=== PATIENT | female | born 1970 | race Caucasian/White ===

== ENCOUNTER 2019-06-19 10:32 | Outpatient (RCR) | payer OTHER, MEDICAID, SELFPAY ==
[2019-04-23 13:01] LABS: INR 3.1; Prothrombin Time 31.4 Seconds (11.1-14.7)
[2019-06-19 11:35] LABS: Hematocrit 35.2 % (37.0-47.0); Hemoglobin 11.2 g/dL (12.0-15.0); Immature Platelet Fraction Pct 6.2 % (0.9-11.2); Mean Corpuscular HGB Conc 31.8 g/dl (32-36); Mean Corpuscular Hemoglobin 27.9 pg (26-34); Mean Corpuscular Volume 87.6 fl (80-100); Mean Platelet Volume 11.8 fl (7.4-10.4); Platelet Count Result 121 k/mm3 (150-375); Red Blood Count 4.02 M/mm3 (4.2-5.4); White Blood Count 4.4 K/mm3 (4.5-10.0)
[2019-06-19 11:37] LABS: Add Urine Microscopic? YES; Appearance Urine Clear (Clear); Bilirubin Urine Negative (Negative); Blood Urine 1+ (Negative); Color Urine Straw (Yellow); Glucose Urine UA Negative (Negative); Ketones Urine Negative (Negative); Leukocyte Esterase Ur Negative LEU/UL (Negative); Mucus Urine Rare /lpf; Nitrate Urine Negative (Negative); Protein Urine Negative (Negative); RBC Urine 0-2 /hpf (0-2); Specific Grav Ur 1.012 (1.001-1.035); Squamous Epithelial Cell Urine Many /hpf (Few); Urobilinogen Urine Negative mg/dL (<2.0); WBC Urine 0-3 /hpf
[2019-06-19 11:51] LABS: INR 3.2; Prothrombin Time 32.5 Seconds (11.1-14.7)
[2019-06-19 11:53] LABS: Alanine Aminotransferase 10 U/L (4-35); Albumin Level 3.9 g/dL (3.5-5.1); Alkaline Phosphatase 108 U/L (38-126); Aspartate Amino Transferase 16 U/L (14-36); Bilirubin,Total 0.6 mg/dL (0.2-1.3); Blood Urea Nitrogen 18 mg/dL (7-17); CRP 1.8 mg/dL (<1.0); Calcium 8.9 mg/dL (8.4-10.2); Carbon Dioxide 28 mmol/L (22-30); Chloride 102 mmol/L (98-107); Cholesterol 137 mg/dL (0-200); Estimated Glomerular Filt Rate > 60; Glucose 94 mg/dL (65-105); HDL Direct 40 mg/dL; Potassium 4.3 mmol/L (3.4-5.0); Sodium 138 mmol/L (137-145); Triglycerides 55 mg/dL (<150)
[2019-06-19 11:57] LABS: Erythrocyte Sedimentation Rate 119 mm/hr (0-20)
[2019-06-19 11:59] LABS: Complement C3 116 mg/dL (88-165)
[2019-06-19 12:02] LABS: LDL Cholesterol Direct 76 mg/dL
[2019-06-20 19:21] LABS: Anti Cardio Antibody IgM <12 MPL (<=12); Anti Cardiolipin Antibody IgA <11 APL (<=11); Anti Cardiolipin Antibody IgG <14 GPL (<=14)
[2019-06-21 00:50] LABS: Angiotensin Converting Enzyme 55 U/L (9-67)
[2019-06-21 02:59] LABS: Thyroglobulin 9.8 ng/mL (2.8-40.9); Thyroglobulin Antibodies <1 IU/mL (<=1); Thyroid Peroxidase Antibodies <1 IU/mL (<9)
[2019-06-21 22:21] LABS: ANCA Screen Negative (Negative)
[2019-06-22 14:15] LABS: Anti Cyclic Citrullinated Pept 38 Units (<20)
[2019-06-22 16:51] LABS: Anti Centromere B Antibody <1.0
[2019-06-22 16:51] LABS: SS-A <1.0; SS-B <1.0
[2019-06-22 18:32] LABS: Scleroderma 70 Antibody <1.0
[2019-06-24 16:46] LABS: SM Antibody <1.0; SM/RNP Antibody <1.0
== END 2019-07-22 23:59 | disposition home or self-care (01) ==
LOC: ANHLAB 10:32
PROVIDERS: PCP Internal Medicine; Referring Provider Internal Medicine; Visit Provider Internal Medicine Cardiovascular Disease
DX: Z51.81 Encounter for therapeutic drug level monitoring (principal); Z79.01 Long term (current) use of anticoagulants
CPT/HCPCS: 36415; 80053; 80061; 81001; 82164; 84432; 85027; 85610; 85652; 86021; 86038; 86039; 86140; 86146; 86147; 86160; 86200; 86225; 86226; 86235; 86376; 86800

== ENCOUNTER 2019-07-24 18:03 | Emergency (ER) | payer OTHER, MEDICAID, SELFPAY ==
[2019-07-24] VITALS (7 sets, daily range): BP systolic 128–162; BP diastolic 68–109; PULSE 83–94; RESP 13–40; TEMP 36.7–37.4; O2SAT 94–100
--- NOTE | ~2019-07-24 | XR_ITS ---
EXAMINATION: XR chest 2V DATE: 07/24/2019 19:34 INDICATION: COPD. Shortness of breath TECHNIQUE: PA and lateral views of the chest were obtained. COMPARISON: Chest radiograph dated 10/06/[address] dated 12/23/2018 FINDINGS: The lungs remain clear with no focal airspace opacities, pulmonary edema, pleural effusion or pneumot horax. Cardiomegaly. Persistently dilated azygos vein. Cholecystectomy clips in the right upper quadr ant. Moderate thoracolumbar spondylosis. IMPRESSION: 1. Cardiomegaly. Reviewed, dictated and finalized at location A. LAINT INVESTIGATIONS OFFICER IMPRESSION: 1. Cardiomegaly.
[2019-07-24] MEDS: methylPREDNISolone SOD SUCC 125 MG VIAL IV PUSH (19:07)
--- NOTE | 2019-07-24 19:11 | ED.GENADULT ---
HPI - General Adult General Chief complaint: Upper Respiratory Infection Stated complaint: cough and cold Time Seen by Provider: 07/24/19 18:11 Source: patient Mode of arrival: ambulatory Limitations: no limitations History of Present Illness HPI narrative: Patient is a 49-year-old female who presents to emergency department for evaluation of upper respiratory symptoms for the last several days. She does cough congestion rhinorrhea with shortness of breath and wheezing with history of COPD has been using her home medications with minimal improvement symptoms worse with activity and movement. Patient denies any current pain vomiting diarrhea weakness. Related Data Home Medications Medication Instructions Recorded Confirmed budesonide-formoterol HFA 160 2 puff INHALATION Q12H 05/26/19 mcg-4.5 mcg/actuation aerosol inhaler carvedilol 3.125 mg tablet 3.125 mg PO Q12H 05/26/19 cetirizine 10 mg tablet 10 mg PO DAILY 05/26/19 furosemide 20 mg tablet 20 mg PO QAM 05/26/19 hydroxychloroquine 200 mg tablet 400 mg PO DAILY tablet 05/26/19 lamotrigine 200 mg tablet 200 mg PO DAILY 05/26/19 pantoprazole 40 mg tablet,delayed 40 mg PO QAM 05/26/19 release sacubitril 49 mg-valsartan 51 mg 2 tablet PO BID tablet 05/26/19 tablet warfarin 1 mg tablet 1 mg PO QMWFSU tablet 05/26/19 warfarin 10 mg tablet 10 mg PO DAILY 05/26/19 Allergies Allergy/AdvReac Type Severity Reaction Status Date / Time oxcarbazepine Allergy Mild Swelling Verified 07/24/19 18:52 sulfamethoxazole Allergy Mild hypersensit Verified 07/24/19 18:52 ivity trimethoprim Allergy Mild Swelling Verified 07/24/19 18:52 doxycycline Allergy Unknown hypersensit Verified 07/24/19 18:52 ivity Penicillins Allergy Unknown urticaria Verified 07/24/19 18:52 Review of Systems Review of Systems: All systems reviewed & are unremarkable except as noted in HPI and below PMFSH Past Medical History Medical History Allergies Arthritis Asthma CHF (congestive heart failure) COPD (chronic obstructive pulmonary disease) GERD (gastroesophageal reflux disease) History of blood clots Lupus (systemic lupus erythematosus) Umbilical hernia Surgical History Surgical History H/O section H/O hernia repair H/O tubal ligation Hx of cholecystectomy Social History Social History Gender identity (if verbalized by the patient): Female Exam Narrative: Exam Narrative: GENERAL: Well-appearing, obese, and in no acute distress. HEAD: Normocephalic, atraumatic. EYES: PERRLA and EOMI. ENT: Nares clear, no rhinorrhea or epistaxis. Mucous membranes moist. Oropharynx without tonsillar hypertrophy exudate or other lesions. NECK: Supple. No adenopathy or masses. CHEST: Diminished on auscultation. No respiratory distress. Expiratory wheezes throughout HEART: Regular rate and rhythm. No murmur heard. Normal peripheral pulses. ABDOMEN: Soft, nontender, nondistended, normal active bowel sounds. EXTREMITIES: Normal range of motion. Chronic edema of the lower extremities SKIN: Warm, dry, no rash. NEURO: No focal deficits. Alert and oriented x3. PSYCH: Normal mood and affect. Course Course Emergency Course: Patient with improvement after breathing treatment wheezing has resolved Vital Signs Vital signs: Vital Signs Temperature 99.3 F 07/24/19 18:11 Pulse Rate 94 07/24/19 18:11 Respiratory Rate 24 H 07/24/19 18:11 Blood Pressure 162/109 H 07/24/19 18:11 Pulse Oximetry 100 07/24/19 18:11 Temperature 98.1 F 07/24/19 19:08 Pulse Rate 87 07/24/19 21:19 Respiratory Rate 13 07/24/19 21:19 Blood Pressure 134/83 07/24/19 21:19 Pulse Oximetry 96 07/24/19 21:20 Medical Decision Making MDM Narrative Medical decision making narrative: Patient in the room i
[2019-07-24] MEDS: ALBUTEROL SULFATE NEB 2.5 MG/0.5 ML INH 20 MG INHALATION (19:14)
[2019-07-24] MEDS: IPRATROPIUM BR 0.02% INH SOLN 0.5 MG/2.5 ML VIAL 1.5 MG INHALATION (19:15)
[2019-07-24 19:19] LABS: Basophils Percent Auto 0.8 % (0.2-1.2); Eosinophils Absolute Auto 0.3 K/mm3 (0-0.3); Eosinophils Percent Auto 8.6 % (0-4.4); Hematocrit 35.9 % (37.0-47.0); Hemoglobin 11.1 g/dL (12.0-15.0); Immature Granulocyte Absolute 0.01 K/mm3 (0.00-0.031); Immature Granulocyte Percent A 0.3 % (0-0.5); Immature Platelet Fraction Pct 7.9 % (0.9-11.2); Lymphocytes Absolute Auto 0.57 K/mm3 (0.9-3.2); Lymphocytes Percent Auto 14.4 % (18.3-44.2); Mean Corpuscular HGB Conc 30.9 g/dl (32-36); Mean Corpuscular Hemoglobin 27.6 pg (26-34); Mean Corpuscular Volume 89.3 fl (80-100); Mean Platelet Volume 11.8 fl (7.4-10.4); Monocytes Absolute Auto 0.4 K/mm3 (0.1-0.6); Monocytes Percent Auto 10.8 % (2.6-8.5); Neutrophils Absolute Auto 2.6 K/mm3 (1.3-6.7); Neutrophils Percent Auto 65.1 % (45.5-73.1); Platelet Count Result 125 k/mm3 (150-375); Red Blood Count 4.02 M/mm3 (4.2-5.4); Red Cell Distribution Width 14.1 % (11.5-14.5)
[2019-07-24 19:27] LABS: INR 3.7; Prothrombin Time 35.8 Seconds (11.1-14.7)
[2019-07-24 19:29] LABS: Blood Urea Nitrogen 13 mg/dL (7-17); Calcium 8.8 mg/dL (8.4-10.2); Carbon Dioxide 31 mmol/L (22-30); Chloride 103 mmol/L (98-107); Estimated CRCL calculation 98 ml/min; Estimated Glomerular Filt Rate > 60; Glucose 97 mg/dL (65-105); Potassium 4.1 mmol/L (3.4-5.0); Sodium 141 mmol/L (137-145)
== END 2019-07-24 21:45 | disposition home or self-care (01) ==
PROVIDERS: Emergency Medicine Emergency Medical Services; Emergency Provider Emergency Medicine; PCP Internal Medicine
DX: J44.9 Chronic obstructive pulmonary disease, unspecified (principal); I50.9 Heart failure, unspecified; K21.9 Gastro-esophageal reflux disease without esophagitis; M32.9 Systemic lupus erythematosus, unspecified; M19.90 Unspecified osteoarthritis, unspecified site; I51.7 Cardiomegaly; Z79.01 Long term (current) use of anticoagulants; Z86.711 Personal history of pulmonary embolism
CPT/HCPCS: 36415; 71046; 80048; 85025; 85055; 85610; 87804; 94640; 96374; 99284; J2930

== ENCOUNTER 2019-08-07 09:53 | Outpatient (CLI) | payer OTHER, MEDICAID, SELFPAY ==
[2019-08-07 10:40] LABS: Hematocrit 38.4 % (37.0-47.0); Hemoglobin 11.9 g/dL (12.0-15.0); Mean Corpuscular Hemoglobin 27.4 pg (26-34); Mean Corpuscular Volume 88.5 fl (80-100); Mean Platelet Volume 12.5 fl (7.4-10.4); Platelet Count Result 114 k/mm3 (150-375); Red Blood Count 4.34 M/mm3 (4.2-5.4); Red Cell Distribution Width 14.4 % (11.5-14.5); White Blood Count 6.7 K/mm3 (4.5-10.0)
[2019-08-07 10:41] LABS: Add Urine Microscopic? NO; Appearance Urine Clear (Clear); Bilirubin Urine Negative (Negative); Blood Urine Negative (Negative); Color Urine Straw (Yellow); Glucose Urine UA Negative (Negative); Ketones Urine Negative (Negative); Leukocyte Esterase Ur Negative LEU/UL (Negative); Nitrate Urine Negative (Negative); Protein Urine Negative (Negative); Specific Grav Ur 1.005 (1.001-1.035); Urobilinogen Urine Negative mg/dL (<2.0)
[2019-08-07 10:53] LABS: Alanine Aminotransferase 11 U/L (4-35); Alkaline Phosphatase 90 U/L (38-126); Aspartate Amino Transferase 15 U/L (14-36); Bilirubin,Total 0.6 mg/dL (0.2-1.3); Blood Urea Nitrogen 19 mg/dL (7-17); CRP 0.8 mg/dL (<1.0); Carbon Dioxide 30 mmol/L (22-30); Chloride 98 mmol/L (98-107); Estimated Glomerular Filt Rate > 60; Glucose 87 mg/dL (65-105); Potassium 4.4 mmol/L (3.4-5.0); Sodium 140 mmol/L (137-145)
== END 2019-08-07 09:54 | disposition home or self-care (01) ==
LOC: ANHLAB 09:57
PROVIDERS: PCP Internal Medicine; Visit Provider Internal Medicine
DX: M32.9 Systemic lupus erythematosus, unspecified (principal); M19.90 Unspecified osteoarthritis, unspecified site
CPT/HCPCS: 36415; 80053; 81003; 85027; 86140

== ENCOUNTER 2019-08-14 12:20 | Outpatient (RCR) | payer OTHER, MEDICAID, SELFPAY ==
[2019-07-29 10:09] LABS: Prothrombin Time 50.1 Seconds (11.1-14.7)
[2019-07-29 10:30] LABS: INR 5.6
[2019-07-31 13:27] LABS: Prothrombin Time 22.5 Seconds (11.1-14.7)
[2019-08-05 11:29] LABS: INR 1.4; Prothrombin Time 16.4 Seconds (11.1-14.7)
[2019-08-14 13:18] LABS: INR 2.5; Prothrombin Time 26.3 Seconds (11.1-14.7)
== END 2019-10-27 23:59 | disposition home or self-care (01) ==
LOC: ANHLAB 12:20
PROVIDERS: PCP Internal Medicine; Visit Provider Internal Medicine Cardiovascular Disease
DX: Z51.81 Encounter for therapeutic drug level monitoring (principal); Z79.01 Long term (current) use of anticoagulants
CPT/HCPCS: 36415; 85610

== ENCOUNTER 2020-01-26 13:02 | Outpatient (RCR) | payer OTHER, MEDICAID, SELFPAY ==
[2019-11-14 10:45] LABS: Hematocrit 34.8 % (37.0-47.0); Mean Corpuscular HGB Conc 31.6 g/dl (32-36); Mean Corpuscular Hemoglobin 28.3 pg (26-34); Mean Corpuscular Volume 89.5 fl (80-100); Platelet Count Result 134 k/mm3 (150-375); Red Blood Count 3.89 M/mm3 (4.2-5.4); Red Cell Distribution Width 14.4 % (11.5-14.5); White Blood Count 4.4 K/mm3 (4.5-10.0)
[2019-11-14 10:46] LABS: Add Urine Microscopic? YES; Appearance Urine Clear (Clear); Bacteria Urine Trace /hpf; Bilirubin Urine Negative (Negative); Blood Urine 1+ (Negative); Color Urine Straw (Yellow); Glucose Urine UA Negative (Negative); Ketones Urine Negative (Negative); Leukocyte Esterase Ur Trace LEU/UL (Negative); Mucus Urine Rare /lpf; Nitrate Urine Negative (Negative); Protein Urine Negative (Negative); RBC Urine 0-2 /hpf (0-2); Specific Grav Ur 1.008 (1.001-1.035); Squamous Epithelial Cell Urine Few /hpf (Few); Urobilinogen Urine Negative mg/dL (<2.0); WBC Urine 0-3 /hpf
[2019-11-14 10:56] LABS: Cholesterol 145 mg/dL (0-200); HDL Direct 50 mg/dL; Triglycerides 66 mg/dL (<150)
[2019-11-14 10:58] LABS: INR 3.2; Prothrombin Time 32.1 Seconds (11.1-14.7)
[2019-11-14 11:00] LABS: Alanine Aminotransferase 10 U/L (4-35); Albumin Level 4.2 g/dL (3.5-5.1); Alkaline Phosphatase 104 U/L (38-126); Aspartate Amino Transferase 18 U/L (14-36); Bilirubin,Total 0.4 mg/dL (0.2-1.3); Blood Urea Nitrogen 17 mg/dL (7-17); Calcium 8.7 mg/dL (8.4-10.2); Carbon Dioxide 30 mmol/L (22-30); Chloride 104 mmol/L (98-107); Estimated Glomerular Filt Rate > 60; Glucose 92 mg/dL (65-105); Potassium 4.3 mmol/L (3.4-5.0); Sodium 139 mmol/L (137-145)
[2019-11-14 11:06] LABS: LDL Cholesterol Direct 73 mg/dL
[2019-11-14 11:32] LABS: Vitamin D 25 Hydroxy 25.3 ng/mL
[2019-12-15 12:10] LABS: INR 2.5; Prothrombin Time 26.5 Seconds (11.1-14.7)
[2020-01-26 14:12] LABS: INR 3.1; Prothrombin Time 31.2 Seconds (11.1-14.7)
== END 2020-02-12 23:59 | disposition home or self-care (01) ==
LOC: ANHLAB 13:02
PROVIDERS: Nurse Practitioner; PCP Internal Medicine; Referring Provider Internal Medicine; Visit Provider Internal Medicine Cardiovascular Disease
DX: Z51.81 Encounter for therapeutic drug level monitoring (principal); I50.42 Chronic combined systolic (congestive) and diastolic (congestive) heart failure; E55.9 Vitamin D deficiency, unspecified; M32.8 Other forms of systemic lupus erythematosus; M19.90 Unspecified osteoarthritis, unspecified site; Z79.01 Long term (current) use of anticoagulants
CPT/HCPCS: 36415; 80053; 80061; 81001; 82306; 85027; 85610; 86140

== ENCOUNTER 2020-01-26 13:06 | Outpatient (CLI) | payer OTHER, MEDICAID, SELFPAY ==
[2020-01-26 14:02] LABS: Hematocrit 36.3 % (37.0-47.0); Hemoglobin 11.5 g/dL (12.0-15.0); Mean Corpuscular HGB Conc 31.7 g/dl (32-36); Mean Corpuscular Hemoglobin 28.2 pg (26-34); Mean Platelet Volume 11.9 fl (7.4-10.4); Platelet Count Result 131 k/mm3 (150-375); Red Blood Count 4.08 M/mm3 (4.2-5.4); Red Cell Distribution Width 14.1 % (11.5-14.5); White Blood Count 4.2 K/mm3 (4.5-10.0)
[2020-01-26 14:18] LABS: Alanine Aminotransferase 10 U/L (4-35); Alkaline Phosphatase 89 U/L (38-126); Anion Gap 6 mmol/L (8-16); Aspartate Amino Transferase 18 U/L (14-36); Bilirubin,Total 0.2 mg/dL (0.2-1.3); Blood Urea Nitrogen 21 mg/dL (7-17); CRP < 0.5 mg/dL (<1.0); Calcium 8.8 mg/dL (8.4-10.2); Carbon Dioxide 28 mmol/L (22-30); Chloride 104 mmol/L (98-107); Estimated Glomerular Filt Rate 53; Glucose 90 mg/dL (65-105); Potassium 4.1 mmol/L (3.4-5.0); Sodium 138 mmol/L (137-145)
[2020-01-26 14:53] LABS: Add Urine Microscopic? YES; Appearance Urine Clear (Clear); Bilirubin Urine Negative (Negative); Blood Urine 2+ (Negative); Color Urine Straw (Yellow); Glucose Urine UA Negative (Negative); Ketones Urine Negative (Negative); Leukocyte Esterase Ur Negative LEU/UL (Negative); Mucus Urine Rare /lpf; Nitrate Urine Negative (Negative); Protein Urine Negative (Negative); RBC Urine 0-2 /hpf (0-2); Specific Grav Ur 1.008 (1.001-1.035); Squamous Epithelial Cell Urine Few /hpf (Few); Urobilinogen Urine Negative mg/dL (<2.0); WBC Urine 0-3 /hpf
[2020-01-26 14:58] LABS: Erythrocyte Sedimentation Rate 78 mm/hr (0-20)
== END 2020-01-26 13:07 | disposition home or self-care (01) ==
PROVIDERS: PCP Internal Medicine; Visit Provider Internal Medicine
DX: M19.90 Unspecified osteoarthritis, unspecified site (principal); M32.9 Systemic lupus erythematosus, unspecified
CPT/HCPCS: 36415; 80053; 81001; 85027; 85055; 85610; 85652; 86140

== ENCOUNTER 2020-03-14 09:08 | Outpatient (CLI) | payer OTHER, MEDICAID, SELFPAY ==
--- NOTE | ~2020-03-14 | CT_ITS ---
EXAMINATION: CT chest w con DATE: 03/14/2020 09:41 INDICATION: Enlarged lymph nodes. TECHNIQUE: Computed tomography (CT) of the chest was performed with 75 cc Omnipaque 350 intravenous c ontrast. The dose-length product was 1067.05 mGy-cm. Automated exposure control and iterative reconst ruction technique were employed. COMPARISON: CT dated 12/23/2018 FINDINGS: Interval resolution of mediastinal lymphadenopathy. Cardiomegaly. Enlarged pulmonary arteri es consistent with pulmonary arterial hypertension. No significant pleural or pericardial effusion. T here is atherosclerosis of the coronary arteries. There is chronic left lower lobe atelectasis/scarri ng. No endobronchial lesions. No suspicious pulmonary nodules or masses. IMPRESSION: 1. Cardiomegaly. 2: Enlarged pulmonary arteries consistent with pulmonary arterial hypertension. 3: Resolution of lymphadenopathy, likely reactive. 4: Chronic left lower lobe atelectasis/scarring. Reviewed, dictated and finalized at location A.
[2020-03-14 09:36] LABS: Estimated Glomerular Filt Rate 59
== END 2020-03-14 09:09 | disposition home or self-care (01) ==
PROVIDERS: PCP Internal Medicine; Visit Provider Nurse Practitioner Family
DX: J44.9 Chronic obstructive pulmonary disease, unspecified (principal); R59.1 Generalized enlarged lymph nodes; I51.7 Cardiomegaly; R91.8 Other nonspecific abnormal finding of lung field
CPT/HCPCS: 71260; Q9967

== ENCOUNTER 2020-03-15 13:03 | Outpatient (RCR) | payer OTHER, MEDICAID, SELFPAY ==
[2020-03-15 14:13] LABS: INR 2.8; Prothrombin Time 28.7 Seconds (11.1-14.7)
== END 2020-06-13 23:59 | disposition home or self-care (01) ==
LOC: ANHLAB 13:03
PROVIDERS: PCP Internal Medicine; Visit Provider Internal Medicine Cardiovascular Disease
DX: Z51.81 Encounter for therapeutic drug level monitoring (principal); Z79.01 Long term (current) use of anticoagulants
CPT/HCPCS: 36415; 85610

== ENCOUNTER 2020-03-15 13:10 | Outpatient (CLI) | payer OTHER, MEDICAID, SELFPAY ==
[2020-03-15 14:01] LABS: Basophils Percent Auto 0.7 % (0.2-1.2); Eosinophils Absolute Auto 0.1 K/mm3 (0-0.3); Eosinophils Percent Auto 2.2 % (0-4.4); Hematocrit 37.4 % (37.0-47.0); Immature Granulocyte Absolute 0.03 K/mm3 (0.00-0.031); Immature Granulocyte Percent A 0.5 % (0-0.5); Lymphocytes Absolute Auto 1.04 K/mm3 (0.9-3.2); Mean Corpuscular HGB Conc 32.1 g/dl (32-36); Mean Corpuscular Volume 90.3 fl (80-100); Mean Platelet Volume 12.5 fl (7.4-10.4); Monocytes Absolute Auto 0.6 K/mm3 (0.1-0.6); Monocytes Percent Auto 10.4 % (2.6-8.5); Neutrophils Absolute Auto 3.9 K/mm3 (1.3-6.7); Neutrophils Percent Auto 68.2 % (45.5-73.1); Platelet Count Result 142 k/mm3 (150-375); Red Blood Count 4.14 M/mm3 (4.2-5.4); Red Cell Distribution Width 14.3 % (11.5-14.5); White Blood Count 5.8 K/mm3 (4.5-10.0)
[2020-03-15 14:12] LABS: Alanine Aminotransferase 12 U/L (4-35); Albumin Level 4.3 g/dL (3.5-5.1); Alkaline Phosphatase 96 U/L (38-126); Anion Gap 9 mmol/L (8-16); Aspartate Amino Transferase 19 U/L (14-36); Bilirubin,Total 0.6 mg/dL (0.2-1.3); Blood Urea Nitrogen 17 mg/dL (7-17); CRP 0.6 mg/dL (<1.0); Calcium 9.3 mg/dL (8.4-10.2); Carbon Dioxide 30 mmol/L (22-30); Chloride 103 mmol/L (98-107); Estimated Glomerular Filt Rate 59; Glucose 91 mg/dL (65-105); Potassium 3.9 mmol/L (3.4-5.0); Sodium 142 mmol/L (137-145)
[2020-03-15 14:20] LABS: Add Urine Microscopic? YES; Appearance Urine Clear (Clear); Bilirubin Urine Negative (Negative); Blood Urine 1+ (Negative); Color Urine Straw (Yellow); Glucose Urine UA Negative (Negative); Ketones Urine Negative (Negative); Leukocyte Esterase Ur Negative LEU/UL (Negative); Mucus Urine Rare /lpf; Nitrate Urine Negative (Negative); Protein Urine Negative (Negative); RBC Urine 0-2 /hpf (0-2); Specific Grav Ur 1.009 (1.001-1.035); Squamous Epithelial Cell Urine Occasional /hpf (Few); Urobilinogen Urine Negative mg/dL (<2.0); WBC Urine 0-3 /hpf
[2020-03-15 15:12] LABS: Erythrocyte Sedimentation Rate 47 mm/hr (0-20)
== END 2020-03-15 13:11 | disposition home or self-care (01) ==
PROVIDERS: PCP Internal Medicine; Visit Provider Internal Medicine
DX: M32.19 Other organ or system involvement in systemic lupus erythematosus (principal); M19.90 Unspecified osteoarthritis, unspecified site
CPT/HCPCS: 36415; 80053; 81001; 85025; 85610; 85652; 86140

== ENCOUNTER 2020-04-08 08:57 | Outpatient (CLI) | payer OTHER, MEDICAID, SELFPAY ==
--- NOTE | ~2020-04-08 | XR_ITS ---
XR lumbar spine 2-3V 04/08/2020 09:32 Indication: Low back pain Procedure: 3 views lumbar spine Comparison: No prior studies for comparison. Findings: There is mild disc narrowing at L3-4 and L5-S1. There is facet hypertrophy at L4-5 and L5-S 1. There is an IVC filter. There is moderate disc narrowing at T11-12 and T12-L1. There are cholecyst ectomy clips. Impression: 1: Mild-moderate multilevel spondylosis. Reviewed, dictated and finalized at location B. Impression: 1: Mild-moderate multilevel spondylosis.
== END 2020-04-08 08:58 | disposition home or self-care (01) ==
LOC: ANHIMG 09:00
PROVIDERS: PCP Internal Medicine; Visit Provider Internal Medicine
DX: M47.896 Other spondylosis, lumbar region (principal)
CPT/HCPCS: 72100

== ENCOUNTER 2020-04-20 06:49 | Outpatient (NON) | payer OTHER, MEDICAID, SELFPAY ==
[2020-04-21 18:20] LABS: SARS-CoV-2 RNA PCR Positive
== END 2020-04-20 06:50 ==
LOC: ANHCOVIDDT 06:58
PROVIDERS: PCP Internal Medicine; Visit Provider Internal Medicine
DX: U07.1 COVID-19 (principal)
CPT/HCPCS: 87635; C9803; U0003

== ENCOUNTER 2020-05-14 11:09 | Outpatient (CLI) | payer OTHER, MEDICAID, SELFPAY ==
--- NOTE | ~2020-05-14 | MM_ITS ---
EXAMINATION: MM screening anais BI w gutierrez HISTORY: Screening mammogram TECHNIQUE: Craniocaudal and mediolateral oblique 3-D tomosynthesis images were obtained and synthetic 2-D images were generated. CAD analysis was submitted and interpreted. COMPARISON: 01/09/2018, 10/19/2016, 10/29/2013 bilateral digital screening mammogram examinations BREAST PARENCHYMAL COMPOSITION: The breasts are almost entirely fatty. FINDINGS: There is no evidence of suspicious mass, calcification, or architectural distortion to sugg est malignancy in either breast. There has been no suspicious interval change. IMPRESSION: 1. No mammographic evidence of malignancy. 2. Recommend routine screening mammography in one year. BI-RADS Category 1: Negative Reviewed, dictated and finalized at location A. AND INSURANCE CONSULTANT
== END 2020-05-14 11:10 | disposition home or self-care (01) ==
PROVIDERS: PCP Internal Medicine; Visit Provider Nurse Practitioner
DX: Z12.31 Encounter for screening mammogram for malignant neoplasm of breast (principal)
CPT/HCPCS: 77063; 77067

== ENCOUNTER 2020-06-21 10:46 | Outpatient (CLI) | payer OTHER, MEDICAID, SELFPAY ==
[2020-06-21 11:55] LABS: Appearance Urine Clear (Clear); Bilirubin Urine Negative (Negative); Blood Urine Negative (Negative); Color Urine Colorless (Yellow); Glucose Urine UA Negative (Negative); Hematocrit 34.7 % (37.0-47.0); Immature Platelet Fraction Pct 10.5 % (0.9-11.2); Ketones Urine Negative (Negative); Leukocyte Esterase Ur Negative LEU/UL (Negative); Mean Corpuscular HGB Conc 31.7 g/dl (32-36); Mean Corpuscular Hemoglobin 28.4 pg (26-34); Mean Corpuscular Volume 89.4 fl (80-100); Mean Platelet Volume 12.2 fl (7.4-10.4); Nitrate Urine Negative (Negative); Platelet Count Result 113 k/mm3 (150-375); Protein Urine Negative (Negative); Red Blood Count 3.88 M/mm3 (4.2-5.4); Red Cell Distribution Width 13.6 % (11.5-14.5); Urobilinogen Urine Negative mg/dL (<2.0); White Blood Count 4.1 K/mm3 (4.5-10.0)
[2020-06-21 12:12] LABS: CRP 1.1 mg/dL (<1.0)
[2020-06-21 12:24] LABS: Erythrocyte Sedimentation Rate 110 mm/hr (0-20)
[2020-06-21 12:46] LABS: Specific Grav Ur 1.004 (1.001-1.035); WBC Urine 0-3 /hpf
[2020-06-21 12:47] LABS: Add Urine Microscopic? YES; Squamous Epithelial Cell Urine Rare /hpf (Few)
[2020-06-22 09:19] LABS: RBC Urine 0-2 /hpf (0-2)
== END 2020-06-21 10:47 | disposition home or self-care (01) ==
LOC: ANHLAB 10:47
PROVIDERS: PCP Internal Medicine; Visit Provider Internal Medicine
DX: M32.9 Systemic lupus erythematosus, unspecified (principal); M19.90 Unspecified osteoarthritis, unspecified site
CPT/HCPCS: 36415; 81001; 85027; 85055; 85610; 85652; 86140

== ENCOUNTER 2020-06-23 11:45 | Outpatient (CLI) | payer OTHER, MEDICAID, SELFPAY ==
--- NOTE | ~2020-06-23 | XR_ITS ---
EXAMINATION: XR chest 2V 06/23/2020 12:11 INDICATION: Dyspnea. COPD. PROCEDURE: PA and lateral views of the chest COMPARISON: Comparison to multiple prior studies sequentially, with oldest reviewed study dated 03/19. FINDINGS: The lungs are clear. Cardiomegaly. There are no pleural effusions. There is no pneumothora x suspected. IMPRESSION: 1: NO ACUTE CARDIOPULMONARY DISEASE. Reviewed, dictated and finalized at location A. ACCOUNT MANAGER
== END 2020-06-23 11:46 | disposition home or self-care (01) ==
PROVIDERS: PCP Internal Medicine; Visit Provider Internal Medicine
DX: Z79.899 Other long term (current) drug therapy (principal); J44.9 Chronic obstructive pulmonary disease, unspecified
CPT/HCPCS: 71046; 87077; 87086; 87088; 87186

== ENCOUNTER 2020-08-26 11:29 | Outpatient (RCR) | payer OTHER, MEDICAID, SELFPAY ==
[2020-06-21 12:03] LABS: INR 4.4; Prothrombin Time 42.1 Seconds (11.1-14.7)
[2020-08-26 12:31] LABS: INR 3.3; Prothrombin Time 34.2 Seconds (11.1-14.7)
== END 2020-09-19 23:59 | disposition home or self-care (01) ==
LOC: ANHLAB 11:29
PROVIDERS: PCP Internal Medicine; Visit Provider Internal Medicine Cardiovascular Disease
DX: Z51.81 Encounter for therapeutic drug level monitoring (principal); I82.409 Acute embolism and thrombosis of unspecified deep veins of unspecified lower extremity; Z86.718 Personal history of other venous thrombosis and embolism; Z86.711 Personal history of pulmonary embolism; Z79.01 Long term (current) use of anticoagulants
CPT/HCPCS: 36415; 85610

== ENCOUNTER 2020-08-26 11:33 | Outpatient (CLI) | payer OTHER, MEDICAID, SELFPAY ==
[2020-08-26 12:18] LABS: Hematocrit 35.2 % (37.0-47.0); Hemoglobin 11.2 g/dL (12.0-15.0); Mean Corpuscular HGB Conc 31.8 g/dl (32-36); Mean Corpuscular Hemoglobin 27.1 pg (26-34); Mean Corpuscular Volume 85.2 fl (80-100); Mean Platelet Volume 12.3 fl (7.4-10.4); Platelet Count Result 126 k/mm3 (150-375); Red Blood Count 4.13 M/mm3 (4.2-5.4); Red Cell Distribution Width 13.2 % (11.5-14.5); White Blood Count 4.2 K/mm3 (4.5-10.0)
[2020-08-26 12:20] LABS: Add Urine Microscopic? NO; Appearance Urine Clear (Clear); Bilirubin Urine Negative (Negative); Blood Urine Negative (Negative); Color Urine Straw (Yellow); Glucose Urine UA Negative (Negative); Ketones Urine Negative (Negative); Leukocyte Esterase Ur Negative LEU/UL (Negative); Nitrate Urine Negative (Negative); Protein Urine Negative (Negative); Urobilinogen Urine Negative mg/dL (<2.0)
[2020-08-26 12:33] LABS: Alanine Aminotransferase 8 U/L (4-35); Albumin Level 4.2 g/dL (3.5-5.1); Alkaline Phosphatase 91 U/L (38-126); Anion Gap 7 mmol/L (8-16); Aspartate Amino Transferase 20 U/L (14-36); Bilirubin,Total 0.4 mg/dL (0.2-1.3); Blood Urea Nitrogen 19 mg/dL (7-17); CRP < 0.5 mg/dL (<1.0); Calcium 9.2 mg/dL (8.4-10.2); Carbon Dioxide 28 mmol/L (22-30); Chloride 104 mmol/L (98-107); Estimated Glomerular Filt Rate 59; Glucose 95 mg/dL (65-105); Sodium 139 mmol/L (137-145)
[2020-08-26 13:25] LABS: Erythrocyte Sedimentation Rate 67 mm/hr (0-20)
== END 2020-08-26 11:34 | disposition home or self-care (01) ==
LOC: ANHLAB 11:35
PROVIDERS: PCP Internal Medicine; Visit Provider Internal Medicine
DX: R70.0 Elevated erythrocyte sedimentation rate (principal); M32.9 Systemic lupus erythematosus, unspecified; M19.90 Unspecified osteoarthritis, unspecified site
CPT/HCPCS: 36415; 80053; 81003; 85027; 85610; 85652; 86140

== ENCOUNTER 2020-10-06 08:59 | Outpatient (CLI) | payer OTHER, MEDICAID, SELFPAY ==
[2020-10-06 09:34] LABS: Alanine Aminotransferase 8 U/L (4-35); Alkaline Phosphatase 98 U/L (38-126); Anion Gap 5 mmol/L (8-16); Aspartate Amino Transferase 16 U/L (14-36); Bilirubin,Total 0.3 mg/dL (0.2-1.3); Blood Urea Nitrogen 21 mg/dL (7-17); Calcium 8.4 mg/dL (8.4-10.2); Carbon Dioxide 30 mmol/L (22-30); Chloride 105 mmol/L (98-107); Cholesterol 158 mg/dL (0-200); Estimated Glomerular Filt Rate 59; Glucose 96 mg/dL (65-105); HDL Direct 47 mg/dL; Potassium 4.1 mmol/L (3.4-5.0); Sodium 140 mmol/L (137-145); Triglycerides 52 mg/dL (<150)
[2020-10-06 09:44] LABS: LDL Cholesterol Direct 89 mg/dL
[2020-10-06 10:24] LABS: Vitamin D 25 Hydroxy 29.9 ng/mL
== END 2020-10-06 09:00 | disposition home or self-care (01) ==
PROVIDERS: PCP Internal Medicine; Visit Provider Nurse Practitioner
DX: E55.9 Vitamin D deficiency, unspecified (principal); I50.42 Chronic combined systolic (congestive) and diastolic (congestive) heart failure; Z13.220 Encounter for screening for lipoid disorders
CPT/HCPCS: 36415; 80053; 80061; 82306

== ENCOUNTER 2020-12-03 11:14 | Outpatient (RCR) | payer OTHER, MEDICAID, SELFPAY ==
[2020-09-21 15:22] LABS: INR 2.5; Prothrombin Time 27.8 Seconds (11.1-14.7)
[2020-12-03 12:26] LABS: INR 2.9; Prothrombin Time 30.9 Seconds (11.1-14.7)
== END 2020-12-20 23:59 | disposition home or self-care (01) ==
LOC: ANHLAB 11:14
PROVIDERS: PCP Internal Medicine; Visit Provider Internal Medicine Cardiovascular Disease
DX: Z51.81 Encounter for therapeutic drug level monitoring (principal); I82.409 Acute embolism and thrombosis of unspecified deep veins of unspecified lower extremity; Z86.718 Personal history of other venous thrombosis and embolism; Z86.711 Personal history of pulmonary embolism; Z79.01 Long term (current) use of anticoagulants
CPT/HCPCS: 36415; 85610

== ENCOUNTER 2021-04-13 10:13 | Outpatient (RCR) | payer MEDICARE, MEDICAID, SELFPAY ==
[2021-01-18 12:19] LABS: Hematocrit 39.8 % (37.0-47.0); Hemoglobin 12.4 g/dL (12.0-15.0); Immature Platelet Fraction Pct 11.5 % (0.9-11.2); Mean Corpuscular HGB Conc 31.2 g/dl (32-36); Mean Corpuscular Hemoglobin 27.7 pg (26-34); Mean Corpuscular Volume 88.8 fl (80-100); Mean Platelet Volume 12.3 fl (7.4-10.4); Platelet Count Result 133 k/mm3 (150-375); Red Blood Count 4.48 M/mm3 (4.2-5.4); Red Cell Distribution Width 14.4 % (11.5-14.5)
[2021-01-18 12:20] LABS: Add Urine Microscopic? NO; Appearance Urine Clear (Clear); Bilirubin Urine Negative (Negative); Blood Urine Negative (Negative); Color Urine Straw (Yellow); Glucose Urine UA Negative (Negative); Ketones Urine Negative (Negative); Leukocyte Esterase Ur Negative LEU/UL (Negative); Nitrate Urine Negative (Negative); Protein Urine Negative (Negative); Urobilinogen Urine Negative mg/dL (<2.0)
[2021-01-18 12:30] LABS: Prothrombin Time 22.2 Seconds (11.1-14.7)
[2021-01-18 12:32] LABS: Alanine Aminotransferase 17 U/L (4-35); Albumin Level 4.1 g/dL (3.5-5.1); Alkaline Phosphatase 78 U/L (38-126); Anion Gap 9 mmol/L (8-16); Aspartate Amino Transferase 20 U/L (14-36); Bilirubin,Total 0.6 mg/dL (0.2-1.3); Blood Urea Nitrogen 23 mg/dL (7-17); CRP < 0.5 mg/dL (<1.0); Calcium 9.7 mg/dL (8.4-10.2); Carbon Dioxide 28 mmol/L (22-30); Chloride 102 mmol/L (98-107); Estimated Glomerular Filt Rate > 60; Glucose 89 mg/dL (65-110); Potassium 4.4 mmol/L (3.4-5.0); Sodium 139 mmol/L (137-145)
[2021-01-18 12:55] LABS: Erythrocyte Sedimentation Rate 37 mm/hr (0-20)
[2021-03-14 12:46] LABS: INR 2.1; Prothrombin Time 23.4 Seconds (11.1-14.7)
[2021-04-13 10:59] LABS: INR 3.7; Prothrombin Time 35.2 Seconds (11.1-14.7)
== END 2021-04-18 23:59 | disposition home or self-care (01) ==
LOC: ANHLAB 10:13
PROVIDERS: Internal Medicine; PCP Internal Medicine; Visit Provider Internal Medicine Cardiovascular Disease
DX: Z51.81 Encounter for therapeutic drug level monitoring (principal); I82.409 Acute embolism and thrombosis of unspecified deep veins of unspecified lower extremity; I50.42 Chronic combined systolic (congestive) and diastolic (congestive) heart failure; E55.9 Vitamin D deficiency, unspecified; Z86.718 Personal history of other venous thrombosis and embolism; Z86.711 Personal history of pulmonary embolism; Z79.01 Long term (current) use of anticoagulants; Z79.899 Other long term (current) drug therapy
CPT/HCPCS: 36415; 80053; 81003; 82306; 85027; 85055; 85610; 85652; 86140

== ENCOUNTER 2021-04-13 10:15 | Outpatient (CLI) | payer MEDICARE, MEDICAID, SELFPAY ==
[2021-04-13 11:00] LABS: Alanine Aminotransferase 11 U/L (4-35); Albumin Level 3.9 g/dL (3.5-5.1); Alkaline Phosphatase 75 U/L (38-126); Anion Gap 8 mmol/L (8-16); Aspartate Amino Transferase 18 U/L (14-36); Bilirubin,Total 0.6 mg/dL (0.2-1.3); Blood Urea Nitrogen 18 mg/dL (7-17); Calcium 8.8 mg/dL (8.4-10.2); Carbon Dioxide 27 mmol/L (22-30); Chloride 107 mmol/L (98-107); Cholesterol 145 mg/dL (0-200); Estimated Glomerular Filt Rate 59; Glucose 84 mg/dL (65-110); HDL Direct 41 mg/dL; Potassium 4.1 mmol/L (3.4-5.0); Sodium 142 mmol/L (137-145); Triglycerides 62 mg/dL (<150)
[2021-04-13 11:14] LABS: LDL Cholesterol Direct 75 mg/dL
[2021-04-13 15:19] LABS: Vitamin D 25 Hydroxy 53.6 ng/mL
== END 2021-04-13 10:16 | disposition home or self-care (01) ==
PROVIDERS: PCP Internal Medicine; Visit Provider Nurse Practitioner
DX: E55.9 Vitamin D deficiency, unspecified (principal); Z13.220 Encounter for screening for lipoid disorders; I50.9 Heart failure, unspecified
CPT/HCPCS: 36415; 80053; 80061; 82306

== ENCOUNTER 2021-05-24 15:05 | Outpatient (CLI) | payer MEDICARE, MEDICAID, SELFPAY ==
--- NOTE | ~2021-05-24 | MM_ITS ---
EXAMINATION: MM screening anais BI w gutierrez HISTORY: Screening TECHNIQUE: Craniocaudal and mediolateral oblique 3-D tomosynthesis images were obtained and synthetic 2-D images were generated. CAD analysis was submitted and interpreted. COMPARISON: Comparison to multiple prior studies sequentially, with oldest reviewed study dated 10/09. BREAST PARENCHYMAL COMPOSITION: There are scattered areas of fibroglandular density. FINDINGS: There is no evidence of suspicious mass, calcification, or architectural distortion to sugg est malignancy in either breast. There has been no suspicious interval change. IMPRESSION: 1. No mammographic evidence of malignancy. 2. Recommend routine screening mammography in one year. BI-RADS Category 1: Negative Reviewed, dictated and finalized at location A. CLEANING SUPERVISOR
== END 2021-05-24 15:06 | disposition home or self-care (01) ==
LOC: ANHIMG 15:07
PROVIDERS: PCP Internal Medicine; Visit Provider Nurse Practitioner
DX: Z12.31 Encounter for screening mammogram for malignant neoplasm of breast (principal)
CPT/HCPCS: 77063; 77067

== ENCOUNTER 2021-08-01 09:13 | Outpatient (CLI) | payer MEDICARE, MEDICAID, SELFPAY ==
[2021-08-01 11:10] LABS: Hemoglobin 11.6 g/dL (12.0-15.0); Mean Corpuscular HGB Conc 31.4 g/dl (32-36); Mean Corpuscular Hemoglobin 27.9 pg (26-34); Mean Corpuscular Volume 88.9 fl (80-100); Mean Platelet Volume 12.8 fl (7.4-10.4); Platelet Count Result 126 k/mm3 (150-375); Red Blood Count 4.16 M/mm3 (4.2-5.4); Red Cell Distribution Width 13.2 % (11.5-14.5); White Blood Count 4.5 K/mm3 (4.5-10.0)
[2021-08-01 11:26] LABS: Alanine Aminotransferase 11 U/L (4-35); Albumin Level 4.1 g/dL (3.5-5.1); Alkaline Phosphatase 101 U/L (38-126); Anion Gap 3 mmol/L (8-16); Aspartate Amino Transferase 20 U/L (14-36); Bilirubin,Total 0.5 mg/dL (0.2-1.3); Blood Urea Nitrogen 16 mg/dL (7-17); Calcium 8.7 mg/dL (8.4-10.2); Carbon Dioxide 29 mmol/L (22-30); Chloride 106 mmol/L (98-107); Estimated Glomerular Filt Rate > 60; Glucose 89 mg/dL (65-110); Potassium 4.2 mmol/L (3.4-5.0); Sodium 138 mmol/L (137-145)
[2021-08-01 11:28] LABS: Add Urine Microscopic? NO; Appearance Urine Clear (Clear); Bilirubin Urine Negative (Negative); Blood Urine Negative (Negative); Color Urine Straw (Yellow); Glucose Urine UA Negative (Negative); Ketones Urine Negative (Negative); Leukocyte Esterase Ur Negative LEU/UL (NEGATIVE); Nitrate Urine Negative (Negative); Protein Urine Negative (Negative); Specific Grav Ur 1.006 (1.001-1.035); Urobilinogen Urine Negative mg/dL (<2.0)
[2021-08-01 12:35] LABS: Erythrocyte Sedimentation Rate 59 mm/hr (0-20)
== END 2021-08-01 09:14 | disposition home or self-care (01) ==
PROVIDERS: PCP Internal Medicine; Visit Provider Internal Medicine
DX: M19.90 Unspecified osteoarthritis, unspecified site (principal); M32.9 Systemic lupus erythematosus, unspecified
CPT/HCPCS: 36415; 80053; 81003; 85027; 85610; 85652; 86140

== ENCOUNTER 2021-08-15 08:22 | Outpatient (RCR) | payer MEDICARE, MEDICAID, SELFPAY ==
[2021-08-01 11:42] LABS: Prothrombin Time 46.5 Seconds (11.1-14.7)
[2021-08-01 12:44] LABS: INR 5.2
[2021-08-15 08:44] LABS: INR 3.4; Prothrombin Time 33.5 Seconds (11.1-14.7)
== END 2021-10-30 23:59 | disposition home or self-care (01) ==
LOC: ANHLAB 08:22
PROVIDERS: PCP Internal Medicine; Visit Provider Internal Medicine Cardiovascular Disease
DX: Z51.81 Encounter for therapeutic drug level monitoring (principal); D68.61 Antiphospholipid syndrome; Z79.01 Long term (current) use of anticoagulants
CPT/HCPCS: 36415; 85610

== ENCOUNTER 2021-11-15 11:22 | Outpatient (CLI) | payer MEDICARE, MEDICAID, SELFPAY ==
--- NOTE | ~2021-11-15 | XR_ITS ---
EXAMINATION: XR UGIAC w barium swallow DATE: 11/15/2021 12:44 INDICATION: Gastroesophageal reflux disease. TECHNIQUE: Thick barium contrast with gas effervescent crystals were administered orally. Fluoroscop ic images of the esophagus, stomach, and proximal duodenum were obtained in various projections. The reafter, overhead images of the abdomen were performed. 0.7 minutes of fluroscopy. 46 fluoroscopic im ages. FINDINGS: The esophagus is normal in caliber, without mucosal lesions or strictures. There is normal esophagea l peristalsis. There is no hiatal hernia. No gastroesophageal reflux witnessed during the course of the study. The gastric folds are normal. The proximal duodenum is also normal in appearance. There is an IVC fi lter present. IMPRESSION: 1. Normal upper GI study. Reviewed, dictated and finalized at location A. IMPRESSION: 1. Normal upper GI study.
[2021-11-15 12:02] LABS: Hematocrit 39.2 % (37.0-47.0); Hemoglobin 12.3 g/dL (12.0-15.0); Mean Corpuscular HGB Conc 31.4 g/dl (32-36); Mean Corpuscular Hemoglobin 27.7 pg (26-34); Mean Corpuscular Volume 88.3 fl (80-100); Platelet Count Result 135 k/mm3 (150-375); Red Blood Count 4.44 M/mm3 (4.2-5.4)
[2021-11-15 12:14] LABS: Cholesterol 165 mg/dL (0-200); HDL Direct 45 mg/dL; Triglycerides 81 mg/dL (<150)
[2021-11-15 12:15] LABS: Alanine Aminotransferase 13 U/L (6-35); Alkaline Phosphatase 95 U/L (38-126); Anion Gap 8 mmol/L (8-16); Aspartate Amino Transferase 19 U/L (14-36); Bilirubin,Total 0.4 mg/dL (0.2-1.3); Blood Urea Nitrogen 19 mg/dL (7-17); CRP < 0.5 mg/dL (<1.0); Calcium 8.9 mg/dL (8.4-10.2); Carbon Dioxide 23 mmol/L (22-30); Chloride 108 mmol/L (98-107); Estimated Glomerular Filt Rate 59; Glucose 91 mg/dL (65-110); Potassium 4.4 mmol/L (3.4-5.0); Sodium 139 mmol/L (137-145)
[2021-11-15 12:18] LABS: Appearance Urine Clear (Clear); Bilirubin Urine Negative (Negative); Blood Urine Trace-lysed (Negative); Color Urine Yellow (Yellow); Glucose Urine UA Negative (Negative); Ketones Urine Negative (Negative); Leukocyte Esterase Ur Negative LEU/UL (Negative); Nitrate Urine Negative (Negative); Protein Urine Negative (Negative); Specific Grav Ur 1.025 (1.001-1.035); Urobilinogen Urine 0.2 mg/dL (<2.0); pH Urine 5.5 (5.0-9.0)
[2021-11-15 12:24] LABS: LDL Cholesterol Direct 78 mg/dL
[2021-11-15 12:47] LABS: RBC Urine 0-2 /hpf (0-2); Squamous Epithelial Cell Urine Rare /hpf (Few); WBC Urine 0-3 /hpf
[2021-11-15 12:49] LABS: Add Urine Microscopic? YES
[2021-11-15 13:44] LABS: Vitamin D 25 Hydroxy 56.4 ng/mL
[2021-11-15 13:55] LABS: Erythrocyte Sedimentation Rate 32 mm/hr (0-20)
== END 2021-11-15 11:23 | disposition home or self-care (01) ==
PROVIDERS: Internal Medicine; Nurse Practitioner; PCP Internal Medicine; Visit Provider Internal Medicine
DX: M19.90 Unspecified osteoarthritis, unspecified site (principal); M32.9 Systemic lupus erythematosus, unspecified; E55.9 Vitamin D deficiency, unspecified; I50.9 Heart failure, unspecified; Z13.220 Encounter for screening for lipoid disorders
CPT/HCPCS: 36415; 74246; 80053; 80061; 81001; 82306; 85027; 85652; 86140

== ENCOUNTER 2021-12-22 13:49 | Outpatient (RCR) | payer MEDICAID, SELFPAY ==
[2021-11-01 09:54] LABS: INR 4.4; Prothrombin Time 40.8 Seconds (11.1-14.7)
[2021-11-15 12:15] LABS: INR 3.5
[2021-12-22 14:25] LABS: INR 2.8; Prothrombin Time 28.9 Seconds (11.1-14.7)
== END 2022-01-30 23:59 | disposition home or self-care (01) ==
LOC: ANHLAB 13:49
PROVIDERS: PCP Internal Medicine; Visit Provider Internal Medicine Cardiovascular Disease
DX: Z51.81 Encounter for therapeutic drug level monitoring (principal); D68.61 Antiphospholipid syndrome; Z79.01 Long term (current) use of anticoagulants
CPT/HCPCS: 36415; 85610

== ENCOUNTER 2022-05-09 08:36 | Outpatient (RCR) | payer MEDICARE, MEDICAID, SELFPAY ==
[2022-05-09 09:28] LABS: INR 2.2
== END 2022-05-09 15:45 | disposition home or self-care (01) ==
LOC: ANHLAB 08:36
PROVIDERS: PCP Internal Medicine; Visit Provider Internal Medicine Cardiovascular Disease
DX: Z51.81 Encounter for therapeutic drug level monitoring (principal); D68.61 Antiphospholipid syndrome; Z79.01 Long term (current) use of anticoagulants
CPT/HCPCS: 36415; 85610

== ENCOUNTER 2022-05-09 08:47 | Outpatient (CLI) | payer MEDICARE, MEDICAID, SELFPAY ==
[2022-05-09 09:22] LABS: Hematocrit 41.6 % (37.0-47.0); Hemoglobin 12.7 g/dL (12.0-15.0); Mean Corpuscular HGB Conc 30.5 g/dl (32-36); Mean Corpuscular Hemoglobin 27.4 pg (26-34); Mean Corpuscular Volume 89.8 fl (80-100); Mean Platelet Volume 12.1 fl (7.4-10.4); Platelet Count Result 164 k/mm3 (150-375); Red Blood Count 4.63 M/mm3 (4.2-5.4); Red Cell Distribution Width 13.4 % (11.5-14.5); White Blood Count 5.1 K/mm3 (4.5-10.0)
[2022-05-09 09:32] LABS: Alanine Aminotransferase 12 U/L (6-35); Albumin Level 4.3 g/dL (3.5-5.1); Alkaline Phosphatase 106 U/L (38-126); Anion Gap 11 mmol/L (8-16); Aspartate Amino Transferase 20 U/L (14-36); Bilirubin,Total 0.6 mg/dL (0.2-1.3); Blood Urea Nitrogen 18 mg/dL (7-17); CRP < 0.5 mg/dL (<1.0); Carbon Dioxide 28 mmol/L (22-30); Chloride 104 mmol/L (98-107); Estimated Glomerular Filt Rate > 60; Glucose 88 mg/dL (65-110); Potassium 4.2 mmol/L (3.4-5.0); Sodium 143 mmol/L (137-145)
[2022-05-09 09:52] LABS: Complement C3 119 mg/dL (88-165)
[2022-05-09 10:23] LABS: Erythrocyte Sedimentation Rate 40 mm/hr (0-20)
== END 2022-05-09 08:48 | disposition home or self-care (01) ==
LOC: ANHLAB 08:48
PROVIDERS: PCP Internal Medicine; Visit Provider Internal Medicine
DX: M32.9 Systemic lupus erythematosus, unspecified (principal); M19.90 Unspecified osteoarthritis, unspecified site
CPT/HCPCS: 36415; 80053; 85027; 85652; 86140; 86160

== ENCOUNTER 2022-07-26 08:06 | Outpatient (CLI) | payer MEDICARE, MEDICAID, SELFPAY ==
--- NOTE | ~2022-07-26 | MM_ITS ---
EXAMINATION: MM screening anais BI w gutierrez HISTORY: Screening mammogram TECHNIQUE: Craniocaudal and mediolateral oblique 3-D tomosynthesis images were obtained and synthetic 2-D images were generated. CAD analysis was submitted and interpreted. COMPARISON: 05/24/2021, 05/14/2020, 01/09/2018 bilateral screening mammogram examinations BREAST PARENCHYMAL COMPOSITION: There are scattered areas of fibroglandular density. FINDINGS: There is no evidence of suspicious mass, calcification, or architectural distortion to sugg est malignancy in either breast. There has been no suspicious interval change. IMPRESSION: 1. No mammographic evidence of malignancy. 2. Recommend routine screening mammography in one year. BI-RADS Category 1: Negative Reviewed, dictated and finalized at location A. Y MANAGER
== END 2022-07-26 08:07 | disposition home or self-care (01) ==
LOC: ANHIMG 08:09
PROVIDERS: PCP Internal Medicine; Visit Provider Internal Medicine
DX: Z12.31 Encounter for screening mammogram for malignant neoplasm of breast (principal)
CPT/HCPCS: 77063; 77067

== ENCOUNTER 2022-09-05 09:09 | Emergency (ER) | payer MEDICARE, MEDICAID, SELFPAY ==
[2022-09-05 09:20] VITALS: BP 146/88; PULSE 71; RESP 16; TEMP 35.9; O2SAT 98
--- NOTE | 2022-09-05 09:27 | ED.GENADULT ---
HPI - General Adult General Chief complaint: Extremity Injury, Upper Stated complaint: infected 3rd left finger Time Seen by Provider: 09/05/22 09:27 Source: patient, RN notes reviewed and old records reviewed Mode of arrival: ambulatory Limitations: no limitations History of Present Illness HPI narrative: 52-year-old female presents to the [facility] with concerns of an infection to the 3rd finger left hand. Patient states that she gets nodules on her fingers frequently. Started swelling and becoming painful 2-3 days ago. Tried using a needle last night and opening the area at the dip dorsal aspect. Woke up this morning the entire finger was swollen, redness circumferential, increased warmth and streaking up to the elbow. Decreased range of motion, decreased capillary refill but sensation intact Multiple antibiotic allergies Onset (ago): day(s) (2-3) Related Data Home Medications Medication Instructions Recorded Confirmed carvedilol 3.125 mg tablet 3.125 mg PO Q12H 05/26/19 08/28/22 cetirizine 10 mg tablet 10 mg PO DAILY 05/26/19 08/28/22 furosemide 20 mg tablet 20 mg PO QAM 05/26/19 08/28/22 pantoprazole 40 mg tablet,delayed 40 mg PO QAM 05/26/19 08/28/22 release sacubitril 49 mg-valsartan 51 mg 2 tablet PO BID 05/26/19 08/28/22 tablet (Entresto) warfarin 1 mg tablet 1 mg PO QMWFSU 05/26/19 08/28/22 warfarin 10 mg tablet 10 mg PO DAILY 05/26/19 08/28/22 spironolactone 50 mg tablet 50 mg PO DAILY 01/30/20 08/28/22 empagliflozin 10 mg tablet 10 mg PO DAILY 11/07/21 08/28/22 (Jardiance) Allergies Allergy/AdvReac Type Severity Reaction Status Date / Time oxcarbazepine Allergy Mild Swelling Verified 08/28/22 10:37 sulfamethoxazole Allergy Mild hypersensit Verified 08/28/22 10:37 ivity trimethoprim Allergy Mild Swelling Verified 08/28/22 10:37 doxycycline Allergy Unknown hypersensit Verified 08/28/22 10:37 ivity Penicillins Allergy Unknown urticaria Verified 08/28/22 10:37 sulfamethizole Allergy Unknown Hypersensit Verified 03/13/23 10:37 ivity sulfanilamide Allergy Unknown rash Verified 08/28/22 10:37 tetracycline Allergy Unknown Tongue Verified 08/28/22 10:37 swelling Review of Systems Review of Systems: All systems reviewed & are unremarkable except as noted in HPI and below Constitutional: Constitutional: Reports no additional constitutional complaints Eyes: Eyes: Reports no additional eye complaints ENT: Reports system reviewed and no additional complaints, except as documented Cardiovascular: Cardiovascular: Reports no additional cardiovascular complaints, Denies chest pain and Denies dyspnea Respiratory: Respiratory: Reports no additional respiratory complaints, Denies chest congestion, Denies cough and Denies dyspnea Gastrointestinal: Gastrointestinal: Reports no additional gastrointestinal complaints, Denies abdominal pain, Denies nausea and Denies vomiting Musculoskeletal: Musculoskeletal: Reports as per HPI Integumentary/Breasts: Skin/Breast: Reports as per HPI Neurologic: Reports system reviewed and no additional complaints, except as documented Psychiatric: Psychiatric: Reports no additional psychiatric complaints Allergic/Immunologic: Allergic/Immunologic: Reports no additional allergic/immunologic complaints PMFSH Past Medical History Medical History Allergies Antiphospholipid syndrome Arthritis Asthma CHF (congestive heart failure) Chronic combined systolic and diastolic CHF (congestive heart failure) Chronic pulmonary embolism COPD (chronic obstructive pulmonary disease) ESR raised Gastroesophageal reflux disease GERD (gastroesophageal reflux disease) History of blood clots Screening for lipid disorders Umbilical hernia Vitamin D deficiency, unspecified Surgical History Surgical History H/O section H/O hernia repair H/O tubal ligation
== END 2022-09-05 10:08 | disposition home or self-care (01) ==
PROVIDERS: Emergency Provider Nurse Practitioner; PCP Internal Medicine
DX: L02.512 Cutaneous abscess of left hand (principal); I50.40 Unspecified combined systolic (congestive) and diastolic (congestive) heart failure; J44.9 Chronic obstructive pulmonary disease, unspecified; Z87.891 Personal history of nicotine dependence
CPT/HCPCS: 99212; G0463

== ENCOUNTER 2022-10-12 08:43 | Outpatient (CLI) | payer MEDICARE, MEDICAID, SELFPAY ==
[2022-10-12 09:30] LABS: Basophils Absolute Auto 0.1 K/mm3 (0.0-0.1); Basophils Percent Auto 1.1 % (0.2-1.2); Eosinophils Absolute Auto 0.2 K/mm3 (0-0.3); Eosinophils Percent Auto 4.9 % (0-4.4); Hematocrit 39.1 % (37.0-47.0); Immature Granulocyte Absolute 0.01 K/mm3 (0.00-0.031); Immature Granulocyte Percent A 0.2 % (0-0.5); Immature Platelet Fraction Pct 10.1 % (0.9-11.2); Lymphocytes Absolute Auto 0.64 K/mm3 (0.9-3.2); Lymphocytes Percent Auto 13.7 % (18.3-44.2); Mean Corpuscular HGB Conc 30.7 g/dl (32-36); Mean Corpuscular Hemoglobin 27.6 pg (26-34); Mean Corpuscular Volume 90.1 fl (80-100); Mean Platelet Volume 12.1 fl (7.4-10.4); Monocytes Absolute Auto 0.4 K/mm3 (0.1-0.6); Monocytes Percent Auto 7.9 % (2.6-8.5); Neutrophils Absolute Auto 3.4 K/mm3 (1.3-6.7); Neutrophils Percent Auto 72.2 % (45.5-73.1); Platelet Count Result 126 k/mm3 (150-375); Red Blood Count 4.34 M/mm3 (4.2-5.4); Red Cell Distribution Width 13.5 % (11.5-14.5); White Blood Count 4.7 K/mm3 (4.5-10.0)
[2022-10-12 09:35] LABS: Appearance Urine Clear (Clear); Bacteria Urine None Seen /hpf; Bilirubin Urine Negative (Negative); Blood Urine Trace (Negative); Color Urine Yellow (Yellow); Glucose Urine UA 2+ mg/dL (Negative); Ketones Urine Negative (Negative); Leukocyte Esterase Ur Trace LEU/UL (Negative); Nitrate Urine Negative (Negative); Non Pathogenic Casts 0-2; Protein Urine Negative (Negative); RBC Urine 0-2 /hpf (0-2); Specific Grav Ur 1.014 (1.001-1.035); Squamous Epithelial Cell Urine Occasional /hpf (Few); Urobilinogen Urine 0.2 mg/dL (<2.0); WBC Urine 0-5 /hpf; pH Urine 5.5 (5.0-9.0)
[2022-10-12 09:39] LABS: Cholesterol 158 mg/dL (0-200); HDL Direct 45 mg/dL; Triglycerides 89 mg/dL (<150)
[2022-10-12 09:44] LABS: Alanine Aminotransferase 10 U/L (6-35); Albumin Level 4.4 g/dL (3.5-5.1); Alkaline Phosphatase 90 U/L (38-126); Anion Gap 6 mmol/L (8-16); Aspartate Amino Transferase 20 U/L (14-36); Bilirubin,Total 0.7 mg/dL (0.2-1.3); Blood Urea Nitrogen 25 mg/dL (7-17); CRP 0.6 mg/dL (<1.0); Calcium 8.7 mg/dL (8.4-10.2); Carbon Dioxide 30 mmol/L (22-30); Chloride 104 mmol/L (98-107); Estimated Glomerular Filt Rate 40; Glucose 86 mg/dL (65-110); Potassium 3.9 mmol/L (3.4-5.0); Sodium 140 mmol/L (137-145)
[2022-10-12 09:50] LABS: Complement C3 118 mg/dL (88-165); LDL Cholesterol Direct 78 mg/dL
[2022-10-12 10:02] LABS: Vancomycin Trough 15.3 ug/mL (10.0-20.0)
[2022-10-12 10:08] LABS: Add Urine Microscopic? YES
[2022-10-12 10:35] LABS: Erythrocyte Sedimentation Rate 50 mm/hr (0-20)
[2022-10-17 08:50] LABS: Scleroderma 70 Antibody <1.0
== END 2022-10-12 08:44 | disposition home or self-care (01) ==
LOC: ANHLAB 08:44
PROVIDERS: Family Medicine; PCP Internal Medicine; Referring Provider Internal Medicine; Visit Provider Internal Medicine
DX: M32.9 Systemic lupus erythematosus, unspecified (principal); M19.90 Unspecified osteoarthritis, unspecified site; E78.5 Hyperlipidemia, unspecified; M86.9 Osteomyelitis, unspecified
CPT/HCPCS: 36415; 80053; 80061; 80202; 81001; 85025; 85055; 85610; 85652; 86140; 86160; 86235

== ENCOUNTER 2022-10-12 08:56 | Outpatient (RCR) | payer MEDICARE, MEDICAID, SELFPAY ==
[2022-07-31 12:02] LABS: INR 2.5; Prothrombin Time 25.9 Seconds (11.1-14.7)
[2022-10-12 09:41] LABS: INR 2.1; Prothrombin Time 24.6 Seconds (11.1-14.7)
== END 2022-10-29 23:59 | disposition home or self-care (01) ==
LOC: ANHLAB 08:56
PROVIDERS: PCP Internal Medicine; Visit Provider Internal Medicine Cardiovascular Disease
DX: Z51.81 Encounter for therapeutic drug level monitoring (principal); D68.61 Antiphospholipid syndrome; Z79.01 Long term (current) use of anticoagulants
CPT/HCPCS: 36415; 85610

== ENCOUNTER 2022-10-22 10:39 | Outpatient (CLI) | payer MEDICARE, MEDICAID, SELFPAY ==
--- NOTE | ~2022-10-22 | MR_ITS ---
EXAMINATION: MR hand LT wo/w con DATE: 10/22/2022 12:06 INDICATION: Left hand third digit osteomyelitis. TECHNIQUE: Magnetic resonance imaging (MRI) of the left hand was performed without and with 20 mL Mul tiHance intravenous contrast. COMPARISON: None FINDINGS: Bone alignment is normal. No fracture. There is polyarticular osteoarthritis, severe at the first interphalangeal joint and second and fifth distal interphalangeal joints. At the third distal interphalangeal joint, there is severe joint space loss, erosions, osteophytes, and subchondral edema -like marrow signal intensity and enhancement. There is an effusion of first interphalangeal joint. T he flexor and extensor tendons are normal. IMPRESSION: 1. Severe arthritis of third distal interphalangeal joint, consistent with severe osteoarthritis with out or with superimposed septic arthritis/osteomyelitis. Correlate with radiographs. 2. Polyarticular osteoarthritis. Reviewed, dictated and finalized at location A. IMPRESSION: 1. Severe arthritis of third distal interphalangeal joint, consistent with sarah beth re osteoarthritis without or with superimposed septic arthritis/osteomyelitis. Correlate with radiographs. 2. Polyarticular osteoarthritis.
== END 2022-10-22 10:40 | disposition home or self-care (01) ==
PROVIDERS: PCP Family Medicine; Visit Provider Family Medicine
DX: M86.9 Osteomyelitis, unspecified (principal); M19.041 Primary osteoarthritis, right hand
CPT/HCPCS: 73220; A9577

== ENCOUNTER 2022-11-28 12:49 | Outpatient (CLI) | payer MEDICARE, MEDICAID, SELFPAY ==
[2022-11-28 13:52] LABS: Basophils Absolute Auto 0.1 K/mm3 (0.0-0.1); Basophils Percent Auto 1.2 % (0.2-1.2); Eosinophils Absolute Auto 0.2 K/mm3 (0-0.3); Eosinophils Percent Auto 4.4 % (0-4.4); Hematocrit 40.9 % (37.0-47.0); Hemoglobin 12.7 g/dL (12.0-15.0); Immature Granulocyte Absolute 0.01 K/mm3 (0.00-0.031); Immature Granulocyte Percent A 0.2 % (0-0.5); Lymphocytes Absolute Auto 0.75 K/mm3 (0.9-3.2); Lymphocytes Percent Auto 17.3 % (18.3-44.2); Mean Corpuscular HGB Conc 31.1 g/dl (32-36); Mean Corpuscular Hemoglobin 28.1 pg (26-34); Mean Corpuscular Volume 90.5 fl (80-100); Mean Platelet Volume 12.6 fl (7.4-10.4); Monocytes Absolute Auto 0.4 K/mm3 (0.1-0.6); Monocytes Percent Auto 10.1 % (2.6-8.5); Neutrophils Absolute Auto 2.9 K/mm3 (1.3-6.7); Neutrophils Percent Auto 66.8 % (45.5-73.1); Platelet Count Result 132 k/mm3 (150-375); Red Blood Count 4.52 M/mm3 (4.2-5.4); Red Cell Distribution Width 13.9 % (11.5-14.5); White Blood Count 4.3 K/mm3 (4.5-10.0)
[2022-11-28 13:55] LABS: Appearance Urine Clear (Clear); Bacteria Urine None Seen /hpf; Bilirubin Urine Negative (Negative); Blood Urine 2+ (Negative); Color Urine Yellow (Yellow); Glucose Urine UA 1+ mg/dL (Negative); Ketones Urine Negative (Negative); Leukocyte Esterase Ur Negative LEU/UL (Negative); Nitrate Urine Negative (Negative); Non Pathogenic Casts 0-2; Protein Urine Negative (Negative); RBC Urine 0-2 /hpf (0-2); Squamous Epithelial Cell Urine None seen /hpf (Few); Urobilinogen Urine 0.2 mg/dL (<2.0); WBC Urine 0-5 /hpf
[2022-11-28 13:58] LABS: Add Urine Microscopic? YES
[2022-11-28 14:04] LABS: Alanine Aminotransferase 15 U/L (6-35); Albumin Level 4.2 g/dL (3.5-5.1); Alkaline Phosphatase 79 U/L (38-126); Anion Gap 8 mmol/L (8-16); Aspartate Amino Transferase 21 U/L (14-36); Bilirubin,Total 0.3 mg/dL (0.2-1.3); Blood Urea Nitrogen 31 mg/dL (7-17); CRP < 0.5 mg/dL (<1.0); Calcium 8.6 mg/dL (8.4-10.2); Carbon Dioxide 24 mmol/L (22-30); Chloride 107 mmol/L (98-107); Estimated Glomerular Filt Rate 28; Glucose 80 mg/dL (65-110); Potassium 4.6 mmol/L (3.4-5.0); Sodium 139 mmol/L (137-145)
[2022-11-28 14:24] LABS: Erythrocyte Sedimentation Rate 27 mm/hr (0-20)
[2022-11-30 12:43] LABS: NIL 0.03 IU/mL; Quantiferon TB Plus, 1T NEGATIVE (NEGATIVE); TB1-NIL 0.02 IU/mL; TB2-NIL 0.01 IU/mL
== END 2022-11-28 12:50 | disposition home or self-care (01) ==
PROVIDERS: PCP Family Medicine; Visit Provider Internal Medicine
DX: M86.9 Osteomyelitis, unspecified (principal); M32.9 Systemic lupus erythematosus, unspecified; M19.90 Unspecified osteoarthritis, unspecified site
CPT/HCPCS: 36415; 80053; 81001; 85025; 85610; 85652; 86140; 86480

== ENCOUNTER 2022-12-04 12:00 | Outpatient (CLI) | payer MEDICARE, MEDICAID, SELFPAY ==
[2022-12-04 12:27] LABS: Basophils Absolute Auto 0.1 K/mm3 (0.0-0.1); Basophils Percent Auto 1.1 % (0.2-1.2); Eosinophils Absolute Auto 0.1 K/mm3 (0-0.3); Eosinophils Percent Auto 2.2 % (0-4.4); Hematocrit 38.5 % (37.0-47.0); Hemoglobin 12.3 g/dL (12.0-15.0); Immature Granulocyte Absolute 0.02 K/mm3 (0.00-0.031); Immature Granulocyte Percent A 0.4 % (0-0.5); Lymphocytes Absolute Auto 0.88 K/mm3 (0.9-3.2); Mean Corpuscular HGB Conc 31.9 g/dl (32-36); Mean Corpuscular Hemoglobin 28.3 pg (26-34); Mean Corpuscular Volume 88.7 fl (80-100); Mean Platelet Volume 12.4 fl (7.4-10.4); Monocytes Absolute Auto 0.4 K/mm3 (0.1-0.6); Monocytes Percent Auto 8.4 % (2.6-8.5); Neutrophils Absolute Auto 3.2 K/mm3 (1.3-6.7); Neutrophils Percent Auto 68.9 % (45.5-73.1); Platelet Count Result 130 k/mm3 (150-375); Red Blood Count 4.34 M/mm3 (4.2-5.4); Red Cell Distribution Width 13.7 % (11.5-14.5); White Blood Count 4.6 K/mm3 (4.5-10.0)
[2022-12-04 12:35] LABS: Alanine Aminotransferase 16 U/L (6-35); Albumin Level 4.2 g/dL (3.5-5.1); Alkaline Phosphatase 74 U/L (38-126); Anion Gap 7 mmol/L (8-16); Aspartate Amino Transferase 21 U/L (14-36); Bilirubin,Total 0.5 mg/dL (0.2-1.3); Blood Urea Nitrogen 27 mg/dL (7-17); Calcium 8.8 mg/dL (8.4-10.2); Carbon Dioxide 24 mmol/L (22-30); Chloride 108 mmol/L (98-107); Estimated Glomerular Filt Rate 37; Glucose 80 mg/dL (65-110); Potassium 4.4 mmol/L (3.4-5.0); Sodium 139 mmol/L (137-145)
== END 2022-12-04 12:01 | disposition home or self-care (01) ==
LOC: ANHLAB 12:02
PROVIDERS: PCP Family Medicine
DX: M86.28 Subacute osteomyelitis, other site (principal); N17.9 Acute kidney failure, unspecified
CPT/HCPCS: 36415; 80053; 85025

== ENCOUNTER 2022-12-20 13:28 | Outpatient (RCR) | payer MEDICARE, MEDICAID, SELFPAY ==
[2022-12-11 12:39] LABS: Basophils Absolute Auto 0.1 K/mm3 (0.0-0.1); Eosinophils Absolute Auto 0.1 K/mm3 (0-0.3); Eosinophils Percent Auto 1.6 % (0-4.4); Hematocrit 39.3 % (37.0-47.0); Hemoglobin 12.2 g/dL (12.0-15.0); Immature Granulocyte Absolute 0.02 K/mm3 (0.00-0.031); Immature Granulocyte Percent A 0.4 % (0-0.5); Lymphocytes Absolute Auto 0.63 K/mm3 (0.9-3.2); Lymphocytes Percent Auto 12.4 % (18.3-44.2); Mean Corpuscular Volume 90.3 fl (80-100); Mean Platelet Volume 12.7 fl (7.4-10.4); Monocytes Absolute Auto 0.5 K/mm3 (0.1-0.6); Monocytes Percent Auto 9.6 % (2.6-8.5); Neutrophils Absolute Auto 3.8 K/mm3 (1.3-6.7); Platelet Count Result 116 k/mm3 (150-375); Red Blood Count 4.35 M/mm3 (4.2-5.4); Red Cell Distribution Width 13.8 % (11.5-14.5); White Blood Count 5.1 K/mm3 (4.5-10.0)
[2022-12-11 12:46] LABS: Alanine Aminotransferase 19 U/L (6-35); Albumin Level 3.9 g/dL (3.5-5.1); Alkaline Phosphatase 76 U/L (38-126); Anion Gap 6 mmol/L (8-16); Aspartate Amino Transferase 19 U/L (14-36); Bilirubin,Total 0.4 mg/dL (0.2-1.3); Blood Urea Nitrogen 32 mg/dL (7-17); Calcium 8.7 mg/dL (8.4-10.2); Carbon Dioxide 27 mmol/L (22-30); Chloride 106 mmol/L (98-107); Estimated Glomerular Filt Rate 43; Glucose 101 mg/dL (65-110); Potassium 4.7 mmol/L (3.4-5.0); Sodium 139 mmol/L (137-145)
[2022-12-20 14:53] LABS: Basophils Absolute Auto 0.1 K/mm3 (0.0-0.1); Basophils Percent Auto 1.1 % (0.2-1.2); Eosinophils Absolute Auto 0.1 K/mm3 (0-0.3); Eosinophils Percent Auto 1.6 % (0-4.4); Hematocrit 38.7 % (37.0-47.0); Hemoglobin 12.4 g/dL (12.0-15.0); Immature Granulocyte Absolute 0.02 K/mm3 (0.00-0.031); Immature Granulocyte Percent A 0.3 % (0-0.5); Lymphocytes Percent Auto 11.3 % (18.3-44.2); Mean Corpuscular Hemoglobin 28.7 pg (26-34); Mean Corpuscular Volume 89.6 fl (80-100); Mean Platelet Volume 12.9 fl (7.4-10.4); Monocytes Absolute Auto 0.6 K/mm3 (0.1-0.6); Monocytes Percent Auto 9.7 % (2.6-8.5); Neutrophils Absolute Auto 4.7 K/mm3 (1.3-6.7); Platelet Count Result 139 k/mm3 (150-375); Red Blood Count 4.32 M/mm3 (4.2-5.4); Red Cell Distribution Width 14.1 % (11.5-14.5); White Blood Count 6.2 K/mm3 (4.5-10.0)
[2022-12-20 14:56] LABS: Alanine Aminotransferase 20 U/L (6-35); Albumin Level 4.1 g/dL (3.5-5.1); Alkaline Phosphatase 76 U/L (38-126); Anion Gap 7 mmol/L (8-16); Aspartate Amino Transferase 19 U/L (14-36); Bilirubin,Total 0.4 mg/dL (0.2-1.3); Blood Urea Nitrogen 27 mg/dL (7-17); Calcium 8.7 mg/dL (8.4-10.2); Carbon Dioxide 25 mmol/L (22-30); Chloride 106 mmol/L (98-107); Estimated Glomerular Filt Rate 43; Glucose 94 mg/dL (65-110); Potassium 4.5 mmol/L (3.4-5.0); Sodium 138 mmol/L (137-145)
== END 2023-03-06 10:36 | disposition home or self-care (01) ==
LOC: ANHLAB 13:28
PROVIDERS: PCP Family Medicine
DX: M86.9 Osteomyelitis, unspecified (principal)
CPT/HCPCS: 36415; 80053; 85025; 85610

== ENCOUNTER 2023-03-06 10:44 | Outpatient (CLI) | payer MEDICARE, MEDICAID, SELFPAY ==
[2023-03-06 11:42] LABS: Basophils Percent Auto 0.7 % (0.2-1.2); Eosinophils Absolute Auto 0.1 K/mm3 (0-0.3); Eosinophils Percent Auto 1.5 % (0-4.4); Hematocrit 41.5 % (37.0-47.0); Hemoglobin 12.9 g/dL (12.0-15.0); Immature Granulocyte Absolute 0.04 K/mm3 (0.00-0.031); Immature Granulocyte Percent A 0.7 % (0-0.5); Lymphocytes Absolute Auto 1.01 K/mm3 (0.9-3.2); Lymphocytes Percent Auto 16.6 % (18.3-44.2); Mean Corpuscular HGB Conc 31.1 g/dl (32-36); Mean Corpuscular Hemoglobin 29.1 pg (26-34); Mean Corpuscular Volume 93.7 fl (80-100); Mean Platelet Volume 12.6 fl (7.4-10.4); Monocytes Absolute Auto 0.5 K/mm3 (0.1-0.6); Monocytes Percent Auto 8.5 % (2.6-8.5); Neutrophils Absolute Auto 4.4 K/mm3 (1.3-6.7); Platelet Count Result 117 k/mm3 (150-375); Red Blood Count 4.43 M/mm3 (4.2-5.4); Red Cell Distribution Width 13.2 % (11.5-14.5); White Blood Count 6.1 K/mm3 (4.5-10.0)
[2023-03-06 11:59] LABS: Alanine Aminotransferase 16 U/L (6-35); Alkaline Phosphatase 90 U/L (38-126); Anion Gap 6 mmol/L (8-16); Aspartate Amino Transferase 18 U/L (14-36); Bilirubin,Total 0.5 mg/dL (0.2-1.3); Blood Urea Nitrogen 19 mg/dL (7-17); Calcium 8.5 mg/dL (8.4-10.2); Carbon Dioxide 26 mmol/L (22-30); Chloride 106 mmol/L (98-107); Estimated Glomerular Filt Rate 53; Glucose 89 mg/dL (65-110); Potassium 4.5 mmol/L (3.4-5.0); Sodium 138 mmol/L (137-145)
[2023-03-06 12:12] LABS: Appearance Urine Cloudy (Clear); Bacteria Urine 3+ /hpf; Bilirubin Urine Negative (Negative); Blood Urine 1+ (Negative); Color Urine Yellow (Yellow); Glucose Urine UA Negative (Negative); Hyaline Casts Urine Present /lpf; Ketones Urine Negative (Negative); Leukocyte Esterase Ur 2+ LEU/UL (Negative); Nitrate Urine Negative (Negative); Protein Urine 1+ mg/dL (Negative); Specific Grav Ur 1.023 (1.001-1.035); Squamous Epithelial Cell Urine Few /hpf (Few); Urobilinogen Urine 0.2 mg/dL (<2.0); WBC Urine >100 /hpf; pH Urine 5.5 (5.0-9.0)
[2023-03-06 12:17] LABS: Add Urine Microscopic? YES
[2023-03-06 14:07] LABS: Erythrocyte Sedimentation Rate 24 mm/hr (0-20)
== END 2023-03-06 10:45 | disposition home or self-care (01) ==
PROVIDERS: PCP Family Medicine; Visit Provider Internal Medicine
DX: M06.9 Rheumatoid arthritis, unspecified (principal); Z79.899 Other long term (current) drug therapy
CPT/HCPCS: 36415; 80053; 81001; 85025; 85610; 85652; 87086; 87088

== ENCOUNTER 2023-07-02 09:00 | Outpatient (CLI) | payer MEDICARE, MEDICAID, SELFPAY ==
[2023-07-02 09:46] LABS: Hematocrit 39.2 % (37.0-47.0); Hemoglobin 11.4 g/dL (12.0-15.0); Mean Corpuscular HGB Conc 29.1 g/dl (32-36); Mean Corpuscular Hemoglobin 27.7 pg (26-34); Mean Corpuscular Volume 95.1 fl (80-100); Mean Platelet Volume 12.9 fl (7.4-10.4); Platelet Count Result 131 k/mm3 (150-375); Red Blood Count 4.12 M/mm3 (4.2-5.4); Red Cell Distribution Width 13.4 % (11.5-14.5); White Blood Count 4.4 K/mm3 (4.5-10.0)
[2023-07-02 09:59] LABS: Alanine Aminotransferase 10 U/L (6-35); Albumin Level 4.2 g/dL (3.5-5.1); Alkaline Phosphatase 87 U/L (38-126); Anion Gap 9 mmol/L (8-16); Aspartate Amino Transferase 18 U/L (14-36); Bilirubin,Total 0.4 mg/dL (0.2-1.3); Blood Urea Nitrogen 28 mg/dL (7-17); CRP < 0.5 mg/dL (<1.0); Calcium 8.9 mg/dL (8.4-10.2); Carbon Dioxide 27 mmol/L (22-30); Chloride 104 mmol/L (98-107); Estimated Glomerular Filt Rate 43; Glucose 86 mg/dL (65-110); Potassium 4.1 mmol/L (3.4-5.0); Sodium 140 mmol/L (137-145)
[2023-07-02 10:04] LABS: Appearance Urine Clear (Clear); Bacteria Urine None Seen /hpf; Bilirubin Urine Negative (Negative); Blood Urine Negative (Negative); Color Urine Yellow (Yellow); Glucose Urine UA Negative (Negative); Ketones Urine Trace mg/dL (Negative); Leukocyte Esterase Ur 2+ LEU/UL (Negative); Need Manual Microscopic Reviewed; Nitrate Urine Negative (Negative); Protein Urine Negative (Negative); RBC Urine 0-2 /hpf (0-2); Specific Grav Ur 1.023 (1.001-1.035); Squamous Epithelial Cell Urine Occasional /hpf (Few); Urobilinogen Urine 0.2 mg/dL (<2.0); WBC Urine 0-5 /hpf; pH Urine 5.5 (5.0-9.0)
[2023-07-02 10:05] LABS: Add Urine Microscopic? YES
[2023-07-02 11:05] LABS: Erythrocyte Sedimentation Rate 47 mm/hr (0-20)
== END 2023-07-02 09:01 | disposition home or self-care (01) ==
PROVIDERS: PCP Family Medicine; Visit Provider Internal Medicine
DX: M32.9 Systemic lupus erythematosus, unspecified (principal); M19.90 Unspecified osteoarthritis, unspecified site
CPT/HCPCS: 36415; 80053; 81001; 85027; 85610; 85652; 86140

== ENCOUNTER 2023-08-06 16:32 | Emergency (ER) | payer MEDICARE, MEDICAID, SELFPAY ==
[2023-08-06 16:44] VITALS: BP 153/81; PULSE 98; RESP 18; TEMP 36.8; O2SAT 98
--- NOTE | 2023-08-06 16:44 | ED.FEMALEGU ---
HPI - Female Genitourinary General Chief complaint: Urogenital-Female Stated complaint: vaginal issue Time Seen by Provider: 08/06/23 17:05 Source: patient and RN notes reviewed Mode of arrival: ambulatory Limitations: no limitations History of Present Illness HPI Narrative: 53 year old female presents with concern for 4-6 week history of vaginal burning, vaginal itching, burning with urination. She reports she has had intermittent problems with yeast infections since she has been in menopause. She denies fever, body aches, chills, sweats, nausea, vomiting, back pain, abdominal pain. She has been taking azo for yeast infections. She denies abnormal vaginal discharge MD elicited complaint: UTI and genital itching Related Data Home Medications Medication Instructions Recorded Confirmed carvedilol 3.125 mg tablet 3.125 mg PO Q12H 05/26/19 08/06/23 cetirizine 10 mg tablet 10 mg PO DAILY 05/26/19 08/06/23 furosemide 20 mg tablet 20 mg PO QAM 05/26/19 08/06/23 sacubitril 49 mg-valsartan 51 mg 2 tablet PO BID 05/26/19 08/06/23 tablet (Entresto) warfarin 10 mg tablet 10 mg PO DAILY 05/26/19 08/06/23 spironolactone 50 mg tablet 50 mg PO DAILY 01/30/20 08/06/23 empagliflozin 10 mg tablet 10 mg PO DAILY 11/07/21 08/06/23 (Jardiance) Allergies Allergy/AdvReac Type Severity Reaction Status Date / Time oxcarbazepine Allergy Mild Swelling Verified 08/06/23 16:50 sulfamethoxazole Allergy Mild hypersensit Verified 08/06/23 16:50 ivity trimethoprim Allergy Mild Swelling Verified 08/06/23 16:50 doxycycline Allergy Unknown hypersensit Verified 08/06/23 16:50 ivity Penicillins Allergy Unknown urticaria Verified 08/06/23 16:50 sulfamethizole Allergy Unknown Hypersensit Verified 08/06/23 16:50 ivity sulfanilamide Allergy Unknown rash Verified 08/06/23 16:50 tetracycline Allergy Unknown Tongue Verified 08/06/23 16:50 swelling Review of Systems Review of Systems: CONSTITUTIONAL: Denies malaise, chills, sweats, or fever. CARDIOVASCULAR: Denies chest pain, palpitations, or edema. RESPIRATORY: Denies cough or dyspnea. GASTROINTESTINAL: Denies abdominal pain, nausea, vomiting, diarrhea GENITOURINARY: Reports dysuria, vaginal itching. Denies vaginal discharge, frequency, urgency, suprapubic pressure. Denies flank pain or hematuria. SKIN: Denies rash or itching. MUSCULOSKELETAL: Denies back pain or myalgia. All systems reviewed & are unremarkable except as noted in HPI and below PMFSH Past Medical History Medical History Allergies Antiphospholipid syndrome Arthritis Asthma CHF (congestive heart failure) Chronic combined systolic and diastolic CHF (congestive heart failure) Chronic pulmonary embolism COPD (chronic obstructive pulmonary disease) ESR raised Gastroesophageal reflux disease GERD (gastroesophageal reflux disease) History of blood clots Screening for lipid disorders Umbilical hernia Vitamin D deficiency, unspecified Surgical History Surgical History H/O section H/O hernia repair H/O tubal ligation Hx of cholecystectomy Family History Family History Father Cirrhosis Diabetes mellitus Mother Diabetes mellitus Grandparent Parkinson disease Sibling Family history of schizophrenia Patient's brother is in good health Father Family history of diabetes mellitus in first degree relative Diabetes mellitus Family history of liver disease, Onset Age: 65 Mother Family history of diabetes mellitus in first degree relative, Onset Age: 32 Patient's mother is Diabetes mellitus Grandparent Family history of Parkinson's disease Other Family history of attention deficit hyperactivity disorder (ADHD) Social History Social History Smoking p
== END 2023-08-06 17:29 | disposition home or self-care (01) ==
PROVIDERS: Emergency Provider Nurse Practitioner; PCP Family Medicine
DX: L29.2 Pruritus vulvae (principal); R30.0 Dysuria; Z87.891 Personal history of nicotine dependence; M19.90 Unspecified osteoarthritis, unspecified site; J44.9 Chronic obstructive pulmonary disease, unspecified; Z86.711 Personal history of pulmonary embolism; K21.9 Gastro-esophageal reflux disease without esophagitis; I50.42 Chronic combined systolic (congestive) and diastolic (congestive) heart failure; Z86.2 Personal history of diseases of the blood and blood-forming organs and certain disorders involving the immune mechanism
CPT/HCPCS: 81003; 87086; 99213; G0463

== ENCOUNTER 2023-10-15 08:58 | Outpatient (CLI) | payer MEDICARE, MEDICAID, SELFPAY ==
--- NOTE | ~2023-10-15 | MM_ITS ---
EXAMINATION: MM screening anais BI w gutierrez HISTORY: Screening mammogram TECHNIQUE: Craniocaudal and mediolateral oblique 3-D tomosynthesis images were obtained and synthetic 2-D images were generated. CAD analysis was submitted and interpreted. COMPARISON: July 26, 2022, May 24, 2021 bilateral Screening mammogram examinations BREAST PARENCHYMAL COMPOSITION: There are scattered areas of fibroglandular density. FINDINGS: There is no evidence of suspicious mass, calcification, or architectural distortion to sugg est malignancy in either breast. There has been no suspicious interval change. IMPRESSION: 1. No mammographic evidence of malignancy. 2. Recommend routine screening mammography in one year. BI-RADS Category 1: Negative Reviewed, dictated and finalized at location A.
== END 2023-10-15 08:59 | disposition home or self-care (01) ==
PROVIDERS: PCP Family Medicine; Visit Provider Family Medicine
DX: Z12.31 Encounter for screening mammogram for malignant neoplasm of breast (principal)
CPT/HCPCS: 77063; 77067

== ENCOUNTER 2023-11-22 11:39 | Outpatient (CLI) | payer MEDICARE, MEDICAID, SELFPAY ==
[2023-11-22 12:10] LABS: Hematocrit 40.1 % (37.0-47.0); Hemoglobin 12.4 g/dL (12.0-15.0); Mean Corpuscular HGB Conc 30.9 g/dl (32-36); Mean Corpuscular Hemoglobin 28.4 pg (26-34); Mean Corpuscular Volume 91.8 fl (80-100); Mean Platelet Volume 12.7 fl (7.4-10.4); Platelet Count Result 120 k/mm3 (150-375); Red Blood Count 4.37 M/mm3 (4.2-5.4); Red Cell Distribution Width 13.5 % (11.5-14.5); White Blood Count 4.7 K/mm3 (4.5-10.0)
[2023-11-22 13:20] LABS: Free T4 Free Thyroxine 1.14 ng/mL (0.78-2.19)
== END 2023-11-22 11:40 | disposition home or self-care (01) ==
LOC: ANHLAB 11:43
PROVIDERS: PCP Family Medicine; Visit Provider Family Medicine
DX: E66.9 Obesity, unspecified (principal); M32.9 Systemic lupus erythematosus, unspecified
CPT/HCPCS: 36415; 84439; 84443; 85027; 85610

== ENCOUNTER 2023-11-22 11:47 | Outpatient (RCR) | payer MEDICARE, MEDICAID, SELFPAY ==
[2023-10-03 09:59] LABS: INR 2.2; Prothrombin Time 26.1 Seconds (11.1-14.7)
[2023-10-15 10:04] LABS: INR 2.8; Prothrombin Time 32.2 Seconds (11.1-14.7)
[2023-11-22 12:26] LABS: INR 2.6; Prothrombin Time 28.8 Seconds (11.1-14.7)
== END 2024-01-01 23:59 | disposition home or self-care (01) ==
LOC: ANHLAB 11:47
PROVIDERS: PCP Family Medicine; Visit Provider Internal Medicine Cardiovascular Disease
DX: I82.409 Acute embolism and thrombosis of unspecified deep veins of unspecified lower extremity (principal)
CPT/HCPCS: 36415; 85610

== ENCOUNTER 2024-04-30 08:56 | Outpatient (RCR) | payer MEDICARE, MEDICAID, SELFPAY ==
[2024-03-05 11:31] LABS: INR 3.5; Prothrombin Time 35.3 Seconds (11.1-14.7)
[2024-04-30 09:39] LABS: INR 3.2; Prothrombin Time 32.7 Seconds (11.1-14.7)
== END 2024-06-03 23:59 | disposition home or self-care (01) ==
LOC: ANHLAB 08:56
PROVIDERS: PCP Family Medicine; Visit Provider Internal Medicine Cardiovascular Disease
DX: Z51.81 Encounter for therapeutic drug level monitoring (principal); Z79.01 Long term (current) use of anticoagulants
CPT/HCPCS: 36415; 85610

== ENCOUNTER 2024-10-08 10:21 | Outpatient (CLI) | payer MEDICARE, MEDICAID, SELFPAY ==
--- NOTE | ~2024-10-08 | XR_ITS ---
EXAMINATION: XR chest 2V 10/08/2024 10:55 INDICATION: Dyspnea PROCEDURE: 2 view chest COMPARISON: Comparison to multiple prior studies sequentially, with oldest reviewed study dated 08/15. FINDINGS: The lungs are clear. The cardiomediastinal silhouette is within normal limits. There are no pleural effusions. There is no pneumothorax suspected. IMPRESSION: 1: NO ACUTE CARDIOPULMONARY DISEASE. Reviewed, dictated and finalized at location A.
--- OUTSIDE RECORDS SUMMARY | 2024-10-08 11:54 | XMS_ITS | Clinical Summary ---
Author Organization [facility] Address [facility] [place] [address] Care Team Providers Care Optician Apprentice Dispensing Name Role Phone Vinnie Love MD Primary Care Provider [phone] Source Comments [facility],non-owned Affiliates and Associated Physician Practices is amultiple site organization consisting of ambulatory clinics and hospital sitesin [place], [place], [place] and [place]. This disclosure is being madepursuant to the Care Everywhere program and may not contain all information available regarding this patient. Last updated 18.[facility] [employer] Social History Tobacco Use Types Packs/Day Years Used Date Smoking Tobacco: Never Assessed Comments Unknown Sex and Gender Information Value Date Recorded Sex Assigned at Not on file Legal Sex Female 7:11 PM PROCESS ARCHITECT Gender Identity Not on file Sexual Orientation Not on file Plan of Treatment Health Maintenance Due Date Last Done Comments COLOGUARD (AGES 45-75) - COL ON CA SCREENING 1972 COLON MONITORING 1972 COLONOSCOPY - COLON CA SCREENING 1972 CT COLONOGRAPHY - COLON CA SCREENING 1972 Colorectal Cancer Screening 1972 FIT - COLON CA SCREENING 1972 FLEX SIG - COLON CA SCREENING 1972 LIPID TESTING 1972 MAMMOGRAM 1972 HIV SCREENING 1987 HEPATITIS C SCREENING 03/19/1990 DTAP/TDAP/TD VACCINES (1 - Tdap) 1991 HEPATITIS B VACCINE (1 of 3 - 19+ 3-dose series) 1991 PNEUMOCOCCAL VACCINE 50+ (1 of 1 - PCV) 2022 ZOSTER VACCINE (1 of 2) 2022 COVID-19 VACCINE ( - 2023-2 5 season) 2024 DEPRESSION SCREENING 06/18/2024 INFLUENZA VACCINE (Season Ended) 2025 HIB VACCINE Aged Out No longer eligi ble based on patient's age to complete this topic HPV VACCINE Aged Out No longer eligi ble based on patient's age to complete this topic MENINGOCOCCAL (Group B) VACC INE SHARED DECISION-MAKING Aged Out No longer eligibl e based on patient's age to complete this topic MENINGOCOCCAL GROUPS A/C/Y/W VACCINE Aged Out No longer eligible b ased on patient's age to complete this topic Care Teams Optician Apprentice Dispensing Relationship Specialty Start Date End Date Vinnie Love MD [address] [facility] [address] [place] [id number] PCP - General 03/31/11
--- OUTSIDE RECORDS SUMMARY | 2024-10-08 11:54 | XMS_ITS | Encounter Summary ---
Author Organization [facility] Healthcare Address [address] [place] [address] Care Team Providers Care Educational Assistant Teacher Name Role Phone Dayron Arevalo MD Primary Care Provider [phone] Encounter Details Date Type Department Care Team (Late st Contact Info) Description 10/15/2023 Orders Only [facility] Health Information Management [address] [place] [id number] Scanning, Provider Social History Tobacco Use Types Packs/Day Years Used Date Smoking Tobacco: Former Cigarettes 0.5 4 0 01/28/2000 - 08/10/2003 Smokeless Tobacco: Never Alcohol Use Standard Drinks/Week Comments Not Currently 0 (1 standard drink = 0.6 oz pur e alcohol) AUDIT-C Answer Date Recorded Q1: How often do you have a drink containing alc ohol? Monthly or less 12/06/2022 Average Number of Drinks Not on file 023 Frequency of Binge Drinking Not on file 11/17 Hunger Vital Sign Answer Date Recorded Within the past 12 months, y ou worried that your food would run out before you got the money to buy more. Never true 12/14/19 23 Within the past 12 months, t he food you bought just didn't last and you didn't have money to get more. Never true 12/13/2022 Personal Safety Answer Date Recorded Have you ever been in or are you currently in a harmful physical or emotional relationship or is someone making you feel afraid or unsafe? Denies 12/13/2022 Comments Unknown Sex and Gender Information Value Date Recorded Sex Assigned at Not on file Legal Sex Female 11:03 PM SCHOOL EXAMINER Gender Identity Female 10/27/2020 9:28 AM CDT Sexual Orientation Straight 10/27/2020 9: 28 AM CDT documented as of this encounter Plan of Treatment Not on file documented as of this encounter Procedures Procedure Name Priority Date/Time Associated Diagnosis Comments SCAN - LABS 10/15/2023 documented in this encounter Results * SCAN - LABS (10/15/2023) us Provider Scanning Final Result documented in this encounter Visit Diagnoses Not on filedocumented in this encounter Care Teams Educational Assistant Teacher Relationship Specialty Start Date End Date Dayron Arevalo MD PCP - General Family Practice 11/08/22 documented as of this encounter
--- OUTSIDE RECORDS SUMMARY | 2024-10-08 11:54 | XMS_ITS | Referral Summary ---
Author Organization [facility] [address] Address [address] [place] [address] Care Team Providers Care Research Spec Name Role Phone Dayron Arevalo MD Primary Care Provider [phone] Encounters Date Type Department Care Team Description 10/03/2024 Plan of Care Documentation [facility] Physical Therapy [address] [place] [address] [address] [place] [address] 10/03/2024 11:00 AM CDT Therapy [facility] Physical Therapy [facility] [address] [place] [address] Son, Mark Corey, DPT Morbid obesity with BMI of 50.0-59.9, adult (HCC) (Primary Dx); Gastroesophageal reflux disease, unspecified whether esophagitis present; Obstructive sleep apnea; Systemic lupus erythematosus, unspecified SLE type, unspecified organ involvement status (HCC); Arthritis; Chronic obstructive pulmonary disease, unspecified COPD type (HCC) 09/29/2024 10:30 AM CDT Office Visit [facility] Minimally Invasive Surgery [address] [place] [address] Medical Office Building [address] [place] [address] James Santiago NP Gastroesophageal reflux disease, unspecified whether esophagitis present (Primary Dx); Morbid obesity with BMI of 50.0-59.9, adult (HCC); Obstructive sleep apnea; Systemic lupus erythematosus, unspecified SLE type, unspecified organ involvement status (HCC); Arthritis; Chronic obstructive pulmonary disease, unspecified COPD type (HCC); Abnormal finding of blood chemistry, unspecified 09/22/2024 Telephone [facility] [facility] [address] [place] [address] Malik Kumar CMA 09/10/2024 Telephone [facility] [address] [place] [address] Nazario Alfred MD from Last 3 Months Allergies Active Allergy Reactions Criticality Noted Date Comments Doxycycline Hives Medium Penicillins Hives Medium Sulfa (Sulfonamide Antibiotics) Hives Medium Sulfamethoxazole Trimethoprim Medications hydroxychloroquin e (PLAQUENIL) 200 mg tablet Take by mouth 2 (two) times a day Active fluticasone (FLONASE) 50 mcg/actuation nasal spray Administer 1 spray into each nostril 2 (two) times a day Active cetirizine (ZyrTEC) 10 mg tablet Take 1 tablet (10 mg total) by mouth daily Active fish oil-dha-epa 1,200-144-216 mg capsule Take by mouth Active furosemide (LASIX) 20 mg tablet Take 1 tablet (20 mg total) by mouth daily Active raNITIdine (ZANTAC) 75 mg tablet Take 1 tablet (75 mg total) by mouth as needed Active budesonide-formot Linda (SYMBICORT) 160-4.5 mcg/actuation inhaler Inhale 2 puffs 2 (two) times a day 019 Active warfarin (COUMADIN) 1 mg tablet TAKE 1 TABLET BY MOUTH EVERY DAY DIRECTED WITH 3MG TABLETS 7 tablet 020 Active cholecalciferol (VITAMIN D-3) 2000 unit capsule Take 1 capsule (2,000 Units total) by mouth daily 020 Active mycophenolate mofetil (CELLCEPT) 500 mg tablet Take 2 tablets (1,000 mg total) by mouth 2 (two) times a day 021 Active traMADoL (ULTRAM) 50 mg tablet Take by mouth every 8 (eight) hours as needed 023 Active acetaminophen (TYLENOL) 500 mg tablet Take 2 tablets (1,000 mg total) by mouth every 6 (six) hours as needed 023 Active montelukast (SINGULAIR) 10 mg tablet FOR 90 DAYS TAKE 1 TABLET BY MOUTH EVERY DAY 023 Active azelastine (ASTELIN) 137 mcg (0.1 %) nasal spray INSTILL 1 SPRAY INTRANASALLY EVERY 12 HOURS ADMINISTER INTO EACH NOSTRIL 023 Active warfarin (COUMADIN) 5 mg tablet TAKE 1&1/2 TABLETS BY MOUTH ON MON, WEDS & SUN AND 2 TABS ALL OTHER DAYS UNLESS OTHERWISE TOLD BY 150 tablet 3 024 Active spironolactone (ALDACTONE) 25 mg tablet TAKE 1 TABLET (25 MG TOTAL) BY MOUTH DAILY. 90 tablet 2 025 Active sacubitriL-valsar key (Entresto) 49-51 mg tablet TAKE 1 TABLET BY MOUTH TWICE A DAY 180 tablet 2 025 Active carvediloL (COREG) 6.25 mg tablet TAKE 1 TABLET BY MOUTH TWICE A DAY WITH FOOD 180 tablet 2 025 Active carbidopa-levodop a (SINEMET) 25-100 mg per tablet TAKE 1 TABLET BY MOUTH ONE DOSE [address] (PROTONIX) 40 mg EC tablet Take 1 tablet (40 mg total) by mouth daily Active carbidopa-levodop a ODT (PARCOPA) 25-100 mg per disintegrating tablet Take 1 tablet by mouth daily 2024 Discontinued(P atient Reported) pantoprazole DR (PROTONIX) 40 mg EC tablet Take 1 tablet (40 mg total) by mouth daily 2024 Discontinued(P atient Reported) diazePAM (VALIUM) 5 mg tablet Take 1 tablet (5 mg total) by mouth every 6 (six) hours as needed for anxiety 2024 Discontinued predniSONE (DELTASONE) 2.5 mg tablet Take 1 tablet (2.5 mg) by mouth 2 (two) times a day 023 2024 Discontinued(P atient Reported) empagliflozin (JARDIANCE) 10 mg tablet Take 1 tablet (10 mg total) by mouth daily 90 tablet 6 024 2024 Discontinued(P atient Reported) Active Problems Problem Noted Date Diagnosed Date BMI 50.0-59.9, adult 09/29/2024 Pyogenic arthritis of left hand 11/24/2022 Osteomyelitis of left hand 11/24/2022 Antiphospholipid antibody syndrome 10/01/2018 DVT (deep venous thrombosis) 10/01/2018 History of DVT (deep vein thrombosis) 10/01/2018 Systemic lupus erythematosus 11/01/2013 Overview (09/20/2016): SYST LUPUS ERYTHEMATOSUS Restless legs syndrome 11/01/2013 Overview (09/21/2016): RESTLESS LEGS SYNDROME Chronic obstructive pulmonary disease 11/01/2013 Overview (09/21/2016): CHR AIRWAY OBSTRUCT NEC Chronic venous insufficiency 11/01/2013 Overview (09/21/2016): VENOUS INSUFFICIENCY NOS Gastroesophageal reflux disease 09/30/2009 Overview (09/21/2016): ESOPHAGEAL REFLUX Immunizations Immunization Administration Dates Next Due Influenza, Split 03/03/2010 Influenza, Trivalent, IM (MDV) 05/07/2008 Td, adsorbed 09/10/2008 Social History Tobacco Use Types Packs/Day Years Used Date Smoking Tobacco: Former Cigarettes 0.5 4 0 01/28/2000 - 08/10/2003 Smokeless Tobacco: Never Tobacco Cessation:Counseling Given: Not Answered Alcohol Use Standard Drinks/Week Comments Not Currently 0 (1 standard drink = 0.6 oz pur e alcohol) AUDIT-C Answer Date Recorded Q1: How often do you have a drink containing alc ohol? Monthly or less 09/29/2024 Q2: How many drinks containi ng alcohol do you have on a typical day when you are drinking? 1 or 2 09/29/2024 Q3: How often do you have si x or more drinks on one occasion? 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 Gender Identity Female 10/27/2020 9:28 AM CDT Sexual Orientation Straight 10/27/2020 9: 28 AM CDT Last Filed Vital Signs Vital Sign Reading Time Taken Comments Blood Pressure 118/80 10/03/2024 11:30 AM CDT Pulse 72 10/03/2024 11:30 AM CDT Temperature 36.5 C (97.7 F) 02/09/2023 9:25 AM CDT Respiratory Rate 18 02/09/2023 9:25 AM CDT Oxygen Saturation 94% 10/03/2024 11:30 AM CDT Inhaled Oxygen Concentration - - Weight 143.8 kg (317 lb) 09/29/2024 9:59 AM CDT Height 162.6 cm (5' 4 ) 09/29/2024 9:59 AM CDT Body Mass Index 54.41 09/29/2024 9:59 AM CDT Plan of Treatment Not on file Medical Devices Implanted Type Area Youth Director Device Identifier Shelf Expiration Date Model / Serial / Lot Ivc Filter Vena Cava Insurance IDPA [facility] MEDICARE ADVANTAGE [facility] MEDICARE ADVANTAGE [facility] MEDICARE ADVANTAGE [employer] Care Teams Research Spec Relationship Specialty Start Date End Date Dayron Arevalo MD PCP - General Family Practice 11/08/22
--- OUTSIDE RECORDS SUMMARY | 2024-10-08 11:54 | XMS_ITS | Encounter Summary ---
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 Gender Identity Female 10/27/2020 9:28 AM CDT Sexual Orientation Straight 10/27/2020 9: 28 AM CDT documented as of this encounter Plan of Treatment Not on file documented as of this encounter Procedures Procedure Name Priority Date/Time Associated Diagnosis Comments SCAN - LABS 10/03/2023 documented in this encounter Results * SCAN - LABS (10/03/2023) us Provider Scanning Final Result documented in this encounter Visit Diagnoses Not on filedocumented in this encounter Care Teams Polymer Scientist Relationship Specialty Start Date End Date Dayron Arevalo MD PCP - General Family Practice 11/08/22 documented as of this encounter
--- OUTSIDE RECORDS SUMMARY | 2024-10-08 11:54 | XMS_ITS | Clinical Summary ---
Author Organization [facility] Address [facility] [place] [address] Care Team Providers Care Tire Changer Name Role Phone Dayron Arevalo MD Primary Care Provider [phone] Allergies Active Allergy Reactions Criticality Noted Date Comments Doxycycline Other (see comment) 04/24/2018 Due to renal problems Penicillins Hives 04/24/2018 Sulfamethoxazole-Trimeth oprim Hives 04/24/2018 Oxcarbazepine Swelling 10/23/2018 Medications hydroxychloroqui ne 200 MG tabletIndication s:Lupus (SLE) or other autoimmune disorder (Ped 0-17y) Take 2 tablets (400 mg total) by mouth nightly at bedtime. Indications: Lupus (SLE) or other autoimmune disorder (Ped 0-17y) Active carbidopa-levodo pa 25-100 MG tabletIndication s:Restless Leg Syndrome Take 1 tablet by mouth nightly at bedtime. Indications: Restless Leg Syndrome Active AZELASTINE 137 MCG/SPRAY nasal sprayIndications :allergies 1 spray by Nasal route 2 (two) times a day. Indications: allergies 3 Active SYMBICORT 160-4.5 MCG/ACT inhalerIndicatio ns:COPD, exacerbation Inhale 2 puffs into the lungs 2 (two) times daily. Indications: COPD, exacerbation 3 Active carvedilol (COREG) 6.25 MG tabletIndication s:altered blood pressure Take 1 tablet (6.25 mg total) by mouth 2 (two) times daily with meals. Indications: altered blood pressure 3 Active JARDIANCE 10 MG tabletIndication s:diabetes Take 1 tablet (10 mg total) by mouth nightly at bedtime. Indications: diabetes 3 Active montelukast (SINGULAIR) 10 MG tabletIndication s:allergies Take 1 tablet (10 mg total) by mouth nightly at bedtime. Indications: allergies 2 Active mycophenolate mofetil (CELLCEPT) 500 MG tabletIndication s:Lupus (SLE) or other autoimmune disorder (Ped 0-17y) Take 2 tablets (1,000 mg total) by mouth every 12 (twelve) hours. Indications: Lupus (SLE) or other autoimmune disorder (Ped 0-17y) 3 Active ENTRESTO 49-51 MG tabletIndication s:Congestive Heart Failure Take 1 tablet by mouth 2 (two) times a day. Indications: Congestive Heart Failure 3 Active spironolactone (ALDACTONE) 25 MG tabletIndication s:Congestive Heart Failure Take 1 tablet (25 mg total) by mouth daily. Indications: Congestive Heart Failure 3 Active traMADol (ULTRAM) 50 MG tabletIndication s:pain Take 1 tablet (50 mg total) by mouth every 8 (eight) hours as needed for Pain. Indications: pain 3 Active fish oil (OMEGA-3 FATTY ACID) 1000 MG Cap capsuleIndicatio ns:heart health Take 1 capsule (1,000 mg total) by mouth daily. Indications: heart health Active calcium carbonate (OS-KASI) 1250 (500 Ca) MG tabletIndication s:vitamin deficiency Take 1 tablet (1,250 mg total) by mouth daily. Indications: vitamin deficiency Active multi vitamin/minerals (THERA-M ENHANCED) tabletIndication s:vitamin deficiency Take 1 tablet by mouth daily. Indications: vitamin deficiency Active vitamin D3 (CHOLECALCIFEROL ) 25 mcg tabletIndication s:vitamin deficeincy Take 1 tablet (25 mcg total) by mouth daily. Indications: vitamin deficeincy Active cetirizine (ZYRTEC) 10 MG tabletIndication s:allergies Take 1 tablet (10 mg total) by mouth nightly at bedtime. Indications: allergies Active fluticasone propionate (FLONASE) 50 MCG/ACT nasal sprayIndications :allergies 1 spray by Each Nostril route 2 (two) times a day. Indications: allergies Active Heparin Sodium, Porcine, (HEPARIN LOCK FLUSH IV)Indications:f lush after antibiotics 5 mLs by IVP route daily. flush daily or after antibiotics per sash method heparin dose 50units/5ml Indications: flush after antibiotics 3 Active normal saline 0.9 % injectionIndicat ions:after antibiotics Inject 10 mLs into the vein daily. Indications: after antibiotics daily and before and after iv antibiotic per sash method 3 Active warfarin (COUMADIN) 5 MG tabletIndication s:Antiphospholip id Antibody Syndrome TAKE 1&1/2 TABLETS ON MON, WEDS & FRI AND 2 TABLETS ALL OTHER DAYS UNLESS OTHERWISE DIRECTED BY 3 Active Acetaminophen (TYLENOL ARTHRITIS EXT RELIEF OR)Indications:P ain Take 2 tablets by mouth every 6 (six) hours as needed. Indications: Pain 3 Active furosemide (LASIX) 20 MG tablet Take 1 tablet (20 mg total) by mouth daily. Active pantoprazole EC (PROTONIX) 40 MG tablet Take 1 tablet (40 mg total) by mouth daily. Active raNITIdine (ZANTAC) 75 MG Tab Take 1 tablet (75 mg total) by mouth as needed. Active enoxaparin (LOVENOX) 40 MG/0.4ML Solution Prefilled Syringe Inject 0.4 mLs (40 mg total) into the skin daily. 3 Active predniSONE (DELTASONE) 2.5 mg tablet Take 1 tablet (2.5 mg total) by mouth 2 (two) times daily. 3 Active Active Problems Problem Noted Date Diagnosed Date Osteomyelitis, unspecified ([facility]) 05/2023 Finger infection 09/05/2022 Antiphospholipid antibody syndrome ([facility]) DVT (deep venous thrombosis) ([facility]) 0 10/01/2018 History of DVT (deep vein thrombosis) 10/01/2018 Chronic obstructive pulmonary disease ([facility]) 11/01/2013 Overview (09/05/2022): CHR AIRWAY OBSTRUCT NEC Restless legs syndrome 11/01/2013 Overview (09/05/2022): RESTLESS LEGS SYNDROME Systemic lupus erythematosus ([facility]) 0 11/01/2013 Overview (09/05/2022): SYST LUPUS ERYTHEMATOSUS Gastroesophageal reflux disease 09/30/2009 Overview (09/05/2022): ESOPHAGEAL REFLUX Immunizations Immunization Administration Dates Next Due Fluzone 6 Months+ Quad (0.5 mL Prefilled Syringe) 09/05/2022(Deferred: Other - to be given at discharge) Social History Tobacco Use Types Packs/Day Years Used Date Smoking Tobacco: Former Cigarettes 0.5 5 0 10/05/1998 - 10/06/2003 Smokeless Tobacco: Never Tobacco Cessation:Counseling Given: Not Answered Alcohol Use Standard Drinks/Week Comments No 0 (1 standard drink = 0.6 oz pur e alcohol) OASIS D0700: Social Isolation Answer Da te Recorded Frequency of experiencing loneliness or isolatio n Never 10/20/2022 OASIS A1250: Transportation Answer Date Recorded Lack of Transportation (Medical) No 10/20/2022 Lack of Transportation (Non-Medical) No 10/20/2022 Patient Unable or Declines to Respond No 10/20/2022 OASIS B1300: Health Literacy Answer Eduardo e Recorded Frequency of needing help to read materials from doctor or pharmacy Never 10/20/2022 Humiliation, Afraid, Rape, and Kick questionnair e Answer Date Recorded Within the last year, have y ou been afraid of your partner or ex-partner? No 09/05/2022 Within the last year, have y ou been humiliated or emotionally abused in other ways by your partner or ex-partner? No Within the last year, have y ou been kicked, hit, slapped, or otherwise physically hurt by your partner or ex-partner? No 09/05/2022 Within the last year, have y ou been raped or forced to have any kind of sexual activity by your partner or ex-partner? No 09/05/2022 Social Connection and Isolat ion Panel [NHANES] Answer Date Recorded In a typical week, how many times do you talk on the phone with family, friends, or neighbors? More than three times a week 09/05/2022 How often do you get togethe r with friends or relatives? Once a week 09/05/2022 How often do you attend chur ch or yazidism services? Never 09/05/2022 Do you belong to any clubs o r organizations such as latter-day groups, unions, fraternal or athletic groups, or school groups? No 09/05/2022 How often do you attend meet ings of the clubs or organizations you belong to? Never 09/05/2022 Are you , , di vorced, , never , or living with a partner? 09/05/2022 AUDIT-C Answer Date Recorded Q1: How often do you have a drink containing alc ohol? Monthly or less 09/05/2022 Q2: How many drinks containi ng alcohol do you have on a typical day when you are drinking? 1 or 2 09/05/2022 Q3: How often do you have si x or more drinks on one occasion? Less than monthly 09/05/2022 Overall Financial Resource Strain (CARDIA) Answe r Date Recorded How hard is it for you to pa y for the very basics like food, housing, medical care, and heating? Not hard at all 09/05/2022 PHQ-2 Answer Date Recorded Patient Health Questionnaire-2 Score 0 09/05/2022 [facility] - Occupational Stress Questionnaire Answer Date Recorded Do you feel stress - tense, restless, nervous, or anxious, or unable to sleep at night because your mind is troubled all the time - these days? Not at all 09/05/2022 Exercise Vital Sign Answer Date Recorde d On average, how many days pe r week do you engage in moderate to strenuous exercise (like a brisk walk)? 7 days 09/05/2022 On average, how many minutes do you engage in exercise at this level? 30 min 09/05/2022 Hunger Vital Sign Answer Date Recorded Within the past 12 months, y ou worried that your food would run out before you got the money to buy more. Never true 09/06/19 23 Within the past 12 months, t he food you bought just didn't last and you didn't have money to get more. Never true 09/05/2022 PRAPARE - Transportation Answer Date Re corded In the past 12 months, has l ack of transportation kept you from medical appointments or from getting medications? No 08/17 In the past 12 months, has l ack of transportation kept you from meetings, work, or from getting things needed for daily living? No 09/05/2022 Housing Stability Vital Sign Answer Eduardo e Recorded In the last 12 months, was t here a time when you were not able to pay the mortgage or rent on time? No 09/05/2022 In the last 12 months, how many places have you lived? 1 09/05/2022 In the last 12 months, was t here a time when you did not have a steady place to sleep or slept in a jail (including now)? 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 Gender Identity Not on file Sexual Orientation Not on file Last Filed Vital Signs Vital Sign Reading Time Taken Comments Blood Pressure 119/62 01/09/2023 12:51 PM CDT Pulse 64 01/09/2023 12:51 PM CDT Temperature 36.3 C (97.4 F) 01/09/2023 12:51 PM CDT Respiratory Rate 20 01/09/2023 12:5 1 PM CDT Oxygen Saturation 99% 01/09/2023 12: 51 PM CDT Inhaled Oxygen Concentration - - Weight 147.8 kg (325 lb 13.4 oz) 2022 11:22 AM CDT Height 165.1 cm (5' 5 ) 01/09/2023 11:2 2 AM CDT Body Mass Index 54.22 01/09/2023 11:22 AM CDT Plan of Treatment Health Maintenance Due Date Last Done Comments Cervical Cancer Screening Pa p Smear (Age 30 to 64) Every 3 Years 1972 Colorectal Cancer Screening Colonoscopy (10 Years) 1972 Annual Physical 1975 Hepatitis C 1990 Hepatitis B Vaccines (1 of 3 - 19+ 3-dose series) 1991 Zoster Vaccines (1 of 2) 1991 Cervical Cancer Screening [place] with HPV Testing (Age 30 to 64) Every 5 Years 2002 Cervical Cancer Screening wi th HPV 2002 Mammogram Screening 2012 COVID-19 Vaccine (3 - Pfizer risk series) 11/25/2020 10/28/2020, 10/05/2020 PHQ-2 (Physician [place]) 06/18/2024 Pneumococcal Vaccine: 50+ Years (3 of 3 - PPSV23, PCV20 or PCV21) 04/09/2025 04/09/2020, 03/16/2017 DTaP, Tdap and Td Vaccines ( 2 - Td or Tdap) 03/16/2027 03/16/2017, 09/10/2008 Meningococcal B Vaccine Aged Out No l onger eligible based on patient's age to complete this topic Meningococcal Vaccine Aged Out No bonny beata eligible based on patient's age to complete this topic RSV Immunizations Under 20 Months Aged Out No longer eligible b ased on patient's age to complete this topic Goals Goal Patient Goal Type Associated Problems Recent Progress Patient-Stated? Author Patient will return to prior living situation and remain independent in ADLs upon discharge from hospital Lifestyle Niharika Wheeler, RN Patient will return to prior living situation and remain independent in ADLs upon discharge from hospital Lifestyle No Niharika Davis RN Insurance [facility] [address] Advance Directives * Full Code (Latest Code Status on File) Date Activated Date Inactivated Comments 09/12/2022 4:10 PM 01/09/2023 10:18 AM * Full Code Date Activated Date Inactivated Comments 09/05/2022 4:28 PM 09/08/2022 11:09 PM Care Teams Tire Changer Relationship Specialty Start Date End Date Dayron Arevalo MD [address] [place] [address] PCP - General FAMILY PRACTICE 10/27/22
--- OUTSIDE RECORDS SUMMARY | 2024-10-08 11:54 | XMS_ITS | Encounter Summary ---
Author Organization [facility] Address [address] [place] [address] Care Team Providers Care Hearing Therapy Teacher Name Role Phone Dayron Arevalo MD Primary Care Provider [phone] Encounter Details Date Type Department Care Team (Late st Contact Info) Description 10/27/2022 Therapy Plan [facility] Infusion Services [address] [place], [place] [id number] Dayron Arevalo MD [address] [place] [address] Social History Tobacco Use Types Packs/Day Years Used Date Smoking Tobacco: Former Cigarettes 0.5 5 0 10/05/1998 - 10/06/2003 Smokeless Tobacco: Never Alcohol Use Standard Drinks/Week Comments No 0 [...] week 09/05/2022 How often do you attend [facility] or nondenominational services? Never 09/05/2022 Do you belong to any clubs o r organizations such as baptism groups, unions, fraternal or athletic groups, or [...] Recorded Patient Health Questionnaire-2 Score 0 09/05/2022 [facility] - Occupational Stress [...] place to sleep or slept in a senior living (including now)? 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 No / Unsure 10/27/2022 2:24 PM CDT documented as of this encounter Functional Status * Are you deaf or do you have serious difficulty hearing Answer Date of Assessment Author Status No 09/05/2022 4:26 PM CDT Eulalia Cline RN Active * Are you blind or do you have serious difficulty seeing, even when wearing glasses? Answer Date of Assessment Author Status No 09/05/2022 4:26 PM Eulalia Naranjo RN Active * Do you have serious difficulty walking or climbing stairs? Answer Date of Assessment Author Status No 09/05/2022 4:26 PM Eulalia Naranjo RN Active * Do you have difficulty dressing or bathing? Answer Date of Assessment Author Status No 09/05/2022 4:26 PM Eulalia Naranjo RN Active * Because of a physical, mental, or emotional condition, do you have difficulty doing errands alone such as visiting a doctor's office or shopping? Answer Date of Assessment Author Status No 09/05/2022 4:26 PM Eulalia Naranjo RN Active documented as of this encounter Mental Status * Because of a physical, mental, or emotional condition, do you have serious difficulty concentrating, remembering, or making decisions? Answer Entry Date Author Status No 09/05/2022 4:26 PM Eulalia Naranjo RN Active documented in this encounter Plan of Treatment Not on file documented as of this encounter Goals Goal Patient Goal Type Associated Problems Recent Progress Patient-Stated? Author Patient will return to prior living situation and remain independent in ADLs upon discharge from hospital Lifestyle No Niharika Davis RN Patient will return to prior living situation and remain independent in ADLs upon discharge from hospital Lifestyle No Niharika Davis RN documented as of this encounter Visit Diagnoses Diagnosis Osteomyelitis, unspecified ([facility])- Primary documented in this encounter Care Teams Hearing Therapy Teacher Relationship Specialty Start Date End Date Dayron Arevalo MD [address] [place] [address] PCP - General FAMILY PRACTICE 10/27/22 documented as of this encounter
--- OUTSIDE RECORDS SUMMARY | 2024-10-08 11:54 | XMS_ITS | Clinical Summary ---
Author Organization [facility] [address] Address [address] [place] [address] Care Team Providers Care Identification Clerk Name Role Phone Dayron Arevalo MD Primary Care Provider [phone] Allergies Active Allergy Reactions Criticality Noted Date [...] DAY DIRECTED WITH 3MG TABLETS 7 tablet Active cholecalciferol (VITAMIN D-3) 2000 unit capsule Take 1 capsule (2,000 Units total) by mouth daily 04/08/2 020 Active mycophenolate mofetil (CELLCEPT) 500 mg [...] TABLETS BY MOUTH ON MON, WEDS & FRI AND 2 TABS ALL OTHER DAYS UNLESS OTHERWISE TOLD BY MD 150 tablet 3 024 Active spironolactone (ALDACTONE) [...] reflux disease 09/30/2009 Overview (09/21/2016): ESOPHAGEAL REFLUX Encounters Date Type Department Care Team Description 10/03/2024 11:00 AM CDT Therapy [facility] Physical Therapy [address] [place] [address] Son, Mark Corey, DPT Morbid obesity with BMI of 50.0-59.9, adult ([facility]) (Primary Dx); Gastroesophageal reflux disease, unspecified whether esophagitis present; Obstructive sleep apnea; Systemic lupus erythematosus, unspecified SLE type, unspecified organ involvement status ([facility]); Arthritis; Chronic obstructive pulmonary disease, unspecified COPD type ([facility]) 10/03/2024 Plan of Care Documentation [facility] Physical Therapy [address] [place] [address] [address] [place] [address] 09/29/2024 10:30 AM CDT Office Visit [facility] Invasive Surgery [address] [facility] Medical Office Building [address] [place] [address] James Santiago NP Gastroesophageal reflux disease, unspecified whether esophagitis present (Primary Dx); Morbid obesity with BMI of 50.0-59.9, adult (HCC); Obstructive sleep apnea; Systemic lupus erythematosus, unspecified SLE type, unspecified organ involvement status (HCC); Arthritis; Chronic obstructive pulmonary disease, unspecified COPD type (HCC); Abnormal finding of blood chemistry, unspecified 09/22/2024 Telephone [facility] Minimally Invasive Surgery [address] [facility] Medical Office Building [address] [place] [address] Malik Kumar CMA 09/10/2024 Telephone [facility] Cardiology [address] [place] [address] Nazario Alfred MD from Last 3 Months Immunizations Immunization Administration Dates Next Due Influenza, Split 03/03/2010 Influenza, Trivalent, IM (MDV) 05/07/2008 Td, adsorbed 09/10/2008 Surgical History Surgery Date Site/Laterality Comments TUBAL LIGATION 06/18/2003 - 06/17/2004 Bilateral tubal ligation CHOLECYSTECTOMY 06/18/2000 - 06/17/2001 Cholecystectomy SECTION 06/18/2003 - 06/17/2004 section SECTION 05/20/2004 UMBILICAL HERNIA REPAIR INGUINAL HERNIA REPAIR CERVICAL BIOPSY W/ LOOP ELECTRODE EXCISION 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 Medical History Medical History Date Comments GERD (gastroesophageal reflux disease) 7 Arthritis 08/02/1986 Asthma 09/07/2000 Clotting disorder 07/31/1986 Autoimmune disease 1988 Sleep apnea 06/06/2019 Osteoporosis Morbid obesity (HCC) COPD (chronic obstructive pulmonary disease) (HC C) Coronary artery disease Joint pain Vitamin D deficiency CHF (congestive heart failure) (HCC) Cervical dysplasia Spider bite Lymphedema Lupus (systemic lupus erythematosus) (HCC) Pulmonary embolism (HCC) Deep vein thrombosis (HCC) Family History Medical History Relation Name Comments Other Brother 2 Alive and well; Diabetes Brother 3 Hadley Bernardino Cancer Father Fawad Lebron Coronary artery disease Father Fawad [place] i Coronary artery disease; Diabetes Father Fawad Lebron Diabetes type II Father Fawad Lebron Diabe best -Type II; Heart failure Father's Brother 1 Congesti ve heart failure; Heart failure Father's Brother 2 Davion Devine Cancer Father's Sister Naldo Lung cancer Father's Sister Naldo Cancer -lung ; Diabetes type II Maternal Grandfather Adry nguyen -Type II; Mental illness Maternal Grandmother Nhi Parkinsonism Maternal Grandmother Nhi Krishnan on's disease; Diabetes Mother Deanne Diabetes type II Mother Deanne Diabetes -T ype II; Cause of : Diabetes -Type II Mental illness Mother Deanne Diabetes Sister 1 Kavya Mental illness Sister 1 Kavya Schizophrenia Sister 1 Kavya Schizophrenia; Diabetes Sister 2 Kavya [place] Mental illness Sister 2 Kavya [place] Asthma Son 1 Liu Learning disabilities Son 1 Liu Developmental delay Son 2 Will Relation Name Status Comments Brother 1 Alive Brother 2 Brother 3 Hadley Lebron Father Fawad Lebron Father's Brother 1 Father's Brother 2 Davion Devine Alive Father's Sister Naldo Maternal Grandfather Maternal Grandmother Nhi Mother Deanne (Age 32) Sister 1 Kavya Sister 2 Kavya Katherine Son 1 Liu Son 2 Will Social History Tobacco Use Types Packs/Day Years [...] money to buy more. 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 Gender Identity Female 10/27/2020 9:28 AM CDT Sexual Orientation Straight 10/27/2020 9: 28 AM CDT Obstetrics History Last Filed Vital Signs Vital Sign Reading [...] 09/29/2024 9:59 AM CDT Plan of Treatment Health Maintenance Due Date Last Done Comments Breast Cancer Screening-Mammogram 1972 Cervical Cancer Screening 1972 Colon Cancer Screening-Colonoscopy 1972 Depression Screening 1972 Hepatitis C Screening 1972 Hepatitis B Screening 1990 Regular Well Visit/Exam 18-64 1990 Zoster Vaccine (1 of 2) 1991 Pneumococcal vaccine <65 (2 of 2 - PPSV23) 05/11/2017 03/16/2017 Influenza Vaccine (Season Ended) 2025 03/16/2017, 02/18/2017, 03/03/2010, Additional history exists DTaP/Tdap/Td Vaccine (2 - Td or Tdap) 03/16/2027 03/16/2017, 09/10/2008 Medical Devices Implanted Type Area Bowling Or Skating Front Desk Clerk Device Identifier Shelf Expiration Date Model / Serial / Lot Ivc Filter Vena Cava Insurance IDPA [facility] MEDICARE ADVANTAGE IDPA [facility] MEDICARE ADVANTAGE [facility] MEDICARE ADVANTAGE IDPA Care Teams Identification Clerk Relationship Specialty Start Date End Date Dayron Arevalo MD PCP - General Family Practice 11/08/22
== END 2024-10-08 10:22 | disposition home or self-care (01) ==
PROVIDERS: PCP Family Medicine; Visit Provider Nurse Practitioner Family
DX: R05.9 Cough, unspecified (principal); R06.09 Other forms of dyspnea
CPT/HCPCS: 71046

== ENCOUNTER 2024-11-12 09:44 | Outpatient (CLI) | payer MEDICARE, MEDICAID, SELFPAY ==
--- OUTSIDE RECORDS SUMMARY | 2024-11-12 09:49 | XMS_ITS | Referral Summary ---
Author Organization [facility] [address] [facility] [address] Address [address] [place] [address] Care Team Providers Care Scholarship Counselor Name Role Phone Dayron Arevalo MD Primary Care Provider [phone] Encounters Date Type Department Care Team Description 10/08/2024 Anticoagulation Visit [facility] Cardiology [address] [facility] [address] [place] [address] Laura Negrete RN Antiphospholipid antibody syndrome (Primary Dx); History of DVT (deep vein thrombosis) 10/03/2024 Plan of Care Documentation [facility] Physical Therapy [address] [place] [address] [address] [place] [address] 10/03/2024 11:00 AM CDT Therapy [facility] Physical Therapy [address] [place] [address] [address] [place] [address] Son, Mark Corey, DPT Morbid obesity with BMI of 50.0-59.9, adult (HCC) (Primary Dx); Gastroesophageal reflux disease, unspecified whether esophagitis present; Obstructive sleep apnea; Systemic lupus erythematosus, unspecified SLE type, unspecified organ involvement status (HCC); Arthritis; Chronic obstructive pulmonary disease, unspecified COPD type (HCC) 09/29/2024 10:30 AM CDT Office Visit [facility] Minimally Invasive Surgery [address] [place] [address] Medical Office Building [address] [place] [address] James Santiago NP Gastroesophageal reflux disease, unspecified whether esophagitis present (Primary Dx); Morbid obesity with BMI of 50.0-59.9, adult (HCC); Obstructive sleep apnea; Systemic lupus erythematosus, unspecified SLE type, unspecified organ involvement status (HCC); Arthritis; Chronic obstructive pulmonary disease, unspecified COPD type (HCC); Abnormal finding of blood chemistry, unspecified 09/22/2024 Telephone [facility] Minimally Invasive Surgery [address] [facility] Medical Office Building [address] [place] [address] Malik Kumar CMA 09/10/2024 Telephone [facility] Cardiology [address] [place] [address] Nazario Alfred MD from Last 3 Months Allergies Active Allergy Reactions Criticality Noted Date Comments Doxycycline Hives Medium Penicillins Hives Medium Sulfa (Sulfonamide Antibiotics) Hives Medium Sulfamethoxazole Trimethoprim Medications hydroxychloroqu ine (PLAQUENIL) 200 mg tablet Take by mouth 2 (two) times a day Active fluticasone (FLONASE) 50 mcg/actuation nasal spray Administer 1 spray into each nostril 2 (two) times a day Active cetirizine (ZyrTEC) 10 mg tablet Take 1 tablet (10 mg total) by mouth daily Active fish oil-dha-epa 1,200-144-216 mg capsule Take by mouth Activ e furosemide (LASIX) 20 mg tablet Take 1 tablet (20 mg total) by mouth daily Active raNITIdine (ZANTAC) 75 mg tablet Take 1 tablet (75 mg total) by mouth as needed Active budesonide-form oteroL (SYMBICORT) 160-4.5 mcg/actuation inhaler Inhale 2 puffs 2 (two) times a day 9 Active warfarin (COUMADIN) 1 mg tablet TAKE 1 TABLET BY MOUTH EVERY DAY DIRECTED WITH 3MG TABLETS 7 tablet 0 Active cholecalciferol (VITAMIN D-3) 2000 unit capsule Take 1 capsule (2,000 Units total) by mouth daily 0 Active mycophenolate mofetil (CELLCEPT) 500 mg tablet Take 2 tablets (1,000 mg total) by mouth 2 (two) times a day 1 Active traMADoL (ULTRAM) 50 mg tablet Take by mouth every 8 (eight) hours as needed 3 Active acetaminophen (TYLENOL) 500 mg tablet Take 2 tablets (1,000 mg total) by mouth every 6 (six) hours as needed 3 Active montelukast (SINGULAIR) 10 mg tablet FOR 90 DAYS TAKE 1 TABLET BY MOUTH EVERY DAY 3 Active azelastine (ASTELIN) 137 mcg (0.1 %) nasal spray INSTILL 1 SPRAY INTRANASALLY EVERY 12 HOURS ADMINISTER INTO EACH NOSTRIL 3 Active warfarin (COUMADIN) 5 mg tablet TAKE 1&1/2 TABLETS BY MOUTH ON MON, WEDS & SUN AND 2 TABS ALL OTHER DAYS UNLESS OTHERWISE TOLD BY 150 tablet 3 4 Active spironolactone (ALDACTONE) 25 mg tablet TAKE 1 TABLET (25 MG TOTAL) BY MOUTH DAILY. 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 Gender Identity Female 10/27/2020 9:28 AM CDT [...] 9:59 AM CDT Height 162.6 cm (5' 4) 09/29/2024 9:59 AM CDT Body Mass Index 54.41 09/29/2024 9:59 AM CDT Plan of Treatment Not on file Medical Devices Implanted Type Area Window Glazier Device Identifier Shelf Expiration Date Model / Serial / Lot Ivc Filter Vena Cava Procedures Procedure Name Priority Date/Time Associated Diagnosis Comments PROTIME-INR Routine 10/08/2024 from Last 3 Months Results * (ABNORMAL) Protime-INR (10/08/2024) INR 3.20(A) 0.90 - 1.10 EXTERNAL LAB Blood us Historical Provider LAB BLOOD ORDERABLES Ansley l Result EXTERNAL LAB from Last 3 Months Insurance IDPA [facility] MEDICARE ADVANTAGE [facility] MEDICARE ADVANTAGE [facility] MEDICARE ADVANTAGE IDPA Care Teams Scholarship Counselor Relationship Specialty Start Date End Date Dayron Arevalo MD PCP - General Family Practice 11/08/22
--- OUTSIDE RECORDS SUMMARY | 2024-11-12 09:49 | XMS_ITS | Clinical Summary ---
Author Organization [facility] Address [facility] [place] [address] Care Team Providers Care Prop Maker Name Role Phone Vinnie Love MD Primary Care Provider [phone] Source Comments [facility],non-owned Affiliates and Associated Physician Practices is amultiple site organization consisting of ambulatory clinics and hospital sitesin [place], [place] and [place]. This disclosure is being madepursuant to the Care Everywhere program and may not contain all information available regarding this patient. 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
--- OUTSIDE RECORDS SUMMARY | 2024-11-12 09:49 | XMS_ITS | Clinical Summary ---
Author Organization [facility] [address] Address [address] [place] [address] Care Team Providers Care Transfer Car Operator Name Role Phone Dayron Arevalo MD Primary Care Provider [phone] Allergies Active Allergy Reactions Criticality Noted Date [...] OTHERWISE TOLD BY MD 150 tablet 3 4 Active spironolactone (ALDACTONE) [...] Department Care Team Description 10/08/2024 Anticoagulation Visit [facility] Cardiology [address] [place] [address] Laura Negrete RN Antiphospholipid antibody syndrome (Primary Dx); History of DVT (deep vein thrombosis) 10/03/2024 11:00 AM CDT Therapy [facility] Physical Therapy [address] [place] [address] [address] [place] [address] Son, Mark Corey, DPT Morbid obesity with BMI of 50.0-59.9, adult (HCC) (Primary Dx); Gastroesophageal reflux disease, unspecified whether esophagitis present; Obstructive sleep apnea; Systemic lupus erythematosus, unspecified SLE type, unspecified organ involvement status (HCC); Arthritis; Chronic obstructive pulmonary disease, unspecified COPD type (HCC) 10/03/2024 Plan of Care Documentation [facility] Physical Therapy [address] [place] [address] [address] [place] [address] 09/29/2024 10:30 AM CDT Office Visit [facility] Minimally Invasive Surgery [address] [place] [address] Medical Office Building [address] [place] [address] James Santiago NP Gastroesophageal reflux disease, unspecified whether esophagitis present (Primary Dx); Morbid obesity with BMI of 50.0-59.9, adult (HCC); Obstructive sleep apnea; Systemic lupus erythematosus, unspecified SLE type, unspecified organ involvement status (HCC); Arthritis; Chronic obstructive pulmonary disease, unspecified COPD type (HCC); Abnormal finding of blood chemistry, unspecified 09/22/2024 Telephone [facility] Minimally Invasive Surgery [address] [facility] Medical Office Building [address] [place] [address] Malik Kumar CMA 09/10/2024 Telephone [facility] Medical Group Cardiology [address] [place] [address] Nazario Alfred MD from Last [...] Alive and well; Diabetes Brother 3 Hadley Liz[place]aphilippepennie Cancer Father Fawad Delgadillovielka Coronary artery disease Father Fawad Valentine i Coronary artery disease; Diabetes Father Fawad Bernardino Diabetes type II Father Fawad Delgadillomarcelinopennie Diabe best -Type II; Heart failure Father's Brother 1 Congesti ve heart failure; Heart failure Father's Brother 2 Davion Devine Cancer Father's Sister Naldo Lung cancer Father's Sister Nalod Cancer -lung ; Diabetes type II Maternal Grandfather Adry betchristoph -Type II; Mental illness Maternal Grandmother Nhi Parkinsonism Maternal Grandmother Nhi Eulogio on's disease; Diabetes Mother Deanne Diabetes type II Mother Deanne Diabetes -T ype II; Cause of : Diabetes -Type II Mental illness Mother Deanne Diabetes Sister 1 Kavya Mental illness Sister 1 Kavya Schizophrenia Sister 1 Kavya Schizophrenia; Diabetes Sister 2 Kavya [place] Mental illness Sister 2 Kavya [place] Asthma Son 1 Liu Learning disabilities Son 1 Liu Developmental delay Son 2 Will Relation Name Status Comments Brother 1 Alive Brother 2 Brother 3 Hadley Lebron Father Fawad Lebron Father's Brother 1 Father's Brother 2 Davion Clarkpennie Alive Father's Sister Naldo Maternal Grandfather Maternal Grandmother Nhi Mother Deanne (Age 32) Sister 1 Kavya Sister 2 Kavya [place] Son 1 Liu Son 2 Will Social [...] on file 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 Gender Identity Female 10/27/2020 9:28 AM CDT [...] 03/16/2017, 09/10/2008 Medical Devices Implanted Type Area Predatory Game Hunter Device Identifier Shelf Expiration Date Model / Serial / Lot Ivc Filter Vena Cava Procedures Procedure Name Priority Date/Time Associated Diagnosis Comments PROTIME-INR Routine 10/08/2024 from Last 3 Months Results * (ABNORMAL) Protime-INR (10/08/2024) INR 3.20(A) 0.90 - 1.10 EXTERNAL LAB Blood us Historical Provider LAB BLOOD ORDERABLES Ansley cortez Result EXTERNAL LAB from Last 3 Months Insurance IDPA [facility] MEDICARE ADVANTAGE [facility]ICARE Address: [address] [address] [place] [address] IDPA [facility] MEDICARE ADVANTAGE [facility]ICARE Address: [facility] [address] [place] [address] [facility] MEDICARE ADVANTAGE [facility] MEDICARE Address: [facility] [address] [place] [address] IDPA Care Teams Transfer Car Operator Relationship Specialty Start Date End Date Dayron Arevalo MD PCP - General Family Practice 11/08/22
[2024-11-12 10:10] LABS: Hematocrit 36.9 % (37.0-47.0); Hemoglobin 11.4 g/dL (12.0-15.0); Mean Corpuscular HGB Conc 30.9 g/dl (32-36); Mean Corpuscular Hemoglobin 27.8 pg (26-34); Mean Platelet Volume 12.4 fl (7.4-10.4); Platelet Count Result 118 k/mm3 (150-375); Red Cell Distribution Width 13.4 % (11.5-14.5); White Blood Count 5.2 K/mm3 (4.5-10.0)
[2024-11-12 10:21] LABS: Alanine Aminotransferase 18 U/L (6-35); Albumin Level 4.2 g/dL (3.5-5.1); Alkaline Phosphatase 98 U/L (38-126); Anion Gap 10 mmol/L (4-12); Aspartate Amino Transferase 31 U/L (14-36); Bilirubin,Total 0.5 mg/dL (0.2-1.3); Blood Urea Nitrogen 37 mg/dL (7-17); Calcium 9.2 mg/dL (8.4-10.2); Carbon Dioxide 24 mmol/L (22-30); Chloride 105 mmol/L (98-107); Cholesterol 153 mg/dL (0-200); Estimated Glomerular Filt Rate 41; Glucose 85 mg/dL (65-110); HDL Direct 44 mg/dL; Potassium 4.8 mmol/L (3.4-5.0); Sodium 139 mmol/L (137-145); Triglycerides 76 mg/dL (<150)
[2024-11-12 10:32] LABS: LDL Cholesterol Direct 68 mg/dL
[2024-11-12 10:38] LABS: Vitamin D 25 Hydroxy 76.4 ng/mL
== END 2024-11-12 09:45 | disposition home or self-care (01) ==
LOC: ANHLAB 09:45
PROVIDERS: PCP Family Medicine; Visit Provider Family Medicine
DX: E55.9 Vitamin D deficiency, unspecified (principal); M32.9 Systemic lupus erythematosus, unspecified; J44.9 Chronic obstructive pulmonary disease, unspecified; D68.61 Antiphospholipid syndrome; G47.33 Obstructive sleep apnea (adult) (pediatric); I50.9 Heart failure, unspecified; E66.9 Obesity, unspecified; Z79.899 Other long term (current) drug therapy
CPT/HCPCS: 36415; 80053; 80061; 82306; 85027

== ENCOUNTER 2024-12-24 08:12 | Outpatient (RCR) | payer MEDICARE, MEDICAID, SELFPAY ==
[2024-10-08 11:56] LABS: INR 3.2; Prothrombin Time 33.8 Seconds (11.1-14.7)
[2024-11-12 10:21] LABS: INR 2.0; Prothrombin Time 23.4 Seconds (11.1-14.7)
[2024-12-05 13:07] LABS: INR 2.0; Prothrombin Time 22.2 Seconds (11.1-14.7)
[2024-12-24 09:02] LABS: INR 3.8; Prothrombin Time 35.8 Seconds (11.1-14.7)
== END 2025-01-06 23:59 | disposition home or self-care (01) ==
LOC: ANHLAB 08:12
PROVIDERS: PCP Family Medicine; Visit Provider Internal Medicine Cardiovascular Disease
DX: Z79.01 Long term (current) use of anticoagulants (principal)
CPT/HCPCS: 36415; 85610

== ENCOUNTER 2025-01-15 11:16 | Outpatient (CLI) | payer MEDICARE, MEDICAID, SELFPAY ==
--- NOTE | ~2025-01-15 | XR_ITS ---
Right Hand Technique: PA and lateral views were obtained. Clinical History: Inflammatory arthritis, lupus Findings: No acute fracture or dislocation is seen. Osseous alignment is anatomic. There is advanced degenerative change at the second, third, and fifth DIP joints with appearance most suggestive of ero sive osteoarthritis. There is moderate osteoarthritic change of the PIP joints and fourth DIP joint. There is moderate degenerative change of the interphalangeal joint of the thumb. Soft tissues are unr emarkable. Impression: Advanced erosive osteoarthritis of the second, third, and fifth DIP joints. Additional degenerative changes of the remaining interphalangeal joints, as above. Reviewed, dictated and finalized at location M. Impression: Advanced erosive osteoarthritis of the second, third, and fifth DIP joints. Additional degenerative changes of the remaining interphalangeal joints, as abo ve.
--- NOTE | ~2025-01-15 | XR_ITS ---
Left Hand Technique: PA and lateral views were obtained. Clinical History: Inflammatory arthropathy, lupus Findings: No acute fracture or dislocation is seen. Osseous alignment is anatomic. There is severe er osive osteoarthritis of the second and fifth DIP joints, with more mild erosive osteoarthritis of the third DIP joint. There is advanced osteophytic change of the interphalangeal joint of the thumb. The re is moderate degenerative change throughout the PIP joints. Soft tissues are unremarkable. 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 Reviewed, dictated and finalized at location M. 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
--- OUTSIDE RECORDS SUMMARY | 2025-01-15 11:27 | XMS_ITS | Encounter Summary ---
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 Gender Identity Female 10/27/2020 9:28 AM CDT Sexual Orientation Straight 10/27/2020 9: 28 AM CDT documented as of this encounter Plan of Treatment Not on file documented as of this encounter Procedures Procedure Name Priority Date/Time Associated Diagnosis Comments SCAN - LABS 11/12/2024 documented in this encounter Results * SCAN - LABS (11/12/2024) us Provider Scanning Final Result documented in this encounter Visit Diagnoses Not on filedocumented in this encounter Care Teams Visual Stylist Relationship Specialty Start Date End Date Dayron Arevalo MD PCP - General Family Practice 11/08/22 documented as of this encounter
--- OUTSIDE RECORDS SUMMARY | 2025-01-15 11:27 | XMS_ITS | Referral Summary ---
Author Organization [address] Address [address] [facility] [address] [place] [address] Care Team Providers Care Manufacturing Lab Technician Name Role Phone Dayron Arevalo MD Primary Care Provider [phone] Encounters Date Type Department Care Team Description 01/12/2025 Anticoagulation Visit [facility] Cardiology [address] [facility] [address] [place] [address] Laura Negrete RN Antiphospholipid antibody syndrome (Primary Dx); History of DVT (deep vein thrombosis) 01/09/2025 10:30 AM CDT Office Visit [facility] Rhe[facility] 5th [place] [address] [place] [address] Mark Engel MD Antiphospholipid antibody syndrome; Systemic lupus erythematosus, unspecified SLE type, unspecified organ involvement status (HCC) 12/24/2024 Anticoagulation Visit [facility] [address] [facility] [address] [place] [address] Laura Negrete RN Antiphospholipid antibody syndrome (Primary Dx); History of DVT (deep vein thrombosis) 12/08/2024 Anticoagulation Visit [facility] [address] [facility] [address] [place] [address] Marli Keene RN Antiphospholipid antibody syndrome (Primary Dx); History of DVT (deep vein thrombosis) 12/05/2024 Orders Only [facility] Health Information Management [address] [place], [place] [id number] Scanning, Provider 11/12/2024 Orders Only [facility] Health Information Management [address] [place] [address] Scanning, Provider 11/12/[address] 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 Gender Identity Female 10/27/2020 9:28 AM CDT Sexual Orientation Straight 10/27/2020 9: 28 AM CDT Last Filed Vital Signs Vital Sign Reading Time Taken Comments Blood Pressure 124/69 01/09/2025 10:33 AM CDT Pulse 61 01/09/2025 10:33 AM CDT Temperature 36.6 C (97.9 F) 01/09/2025 10:33 AM CDT Respiratory Rate 18 02/09/2023 9:25 AM CDT Oxygen Saturation 94% 10/03/2024 11:30 AM CDT Inhaled Oxygen Concentration - - Weight 137.4 kg (303 lb) 01/09/2025 10:33 AM CDT Height 163.8 cm (5' 4.5) 01/09/2025 10:33 AM CD T Body Mass Index 51.21 01/09/2025 10:33 AM CDT Plan of Treatment Not on file Medical Devices Implanted Type Area Optometric Tech Device Identifier Shelf Expiration Date Model / Serial / Lot Ivc Filter Vena Cava Procedures Procedure Name Priority Date/Time Associated Diagnosis Comments PROTIME-INR Routine 01/12/2025 PROTIME-INR Routine 12/24/2024 SCAN - LABS 12/05/2024 PROTIME-INR Routine 12/05/2024 SCAN - LABS 11/12/2024 PROTIME-INR Routine 11/12/2024 from Last 3 Months Results * (ABNORMAL) Protime-INR (01/12/2025) INR 3.40(A) 0.90 - 1.10 EXTERNAL LAB Blood Historical Provider MD LAB BLOOD ORDERABLES Ansley l Result EXTERNAL LAB * (ABNORMAL) Protime-INR (12/24/2024) INR 3.80(A) 0.90 - 1.10 EXTERNAL LAB Blood Historical Provider MD LAB BLOOD ORDERABLES Edit ed Result - Final EXTERNAL LAB * SCAN - LABS (12/05/2024) us Provider Scanning Final Result * (ABNORMAL) Protime-INR (12/05/2024) INR 2.00(A) 0.90 - 1.10 EXTERNAL LAB Blood Historical Provider MD LAB BLOOD ORDERABLES Ansley l Result EXTERNAL LAB * SCAN - LABS (11/12/2024) Provider Scanning Final Result * (ABNORMAL) Protime-INR (11/12/2024) INR 2.00(A) 0.90 - 1.10 EXTERNAL LAB Blood 11/12/2024 Result [facility] Provider MD LAB BLOOD ORDERABLES Ansley l Result EXTERNAL LAB from Last 3 Months Insurance [facility] MEDICARE ADVANTAGE IDPA [facility] MEDICARE ADVANTAGE [facility] MEDICARE ADVANTAGE IDPA Care Teams Manufacturing Lab Technician Relationship Specialty Start Date End Date Dayron Arevalo MD PCP - General Family Practice 11/08/22
--- OUTSIDE RECORDS SUMMARY | 2025-01-15 11:27 | XMS_ITS | Clinical Summary ---
Author Organization [facility] Address [facility] [place] [address] Care Team Providers Care Chairman & Co Founder Name Role Phone Vinnie Love MD Primary Care Provider Source Comments [facility],non-owned Affiliates and Associated Physician Practices is amultiple site organization consisting of ambulatory clinics and hospital sitesin [place], [place]. This disclosure is being madepursuant to the Care Everywhere program and may not contain all information available regarding this patient. 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
--- OUTSIDE RECORDS SUMMARY | 2025-01-15 11:27 | XMS_ITS | Encounter Summary ---
Author Organization [facility] Address [address] [place] [address] Care Team Providers Care Cad Librarian Name Role Phone Dayron Arevalo MD Primary Care Provider Encounter Details Date Type Department Care Team (Late st Contact Info) Description 10/27/2022 Therapy Plan [facility] Infusion Services [place], [place] [id number] Dayron Arevalo MD [address] [place] [address] Social History Tobacco Use Types [...] week 09/05/2022 How often do you attend [facility] or alevism services? Never 09/05/2022 Do you belong to any clubs o r organizations such as confucianist groups, unions, fraternal or athletic groups, or [...] Recorded Patient Health Questionnaire-2 Score 0 09/05/2022 [facility] Occupat ional [facility] - Occupational [...] place to sleep or slept in a [place] health care facility (including now)? 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
--- OUTSIDE RECORDS SUMMARY | 2025-01-15 11:27 | XMS_ITS | Encounter Summary ---
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 Gender Identity Female 10/27/2020 9:28 AM CDT Sexual Orientation Straight 10/27/2020 9 :28 AM CDT documented as of this encounter Plan of Treatment Not on file documented as of this encounter Procedures Procedure Name Priority Date/Time Associated Diagnosis Comments SCAN - LABS 03/05/2024 documented in this encounter Results * SCAN - LABS (03/05/2024) us Provider Scanning Final Result documented in this encounter Visit Diagnoses Not on filedocumented in this encounter Care Teams Manager Environmental Health And Safety Relationship Specialty Start Date End Date Dayron Arevalo MD PCP - General Family Practice 11/08/22 documented as of this encounter
--- OUTSIDE RECORDS SUMMARY | 2025-01-15 11:27 | XMS_ITS | Encounter Summary ---
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 Gender Identity Female 10/27/2020 9:28 AM CDT Sexual Orientation Straight 10/27/2020 9 :28 AM CDT documented as of this encounter Plan of Treatment Not on file documented as of this encounter Procedures Procedure Name Priority Date/Time Associated Diagnosis Comments SCAN - LABS 04/30/2024 documented in this encounter Results * SCAN - LABS (04/30/2024) us Provider Scanning Final Result documented in this encounter Visit Diagnoses Not on filedocumented in this encounter Care Teams Used Car Lot Attendant Relationship Specialty Start Date End Date Dayron Arevalo MD PCP - General Family Practice 11/08/22 documented as of this encounter
--- OUTSIDE RECORDS SUMMARY | 2025-01-15 11:27 | XMS_ITS | Clinical Summary ---
Author Organization [facility] [address] Address [address] [place] [address] Care Team Providers Care Methods Specialist Engineer Name Role Phone Dayron Arevalo MD Primary Care Provider [phone] [phone] Allergies Active Allergy Reactions Criticality Noted Date [...] Department Care Team Description 01/12/2025 Anticoagulation Visit [facility] Cardiology [address] [place] [address] Laura Negrete RN Antiphospholipid antibody syndrome (Primary Dx); History of DVT (deep vein thrombosis) 01/09/2025 10:30 AM CDT Office Visit [facility] Rheumatology [address] [place] [address] 5th [place] [address] [place] [address] Mark Engel MD Antiphospholipid antibody syndrome; Systemic lupus erythematosus, unspecified SLE type, unspecified organ involvement status (HCC) 12/24/2024 Anticoagulation Visit [facility] Cardiology [address] [place] [address] Laura Negrete RN Antiphospholipid antibody syndrome (Primary Dx); History of DVT (deep vein thrombosis) 12/08/2024 Anticoagulation Visit [facility] Cardiology [address] [place] [address] Marli Keene RN Antiphospholipid antibody syndrome (Primary Dx); History of DVT (deep vein thrombosis) 12/05/2024 Orders Only [facility] Health Information Management [address] [place] [address] Scanning, Provider 11/12/2024 Orders Only [facility] Health Information Management [address] [place] [address] Scanning, Provider 11/12/[address] [facility] Cardiology [address] [place] [address] Magdaleno Lagos RN Antiphospholipid antibody syndrome (Primary Dx); History of DVT (deep vein thrombosis) from Last 3 Months Immunizations Immunization Administration [...] Alive and well; Diabetes Brother 3 Hadley Lebron Cancer Father Fawad Lebron Coronary artery disease Father Fawad Delgadillojose i Coronary artery disease; Diabetes Father Fawad [...] 1 Kavya Schizophrenia; Diabetes Sister 2 Kavya [place] Mental illness Sister 2 Kavya Katherine Asthma Son 1 Liu Learning disabilities Son 1 Liu Developmental delay Son 2 Will Relation Name Status Comments Brother 1 Alive Brother 2 Brother 3 Hadley Lebron Father Fawad Coxpennie Father's Brother 1 Father's Brother 2 Davion Lizamadealno Alive Father's Sister Naldo Maternal Grandfather Maternal [...] on file 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 Gender Identity Female 10/27/2020 9:28 AM CDT [...] 01/09/2025 10:33 AM CDT Plan of Treatment Health Maintenance Due Date Last Done Comments Breast Cancer Screening-Mammogram 1972 Cervical Cancer Screening 1972 Colon Cancer Screening-Colonoscopy 1972 Depression Screening 1972 Hepatitis C Screening 1972 Hepatitis B Screening 1990 Regular Well Visit/Exam 18-64 1990 Zoster Vaccine (1 of 2) 1991 Pneumococcal vaccine <65 (2 of 2 - PPSV23) 05/11/2017 03/16/2017 Influenza Vaccine (#1) 2025 7, 02/18/2017, 03/03/2010, Additional history exists DTaP/Tdap/Td Vaccine (2 - Td or Tdap) 03/16/2027 03/16/2017, 09/10/2008 Medical Devices Implanted Type Area Skin Peeling Machine Operator Device Identifier Shelf Expiration Date Model / Serial / Lot Ivc Filter Vena Cava Procedures Procedure Name Priority Date/Time Associated Diagnosis Comments PROTIME-INR Routine 01/12/2025 PROTIME-INR Routine 12/24/2024 SCAN - LABS 12/05/2024 PROTIME-INR Routine 12/05/2024 SCAN - LABS 11/12/2024 PROTIME-INR Routine 11/12/2024 from Last 3 Months Results * (ABNORMAL) Protime-INR (01/12/2025) INR 3.40(A) 0.90 - 1.10 EXTERNAL LAB Blood us Historical Provider MD LAB BLOOD ORDERABLES Ansley l Result EXTERNAL LAB * (ABNORMAL) Protime-INR (12/24/2024) INR 3.80(A) 0.90 - 1.10 EXTERNAL LAB Blood Result [facility] Provider MD LAB BLOOD ORDERABLES Edit ed Result - Final Performing Organization Address [facility]/ZIP Co de Phone Number EXTERNAL LAB * SCAN - LABS (12/05/2024) Result [facility] Provider Scanning Final Result * (ABNORMAL) Protime-INR (12/05/2024) INR 2.00(A) 0.90 - 1.10 EXTERNAL LAB Blood Result [facility] Provider MD LAB BLOOD ORDERABLES Ansley l Result Performing Organization Address [facility] Co de Phone Number EXTERNAL LAB * SCAN - LABS (11/12/2024) Result [facility] Provider Scanning Final Result * (ABNORMAL) Protime-INR (11/12/2024) INR 2.00(A) 0.90 - 1.10 EXTERNAL LAB Blood 11/12/2024 Result [facility] Provider MD LAB BLOOD ORDERABLES Ansley l Result Performing Organization Address [facility] Co de Phone Number EXTERNAL LAB from Last 3 Months Insurance IDPA [facility] MEDICARE ADVANTAGE IDPA [facility] MEDICARE ADVANTAGE [facility] MEDICARE ADVANTAGE IDPA Care Teams Methods Specialist Engineer Relationship Specialty Start Date End Date Dayron Arevalo MD PCP - General Family Practice 11/08/22
--- OUTSIDE RECORDS SUMMARY | 2025-01-15 11:27 | XMS_ITS | Clinical Summary ---
Author Organization [facility] Address [facility] [place] [address] Care Team Providers Care Landscape Manager Name Role Phone Dayron Arevalo MD Primary Care Provider [phone] Allergies Active Allergy Reactions Criticality Noted Date [...] Problem Noted Date Diagnosed Date Osteomyelitis, unspecified ([facility]) 05/2023 Finger infection 09/05/2022 Antiphospholipid antibody syndrome ([facility]) DVT (deep venous thrombosis) ([facility]) 0 10/01/2018 History of DVT (deep vein thrombosis) 10/01/2018 Chronic obstructive pulmonary disease ([facility] H HS/[facility]) 11/01/2013 Overview (09/05/2022): CHR AIRWAY OBSTRUCT NEC Restless legs syndrome 11/01/2013 Overview (09/05/2022): RESTLESS LEGS SYNDROME Systemic lupus erythematosus ([facility]) 0 11/01/2013 Overview (09/05/2022): SYST LUPUS [...] often do you attend chur ch or jew services? Never 09/05/2022 Do you belong to any clubs o r organizations such as yazdanism groups, unions, fraternal or athletic groups, or [...] Recorded Patient Health Questionnaire-2 Score 0 09/05/2022 [facility] of Occupat ional Health - Occupational Stress [...] place to sleep or slept in a assisted (including now)? 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 Gender Identity Not on file Sexual Orientation [...] 11:22 AM CDT Height 165.1 cm (5' 5) 01/09/2023 11:2 2 AM CDT Body Mass [...] risk series) 11/25/2020 10/28/2020, 10/05/2020 PHQ-2 (Physician Swiss) 06/18/2024 Pneumococcal Vaccine: 50+ Years (3 of [...] Lifestyle No Niharika Davis RN Insurance [facility] [address] Advance Directives * Full Code (Latest Code Status on File) Date Activated Date Inactivated Comments 09/12/2022 4:10 PM 01/09/2023 10:18 AM * Full Code Date Activated Date Inactivated Comments 09/05/2022 4:28 PM 09/08/2022 11:09 PM Care Teams Landscape Manager Relationship Specialty Start Date End Date Dayron Arevalo MD [address] [place] [address] PCP - General FAMILY PRACTICE 10/27/22
--- OUTSIDE RECORDS SUMMARY | 2025-01-15 11:27 | XMS_ITS | Encounter Summary ---
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 Gender Identity Female 10/27/2020 9:28 AM CDT Sexual Orientation Straight 10/27/2020 9: 28 AM CDT documented as of this encounter Plan of Treatment Not on file documented as of this encounter Procedures Procedure Name Priority Date/Time Associated Diagnosis Comments SCAN - LABS 12/05/2024 documented in this encounter Results * SCAN - LABS (12/05/2024) us Provider Scanning Final Result documented in this encounter Visit Diagnoses Not on filedocumented in this encounter Care Teams Animal Shelter Worker Relationship Specialty Start Date End Date Dayron Arevalo MD PCP - General Family Practice 11/08/22 documented as of this encounter
[2025-01-15 12:40] LABS: Hematocrit 36.9 % (37.0-47.0); Hemoglobin 11.6 g/dL (12.0-15.0); Immature Granulocyte Percent A 0.3 % (0-0.5); Immature Platelet Fraction Pct 13.2 % (0.9-11.2); Lymphocytes Absolute Auto 0.97 K/mm3 (0.9-3.2); Mean Corpuscular HGB Conc 31.4 g/dl (32-36); Mean Corpuscular Hemoglobin 28.4 pg (26-34); Mean Corpuscular Volume 90.2 fl (80-100); Nucleated Red Blood Cells Absolute Auto 0.000 K/mm3 (0.0-0.012); Nucleated Red Blood Cells Perc 0.0 % (0.0-0.2); Platelet Count Result 117 k/mm3 (150-375); Red Blood Count 4.09 M/mm3 (4.2-5.4); White Blood Count 6.7 K/mm3 (4.5-10.0)
[2025-01-15 12:59] LABS: Alanine Aminotransferase 22 U/L (6-35); Albumin Level 4.2 g/dL (3.5-5.1); Alkaline Phosphatase 76 U/L (38-126); Anion Gap 11 mmol/L (4-12); Aspartate Amino Transferase 33 U/L (14-36); Bilirubin,Total 0.6 mg/dL (0.2-1.3); Blood Urea Nitrogen 44 mg/dL (7-17); CRP < 0.5 mg/dL (<1.0); Calcium 10.7 mg/dL (8.4-10.2); Carbon Dioxide 20 mmol/L (22-30); Chloride 107 mmol/L (98-107); Estimated Glomerular Filt Rate 31; Glucose 84 mg/dL (65-110); Potassium 4.5 mmol/L (3.4-5.0); Sodium 138 mmol/L (137-145); Total Protein 8.0 g/dL (6.3-8.2); Total Protein Urine Random 12 mg/dL; Ur Ttl Prot Creatinine Ratio 0.06 mg/mg (0-0.20)
[2025-01-15 13:21] LABS: Add Urine Microscopic? YES; Appearance Urine Cloudy (Clear); Glucose Urine UA Negative (Negative); Leukocyte Esterase Ur 3+ LEU/UL (Negative); Need Manual Microscopic Reviewed; Nitrate Urine Negative (Negative); Specific Grav Ur 1.021 (1.001-1.035)
[2025-01-15 17:58] LABS: Hepatitis B Surface Antigen Negative (Negative)
[2025-01-15 18:15] LABS: Hepatitis B Surface Anti Res Negative
[2025-01-16 06:08] LABS: Hep B Core Ab, Total Negative (Negative)
[2025-01-16 14:08] LABS: Anti-CCP Ab, IgG/IgA 5 units (0-19)
[2025-01-16 15:09] LABS: Anticardiolipin Ab,IgG,Qn <9 GPL U/mL (0-14); Anticardiolipin Ab,IgM,Qn <9 MPL U/mL (0-12)
[2025-01-17 16:09] LABS: PTT-LA 36.6 sec (0.0-43.5); dRVVT Mix YES YES
== END 2025-01-15 11:17 | disposition home or self-care (01) ==
PROVIDERS: PCP Family Medicine
DX: M32.9 Systemic lupus erythematosus, unspecified (principal); D68.61 Antiphospholipid syndrome; M19.041 Primary osteoarthritis, right hand; M19.042 Primary osteoarthritis, left hand
CPT/HCPCS: 36415; 73120; 80053; 81001; 82570; 84156; 85025; 85055; 85613; 85652; 85732; 86140; 86146; 86147; 86160; 86200; 86225; 86430; 86704; 86706; 86803; 87340; 87389

== ENCOUNTER 2025-02-19 09:08 | Outpatient (CLI) | payer MEDICARE, MEDICAID, SELFPAY ==
--- NOTE | ~2025-02-19 | MM_ITS ---
EXAMINATION: MM screening [facility] BI w gutierrez HISTORY: Screening TECHNIQUE: Craniocaudal and mediolateral oblique 3-D tomosynthesis images were obtained and synthetic 2-D images were generated. CAD analysis was submitted and interpreted. COMPARISON: Mammograms from 10/15/2023 and 07/26/2022 BREAST PARENCHYMAL COMPOSITION: There are scattered areas of fibroglandular density. FINDINGS: There is no evidence of suspicious mass, calcification, or architectural distortion to suggest malignancy. There has been no suspicious interval change. IMPRESSION: 1. No mammographic evidence of malignancy. Recommend routine screening mammography in one year. BI-RADS Category 2: Benign finding(s) Reviewed, dictated and finalized at location Q. IMPRESSION: 1. No mammographic evidence of malignancy. Recommend routine screening mammogra phy in one year. BI-RADS Category 2: Benign finding(s)
--- OUTSIDE RECORDS SUMMARY | 2025-02-19 09:24 | XMS_ITS | Encounter Summary ---
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 Gender Identity Female 10/27/2020 9:28 AM CDT Sexual Orientation Straight 10/27/2020 9: 28 AM CDT documented as of this encounter Plan of Treatment Not on file documented as of this encounter Procedures Procedure Name Priority Date/Time Associated Diagnosis Comments SCAN - LABS 10/08/2024 documented in this encounter Results * SCAN - LABS (10/08/2024) us Provider Scanning Final Result documented in this encounter Visit Diagnoses Not on filedocumented in this encounter Care Teams Cigarette Stamper Relationship Specialty Start Date End Date Dayron Arevalo MD PCP - General Family Practice 11/08/22 documented as of this encounter
--- OUTSIDE RECORDS SUMMARY | 2025-02-19 09:24 | XMS_ITS | Clinical Summary ---
Author Organization [facility] Address [facility] [place] [address] Care Team Providers Care Transitions Manager Name Role Phone Vinnie Love MD Primary Care Provider [phone] Source Comments [facility],non-owned Affiliates and Associated Physician Practices is amultiple site organization consisting of ambulatory clinics and hospital sitesin [place], [place], [place] and [place]. This disclosure is being madepursuant to the Care Everywhere program and may not contain all information available regarding this patient. 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
--- OUTSIDE RECORDS SUMMARY | 2025-02-19 09:24 | XMS_ITS | Encounter Summary ---
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
--- OUTSIDE RECORDS SUMMARY | 2025-02-19 09:24 | XMS_ITS | Encounter Summary ---
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
--- OUTSIDE RECORDS SUMMARY | 2025-02-19 09:24 | XMS_ITS | Clinical Summary ---
Author Organization [facility] [address] Address [address] [place] [address] Care Team Providers Care Pack Room Operator Name Role Phone Dayron Arevalo MD Primary Care Provider [phone] [phone] Allergies Active Allergy Reactions Criticality Noted Date [...] DAILY. 90 tablet 2 5 Active sacubitriL-vals adniel (Entresto) 49-51 mg tablet TAKE 1 TABLET [...] Date Type Department Care Team Description 01/12/2025 Orders Only [facility] Health Information Management [address] [place] [address] Scanning, Provider 01/12/2025 Anticoagulation Visit [facility] [address] [place] [address] [address] [place] [phone] Laura Negrete RN Antiphospholipid antibody syndrome (Primary Dx); History of DVT (deep vein thrombosis) 01/09/2025 10:30 AM CDT Office Visit [facility] [address] [place] [address] 5th [place] [address] [place] [address] Mark Engel MD Antiphospholipid antibody syndrome; Systemic lupus erythematosus, unspecified SLE type, unspecified organ involvement status (HCC) 12/24/2024 Anticoagulation Visit [facility] [address] [place] [address] [address] [place] [phone] Laura Negrete RN Antiphospholipid antibody syndrome (Primary Dx); History of DVT (deep vein thrombosis) 12/08/2024 Anticoagulation Visit [facility] [address] [place] [address] [address] [place] [phone] Marli Keene RN Antiphospholipid antibody syndrome (Primary Dx); History of DVT (deep vein thrombosis) 12/05/2024 Orders Only [facility] Health Information Management [address] [place] [phone] Scanning, Provider from Last 3 Months Immunizations Immunization Administration [...] obesity (HCC) COPD (chronic obstructive pulmonary disease) Coronary artery disease Joint pain Vitamin D deficiency CHF (congestive heart failure) (HCC) Cervical dysplasia Spider bite Lymphedema Lupus (systemic lupus erythematosus) (HCC) Pulmonary embolism Deep vein thrombosis (HCC) Family History Medical History Relation Name Comments Other Brother 2 Alive and well; Diabetes Brother 3 Hadley Bernardnio Cancer Father Fawad Lebron Coronary artery disease Father Fawad Grijlava i Coronary artery disease; Diabetes Father Fawad Bernardino Diabetes type II Father Fawad Bernardino Diabe best -Type II; Heart failure Father's [...] 1 Kavya Schizophrenia; Diabetes Sister 2 Kavya [place] Mental illness Sister 2 Kavya Katherine Asthma Son 1 Liu Learning disabilities Son 1 Liu Developmental delay Son 2 Will Relation Name Status Comments Brother 1 Alive Brother 2 Brother 3 Hadley Bernardino Father Fawad Lebron Father's Brother 1 Father's Brother 2 Davion Devine Alive Father's Sister Naldo Maternal Grandfather Maternal Grandmother Nhi Mother Deanne (Age 32) Sister 1 Kavya Sister 2 Kavya Murphy Son 1 Liu Son 2 Will Social [...] on file 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 Gender Identity Female 10/27/2020 9:28 AM CDT [...] Pneumococcal vaccine <65 (2 of 2 - PPSV23, PCV20, or PCV21) 05/11/2017 03/16/2017 Influenza Vaccine (#1) 2025 7, 02/18/2017, 03/03/2010, Additional history exists DTaP/Tdap/Td Vaccine (2 - Td or Tdap) 03/16/2027 03/16/2017, 09/10/2008 Medical Devices Implanted Type Area Db2 Systems Programmer Device Identifier Shelf Expiration Date Model / Serial / Lot Ivc Filter Vena Cava Procedures Procedure Name Priority Date/Time Associated Diagnosis Comments SCAN - LABS 01/12/2025 PROTIME-INR Routine 01/12/2025 PROTIME-INR Routine 12/24/2024 SCAN - LABS 12/05/2024 PROTIME-INR Routine 12/05/2024 from Last 3 Months Results * SCAN - LABS (01/12/2025) us Provider Scanning Final Result * (ABNORMAL) Protime-INR (01/12/2025) INR 3.40(A) 0.90 - 1.10 EXTERNAL LAB Blood [facility] Provider LAB BLOOD ORDERABLES Ansley l Result EXTERNAL LAB * (ABNORMAL) Protime-INR (12/24/2024) INR 3.80(A) 0.90 - 1.10 EXTERNAL LAB Blood Historical Provider MD LAB BLOOD ORDERABLES Edit ed Result - Final EXTERNAL LAB * SCAN - LABS (12/05/2024) Provider Scanning Final Result * (ABNORMAL) Protime-INR (12/05/2024) INR 2.00(A) 0.90 - 1.10 EXTERNAL LAB Blood Result [facility] Provider LAB BLOOD ORDERABLES Ansley l Result Performing Organization Address City/[facility]/ZIP Co de Phone Number EXTERNAL LAB from Last 3 Months Insurance IDRI [facility] MEDICARE ADVANTAGE IDPA [facility] MEDICARE ADVANTAGE [facility] MEDICARE ADVANTAGE IDPA Care Teams Pack Room Operator Relationship Specialty Start Date End Date Dayron Arevalo MD PCP - General Family Practice 11/08/22
--- OUTSIDE RECORDS SUMMARY | 2025-02-19 09:24 | XMS_ITS | Encounter Summary ---
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
--- OUTSIDE RECORDS SUMMARY | 2025-02-19 09:24 | XMS_ITS | Encounter Summary ---
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
== END 2025-02-19 09:09 | disposition home or self-care (01) ==
LOC: ANHFOHIMG 09:11
PROVIDERS: PCP Family Medicine; Visit Provider Family Medicine
DX: Z12.31 Encounter for screening mammogram for malignant neoplasm of breast (principal)
CPT/HCPCS: 77063; 77067

== ENCOUNTER 2025-03-19 14:34 | Emergency (ER) | payer MEDICARE, MEDICAID, SELFPAY ==
[2025-03-19 14:40] VITALS: BP 118/65; PULSE 73; RESP 20; TEMP 36.6; O2SAT 98
--- NOTE | 2025-03-19 14:43 | ED.DENTAL ---
HPI - Dental/Oral General Chief complaint: Dental/Oral Stated complaint: tooth pain Patient presents to the [facility] with complaints of left-sided lower dental pain that began yesterday. Patient denies any history of frequent dental pain. Reports attempted to call dentist but they will not see her unless she is off her blood thinners for 1 week. Primary care cannot get her until tomorrow. Denies fever, chills, body aches, headache, or drainage from the area. Related Data Home Medications ?Medication ?Instructions ?Recorded ?Confirmed ?Last Taken ?Type carvedilol 3.125 mg tablet 3.125 mg PO Q12H 05/26/19 11/12/24 Unknown History cetirizine 10 mg tablet 10 mg PO DAILY 05/26/19 11/12/24 Unknown History furosemide 20 mg tablet 20 mg PO QAM 05/26/19 11/12/24 Unknown History sacubitril 49 mg-valsartan 51 mg 2 tablet PO BID 05/26/19 11/12/24 Unknown History tablet (Entresto) warfarin 10 mg tablet 10 mg PO DAILY 05/26/19 11/12/24 Unknown History spironolactone 50 mg tablet 50 mg PO DAILY 01/30/20 11/12/24 Unknown History Allergies Allergy/AdvReac Type Severity Reaction Status Date / Time oxcarbazepine Allergy Mild Swelling Verified 03/19/25 14:51 sulfamethoxazole Allergy Mild hypersensit Verified 03/19/25 14:51 ivity trimethoprim Allergy Mild Swelling Verified 03/19/25 14:51 doxycycline Allergy Unknown hypersensit Verified 03/19/25 14:51 ivity Penicillins Allergy Unknown urticaria Verified 03/19/25 14:51 sulfamethizole Allergy Unknown Hypersensit Verified 03/19/25 14:51 ivity sulfanilamide Allergy Unknown rash Verified 03/19/25 14:51 tetracycline Allergy Unknown Tongue Verified 03/19/25 14:51 swelling Review of Systems Constitutional: Constitutional: Reports as per HPI, Denies chills, Denies fatigue, Denies fever(s) and Denies weakness Eyes: Eyes: Reports no additional eye complaints ENT: Reports as per HPI, Denies vertigo, Denies dizziness, Denies nasal congestion and Denies sore throat Comments: Left lower dental pain Cardiovascular: Cardiovascular: Reports no additional cardiovascular complaints Respiratory: Respiratory: Reports no additional respiratory complaints Gastrointestinal: Gastrointestinal: Reports no additional gastrointestinal complaints Genitourinary: Genitourinary: Reports no additional female genitourinary complaints Musculoskeletal: Musculoskeletal: Reports no additional musculoskeletal complaints Integumentary/Breasts: Skin/Breast: Reports system reviewed and no additional complaints, except as docu Neurologic: Reports as per HPI and Denies headache(s) Psychiatric: Psychiatric: Reports no additional psychiatric complaints Endocrine: Endocrine: Reports no additional endocrine complaints Hematologic/Lymphatic: Hematologic/Lymphatic: Reports no additional hematologic/lymphatic complaints Allergic/Immunologic: Allergic/Immunologic: Reports no additional allergic/immunologic complaints [facility] Past Medical History Medical History ESR raised Screening for lipid disorders Gastroesophageal reflux disease Antiphospholipid syndrome Chronic pulmonary embolism Chronic combined systolic and diastolic CHF (congestive heart failure) Vitamin D deficiency, unspecified Allergies Arthritis Asthma History of blood clots CHF (congestive heart failure) COPD (chronic obstructive pulmonary disease) GERD (gastroesophageal reflux disease) Umbilical hernia Surgical History Surgical History H/O hernia repair H/O section Hx of cholecystectomy H/O tubal ligation Family History Family History Father Cirrhosis Diabetes mellitus Mother Diabetes mellitus Grandparent Parkinson disease Sibling Family history of schizophrenia Patient's brother is in good health Father Family history of diabetes mellitus in first degree relative Diabetes mellitus Family history of liver disease, Onset Age: 65 Mother Family history of diabetes mellitus in first degree relative, Onset Age: 32 Patient's mother is Diabetes mellitus Grandparent Family history of Parkinson's disease Other Family history of attention deficit hyperactivity disorder (ADHD) Social History Social History Smoking packs per day: 1 Smoking cigarettes per day: 20.0 Years smoked: 10 Smoking pack-years: 10.00 Smoking status: Former smoker Tobacco type: cigarettes Second hand tobacco smoke exposure: Yes Smoking end date: 06/18/05 Alcohol intake: current Alcohol use details: rarely Substance use: current Substance use type: marijuana Lack of Transportation: No Lack of Food: Never True Current Housing: I Have Housing Concerned About Future Housing: No Difficulty Paying Gas/Electric Bills: No Difficulty Paying for Meds: No Currently Unemployed: No Education: Associate Degree Difficulty w/ Childcare or Family Care: No Gender identity (if verbalized by the patient): Female Exam Const: General: healthy appearing and no acute distress Nutritional Appearance: well nourished Orientation/consciousness: patient oriented x3 Limitations: no limitations HENMT: Face and sinus: normal facial exam and sinuses nontender Teeth and gingiva: abnormal tooth and associated gingiva ( left lower gingiva erythema. No obvious abscess or significant caries) Neck: Neck: normal visual inspection and no lymphadenopathy Resp: Effort & Inspection: normal respiratory effort Auscultation: clear to auscultation bilaterally Cardio: Rate: regular rate Rhythm: regular rhythm Skin: General skin exam: normal color Rashes: no rashes Wounds: no wounds Neuro: General: patient oriented x3 Speech: normal speech Gait exam (Neuro): Normal gait present Psych: Mental Status: mental status grossly normal Affect: normal affect Attitude: cooperative Course Course Level of Care: Express Care Visit MDM - Dental/Oral MDM Narrative Medical decision making narrative: The patient was evaluated by myself in the express care. History is obtained from patient who is an independent historian and physical exam was performed. Available medical records were reviewed at this time. Exam findings show no acute concerns or changes; patient is non-toxic appearing and is in no distress. Patient is appropriate for outpatient treatment and follow-up. I have evaluated and discussed social determinants of health with the patient that could potentially impact subsequent diagnosis and treatment plans. Differential diagnosis and treatment plan were discussed with the patient. Patient agrees with discussion and after shared medical decision making agrees with plan of care. All questions were answered to the patient's satisfaction. Differential Diagnosis Differential diagnosis: Likely gingival abscess, dental caries, toothache, dental abscess and fracture of tooth Medical Records Attestation: I reviewed the patient's medical records. Discharge Plan Discharge Clinical Impression: Pain, dental Patient Disposition: Home Condition: Stable Instructions: Antibiotic Form, Toothache (ED) Additional Instructions: Take antibiotic until it's gone. Brushing teeth at least twice daily with gentle flossing. Avoid temperature extremes---when you eat. Salt gargle to rinse your mouth after every meal You may apply ice to the face to reduce pain/swelling. For pain, you may take: Tylenol 650-1000mg by mouth every 4-6 hours. Do not exceed 4000mg in 24 hours. may use the topical lidocaine 4 times a day as needed to help with pain. Also, recommend regular dental check up one-two times a year to prevent tooth decay and other periodontal disease. Follow-up with the dentist as soon as possible--see the list provided Patient Language: Vietnamese Prescriptions: New clindamycin HCl [Cleocin HCl] 300 mg capsule 300 mg PO Q8H Qty: 30 0RF lidocaine HCl [Lidocaine Viscous] 2 % solution 1 applic mucous membrane QID PRN (Reason: pain) Qty: 100 0RF No Action carvedilol 3.125 mg tablet 3.125 mg PO Q12H cetirizine 10 mg tablet 10 mg PO DAILY Entresto 49-51 mg tablet 2 tablet PO BID furosemide 20 mg tablet 20 mg PO QAM warfarin 10 mg tablet 10 mg PO DAILY Patient Comments: 10mg every sun,sun,sunday/ 7.5 rest of week spironolactone 50 mg tablet 50 mg PO DAILY albuterol sulfate 90 mcg/actuation HFA aerosol inhaler 2 puff INHALATION Q4-6H PRN (Reason: shortness of breath or wheezing) Qty: 8.5 3RF cholecalciferol (vitamin D3) 125 mcg (5,000 unit) capsule 125 mcg PO DAILY Qty: 90 1RF budesonide-formoterol [Symbicort] 160-4.5 mcg/actuation HFA aerosol inhaler 2 puff INHALATION Q12H Qty: 10.2 11RF Rx Instructions: rinse and spit montelukast 10 mg tablet See Rx Instructions .ROUTE .COMPLEX 90 Days Qty: 90 3RF Dose Instruction: TAKE 1 TABLET BY MOUTH EVERY DAY Rx Instructions: TAKE 1 TABLET BY MOUTH EVERY DAY carbidopa-levodopa 25-100 mg tablet See Rx Instructions .ROUTE .COMPLEX Qty: 90 1RF Dose Instruction: TAKE 1 TABLET BY MOUTH ONE DOSE Rx Instructions: TAKE 1 TABLET BY MOUTH ONE DOSE mycophenolate mofetil 500 mg tablet See Rx Instructions .ROUTE .COMPLEX Qty: 180 3RF Dose Instruction: TAKE 2 TABLETS BY MOUTH EVERY 12 HOURS Rx Instructions: TAKE 2 TABLETS BY MOUTH EVERY 12 HOURS hydroxychloroquine 200 mg tablet See Rx Instructions .ROUTE .COMPLEX Qty: 180 1RF Dose Instruction: TAKE 2 TABLETS BY MOUTH EVERY DAY Rx Instructions: TAKE 2 TABLETS BY MOUTH EVERY DAY azelastine 137 mcg (0.1 %) spray,non-aerosol See Rx Instructions .ROUTE .COMPLEX Qty: 90 3RF Dose Instruction: INSTILL 1 SPRAY EVERY 12 HOURS INTO EACH NOSTRIL Rx Instructions: INSTILL 1 SPRAY EVERY 12 HOURS INTO EACH NOSTRIL Zepbound 5 mg/0.5 mL pen injector 5 mg subcut WEEKLY Qty: 2 1RF tramadol 50 mg tablet 50 mg PO Q8H PRN (Reason: pain) Qty: 60 1RF Follow-up/Referrals: Dayron Arevalo MD [Primary Care Provider, Family Practice] Time of Disposition: 14:56
== END 2025-03-19 15:05 | disposition home or self-care (01) ==
PROVIDERS: Emergency Provider Nurse Practitioner Family; PCP Family Medicine
DX: K08.89 Other specified disorders of teeth and supporting structures (principal); Z87.891 Personal history of nicotine dependence; K21.9 Gastro-esophageal reflux disease without esophagitis; I50.42 Chronic combined systolic (congestive) and diastolic (congestive) heart failure; M19.90 Unspecified osteoarthritis, unspecified site; J44.9 Chronic obstructive pulmonary disease, unspecified; Z86.2 Personal history of diseases of the blood and blood-forming organs and certain disorders involving the immune mechanism; Z86.711 Personal history of pulmonary embolism; Z79.01 Long term (current) use of anticoagulants; E55.9 Vitamin D deficiency, unspecified
CPT/HCPCS: 99213; G0463

== ENCOUNTER 2025-04-02 12:49 | Outpatient (CLI) | payer MEDICARE, MEDICAID, SELFPAY ==
--- NOTE | ~2025-04-02 | CT_ITS ---
CT HEAD NON-CONTRAST Clinical History: W19.XXXA - Unspecified fall, initial encounter Comparison: 07/17/2016 Technique: Unenhanced axial images skull base to vertex Coronal, sagittal reformats CT images acquired with automatic exposure control for dose reduction DLP: 605 mGy-cm Findings: Small white matter hypodensity right centrum semiovale. Sulci, ventricles: Unremarkable. No intracerebral hemorrhage. No evidence acute territorial infarct. No mass effect, midline shift. Bony calvarium intact. Visualized paranasal sinuses: Clear. Mastoid air cells: Clear. IMPRESSION: 1. No acute intracranial findings. Reviewed, dictated and finalized at location R.
[2025-04-02 14:04] LABS: Hematocrit 37.6 % (37.0-47.0); Hemoglobin 11.8 g/dL (12.0-15.0); Immature Granulocyte Percent A 0.4 % (0-0.5); Immature Platelet Fraction Pct 15.3 % (0.9-11.2); Lymphocytes Absolute Auto 1.09 K/mm3 (0.9-3.2); Mean Corpuscular HGB Conc 31.4 g/dl (32-36); Mean Corpuscular Hemoglobin 28.4 pg (26-34); Mean Corpuscular Volume 90.6 fl (80-100); Nucleated Red Blood Cells Absolute Auto 0.000 K/mm3 (0.0-0.012); Nucleated Red Blood Cells Perc 0.0 % (0.0-0.2); Platelet Count Result 137 k/mm3 (150-375); Red Blood Count 4.15 M/mm3 (4.2-5.4); White Blood Count 7.6 K/mm3 (4.5-10.0)
--- OUTSIDE RECORDS SUMMARY | 2025-04-02 14:07 | XMS_ITS | Encounter Summary ---
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
--- OUTSIDE RECORDS SUMMARY | 2025-04-02 14:07 | XMS_ITS | Clinical Summary ---
Author Organization [facility] [address] Address [address] [place] [address] Care Team Providers Care Senior Mobile Solutions Architect Name Role Phone Dayron Arevalo MD Primary Care Provider [phone] Allergies Active Allergy Reactions Criticality Noted Date Comments Doxycycline Hives Medium Penicillins Hives Medium Sulfa (Sulfonamide Antibiotics) Hives Medium Sulfamethoxazole Trimethoprim Medications hydroxychloroq uine (PLAQUENIL) 200 mg tablet Take by mouth [...] mg total) by mouth as needed Active budesonide-for moteroL (SYMBICORT) 160-4.5 mcg/actuation inhaler Inhale 2 puffs 2 (two) times a day 01/03/20 19 Active warfarin (COUMADIN) 1 mg tablet TAKE 1 TABLET BY MOUTH EVERY DAY DIRECTED WITH 3MG TABLETS 7 tablet 09/29/19 20 Active Additional Information Patient not taking.Reported on 01/09/2025 cholecalcifero l (VITAMIN D-3) 2000 unit capsule Take 1 capsule (2,000 Units total) by mouth daily 09/24/19 20 Active mycophenolate mofetil (CELLCEPT) 500 mg tablet Take 2 tablets (1,000 mg total) by mouth 2 (two) times a day 09/22/19 21 Active traMADoL (ULTRAM) 50 mg tablet Take by mouth every 8 (eight) hours as needed 11/03/19 23 Active acetaminophen (TYLENOL) 500 mg tablet Take 2 tablets (1,000 mg total) by mouth every 6 (six) hours as needed 09/14/19 23 Active montelukast (SINGULAIR) 10 mg tablet FOR 90 DAYS TAKE 1 TABLET BY MOUTH EVERY DAY 01/02/20 23 Active azelastine (ASTELIN) 137 mcg (0.1 %) nasal spray INSTILL 1 SPRAY INTRANASALLY EVERY 12 HOURS ADMINISTER INTO EACH NOSTRIL 11/20/19 23 Active warfarin (COUMADIN) 5 mg tablet TAKE 1&1/2 TABLETS BY MOUTH ON MON, WEDS & FRI AND 2 TABS ALL OTHER DAYS UNLESS OTHERWISE TOLD BY 150 tablet 3 04/25/20 24 Active sacubitriL-enmanuel sartan (Entresto) 49-51 mg tablet TAKE 1 TABLET BY MOUTH TWICE A DAY 180 tablet 2 08/11/19 25 Active carvediloL (COREG) 6.25 mg tablet TAKE 1 TABLET BY MOUTH TWICE A DAY WITH FOOD 180 tablet 2 08/11/19 25 Active carbidopa-levo dopa (SINEMET) 25-100 mg per tablet TAKE 1 TABLET BY MOUTH ONE DOSE 08/22/[address] (PROTONIX) 40 mg EC tablet Take 1 tablet (40 mg total) by mouth daily Active Zepbound 5 mg/0.5 mL pen injector 12/27/19 25 Active spironolactone (ALDACTONE) 25 mg tablet TAKE 1 TABLET (25 MG TOTAL) BY MOUTH DAILY. 90 tablet 1 03/16/20 25 Active spironolactone (ALDACTONE) 25 mg tablet TAKE 1 TABLET (25 MG TOTAL) BY MOUTH DAILY. 90 tablet 2 07/07/19 25 025 Discontinued Active Problems Problem Noted Date Diagnosed Date [...] Encounters Date Type Department Care Team Description 01/15/2025 Orders Only [facility] Scanning, Provider 01/12/2025 Orders Only [facility] Health Information Management [address] [place] [address] Scanning, Provider 01/12/2025 Anticoagulation Visit [facility] [address] [place] [address] Laura Negrete RN Antiphospholipid antibody syndrome (Primary Dx); History of DVT (deep vein thrombosis) 01/09/2025 10:30 AM CDT Office Visit [facility] Medicine Rheumatology [address] [facility] 5[address] [place] [address] [place] [id number] Mark Engel MD Antiphospholipid antibody syndrome; Systemic lupus erythematosus, unspecified SLE type, unspecified organ involvement status (HCC) from Last 3 Months Immunizations Immunization Administration [...] Alive and well; Diabetes Brother 3 Hadley Lizamabrenda Cancer Father Fawad Delgadillovielka Coronary artery disease Father Fawad Valentine i Coronary artery disease; Diabetes Father Fawad Bernardino Diabetes type II Father Fawad Bernardino Diabe best -Type II; Heart failure Father's Brother 1 Congesti ve heart failure; Heart failure Father's Brother 2 Davion Devine Cancer Father's Sister Naldo Lung cancer Father's Sister Naldo Cancer -lung ; Diabetes type II Maternal Grandfather Adry domenicochristoph -Type II; Mental illness Maternal Grandmother Nhi Parkinsonism Maternal Grandmother Nhi Krishnan on's disease; Diabetes Mother Deanne Diabetes type II Mother Deanne Diabetes -T ype II; Cause of : Diabetes -Type II Mental illness Mother Deanne Diabetes Sister 1 Kavya Mental illness Sister 1 Kavya Schizophrenia Sister 1 Kavya Schizophrenia; Diabetes Sister 2 Kavya Wilder Mental illness Sister 2 Kavya Wilder Asthma Son 1 Liu Learning disabilities Son 1 Liu Developmental delay Son 2 Will Relation Name Status Comments Brother 1 Alive Brother 2 Brother 3 Hadley Lebron Father Fawad Bernardino Father's Brother 1 Father's Brother 2 Davion [...] file 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 Gender Identity Female 10/27/2020 9:28 AM [...] 03/16/2017, 09/10/2008 Medical Devices Implanted Type Area Protective Signal Repairer Device Identifier Shelf Expiration Date Model / Serial / Lot Ivc Filter Vena Cava Procedures Procedure Name Priority Date/Time Associated Diagnosis Comments SCAN - LABS 01/15/2025 SCAN - LABS 01/12/2025 PROTIME-INR Routine 01/12/2025 from Last 3 Months Results * SCAN - LABS (01/15/2025) us Provider Scanning Final Result * SCAN - LABS (01/12/2025) us Provider Scanning Final Result * (ABNORMAL) Protime-INR (01/12/2025) INR 3.40(A) 0.90 - 1.10 EXTERNAL LAB Blood us Historical Provider MD LAB BLOOD ORDERABLES [place] l Result EXTERNAL LAB from Last 3 Months Insurance [employer] [facility] MEDICARE ADVANTAGE ([address] [id number] [employer] [facility] MEDICARE ADVANTAGE [facility] MED[facility] ADVANTAGE [employer] Care Teams Senior Mobile Solutions Architect Relationship Specialty Start Date End Date Dayron Arevalo MD PCP - General Family Practice 11/08/22
--- OUTSIDE RECORDS SUMMARY | 2025-04-02 14:07 | XMS_ITS | Encounter Summary ---
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
--- OUTSIDE RECORDS SUMMARY | 2025-04-02 14:07 | XMS_ITS | Encounter Summary ---
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
--- OUTSIDE RECORDS SUMMARY | 2025-04-02 14:07 | XMS_ITS | Encounter Summary ---
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
--- OUTSIDE RECORDS SUMMARY | 2025-04-02 14:07 | XMS_ITS | Clinical Summary ---
Author Organization [facility] Address [facility] [place] [address] Care Team Providers Care Electronic Device Monitor Name Role Phone Dayron Arevalo MD Primary Care Provider [phone] Allergies Active Allergy Reactions Criticality Noted Date [...] Problem Noted Date Diagnosed Date Osteomyelitis, unspecified 10/27/2022 Finger infection 09/05/2022 Antiphospholipid antibody syndrome 10/01/2018 DVT (deep venous thrombosis) 10/01/2018 History of DVT (deep vein thrombosis) 10/01/2018 Chronic obstructive pulmonary disease 11/01/2013 Overview (09/05/2022): CHR AIRWAY OBSTRUCT NEC Restless legs syndrome 11/01/2013 Overview (09/05/2022): RESTLESS LEGS SYNDROME Systemic lupus erythematosus 11/01/2013 Overview (09/05/2022): SYST LUPUS ERYTHEMATOSUS Gastroesophageal [...] or ex-partner? No 09/05/2022 Social Connection and Isolation Panel Answer Date Recorded In a typical week, how many times do you talk on the phone with family, friends, or neighbors? More than three times a week 09/05/2022 How often do you get togethe r with friends or relatives? Once a week 09/05/2022 How often do you attend chur ch or yazdanism services? Never 09/05/2022 Do you belong to any clubs o r organizations such as caodaism groups, unions, fraternal or athletic groups, or [...] Recorded Patient Health Questionnaire-2 Score 0 09/05/2022 [facility] - Occupational Stress Questionnaire Answer Date Recorded [...] place to sleep or slept in a fdc (including now)? 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 Gender Identity Not on file Sexual Orientation [...] Date Last Done Comments Cervical Cancer Screening Pap Smear (Age 30 to 64) Every 3 Years 1972 Colorectal Cancer Screening Colonoscopy (10 Years) 1972 Annual Physical 1975 Hepatitis C 1990 Hepatitis B Vaccines (1 of 3 - 19+ 3-dose series) 1991 Zoster Vaccines (1 of 2) 1991 Cervical Cancer Screening Pap with HPV Testing (Age 30 to 64) Every 5 Years 2002 Cervical Cancer Screening with HPV 2002 Mammogram Screening 2012 COVID-19 Vaccine (3 - Pfizer risk series) 11/25/2020 10/28/2020, 10/05/2020 Influenza Adult (#1) 2025 04/09/2020, 03/28/2019, 02/25/2018, Additional history exists Pneumococcal Vaccine: 50+ Years (3 of 3 - PPSV23, PCV20 or PCV21) 04/09/2025 04/09/2020, 03/16/2017 DTaP, Tdap and Td Vaccines (2 - Td or Tdap) 03/16/2027 03/16/2017, 09/10/2008 Meningococcal B Vaccine Aged Out No l onger eligible based on patient's age to complete this topic Meningococcal Vaccine Aged Out No bonny beata eligible based on patient's age to complete this topic RSV Immunizations Under 20 Months Aged Out No longer eligible based on patient's age to complete this topic Goals Goal Patient Goal Type Associated Problems Recent Progress Patient-Stated? Author Patient will return to prior living situation and remain independent in ADLs upon discharge from hospital Lifestyle No Niharika Davis, RN Patient will return to prior living situation and remain independent in ADLs upon discharge from hospital Lifestyle No Niharika Davis RN Insurance [place] [address] [place] [address] MEDICARE Advance Directives * Full Code (Latest Code Status on File) Date Activated Date Inactivated Comments 09/12/2022 4:10 PM 01/09/2023 10:18 AM * Full Code Date Activated Date Inactivated Comments 09/05/2022 4:28 PM 09/08/2022 11:09 PM Care Teams Electronic Device Monitor Relationship Specialty Start Date End Date Dayron Arevalo MD [address] [place] [address] PCP - General FAMILY PRACTICE 10/27/22
--- OUTSIDE RECORDS SUMMARY | 2025-04-02 14:08 | XMS_ITS | Clinical Summary ---
Author Organization [facility] Address [facility] [facility] [place] [address] Care Team Providers Care Military Communications Specialist Name Role Phone Vinnie Love MD Primary Care Provider [phone] Source Comments [facility],non-owned Affiliates and Associated Physician Practices is amultiple site organization consisting of ambulatory clinics and hospital sitesin [place] and [place]. This disclosure is being madepursuant to the Care Everywhere program and may not contain all information available regarding this patient. Last updated 18.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
--- OUTSIDE RECORDS SUMMARY | 2025-04-02 14:08 | XMS_ITS | Encounter Summary ---
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 Gender Identity Female 10/27/2020 9:28 AM CDT Sexual Orientation Straight 10/27/2020 9: 28 AM CDT documented as of this encounter Plan of Treatment Not on file documented as of this encounter Procedures Procedure Name Priority Date/Time Associated Diagnosis Comments SCAN - LABS 01/15/2025 documented in this encounter Results * SCAN - LABS (01/15/2025) us Provider Scanning Final Result documented in this encounter Visit Diagnoses Not on filedocumented in this encounter Care Teams Knife Grinder Relationship Specialty Start Date End Date Dayron Arevalo MD PCP - General Family Practice 11/08/22 documented as of this encounter
--- OUTSIDE RECORDS SUMMARY | 2025-04-02 14:08 | XMS_ITS | Encounter Summary ---
Author Organization [facility] Address [address] [place] [address] Care Team Providers Care Trim Crew Supervisor Name Role Phone Dayron Arevalo MD Primary Care Provider [phone] Encounter Details Date Type Department Care Team (Late st Contact Info) Description 10/27/2022 Therapy Plan [facility] [place], [place] [id number] Dayron Arevalo MD [address] [place] [address] Social History Tobacco Use Types [...] week 09/05/2022 How often do you attend [facility] or zoroastrianism services? 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
[2025-04-02 14:34] LABS: Alanine Aminotransferase 27 U/L (6-35); Albumin Level 4.4 g/dL (3.5-5.1); Alkaline Phosphatase 66 U/L (38-126); Anion Gap 10 mmol/L (4-12); Aspartate Amino Transferase 61 U/L (14-36); Bilirubin,Total 0.5 mg/dL (0.2-1.3); Blood Urea Nitrogen 59 mg/dL (7-17); Carbon Dioxide 34 mmol/L (22-30); Chloride 93 mmol/L (98-107); Estimated Glomerular Filt Rate 13; Glucose 93 mg/dL (65-110); Magnesium 1.4 mg/dL (1.6-2.3); Potassium 3.5 mmol/L (3.4-5.0); Sodium 137 mmol/L (137-145); Total Protein 8.1 g/dL (6.3-8.2)
[2025-04-02 14:52] LABS: Calcium > 14.0 mg/dL (8.4-10.2)
[2025-04-02 14:55] LABS: Add Urine Microscopic? YES; Appearance Urine Clear (Clear); Glucose Urine UA Negative (Negative); Leukocyte Esterase Ur 3+ LEU/UL (Negative); Nitrate Urine Negative (Negative); Specific Grav Ur 1.013 (1.001-1.035)
== END 2025-04-02 12:50 | disposition home or self-care (01) ==
PROVIDERS: PCP Family Medicine; Visit Provider Nurse Practitioner Family
DX: R42 Dizziness and giddiness (principal); Z79.01 Long term (current) use of anticoagulants; Z79.899 Other long term (current) drug therapy; W19.XXXA Unspecified fall, initial encounter; I50.9 Heart failure, unspecified
CPT/HCPCS: 36415; 70450; 80053; 81001; 83735; 85025; 85055

== ENCOUNTER 2025-04-02 13:37 | Outpatient (RCR) | payer MEDICARE, MEDICAID, SELFPAY ==
[2025-01-12 12:54] LABS: INR 3.4; Prothrombin Time 33.4 Seconds (11.1-14.7)
[2025-04-02 16:59] LABS: Prothrombin Time 49.3 Seconds (11.1-14.7)
[2025-04-02 17:22] LABS: INR 5.9
== END 2025-04-12 23:59 | disposition home or self-care (01) ==
LOC: ANHLAB 13:37
PROVIDERS: PCP Family Medicine; Visit Provider Internal Medicine Cardiovascular Disease
DX: Z51.81 Encounter for therapeutic drug level monitoring (principal); Z79.01 Long term (current) use of anticoagulants
CPT/HCPCS: 36415; 85610

== ENCOUNTER 2025-04-02 16:00 | Inpatient (IN) | payer MEDICARE, MEDICAID, SELFPAY ==
[2025-04-02] VITALS (12 sets, daily range): BP systolic 94–159; BP diastolic 42–142; PULSE 61–93; RESP 13–23; TEMP 36.2–36.6; O2SAT 95–100; BMI 34.3
--- NOTE | ~2025-04-02 | XR_ITS ---
Examination: XR chest 1V portable Clinical History: history of CHF/cardiomyopathy Comparison: 1 day prior Technique: Portable AP Findings: Cardiomegaly. Lungs clear. No acute bony abnormality. IMPRESSION: 1. No acute cardiopulmonary findings given portable technique. Reviewed, dictated and finalized at location R.
--- NOTE | ~2025-04-02 | US_ITS ---
EXAMINATION: US renal BI DATE: 04/03/2025 08:04 INDICATION: Acute on chronic renal failure. TECHNIQUE: Multiple ultrasound grayscale images of the kidneys were obtained. COMPARISON: Ultrasound kidneys 10/16/2017 FINDINGS: The right kidney measures 11.1 x 5.0 x 4.3 cm. The left kidney measures 9.6 x 5.6 x 5.0 cm. The kidneys demonstrate normal parenchymal echogenicity. There is no hydronephrosis. The bladder is normal. IMPRESSION: 1. Normal kidney sizes. No hydronephrosis. Reviewed, dictated and finalized at location E.
--- NOTE | ~2025-04-02 | XR_ITS ---
EXAMINATION: XR chest 1V portable DATE: 04/03/2025 12:52 INDICATION: Congestive heart failure TECHNIQUE: frontal view of the chest was obtained. COMPARISON: Chest radiograph dated 10/08/2024 FINDINGS: The lungs are clear with no focal airspace opacities, pulmonary edema, pleural effusion or pneumothorax. Mild cardiomegaly. IMPRESSION: 1. Mild hepatomegaly. No acute cardiopulmonary disease. Reviewed, dictated and finalized at location A.
--- NOTE | ~2025-04-02 | XR_ITS ---
EXAMINATION: XR chest 1V portable COMPARISON: No comparisons available. HISTORY: svt FINDINGS: Moderate pulmonary venous congestion. No pneumothorax. Moderate cardiomegaly. Mediastinal and hilar contours are within normal limits. Bony thorax no acute abnormality. Miscellaneous: None Impression: CHF Reviewed, dictated and finalized at location P. Impression: CHF
--- NOTE | 2025-04-02 17:11 | ED.RECABL ---
HPI - Recheck/Abnormal Lab/Rx General Chief Complaint: Recheck/Abnormal Lab/Rx <Haven Cedeno PA-C - Last Filed: 04/03/25 17:17> Stated Complaint: abnormal labs <Haven Cedeno PA-C - Last Filed: 04/03/25 17:17> Time Seen by Provider: 04/02/25 17:11 <Haven Cedeno PA-C - Last Filed: 04/03/25 17:17> Focused HPI: This is a 55 year old female that presents to the ER for abnormal labs. Reports her kidney function had declined. Reports critical calcium and magnesium. Reports she was on Zepbound for months. Reports she has had a lot of nausea and vomiting. Reports dizziness. Reports she had also accidentally been taking an extra dose of Spironolactone for several days as she thought it was her Tramadol. GENERAL: Well-appearing, well-nourished, and in no acute distress. HEAD: Normocephalic, atraumatic. CHEST: Clear to auscultation. ?No respiratory distress. HEART: Regular rate and rhythm.? NEURO: ?Alert and oriented x3. Patient screened in triage and initial orders placed.? ?Additional care and disposition to be based upon?diagnostic testing and treatment. <Haven Cedeno PA-C - Last Filed: 04/03/25 17:17> History of Present Illness HPI narrative: as per MSE <Farhana Garza III DO - Last Filed: 04/02/25 21:26> Related Data Home Medications: Home Medications ?Medication ?Instructions ?Recorded ?Confirmed ?Last Taken ?Type carvedilol 3.125 mg tablet 3.125 mg PO Q12H 05/26/19 04/02/25 04/02/25 10:00 History cetirizine 10 mg tablet 10 mg PO DAILY 05/26/19 04/02/25 04/01/25 21:00 History sacubitril 49 mg-valsartan 51 mg 2 tablet PO BID 05/26/19 04/02/25 Unknown History tablet (Entresto) warfarin 10 mg tablet 10 mg PO DAILY 05/26/19 04/02/25 Unknown History Held on 04/02/25. Instructions: Patient Condition spironolactone 50 mg tablet 50 mg PO DAILY 01/30/20 04/02/25 03/29/25 History <Haven Cedeno PA-C - Last Filed: 04/03/25 17:17> Allergies/Adverse Reactions: Allergies Allergy/AdvReac Type Severity Reaction Status Date / Time oxcarbazepine Allergy Mild Swelling Verified 04/02/25 23:37 sulfamethoxazole Allergy Mild hypersensit Verified 04/02/25 23:37 ivity trimethoprim Allergy Mild Swelling Verified 04/02/25 23:37 doxycycline Allergy Unknown hypersensit Verified 04/02/25 23:37 ivity Penicillins Allergy Unknown urticaria Verified 04/02/25 23:37 sulfamethizole Allergy Unknown Hypersensit Verified 04/02/25 23:37 ivity sulfanilamide Allergy Unknown rash Verified 04/02/25 23:37 tetracycline Allergy Unknown Tongue Verified 04/02/25 23:37 swelling <Haven Cedeno PA-C - Last Filed: 04/03/25 17:17> Review of Systems Review of Systems: All systems reviewed & are unremarkable except as noted in HPI and below <Farhana Garza III, DO - Last Filed: 04/02/25 21:26> PMFSH Past Medical History Medical History: Medical History Lupus ESR raised Screening for lipid disorders Gastroesophageal reflux disease Antiphospholipid syndrome Chronic pulmonary embolism Chronic combined systolic and diastolic CHF (congestive heart failure) Vitamin D deficiency, unspecified Allergies Arthritis Asthma History of blood clots CHF (congestive heart failure) COPD (chronic obstructive pulmonary disease) GERD (gastroesophageal reflux disease) Umbilical hernia <Haven Cedeno PA-C - Last Filed: 04/03/25 17:17> Surgical History Surgical History: Surgical History S/P IVC filter H/O hernia repair Umbilical and left inguinal he hernia repair H/O section Hx of cholecystectomy H/O tubal ligation <Haven Cedeno PA-C - Last Filed: 04/03/25 17:17> Family History Family History: Family History Father Cirrhosis Diabetes mellitus Mother Diabetes mellitus Grandparent Parkinson disease Sibling Family history of schizophrenia Patient's brother is in good health Father Family history of diabetes mellitus in first degree relative Diabetes mellitus Family history of liver disease, Onset Age: 65 Mother Family history of diabetes mellitus in first degree relative, Onset Age: 32 Patient's mother is Diabetes mellitus Grandparent Family history of Parkinson's disease Other Family history of attention deficit hyperactivity disorder (ADHD) <Haven Cedeno PA-C - Last Filed: 04/03/25 17:17> Social History Social History: Social History Social History: She is disabled. In she has 1 son. She is . Code status: Full code Smoking packs per day: 1 Smoking cigarettes per day: 20.0 Years smoked: 8 Smoking pack-years: 8.00 Smoking status: Former smoker Tobacco type: cigarettes Second hand tobacco smoke exposure: Yes Smoking end date: 11/25/03 Alcohol intake: never Alcohol use details: rarely Substance use: current Substance use type: marijuana Lack of Transportation: No Lack of Food: Never True Current Housing: I Have Housing Concerned About Future Housing: No Difficulty Paying Gas/Electric Bills: No Difficulty Paying for Meds: No Currently Unemployed: No Education: Decline to Answer Difficulty w/ Childcare or Family Care: No Gender identity (if verbalized by the patient): Female Spiritual care concerns: No <Haven Cedeno PA-C - Last Filed: 04/03/25 17:17> Exam Const: General: healthy appearing and no acute distress <Farhana Garza III, DO - Last Filed: 04/02/25 21:26> Nutritional Appearance: well nourished <Farhana Garza III, DO - Last Filed: 04/02/25 21:26> Orientation/consciousness: patient oriented x3 <Farhana Garza III, DO - Last Filed: 04/02/25 21:26> Limitations: no limitations <Farhana Duncan Garza III, DO - Last Filed: 04/02/25 21:26> HENMT: Head: normal to inspection <Farhana Garza III, DO - Last Filed: 04/02/25 21:26> Eyes: EOM: EOMs intact bilaterally <Farhana Dakota Garza III, DO - Last Filed: 04/02/25 21:26> Neck: Neck: normal visual inspection <Farhana Dakota Garza III, DO - Last Filed: 04/02/25 21:26> Chest: Chest palpation & inspection: normal inspection of the chest <Farhana Dakota Garza III, DO - Last Filed: 04/02/25 21:26> Resp: Effort & Inspection: normal respiratory effort <Farhana Dakota Garza III, DO - Last Filed: 04/02/25 21:26> Auscultation: clear to auscultation bilaterally <Farhana Dakota Garza III, DO - Last Filed: 04/02/25 21:26> Cardio: Rate: regular rate <Farhana Dakota Garza III, DO - Last Filed: 04/02/25 21:26> Rhythm: regular rhythm <Farhana Dakota Garza III, DO - Last Filed: 04/02/25 21:26> GI: GI Palp: Yes Soft to palpation and No Tenderness to palpation present (GI) <Farhana Dakota Garza III, DO - Last Filed: 04/02/25 21:26> Auscultation: normal bowel sounds <Farhana Dakota Garza III, DO - Last Filed: 04/02/25 21:26> Skin: General skin exam: normal color <Farhana Dakota Garza III, DO - Last Filed: 04/02/25 21:26> Wounds: no wounds <Farhana Dakota Garza III, DO - Last Filed: 04/02/25 21:26> Neuro: General: patient oriented x3, moves all extremities, no meningeal signs, no focal motor deficits and CN's II-XI intact bilaterally <Farhana Dakota Garza III, DO - Last Filed: 04/02/25 21:26> Cranial nerves: Yes Nystagmus not present <Farhana Dakota Garza III, DO - Last Filed: 04/02/25 21:26> Speech: normal speech <Farhana Dakota Garza III, DO - Last Filed: 04/02/25 21:26> Extrem: General: normal to inspection and no clubbing, cyanosis or edema <Farhana Dakota Garza III, DO - Last Filed: 04/02/25 21:26> Psych: Mental Status: mental status grossly normal <Farhana Dakota Garza III, DO - Last Filed: 04/02/25 21:26> Affect: normal affect <Farhana Dakota Garza III, DO - Last Filed: 04/02/25 21:26> Attitude: cooperative <Farhana Dakota Garza III, DO - Last Filed: 04/02/25 21:26> Course Vital Signs Vital signs: Vital Signs Temperature 97.2 F L 04/02/25 16:02 Pulse Rate 83 04/02/25 16:02 Respiratory Rate 16 04/02/25 16:02 Blood Pressure 139/42 L 04/02/25 16:02 Pulse Oximetry 95 04/02/25 16:02 Oxygen Delivery Room Air 04/02/25 16:02 Temperature 97.6 F 04/03/25 14:00 Pulse Rate 72 04/03/25 16:00 Respiratory Rate 14 04/03/25 15:00 Blood Pressure 105/56 L 04/03/25 15:00 Pulse Oximetry 99 04/03/25 16:00 Oxygen Delivery Room Air 04/03/25 16:00 <Haven Cedeno PA-C - Last Filed: 04/03/25 17:17> Vital Signs Temperature 97.2 F L 04/02/25 16:02 Pulse Rate 83 04/02/25 16:02 Respiratory Rate 16 04/02/25 16:02 Blood Pressure 139/42 L 04/02/25 16:02 Pulse Oximetry 95 04/02/25 16:02 Oxygen Delivery Room Air 04/02/25 16:02 Temperature 97.6 F 04/03/25 14:00 Pulse Rate 72 04/03/25 16:00 Respiratory Rate 14 04/03/25 15:00 Blood Pressure 105/56 L 04/03/25 15:00 Pulse Oximetry 99 04/03/25 16:00 Oxygen Delivery Room Air 04/03/25 16:00 <Farhana Dakota Garza III, DO - Last Filed: 04/02/25 21:26> MDM - Recheck/Abnormal Lab/Rx MDM Narrative Medical decision making narrative: electrolytes abnormal pt renal function declined (dehydration) on outpatient labs. Fluids started and mag given. will get ekg and admit and add phosphorous level. discussed with Caro Hernandez and would like admitted to ICU. Discussed with Dr Ross and agrees to consult. Said hold bisphosphates and calcitnin and just give aggressive IV fluid resuscitation <Farhana Garza III, DO - Last Filed: 04/02/25 21:26> Lab Data Result diagrams: 04/03/25 04:53 04/03/25 05:13 <Haven Cedeno PA-C - Last Filed: 04/03/25 17:17> Labs: Lab Results 04/02/25 04/02/25 04/03/25 Range/Units 20:09 22:45 04:53 WBC 5.6 (4.5-10.0) K/mm3 RBC 3.56 L (4.2-5.4) M/mm3 Hgb 10.3 L (12.0-15.0) g/dL Hct 32.5 L (37.0-47.0) % MCV 91.3 (80-100) fl MCH 28.9 (26-34) pg MCHC 31.7 L (32-36) g/dl RDW 12.8 (11.5-14.5) % Plt Count 105 L (150-375) k/mm3 MPV 13.8 H (7.4-10.4) fl % Immature Plt Fraction 15.1 H (0.9-11.2) % PT (11.1-14.7) Seconds INR Sodium 138 (137-145) mmol/L Potassium 3.3 L (3.4-5.0) mmol/L Chloride 98 (98-107) mmol/L Carbon Dioxide 31 H (22-30) mmol/L Anion Gap 9 (4-12) mmol/L BUN 55 H (7-17) mg/dL Creatinine 3.34 H (0.7-1.0) mg/dL Estim Creat Clear Calc 20 ml/min Estimated GFR 14 L (59 - ) Glucose 87 (65-110) mg/dL Serum Osmolality Calcium 13.1 H* Cancelled (8.4-10.2) mg/dL Ionized Calcium Phosphorus 3.9 (2.5-4.5) mg/dL Magnesium (1.6-2.3) mg/dL Total Bilirubin 0.5 (0.2-1.3) mg/dL AST 54 H (14-36) U/L ALT 31 (6-35) U/L Alkaline Phosphatase 67 (38-126) U/L Troponin I 0.046 H* (0.000-0.034) ng/mL Total Protein 7.2 (6.3-8.2) g/dL Albumin 3.9 (3.5-5.1) g/dL Vitamin D 25-Hydroxy ng/mL PTH Intact (14.5-75.2) pg/mL Urine Osmolality Ur Random Creatinine Ur Random Calcium Calcium/Creat Ratio Nasal MRSA (PCR) Not detected (NOT DETECTE) Ref Lab Test Name Ref Lab Test Result 04/03/25 04/03/25 04/03/25 Range/Units 05:12 05:13 09:38 WBC (4.5-10.0) K/mm3 RBC (4.2-5.4) M/mm3 Hgb (12.0-15.0) g/dL Hct (37.0-47.0) % MCV (80-100) fl MCH (26-34) pg MCHC (32-36) g/dl RDW (11.5-14.5) % Plt Count (150-375) k/mm3 MPV (7.4-10.4) fl % Immature Plt Fraction (0.9-11.2) % PT 48.2 H (11.1-14.7) Seconds INR 5.7 H* Sodium 139 (137-145) mmol/L Potassium 3.1 L (3.4-5.0) mmol/L Chloride 99 (98-107) mmol/L Carbon Dioxide 31 H (22-30) mmol/L Anion Gap 9 (4-12) mmol/L BUN 52 H (7-17) mg/dL Creatinine 3.01 H (0.7-1.0) mg/dL Estim Creat Clear Calc 22 ml/min Estimated GFR 16 L (59 - ) Glucose 86 (65-110) mg/dL Serum Osmolality Pending Calcium 12.8 H* (8.4-10.2) mg/dL Ionized Calcium Pending Phosphorus (2.5-4.5) mg/dL Magnesium 1.8 (1.6-2.3) mg/dL Total Bilirubin (0.2-1.3) mg/dL AST (14-36) U/L ALT (6-35) U/L Alkaline Phosphatase (38-126) U/L Troponin I 0.051 H* (0.000-0.034) ng/mL Total Protein (6.3-8.2) g/dL Albumin (3.5-5.1) g/dL Vitamin D 25-Hydroxy > 126.0 ng/mL PTH Intact < 14.5 L (14.5-75.2) pg/mL Urine Osmolality Pending Ur Random Creatinine Cancelled Ur Random Calcium Cancelled Calcium/Creat Ratio Pending Nasal MRSA (PCR) (NOT DETECTE) Ref Lab Test Name Pending Ref Lab Test Result Pending <Haven Cedeno PA-C - Last Filed: 04/03/25 17:17> Lab Results 04/02/25 04/02/25 04/03/25 Range/Units 20:09 22:45 04:53 WBC 5.6 (4.5-10.0) K/mm3 RBC 3.56 L (4.2-5.4) M/mm3 Hgb 10.3 L (12.0-15.0) g/dL Hct 32.5 L (37.0-47.0) % MCV 91.3 (80-100) fl MCH 28.9 (26-34) pg MCHC 31.7 L (32-36) g/dl RDW 12.8 (11.5-14.5) % Plt Count 105 L (150-375) k/mm3 MPV 13.8 H (7.4-10.4) fl % Immature Plt Fraction 15.1 H (0.9-11.2) % PT (11.1-14.7) Seconds INR Sodium 138 (137-145) mmol/L Potassium 3.3 L (3.4-5.0) mmol/L Chloride 98 (98-107) mmol/L Carbon Dioxide 31 H (22-30) mmol/L Anion Gap 9 (4-12) mmol/L BUN 55 H (7-17) mg/dL Creatinine 3.34 H (0.7-1.0) mg/dL Estim Creat Clear Calc 20 ml/min Estimated GFR 14 L (59 - ) Glucose 87 (65-110) mg/dL Serum Osmolality Calcium 13.1 H* Cancelled (8.4-10.2) mg/dL Ionized Calcium Phosphorus 3.9 (2.5-4.5) mg/dL Magnesium (1.6-2.3) mg/dL Total Bilirubin 0.5 (0.2-1.3) mg/dL AST 54 H (14-36) U/L ALT 31 (6-35) U/L Alkaline Phosphatase 67 (38-126) U/L Troponin I 0.046 H* (0.000-0.034) ng/mL Total Protein 7.2 (6.3-8.2) g/dL Albumin 3.9 (3.5-5.1) g/dL Vitamin D 25-Hydroxy ng/mL PTH Intact (14.5-75.2) pg/mL Urine Osmolality Ur Random Creatinine Ur Random Calcium Calcium/Creat Ratio Nasal MRSA (PCR) Not detected (NOT DETECTE) Ref Lab Test Name Ref Lab Test Result 04/03/25 04/03/25 04/03/25 Range/Units 05:12 05:13 09:38 WBC (4.5-10.0) K/mm3 RBC (4.2-5.4) M/mm3 Hgb (12.0-15.0) g/dL Hct (37.0-47.0) % MCV (80-100) fl MCH (26-34) pg MCHC (32-36) g/dl RDW (11.5-14.5) % Plt Count (150-375) k/mm3 MPV (7.4-10.4) fl % Immature Plt Fraction (0.9-11.2) % PT 48.2 H (11.1-14.7) Seconds INR 5.7 H* Sodium 139 (137-145) mmol/L Potassium 3.1 L (3.4-5.0) mmol/L Chloride 99 (98-107) mmol/L Carbon Dioxide 31 H (22-30) mmol/L Anion Gap 9 (4-12) mmol/L BUN 52 H (7-17) mg/dL Creatinine 3.01 H (0.7-1.0) mg/dL Estim Creat Clear Calc 22 ml/min Estimated GFR 16 L (59 - ) Glucose 86 (65-110) mg/dL Serum Osmolality Pending Calcium 12.8 H* (8.4-10.2) mg/dL Ionized Calcium Pending Phosphorus (2.5-4.5) mg/dL Magnesium 1.8 (1.6-2.3) mg/dL Total Bilirubin (0.2-1.3) mg/dL AST (14-36) U/L ALT (6-35) U/L Alkaline Phosphatase (38-126) U/L Troponin I 0.051 H* (0.000-0.034) ng/mL Total Protein (6.3-8.2) g/dL Albumin (3.5-5.1) g/dL Vitamin D 25-Hydroxy > 126.0 ng/mL PTH Intact < 14.5 L (14.5-75.2) pg/mL Urine Osmolality Pending Ur Random Creatinine Cancelled Ur Random Calcium Cancelled Calcium/Creat Ratio Pending Nasal MRSA (PCR) (NOT DETECTE) Ref Lab Test Name Pending Ref Lab Test Result Pending <Farhana Garza III, DO - Last Filed: 04/02/25 21:26> ECG Data EKG #1: Interpretation: nsr with pvc's rate 67, low qrs voltage st elevation inferior and lateral qtc 358. not acute mi but likely related to hypercalcemia <Farhana Garza III, DO - Last Filed: 04/02/25 21:26> Critical Care Time Critical Care Time Critical Care Time: Yes <Farhana Garza III, DO - Last Filed: 04/02/25 21:26> Total Critical Care Time: 36 <Farhana Garza III, DO - Last Filed: 04/02/25 21:26> Discharge Plan Discharge Clinical Impression: Acute dehydration, Hypercalcemia, Hypomagnesemia <Haven Cedeno PA-C - Last Filed: 04/03/25 17:17> Patient Disposition: Still a Patient <Haven Cedeno PA-C - Last Filed: 04/03/25 17:17> Condition: Stable <AVINASH Rodriguez Last Filed: 04/03/25 17:17>
--- OUTSIDE RECORDS SUMMARY | 2025-04-02 17:48 | XMS_ITS | Encounter Summary ---
Author Organization [facility] Address [address] [place] [address] Care Team Providers Care Interventional Technologist Name Role Phone Dayron Arevalo MD Primary Care Provider [phone] Encounter Details Date Type Department Care Team (Late st Contact Info) Description 10/27/2022 Therapy Plan [facility] Infusion Services [place], [place] [id number] Dayron Arevalo MD [address] [place] [address] Social History Tobacco Use Types [...] week 09/05/2022 How often do you attend [facility] or buddhism services? Never 09/05/2022 Do you belong to any clubs o r organizations such as restoration groups, unions, fraternal or athletic groups, or [...] Recorded Patient Health Questionnaire-2 Score 0 09/05/2022 [facility] [place] [facility] Occupat ional Health - Occupational Stress [...] place to sleep or slept in a fci (including now)? 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/HCC)- Primary documented in this encounter Care Teams Interventional Technologist Relationship Specialty Start Date End Date Dayron Arevalo MD [address] [place] [id number] PCP - General FAMILY PRACTICE 10/27/22 documented as of this encounter
--- OUTSIDE RECORDS SUMMARY | 2025-04-02 17:48 | XMS_ITS | Encounter Summary ---
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
--- OUTSIDE RECORDS SUMMARY | 2025-04-02 17:48 | XMS_ITS | Clinical Summary ---
Author Organization [facility] Address [facility] [place] [address] Care Team Providers Care System Support Analyst Name Role Phone Vinnie Love MD Primary Care Provider [phone] Source Comments [facility],non-owned Affiliates and Associated Physician Practices is amultiple site organization consisting of ambulatory clinics and hospital sitesin [place], [place], [place] and [place]. This disclosure is being madepursuant to the Care Everywhere program and may not contain all information available regarding this patient. 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
--- OUTSIDE RECORDS SUMMARY | 2025-04-02 17:48 | XMS_ITS | Encounter Summary ---
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
--- OUTSIDE RECORDS SUMMARY | 2025-04-02 17:48 | XMS_ITS | Clinical Summary ---
Author Organization [facility] Address [facility] [place] [address] Care Team Providers Care Main Galley Scullion Name Role Phone Dayron Arevalo MD Primary Care Provider [phone] Allergies Active Allergy Reactions Criticality Noted Date [...] often do you attend chur ch or rastafari services? Never 09/05/2022 Do you belong to any clubs o r organizations such as pentecostalism groups, unions, fraternal or athletic groups, or [...] Recorded Patient Health Questionnaire-2 Score 0 09/05/2022 [facility] Questionnaire Answer Date Recorded [...] place to sleep or slept in a detention (including now)? 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
--- OUTSIDE RECORDS SUMMARY | 2025-04-02 17:48 | XMS_ITS | Encounter Summary ---
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
--- OUTSIDE RECORDS SUMMARY | 2025-04-02 17:48 | XMS_ITS | Encounter Summary ---
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
--- OUTSIDE RECORDS SUMMARY | 2025-04-02 17:48 | XMS_ITS | Clinical Summary ---
Author Organization [facility] [address] Address [address] [place] [address] Care Team Providers Care Tile Applicator Name Role Phone Dayron Arevalo MD Primary Care Provider [phone] Allergies Active Allergy Reactions Criticality Noted Date [...] IM RHEUMATOLOGY Scanning, Provider 01/12/2025 Orders Only [facility] Health Information Management [address] [place] [address] Scanning, Provider 01/12/2025 Anticoagulation Visit [facility] Cardiology [address] [place] [address] Laura Negrete RN Antiphospholipid antibody syndrome (Primary Dx); History of DVT (deep vein thrombosis) 01/09/2025 10:30 AM CDT Office Visit [facility] Medicine Rheumatology [address] [facility] 5[address] [place] [address] [place] [id number] Mark Engel MD Antiphospholipid antibody syndrome; Systemic [...] 1 Kavya Schizophrenia; Diabetes Sister 2 Kavya [place] Mental illness Sister 2 Kavya [place] Asthma Son 1 Liu Learning disabilities Son [...] on file 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
--- OUTSIDE RECORDS SUMMARY | 2025-04-02 17:48 | XMS_ITS | Encounter Summary ---
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
[2025-04-02] MEDS: LACTATED RINGERS 1,000 ML 999 ML IV CONT (18:51)
[2025-04-02] MEDS: MAGNESIUM SULF 2 GM/WATER 50ML 2 GM/50 ML BAG IVPB (18:52)
[2025-04-02] MEDS: ONDANSETRON INJ 4 MG/2 ML VIAL IV PUSH (18:54)
--- NOTE | 2025-04-02 19:03 | ECG_ITS ---
Test Date: 2025-04-02 19:10:25 Measurements Intervals [place] Rate: 67 P: -28 DC: 177 QRS: 251 QRSD: 50 T: 0 QT: 343 QTc: 362 Interpretive Statements SINUS RHYTHM WITH OCCASIONAL VENTRICULAR PREMATURE COMPLEXES RIGHT AXIS DEVIATION LEFT ATRIAL ENLARGEMENT RIGHT BUNDLE BRANCH BLOCK LOW QRS VOLTAGE- PRECORDIAL LEADS ST ELEVATION IN ANTEROLAT/INF LEADS- CONSIDER ACUTE INJURY, PERICARDITIS OR EARLY REPOLARIZATION ABNORMALITY BASELINE ARTIFACT- I, II, III, AVR, AVL, V3, V6 ABNORMAL ECG No previous ECG available for comparison Electronically Signed On 04-02-2025 20:53:37 CDT by Gerardo Gay D.O.
[2025-04-02] MEDS: SODIUM CHLORIDE 0.9% IV 1,000 ML 999 ML IV CONT (20:04)
[2025-04-02 21:33] LABS: MRSA (PCR) NOT DETECTED (NOT DETECTE)
--- NOTE | 2025-04-02 22:42 | ADMGEN ---
This patient, Trinity Spears, was admitted to Intensive Care Unit-1 on 04/02/25 at 2220. Patient/family oriented to hospital policies and general routines including ID bracelet, bed and alarms, visiting hours, pain management, procedures, bathroom and other care routines, personal items, smoking policy, room service/diet, and visiting hours. Information on how to activate the Rapid Response Team has been discussed. Patient/Family are encouraged to report perceived risks to care and to ask questions if they do not understand what they are told or what they should do.
[2025-04-02 23:06] LABS: Alanine Aminotransferase 31 U/L (6-35); Albumin Level 3.9 g/dL (3.5-5.1); Alkaline Phosphatase 67 U/L (38-126); Anion Gap 9 mmol/L (4-12); Aspartate Amino Transferase 54 U/L (14-36); Bilirubin,Total 0.5 mg/dL (0.2-1.3); Blood Urea Nitrogen 55 mg/dL (7-17); Calcium 13.1 mg/dL (8.4-10.2); Carbon Dioxide 31 mmol/L (22-30); Chloride 98 mmol/L (98-107); Estimated CRCL calculation 20 ml/min; Estimated Glomerular Filt Rate 14; Glucose 87 mg/dL (65-110); Potassium 3.3 mmol/L (3.4-5.0); Sodium 138 mmol/L (137-145); Total Protein 7.2 g/dL (6.3-8.2)
[2025-04-02 23:15] LABS: Troponin I 0.046 ng/mL (0.000-0.034)
[2025-04-03] VITALS (27 sets, daily range): BP systolic 67–127; BP diastolic 44–97; PULSE 58–84; RESP 14–22; TEMP 36.4–37.3; O2SAT 90–100
--- NOTE | 2025-04-03 | ECHO_ITS ---
Patient Info Name: Trinity Spears Age: 55 years : 1970 Gender: Female Ht: 65 in Wt: 206 lbs BSA: 2.11 m2 HR: 68 bpm BP: 117 / 71 mmHg Technical Quality: Good Exam Date: 04/03/2025 11:05 AM Patient Status: I Admit Date: 04/03/2025 Exam Type: CA echo dop color flow w con Complete two-dimensional, color flow and Doppler transthoracic echocardiogram is performed with contrast to opacify the left ventricle and to improve the deliniation of the left ventricle endocardial borders. Staff Referring Physician: Nhi [place] Program Technician: Sandee Pierce Attending Provider: Arminda Russo Contrast/Agitated Saline Contrast/Ag. Saline: Definity Amount: 2.00 ml Summary 1. Suboptimal image quality. Echo contrast was used. Normal LV size and wall thickness. LV systolic function is at lower limits of normal, LVEF calculated at 50%. Normal diastolic function. Normal RV size and systolic function. Mild left atrial enlargement. Normal mitral valve structure, no significant mitral regurgitation. Aortic valve is not well visualized. Mild aortic stenosis, valve area 1.7 cm2 by Doppler; maximum velocity 2.1 m/sec, mean gradient 10 mmHg. Trace TR, RVSP 35 mmHg. Dilated IVC with normal respiratory collapse. No significant pericardial effusion. Continued surveillance for progression of valvular heart disease is recommended. Left Ventricular Outflow Tract Name Value Normal LVOT 2D LVOT Diameter 2.0 cm LVOT Doppler LVOT Peak Velocity 116 cm/s LVOT Peak Gradient 4 mmHg LVOT Mean Gradient 2 mmHg LVOT VTI 25 cm LVOT VTI/AV VTI Ratio 0.5 LVOT Stroke Volume 83 ml LVOT CO 4.7 l/min LVOT CI 2.3 l/min/m2 Pulmonic Valve Name Value Normal RVOT Doppler RVOT Peak Velocity 115 cm/s RVOT Peak Gradient 5 mmHg PV Doppler PV Peak Velocity 148 cm/s PV Peak Gradient 9 mmHg Mitral Valve Name Value Normal MV Diastolic Function MV E Peak Velocity 68 cm/s MV A Peak Velocity 56 cm/s MV E/A 1.2 MV Decel Time (PW) 247 ms MV Annular TDI MV E/e' (Septal) 6.4 MV E/e' (Lateral) 5.7 MV E/e' (Average) 6.1 Tricuspid Valve Name Value Normal TV Regurgitation Doppler TR Peak Velocity 245 cm/s TR Peak Gradient 24 mmHg Aortic Valve Name Value Normal AV Doppler AV Peak Velocity 226 cm/s AV Peak Gradient 15 mmHg AV Mean Gradient 9 mmHg AV VTI 51 cm AV Area (Cont Eq VTI) 1.6 cm2 >=3.0 AV Area (Cont Eq [place]) 1.7 cm2 AV DI ([place]) 0.51 AV Regurgitation 2D LVOT Area 3.3 cm2 Ventricles Name Value Normal LV Dimensions 2D/MM LVOT Diameter 2.0 cm LV Fractional Shortening/Ejection Fraction 2D/MM LV Diastolic Volume (4C MOD) 185 ml LV EF (4C MOD) 48 % LV Diastolic Volume (2C MOD) 244 ml LV EF (2C MOD) 52 % LV Diastolic Volume (BP MOD) 215 ml 46-106 LV Diastolic Volume Index (BP MOD) 102 ml/m2 29-61 LV Systolic Volume (BP MOD) 108 ml 14-42 LV Systolic Volume Index (BP MOD) 51 ml/m2 8-24 LV EF (BP MOD) 50 % 54-74 LV Diastolic Length (4C) 8.7 cm LV Systolic Length (4C) 7.4 cm LV Stroke Volume (4C MOD) 88 ml [place] Name Value Normal LA Dimensions LA Volume (4C A-L) 53 ml LA Volume (BP A-L) 53 ml RA Dimensions RA Systolic Major [place] Length (4C) 5.0 cm 2.2-2.8 RA Area (4C) 17.9 cm2 <=18.0 Report Signatures
[2025-04-03] MEDS: SODIUM CHLORIDE 0.9% IV 1,000 ML 150 ML IV CONT ×3 (03:00→19:36)
--- NOTE | 2025-04-03 04:18 | PM.IMHP ---
H&P: HPI History of Present Illness Date/Time: 04/03/25 04:18 Chief Complaint: Abnormal labs Narrative: This is a 55-year-old obese patient with obesity and multiple comorbidities. The patient has been on that lb for several months which has been making her have nausea vomiting. The patient reports that her kidney function has declined. The patient stated over the last couple days she thought she was taking her Ultram for pain relief however she finally realized that it was not Ultram and that she was taking extra doses of spironolactone. Her potassium was initially 3.5, chloride 34, BUN 59, creatinine 3.74 with a previous creatinine of 1.72. She does have a history of chronic renal disease but is now worsened. Initial calcium was noted to be greater than 14 and with IV fluids it came down to 13.1. Her magnesium was noted to be 1.4. Troponin 0.046. She denies any chest pain or palpitation. She has 3+ urine leukocyte Estrace in her urine with wbc's 31-50. She has 1+ urine bacteria. Head CT was read as no acute intracranial findings. Her EKG is read as a sinus rhythm with occasional premature complexes right axis deviation left atrial enlargement right bundle-branch block ST elevation in anterolateral leads consider acute injury pericarditis or early repolarization. She had abnormal EKG. The patient was given lactated Ringer's in the emergency room along with magnesium. The file system installer has been consulted for placement into the ICU. The file system installer recommended that the by a phosphate and calcitonin be held at this time. The patient is being admitted to ICU observation on the date of service of 04/03/2025 Review of Systems Constitutional: Constitutional: Reports as per HPI and Reports no additional constitutional complaints Eyes: Eyes: Reports as per HPI and Reports no additional eye complaints ENT: Reports system reviewed and no additional complaints, except as documented and Reports Normal hearing present Cardiovascular: Cardiovascular: Reports no additional cardiovascular complaints Respiratory: Respiratory: Reports as per HPI and Reports no additional respiratory complaints Gastrointestinal: Gastrointestinal: Reports as per HPI and Reports no additional gastrointestinal complaints Genitourinary: Genitourinary: Reports no additional female genitourinary complaints Musculoskeletal: Musculoskeletal: Reports no additional musculoskeletal complaints Integumentary/Breasts: Skin/Breast: Reports system reviewed and no additional complaints, except as docu Neurologic: Reports system reviewed and no additional complaints, except as documented and Reports Normal hearing present Psychiatric: Psychiatric: Reports no additional psychiatric complaints and Reports as per HPI Hematologic/Lymphatic: Hematologic/Lymphatic: Reports no additional hematologic/lymphatic complaints Allergic/Immunologic: Allergic/Immunologic: Reports no additional allergic/immunologic complaints [facility] Past Medical History Medical History (Updated 04/03/25 @ 04:59 by Caro Maldonado APRN) Lupus ESR raised Screening for lipid disorders Gastroesophageal reflux disease Antiphospholipid syndrome Chronic pulmonary embolism Chronic combined systolic and diastolic CHF (congestive heart failure) Vitamin D deficiency, unspecified Allergies Arthritis Asthma History of blood clots CHF (congestive heart failure) COPD (chronic obstructive pulmonary disease) GERD (gastroesophageal reflux disease) Umbilical hernia Surgical History Surgical History (Updated 04/03/25 @ 04:31 by Caro Maldonado APRN) H/O hernia repair Umbilical and left inguinal he hernia repair H/O section Hx of cholecystectomy H/O tubal ligation Family History Family History Father Cirrhosis Diabetes mellitus Mother Diabetes mellitus Grandparent Parkinson disease Sibling Family history of schizophrenia Patient's brother is in good health Father Family history of diabetes mellitus in first degree relative Diabetes mellitus Family history of liver disease, Onset Age: 65 Mother Family history of diabetes mellitus in first degree relative, Onset Age: 32 Patient's mother is Diabetes mellitus Grandparent Family history of Parkinson's disease Other Family history of attention deficit hyperactivity disorder (ADHD) Social History Social History (Updated 04/03/25 @ 04:32 by Caro Maldonado APRN) Social History: She is disabled. In she has 1 son. She is . Code status: Full code Smoking packs per day: 1 Smoking cigarettes per day: 20.0 Years smoked: 8 Smoking pack-years: 8.00 Smoking status: Former smoker Tobacco type: cigarettes Second hand tobacco smoke exposure: Yes Smoking end date: 11/25/03 Alcohol intake: never Alcohol use details: rarely Substance use: current Substance use type: marijuana Lack of Transportation: No Lack of Food: Never True Current Housing: I Have Housing Concerned About Future Housing: No Difficulty Paying Gas/Electric Bills: No Difficulty Paying for Meds: No Currently Unemployed: No Education: Decline to Answer Difficulty w/ Childcare or Family Care: No Gender identity (if verbalized by the patient): Female Spiritual care concerns: No Meds Home Medications and Allergies Home Medications ?Medication ?Instructions ?Recorded ?Confirmed ?Type carvedilol 3.125 mg tablet 3.125 mg PO Q12H 05/26/19 04/02/25 History cetirizine 10 mg tablet 10 mg PO DAILY 05/26/19 04/02/25 History sacubitril 49 mg-valsartan 51 mg 2 tablet PO BID 05/26/19 04/02/25 History tablet (Entresto) warfarin 10 mg tablet 10 mg PO DAILY 05/26/19 04/02/25 History Held on 04/02/25. Instructions: Patient Condition spironolactone 50 mg tablet 50 mg PO DAILY 01/30/20 04/02/25 History albuterol sulfate 90 mcg/actuation 2 puff inhalation Q4-6H PRN 04/22/20 04/02/25 Rx aerosol inhaler shortness of breath or wheezing #8.5 grams cholecalciferol (vitamin D3) 125 125 mcg PO DAILY #90 caps 10/17/21 04/02/25 Rx mcg (5,000 unit) capsule montelukast 10 mg tablet See Rx Instructions .Route 11/06/24 04/02/25 Rx .COMPLEX 90 days #90 tabs carbidopa 25 mg-levodopa 100 mg See Rx Instructions .Route 11/24/24 04/02/25 Rx tablet .COMPLEX #90 tabs mycophenolate mofetil 500 mg tablet See Rx Instructions .Route 12/02/24 04/02/25 Rx .COMPLEX #180 tabs hydroxychloroquine 200 mg tablet See Rx Instructions .Route 12/24/24 04/02/25 Rx .COMPLEX #180 tabs azelastine 137 mcg (0.1 %) nasal See Rx Instructions .Route 02/19/25 04/02/25 Rx spray .COMPLEX #90 mL tramadol 50 mg tablet 50 mg PO Q8H PRN pain #60 tabs 03/17/25 04/02/25 Rx budesonide-formoterol HFA 160 2 puff inhalation Q12H #10.2 grams 04/01/25 04/02/25 Rx mcg-4.5 mcg/actuation aerosol inhaler (Symbicort) carbamide peroxide 6.5 % ear drops 10 drp RIGHT EAR Q12H PRN wax 4 04/02/25 04/02/25 Rx (Debrox) days #15 mL Held on 04/02/25. Instructions: Order Change fluticasone propionate 50 2 spray intranasal DAILY #16 grams 04/02/25 04/02/25 Rx mcg/actuation nasal spray,suspension (Children's Flonase Allergy Relief) Held on 04/02/25. Instructions: Order Change meclizine 25 mg tablet 25 mg PO TID PRN dizziness #30 tabs 04/02/25 04/02/25 Rx Allergies Allergy/AdvReac Type Severity Reaction Status Date / Time oxcarbazepine Allergy Mild Swelling Verified 04/02/25 23:37 sulfamethoxazole Allergy Mild hypersensit Verified 04/02/25 23:37 ivity trimethoprim Allergy Mild Swelling Verified 04/02/25 23:37 doxycycline Allergy Unknown hypersensit Verified 04/02/25 23:37 ivity Penicillins Allergy Unknown urticaria Verified 04/02/25 23:37 sulfamethizole Allergy Unknown Hypersensit Verified 04/02/25 23:37 ivity sulfanilamide Allergy Unknown rash Verified 04/02/25 23:37 tetracycline Allergy Unknown Tongue Verified 04/02/25 23:37 swelling Vital Signs Vital Signs - 24 hr 04/02/25 16:02 04/02/25 18:47 04/02/25 20:05 Temperature 97.2 F L Pulse Rate 83 66 70 Respiratory Rate 16 18 14 Blood Pressure 139/42 L 101/75 118/60 Pulse Oximetry 95 100 100 Oxygen Delivery Room Air 04/02/25 22:07 04/02/25 22:35 04/02/25 22:45 Temperature 97.8 F Pulse Rate 67 65 67 Respiratory Rate 14 17 23 H Blood Pressure 105/59 L 107/54 L 110/91 H Pulse Oximetry 98 100 100 Oxygen Delivery 04/02/25 22:58 04/02/25 23:00 04/02/25 23:15 Temperature Pulse Rate 61 66 67 Respiratory Rate 17 13 17 Blood Pressure 105/59 L 94/75 L 98/45 L Pulse Oximetry 100 100 99 Oxygen Delivery 04/02/25 23:20 04/02/25 23:30 04/02/25 23:45 Temperature Pulse Rate 93 65 Respiratory Rate 23 H 21 H Blood Pressure 159/142 H 118/60 Pulse Oximetry 98 97 Oxygen Delivery Room Air 04/03/25 00:00 04/03/25 00:00 04/03/25 00:00 Temperature Pulse Rate 65 65 65 Respiratory Rate 17 17 Blood Pressure 115/71 Pulse Oximetry 99 99 Oxygen Delivery Room Air Exam Const: General: cooperative, healthy appearing, comfortable, no acute distress, well developed, awake, Physically active, average body habitus and well nourished Nutritional Appearance: average body habitus and well nourished Orientation/consciousness: oriented to person, oriented to place, oriented to time and patient oriented x3 Limitations: no limitations HENMT: Head: normal to inspection, No palpable skull fracture present and normocephalic Face/Nose/Sinus: Normal external nose present Eyes: General: appearance normal, both eyes and all related structures Alignment and Position: alignment normal Neck: Neck: normal visual inspection Chest: Chest palpation & inspection: normal inspection of the chest Resp: Effort & Inspection: normal respiratory effort Auscultation: clear to auscultation bilaterally Percussion: percussion normal Cardio: Palpation: normal PMI Rate: regular rate Rhythm: regular rhythm Heart sounds: S1 normal heart sound present and S2 normal heart sound present Peripheral pulses: Peripheral pulses 2+ throughout GI: Inspection: normal to inspection Auscultation: normal bowel sounds Other: Nontender with light and deep palpation Skin: General skin exam: normal color Lesions: no lesions Rashes: no rashes Trauma: no lacerations or abrasions Wounds: no wounds Hair: normal Nails: normal Neuro: General: oriented to person, oriented to place, oriented to time and patient oriented x3 Cranial nerves: Yes Equal, round and reactive pupils present and Yes Normal hearing present Cognition (Neuro): normal cognition Speech: normal speech Motor exam (neuro): 5/5 motor strength present throughout Sensory Exam: normal sensation Extrem: General: normal to inspection Right upper extremity: normal to inspection and shoulder/upper arm Left upper extremity: normal to inspection and shoulder/upper arm Right lower extremity: normal to inspection Left lower extremity: normal to inspection Psych: Appearance: grossly normal Mental Status: mental status grossly normal Speech and movement: Normal speech and movement present Affect: normal affect Attitude: cooperative Thought process: Normal thought process present Thought content: Yes Normal thought content present Insight: Good insight present (Psych) Judgement: Good judgement present (Psych) H&P: Results Labs Labs: BMP 04/02/25 22:45 Sodium 138 Potassium 3.3 L Chloride 98 Carbon Dioxide 31 H BUN 55 H Creatinine 3.34 H Glucose 87 Calcium 13.1 H* Cardiac Enzymes 04/02/25 Range/Units 22:45 Troponin I 0.046 H* (0.000-0.034) ng/mL Liver Function 04/02/25 Range/Units 22:45 Total Bilirubin 0.5 (0.2-1.3) mg/dL AST 54 H (14-36) U/L ALT 31 (6-35) U/L Alkaline Phosphatase 67 (38-126) U/L Albumin 3.9 (3.5-5.1) g/dL ECG Interpretation: SINUS RHYTHM WITH OCCASIONAL VENTRICULAR PREMATURE COMPLEXES RIGHT AXIS DEVIATION LEFT ATRIAL ENLARGEMENT RIGHT BUNDLE BRANCH BLOCK LOW QRS VOLTAGE- PRECORDIAL LEADS ST ELEVATION IN ANTEROLAT/INF LEADS- CONSIDER ACUTE INJURY, PERICARDITIS OR EARLY REPOLARIZATION ABNORMALITY BASELINE ARTIFACT- I, II, III, AVR, AVL, V3, V6 ABNORMAL ECG No previous ECG available for comparison Electronically Signed On 04-02-2025 20:53:37 CDT by Gerardo Gay D.O. Imaging CT scan - head: Radiologist's impression: Head CT was noted as no acute intracranial findings Assessment and Plan Assessment and plan (1) Acute on chronic renal failure: Code(s): N17.9 - Acute kidney failure, unspecified; N18.9 - Chronic kidney disease, unspecified Status: Acute Assessment and Plan: -current 3.74 with baseline around 1.3. -a concurrent urinary tract infection as well. -may consider renal ultrasound -her GFR are is 14 with a previous reading of 31. BUN is now 55 with a baseline are in the 40s are less. -may consider Nephrology consult if no improvement. (2) Hypercalcemia: Code(s): E83.52 - Hypercalcemia Status: Acute Assessment and Plan: -patient's initial calcium was noted to be greater than 14. With IV fluids her calcium came down at 13.1. -monitor any EKG changes. -the patient had an abnormal EKG and therefore file system installer has been consulted for further evaluation. -continue with IV fluids. -could be related to her dehydration. The patient had nausea and vomiting for quite some time. She also took extra water pills accidentally. -continue to monitor calcium closely. -check urine calcium levels as well. -check vitamin-D. (3) UTI (urinary tract infection): Code(s): N39.0 - Urinary tract infection, site not specified Status: Acute Assessment and Plan: -she was started on Rocephin. Although the patient has penicillin allergy she has tolerated Rocephin in the past. She has also had Keflex in the past. Which is sensitive to beta lactams. -blood in urine cultures are pending. -Patient has had group B strep in the past (4) Hypomagnesemia: Code(s): E83.42 - Hypomagnesemia Status: Acute Assessment and Plan: -magnesium is 1.4. -2 g of magnesium have been ordered. -continue to monitor magnesium closely. Supplement as needed -most likely secondary to her nausea vomiting. -the patient has taken herself off a zepbound today she is not tolerating very well. She has been having nausea and vomiting for at least a month. (5) Vitamin D deficiency, unspecified: Code(s): E55.9 - Vitamin D deficiency, unspecified Status: Acute Assessment and Plan: -check vitamin level. (6) CHF (congestive heart failure): Code(s): I50.9 - Heart failure, unspecified Status: Acute Assessment and Plan: -patient's Entresto and spironolactone are on hold at this time due to her acute on chronic renal failure. -Coreg is on hold at this time due to her low blood pressure. -last echo was performed at another facility on 05/08/2019 it was noted that she had an EF of 40-45%. -may consider echo if not performed in the last 6 months (7) Systemic Lupus Erythematosus: Onset Date: ~1987 Qualifiers: Systemic lupus erythematosus type: unspecified Systemic lupus erythematosus organ involvement: unspecified Qualified Code(s): M32.9 - Systemic lupus erythematosus, unspecified Code(s): M32.9 - Systemic lupus erythematosus, unspecified Status: Acute Assessment and Plan: -continue with hydroxychloroquine (8) COPD (chronic obstructive pulmonary disease): Qualifiers: COPD type: unspecified COPD Qualified Code(s): J44.9 - Chronic obstructive pulmonary disease, unspecified Code(s): J44.9 - Chronic obstructive pulmonary disease, unspecified Status: Acute Assessment and Plan: -continue with home inhalers. (9) PAMELA (obstructive sleep apnea): Code(s): G47.33 - Obstructive sleep apnea (adult) (pediatric) Status: Acute Assessment and Plan: -CPAP as per home settings. (10) Antiphospholipid syndrome: Code(s): D68.61 - Antiphospholipid syndrome Status: Acute Assessment and Plan: -the patient has had multiple blood clots and PEs. She is on warfarin which is currently on hold due to high INR. Her current PT is 49.3 and her INR was 5.9. -pharmacy to adjust warfarin according to PT INR. Plan Anticoagulation on hold today due to supratherapeutic anticoagulation. Please repeat PT INR daily and resume Coumadin when able
[2025-04-03 05:27] LABS: Hematocrit 32.5 % (37.0-47.0); Hemoglobin 10.3 g/dL (12.0-15.0); Immature Platelet Fraction Pct 15.1 % (0.9-11.2); Mean Corpuscular HGB Conc 31.7 g/dl (32-36); Mean Corpuscular Hemoglobin 28.9 pg (26-34); Mean Corpuscular Volume 91.3 fl (80-100); Platelet Count Result 105 k/mm3 (150-375); Red Blood Count 3.56 M/mm3 (4.2-5.4); White Blood Count 5.6 K/mm3 (4.5-10.0)
[2025-04-03 05:40] LABS: Prothrombin Time 48.2 Seconds (11.1-14.7)
[2025-04-03 05:41] LABS: Anion Gap 9 mmol/L (4-12); Blood Urea Nitrogen 52 mg/dL (7-17); Calcium 12.8 mg/dL (8.4-10.2); Carbon Dioxide 31 mmol/L (22-30); Chloride 99 mmol/L (98-107); Estimated CRCL calculation 22 ml/min; Estimated Glomerular Filt Rate 16; Glucose 86 mg/dL (65-110); Potassium 3.1 mmol/L (3.4-5.0); Sodium 139 mmol/L (137-145)
[2025-04-03 05:46] LABS: INR 5.7
[2025-04-03 05:49] LABS: Troponin I 0.051 ng/mL (0.000-0.034)
[2025-04-03] MEDS: CARBIDOPA/LEVODOPA 25/100 MG TABLET 1 TABLET BY MOUTH ×2 (06:06→20:37)
[2025-04-03] MEDS: cefTRIAXone 1 GM in SODIUM CHLORIDE 0.9% IV 50 ML 100 ML IVPB (06:06)
[2025-04-03] MEDS: MAGNESIUM SULF 2 GM/WATER 50ML 2 GM/50 ML BAG IVPB ×2 (06:56→09:05)
[2025-04-03] MEDS: FLUTICASONE/SALMETEROL 115-21 MCG INHALER 1 PUFF 2 PUFF INHALATION ×2 (08:18→20:52)
[2025-04-03 08:33] LABS: Magnesium 1.8 mg/dL (1.6-2.3)
[2025-04-03] MEDS: POTASSIUM CHLORIDE INJ 40 MEQ in SODIUM CHLORIDE 0.9% IV 500 ML 130 MEQ IVPB (09:04)
[2025-04-03] MEDS: AZELASTINE HCL NASAL 0.1% 137 MCG/SPR 30 ML BTL 1 SPRAY NASAL ×2 (09:05→20:40)
--- NOTE | 2025-04-03 09:35 | P.CONNP_ITS ---
Assessment and Plan Assessment and plan (1) Hypercalcemia: Code(s): E83.52 - Hypercalcemia Status: Acute Assessment and Plan: * as noted by outpatient and admission labs * clinically asymptomatic * suspect due to several issues: * prerenal factors * Vitamin D and calcium supplements (Vitamin D level extremely high) * excess spironolactone intake (by mistake) * other? * check PTHrp, RAFAEL level, SPEP/UPEP, serum/urine immunofixation * follow-up on iCa * PTH appropriately low * continue IVFs * may need to consider diuresis as well given history of CHF * check CXR * follow trend of repeat labs (2) Acute kidney injury: Code(s): N17.9 - Acute kidney failure, unspecified Status: Acute Assessment and Plan: * as noted by outpatient and admission labs (3.73mg/dl and 3.34mg/dl, respectively) * slight improvement by AM labs (down to 3.0mg/dl on 04/03) * suspect multifactorial etiology: * prerenal factors * medications (Entresto, spironolactone, cellcept...etc) * hypercalcemia * infection (suspected UTI) * other? * check urine studies, CPK, and renal ultrasound * trial of IVF resuscitation * follow trend of repeat labs and UOP (3) Stage 3 chronic kidney disease: Code(s): N18.30 - Chronic kidney disease, stage 3 unspecified Status: Chronic Assessment and Plan: * baseline creatinine seems to run ~ 1.1 - 1.5mg/dl since 2022 * noted rise in creatinine to 1.72mg/dL in late December 2024 (which was also associated with mildly elevated calcium as well) * presumably due to CHF, PAMELA, and possibly lupus/lupus related medications(?) (4) CHF (congestive heart failure): Code(s): I50.9 - Heart failure, unspecified Status: Acute Assessment and Plan: * history of cardiomyopathy * follow respiratory/volume status with IVFs * appears compensated at this tme * Echo ordered * carvedilol, spironolactone, and Entresto on hold due to #2 (5) UTI (urinary tract infection): Code(s): N39.0 - Urinary tract infection, site not specified Status: Acute Assessment and Plan: * admission UA suggestive * follow culture data * on antibiotics (6) Systemic Lupus Erythematosus: Onset Date: ~1987 Qualifiers: Systemic lupus erythematosus type: unspecified Systemic lupus erythematosus organ involvement: unspecified Qualified Code(s): M32.9 - Systemic lupus erythematosus, unspecified Code(s): M32.9 - Systemic lupus erythematosus, unspecified Status: Chronic Assessment and Plan: * known history * denies any history of lupus nephritis * recently established care with [facility] * on mycophenolate mofetil and hydroxychloroquine (7) Antiphospholipid syndrome: Code(s): D68.61 - Antiphospholipid syndrome Status: Acute Assessment and Plan: * known history * on anticoagulation and with IVC filter * follow INR (8) PAMELA (obstructive sleep apnea): Code(s): G47.33 - Obstructive sleep apnea (adult) (pediatric) Status: Chronic Assessment and Plan: * continue CPAP Discussed case with Dr. Elmore. I will continue to follow the patient with you while he remains hospitalized and make further recommendations as deemed necessary. Thank you for allowing me to participate in the care of this patient. L History of Present Illness Reason for Consult Consult date: 04/03/25 Reason for consult: acute renal failure (on chronic kidney disease) and Other (hypercalcemia) Chief Complaint Chief complaint: hypercalcemia History of Present Illness Narrative: The patient is a 55-year-old female with extensive past medical history as outlined below who presented to [facility] Emergency Room due to abnormal labs. The patient recently saw her primary care physician for ongoing issues and problems with nausea, vomiting, low appetite as well as dizziness and lightheadedness. She apparently also had a few falls as well secondary to the dizziness and lightheadedness. The patient seemed to think that it was her Zepbound that she started few months ago for weight loss as a possible etiology for the symptoms. She saw her primary care physician yesterday for further evaluation of these symptoms/problems. This is further complicated by the fact that the patient inverted early took extra doses of spironolactone thinking it was her tramadol. She was instructed to stop the Zepbound and routine blood work was ordered to evaluate for the possibility of dehydration and/or electrolyte disturbances. Her outpatient labs resulted in significant abnormalities including acute kidney injury and hypercalcemia and she was instructed to come to the emergency room for further assessment at the behest of her primary care physician. Workup and evaluation emergency room demonstrated the patient to be hemodynamically stable and in no acute distress. Routine blood work demonstrated white blood cell count of 5.6, hemoglobin 10.3, platelet count 105, sodium 138, potassium 3.3, bicarb 31, BUN 55, creatinine 3.34, calcium 13.1 phosphorus 3.9, and albumin 3.9 With an INR of 5.9 She was initiated on aggressive IV fluid resuscitation and although there was some discussion about using the midodrine 8 verses zone med versus calcitonin for hypercalcemia, it was felt that dehydration may be playing more of a significant role with regard to her acute kidney injury on top of her baseline chronic kidney disease in conjunction with her hypercalcemia. She was subsequently admitted to the ICU for further evaluation therapy. Since her admission to the ICU, repeat labs show improvement in her renal function/ creatinine down to 3.0 mg/dL with an associated drop in her calcium down to 12.8 mg/dL. In spite of her electrolyte abnormalities and her renal dysfunction, the patient otherwise appears to be asymptomatic both prior to admission as well as currently. Renal consultation was requested due to her acute kidney injury/acute renal failure on top of her baseline chronic kidney disease in association with hypercalcemia. From review the patient's records, it would seem she does have some underlying renal insufficiency with a creatinine that normally runs around 1.1-1.5 mg/dL although she did have a recent lab in December of this year with a creatinine up to 1.72 mg/dL. Her calcium levels are usually within normal limits although by those December 2024 labs it was mildly elevated at 10.7 mg/dL. Surprisingly, despite these abnormalities with regard to her renal function and calcium level, she otherwise appeared to be asymptomatic. On further questioning, and as mentioned above, she did invert early take extra doses of spironolactone as she mistakenly thought these pills were tramadol. furthermore, she has been taking significant amounts of calcium and vitamin-D supplements given her history of vitamin-D deficiency. Currently, at the time my evaluation, she appears to be in no acute distress. Review of Systems 2 Review of Systems: As per HPI. [facility] Past Medical History Medical History Lupus ESR raised Screening for lipid disorders Gastroesophageal reflux disease Antiphospholipid syndrome Chronic pulmonary embolism Chronic combined systolic and diastolic CHF (congestive heart failure) Vitamin D deficiency, unspecified Allergies Arthritis Asthma History of blood clots CHF (congestive heart failure) COPD (chronic obstructive pulmonary disease) GERD (gastroesophageal reflux disease) Umbilical hernia Surgical History Surgical History S/P IVC filter H/O hernia repair Umbilical and left inguinal he hernia repair H/O section Hx of cholecystectomy H/O tubal ligation Family History Family History Father Cirrhosis Diabetes mellitus Mother Diabetes mellitus Grandparent Parkinson disease Sibling Family history of schizophrenia Patient's brother is in good health Father Family history of diabetes mellitus in first degree relative Diabetes mellitus Family history of liver disease, Onset Age: 65 Mother Family history of diabetes mellitus in first degree relative, Onset Age: 32 Patient's mother is Diabetes mellitus Grandparent Family history of Parkinson's disease Other Family history of attention deficit hyperactivity disorder (ADHD) Social History Social History Social History: She is disabled. In she has 1 son. She is . Code status: Full code Smoking packs per day: 1 Smoking cigarettes per day: 20.0 Years smoked: 8 Smoking pack-years: 8.00 Smoking status: Former smoker Tobacco type: cigarettes Second hand tobacco smoke exposure: Yes Smoking end date: 11/25/03 Alcohol intake: never Alcohol use details: rarely Substance use: current Substance use type: marijuana Lack of Transportation: No Lack of Food: Never True Current Housing: I Have Housing Concerned About Future Housing: No Difficulty Paying Gas/Electric Bills: No Difficulty Paying for Meds: No Currently Unemployed: No Education: Decline to Answer Difficulty w/ Childcare or Family Care: No Gender identity (if verbalized by the patient): Female Spiritual care concerns: No Meds Home Medications and Allergies Home Medications ?Medication ?Instructions ?Recorded ?Confirmed ?Type carvedilol 3.125 mg tablet 3.125 mg PO Q12H 05/26/19 1 History cetirizine 10 mg tablet 10 mg PO DAILY 05/26/1903/18 History sacubitril 49 mg-valsartan 51 mg 2 tablet PO BID 05/2604/02/25 History tablet (Entresto) warfarin 10 mg tablet 10 mg PO DAILY 05/26/1903/18 History Held on 04/02/25. Instructions: Patient Condition spironolactone 50 mg tablet 50 mg PO DAILY 01/30/20 History albuterol sulfate 90 mcg/actuation 2 puff inhalation Q 4-6H PRN 04/22/20 04/02/25 Rx aerosol inhaler shortness of breath or wheez ing #8.5 grams cholecalciferol (vitamin D3) 125 125 mcg PO DAILY #90 caps 10/17/21 04/02/25 Rx mcg (5,000 unit) capsule montelukast 10 mg tablet See Rx Instructions .Route 0 11/06/24 04/02/25 Rx .COMPLEX 90 days #90 tabs carbidopa 25 mg-levodopa 100 mg See Rx Instructions .R oute 11/24/24 04/02/25 Rx tablet .COMPLEX #90 tabs mycophenolate mofetil 500 mg tablet See Rx Instruction s .Route 12/02/24 04/02/25 Rx .COMPLEX #180 tabs hydroxychloroquine 200 mg tablet See Rx Instructions . Route 12/24/24 04/02/25 Rx .COMPLEX #180 tabs azelastine 137 mcg (0.1 %) nasal See Rx Instructions . Route 02/19/25 04/02/25 Rx spray .COMPLEX #90 mL tramadol 50 mg tablet 50 mg PO Q8H PRN pain #60 ta bs 03/17/25 04/02/25 Rx budesonide-formoterol HFA 160 2 puff inhalation Q12H # 10.2 grams 04/01/25 04/02/25 Rx mcg-4.5 mcg/actuation aerosol inhaler (Symbicort) carbamide peroxide 6.5 % ear drops 10 drp RIGHT EAR Q1 2H PRN wax 4 04/02/25 04/02/25 Rx (Debrox) days #15 mL Held on 04/02/25. Instructions: Order Change fluticasone propionate 50 2 spray intranasal DAILY #16 grams 04/02/25 04/02/25 Rx mcg/actuation nasal spray,suspension (Children's Flonase Allergy Relief) Held on 04/02/25. Instructions: Order Change meclizine 25 mg tablet 25 mg PO TID PRN dizziness # 30 tabs 04/02/25 04/02/25 Rx Allergies Allergy/AdvReac Type Severity Reaction Status Date / Time oxcarbazepine Allergy Mild Swelling Verified 04/02/25 23:37 sulfamethoxazole Allergy Mild hypersensit Verified 04/02/25 23:37 ivity trimethoprim Allergy Mild Swelling Verified 04/02/25 23:37 doxycycline Allergy Unknown hypersensit Verified 04/02/25 23:37 ivity Penicillins Allergy Unknown urticaria Verified 04/02/25 23:37 sulfamethizole Allergy Unknown Hypersensit Verified 04/02/25 23:37 ivity sulfanilamide Allergy Unknown rash Verified 04/02/25 23:37 tetracycline Allergy Unknown Tongue Verified 04/02/25 23:37 swelling Vital Signs Vital Signs Temp Pulse Resp BP Pulse Ox O2 Del Method 04/03/25 09:00 69 16 104/55 L 96 04/03/25 08:25 78 20 04/03/25 08:25 78 20 96 Room Air 04/03/25 08:00 62 04/03/25 08:00 92 Room Air 04/03/25 08:00 61 18 109/56 L 92 04/03/25 07:00 67 18 113/59 L 95 04/03/25 05:59 CPAP 04/03/25 04:00 98.0 F 62 19 117/71 91 04/03/25 04:00 62 04/03/25 03:00 64 16 99/60 L 93 04/03/25 02:00 63 16 86/69 L 96 04/03/25 02:00 63 04/03/25 01:00 67 18 67/44 L 97 04/03/25 00:00 65 17 99 Room Air 04/03/25 00:00 65 04/03/25 00:00 97.6 F 65 17 115/71 99 04/02/25 23:45 65 21 H 118/60 97 04/02/25 23:30 93 23 H 159/142 H 04/02/25 23:20 98 Room Air 04/02/25 23:15 67 17 98/45 L 99 04/02/25 23:00 66 13 94/75 L 100 04/02/25 22:58 61 17 105/59 L 100 04/02/25 22:45 67 23 H 110/91 H 100 04/02/25 22:35 65 17 107/54 L 100 04/02/25 22:07 97.8 F 67 14 105/59 L 98 04/02/25 20:05 70 14 118/60 100 04/02/25 18:47 66 18 101/75 100 04/02/25 16:02 97.2 F L 83 16 139/42 L 95 Room Air Exam 2 Narrative: GENERAL APPEARANCE: well developed well nourished female in no acute distress HEENT: normocephalic, atraumatic, normal conjunctiva and sclera, nares patient NECK: no lymphadenopathy, thyromegaly, or JVD MOUTH: normal lips, teeth, and gums CARDIOVASCULAR: RRR, normal S1 and S2, no rub detected RESPIRATORY: clear to auscultation bilaterally ABDOMEN: soft, nontender, nondistended, positive bowel sounds present EXTREMITIES: no evidence of cyanosis, clubbing, 1+ edema NEUROLOGICAL: alert and oriented x 3; CN II - XII intact bilaterally; no focal deficits noted Results Lab Results 04/03/25 04:53 04/03/25 05:13 Lab results: Most recent lab results Calcium 12.8 mg/dL (8.4-10.2) H* 04/03/25 05:13 Phosphorus 3.9 mg/dL (2.5-4.5) 04/02/25 22:45 Magnesium 1.8 mg/dL (1.6-2.3) 04/03/25 05:13
[2025-04-03] MEDS: MONTELUKAST SODIUM 10 MG TABLET BY MOUTH (10:47)
[2025-04-03] MEDS: POTASSIUM CHLORIDE 20 MEQ ER TABLET 40 MEQ PO (10:47)
[2025-04-03] MEDS: HYDROXYCHLOROQUINE SULFATE 200 MG TABLET 400 MG BY MOUTH (10:47)
--- NOTE | 2025-04-03 11:25 | P.CONIN_ITS ---
Assessment and Plan Assessment and plan (1) Hypercalcemia: Code(s): E83.52 - Hypercalcemia Status: Acute Assessment and Plan: Patient presented with hypercalcemia in setting of acute on chronic renal failure. Patient takes supplemental vitamin-D and calcium her vitamin-D level was very high patient also taking high dose of Aldactone by mistake. Hypercalcemia likely secondary to dehydration acute kidney injury and iatrogenic vitamin-D toxicity although other possibilities will be ruled out I have discussed case with Nephrology. Will continue IV fluids. I will give IV Lasix. Monitor calcium level Vitamin-D level > 126 and will be held Check PTH level Ionized calcium is ordered but is a send out Dr. Valdivia will order calcitonin but hold zoledronic acid at this time. Calcium will be monitored closely EKG reviewed and shows no sign of hypercalcemia toxicity and also patient has a normal mental status and symptoms have improved. (2) Acute on chronic renal failure: Code(s): N17.9 - Acute kidney failure, unspecified; N18.9 - Chronic kidney disease, unspecified Status: Acute Assessment and Plan: Monitor urine output electrolytes and creatinine Accurate I&Os Replace low potassium and magnesium Renal ultrasound negative Check kinase level (3) CHF (congestive heart failure): Code(s): I50.9 - Heart failure, unspecified Status: Acute Assessment and Plan: Patient has history of congestive heart failure. Hold Coreg, Aldactone, Entresto Patient receiving IV fluids will have to be cautious with amount Will give Lasix today Repeat echo ordered (4) Antiphospholipid syndrome: Code(s): D68.61 - Antiphospholipid syndrome Status: Acute Assessment and Plan: Patient on anticoagulation and has IVC filter. INR is supratherapeutic. Coumadin is on hold. Daily INR monitoring. (5) Morbid obesity: Code(s): E66.01 - Morbid (severe) obesity due to excess calories Status: Acute Assessment and Plan: Morbid obesity (6) Vitamin D deficiency, unspecified: Code(s): E55.9 - Vitamin D deficiency, unspecified Status: Acute Assessment and Plan: Patient has vitamin-D deficiency and is on calcium and vitamin-D supplementation -currently on hold-see above (7) Hypomagnesemia: Code(s): E83.42 - Hypomagnesemia Status: Acute Assessment and Plan: Magnesium replacement ordered (8) Acute dehydration: Code(s): E86.0 - Dehydration Status: Acute Assessment and Plan: Continue IV fluids see above (9) UTI (urinary tract infection): Code(s): N39.0 - Urinary tract infection, site not specified Status: Acute Assessment and Plan: IV Rocephin Cultures ordered (10) Systemic Lupus Erythematosus: Onset Date: ~1987 Qualifiers: Systemic lupus erythematosus organ involvement: unspecified Systemic lupus erythematosus type: unspecified Qualified Code(s): M32.9 - Systemic lupus erythematosus, unspecified Code(s): M32.9 - Systemic lupus erythematosus, unspecified Status: Acute Assessment and Plan: Continue mycophenolate mofetil and hydroxychloroquine (11) COPD (chronic obstructive pulmonary disease): Qualifiers: COPD type: unspecified COPD Qualified Code(s): J44.9 - Chronic obstructive pulmonary disease, unspecified Code(s): J44.9 - Chronic obstructive pulmonary disease, unspecified Status: Acute (12) PAMELA (obstructive sleep apnea): Code(s): G47.33 - Obstructive sleep apnea (adult) (pediatric) Status: Acute Assessment and Plan: CPAP ordered (13) Hypokalemia: Code(s): E87.6 - Hypokalemia Status: Acute Assessment and Plan: Potassium replacement and repeat check ordered Plan DVT prophylaxis -warfarin Nutrition -renal diet Code Status - Full Code Total Critical Care Time - 40 minutes Due to a high probability of clinically significant, life threatening deterioration, the patient required my highest level of preparedness to intervene emergently and I personally spent this critical care time directly and personally managing the patient. This critical care time included obtaining a history; examining the patient; pulse oximetry; ordering and review of studies; arranging urgent treatment with development of a management plan; evaluation of patient's response to treatment; frequent reassessment; and discussions with other providers. It was exclusive of separately billable procedures and treating other patients and teaching time. Please see Assessment and Plan section and the rest of the note for further information on patient assessment and treatment Sample Paster Consult Note Consult date: 04/03/25 Reason for consult: Hypercalcemia, TAMIKO HPI: Trinity Reynolds Brookepennie Spears is a 55 year with past medical history of congestive heart failure, morbid obesity, lupus, antiphospholipid syndrome on anticoagulation with warfarin, COPD, IVC filter presented to ER with chief complaint of abnormal labs yesterday.. Patient started taking Zepbound 5mg for last few months. She has noticed weight loss as expected. She also has had nausea vomiting and low appetite. She states her last few days she has been taking extra dose of spironolactone thinking it was tramadol for her pain she was called by her physician regarding abnormal labs hence she presented to the ER. She states for last few days she has been willing weak tired dizzy lightheaded needs. She had 1 episode where she passed out but denies any head trauma. In ER she was found to be having elevated creatinine of 3.74. Patient has chronic kidney disease but there was acute elevation. Patient also had hypercalcemia with calcium more than 14. Patient was given IV fluids and admitted to ICU for further evaluation management. Patient this morning states she feels much better. All other systems were reviewed and were negative. Workup in the ER showed normal WBC hemoglobin of 11.8 platelet count of 137 INR 5.9 Normal sodium potassium 3.5 chloride 93 bicarb 34 BUN 59 creatinine 3.74 calcium more than 14 UA suggestive of UTI Head CT was neck Review of Systems 2 Review of Systems: All systems reviewed & are unremarkable except as noted in HPI and below (HPI) [facility], LAT[facility] Past Medical History Medical History Lupus ESR raised Screening for lipid disorders Gastroesophageal reflux disease Antiphospholipid syndrome Chronic pulmonary embolism Chronic combined systolic and diastolic CHF (congestive heart failure) Vitamin D deficiency, unspecified Allergies Arthritis Asthma History of blood clots CHF (congestive heart failure) COPD (chronic obstructive pulmonary disease) GERD (gastroesophageal reflux disease) Umbilical hernia Surgical History Surgical History S/P IVC filter H/O hernia repair Umbilical and left inguinal he hernia repair H/O section Hx of cholecystectomy H/O tubal ligation Family History Family History Father Cirrhosis Diabetes mellitus Mother Diabetes mellitus Grandparent Parkinson disease Sibling Family history of schizophrenia Patient's brother is in good health Father Family history of diabetes mellitus in first degree relative Diabetes mellitus Family history of liver disease, Onset Age: 65 Mother Family history of diabetes mellitus in first degree relative, Onset Age: 32 Patient's mother is Diabetes mellitus Grandparent Family history of Parkinson's disease Other Family history of attention deficit hyperactivity disorder (ADHD) Social History Social History Social History: She is disabled. In she has 1 son. She is . Code status: Full code Smoking packs per day: 1 Smoking cigarettes per day: 20.0 Years smoked: 8 Smoking pack-years: 8.00 Smoking status: Former smoker Tobacco type: cigarettes Second hand tobacco smoke exposure: Yes Smoking end date: 11/25/03 Alcohol intake: never Alcohol use details: rarely Substance use: current Substance use type: marijuana Lack of Transportation: No Lack of Food: Never True Current Housing: I Have Housing Concerned About Future Housing: No Difficulty Paying Gas/Electric Bills: No Difficulty Paying for Meds: No Currently Unemployed: No Education: Decline to Answer Difficulty w/ Childcare or Family Care: No Gender identity (if verbalized by the patient): Female Spiritual care concerns: No Meds Home Medications and Allergies Home Medications ?Medication ?Instructions ?Recorded ?Confirmed ?Type carvedilol 3.125 mg tablet 3.125 mg PO Q12H 05/26/19 1 History cetirizine 10 mg tablet 10 mg PO DAILY 05/26/1903/18 History sacubitril 49 mg-valsartan 51 mg 2 tablet PO BID 05/2604/02/25 History tablet (Entresto) warfarin 10 mg tablet 10 mg PO DAILY 05/26/1903/18 History Held on 04/02/25. Instructions: Patient Condition spironolactone 50 mg tablet 50 mg PO DAILY 01/30/20 History albuterol sulfate 90 mcg/actuation 2 puff inhalation Q 4-6H PRN 04/22/20 04/02/25 Rx aerosol inhaler shortness of breath or wheez ing #8.5 grams cholecalciferol (vitamin D3) 125 125 mcg PO DAILY #90 caps 10/17/21 04/02/25 Rx mcg (5,000 unit) capsule montelukast 10 mg tablet See Rx Instructions .Route 0 11/06/24 04/02/25 Rx .COMPLEX 90 days #90 tabs carbidopa 25 mg-levodopa 100 mg See Rx Instructions .R oute 11/24/24 04/02/25 Rx tablet .COMPLEX #90 tabs mycophenolate mofetil 500 mg tablet See Rx Instruction s .Route 12/02/24 04/02/25 Rx .COMPLEX #180 tabs hydroxychloroquine 200 mg tablet See Rx Instructions . Route 12/24/24 04/02/25 Rx .COMPLEX #180 tabs azelastine 137 mcg (0.1 %) nasal See Rx Instructions . Route 02/19/25 04/02/25 Rx spray .COMPLEX #90 mL tramadol 50 mg tablet 50 mg PO Q8H PRN pain #60 ta bs 03/17/25 04/02/25 Rx budesonide-formoterol HFA 160 2 puff inhalation Q12H # 10.2 grams 04/01/25 04/02/25 Rx mcg-4.5 mcg/actuation aerosol inhaler (Symbicort) carbamide peroxide 6.5 % ear drops 10 drp RIGHT EAR Q1 2H PRN wax 4 04/02/25 04/02/25 Rx (Debrox) days #15 mL Held on 04/02/25. Instructions: Order Change fluticasone propionate 50 2 spray intranasal DAILY #16 grams 04/02/25 04/02/25 Rx mcg/actuation nasal spray,suspension (Children's Flonase Allergy Relief) Held on 04/02/25. Instructions: Order Change meclizine 25 mg tablet 25 mg PO TID PRN dizziness # 30 tabs 04/02/25 04/02/25 Rx Allergies Allergy/AdvReac Type Severity Reaction Status Date / Time oxcarbazepine Allergy Mild Swelling Verified 04/02/25 23:37 sulfamethoxazole Allergy Mild hypersensit Verified 04/02/25 23:37 ivity trimethoprim Allergy Mild Swelling Verified 04/02/25 23:37 doxycycline Allergy Unknown hypersensit Verified 04/02/25 23:37 ivity Penicillins Allergy Unknown urticaria Verified 04/02/25 23:37 sulfamethizole Allergy Unknown Hypersensit Verified 04/02/25 23:37 ivity sulfanilamide Allergy Unknown rash Verified 04/02/25 23:37 tetracycline Allergy Unknown Tongue Verified 04/02/25 23:37 swelling Vital Signs Vital Signs - 24 hr 04/02/25 16:02 04/02/25 18:47 04/02/25 20:05 Temperature 36.2 C L Pulse Rate 83 66 70 Respiratory Rate 16 18 14 Blood Pressure 139/42 L 101/75 118/60 Pulse Oximetry 95 100 100 Oxygen Delivery Room Air 04/02/25 22:07 04/02/25 22:35 04/02/25 22:45 Temperature 36.6 C Pulse Rate 67 65 67 Respiratory Rate 14 17 23 H Blood Pressure 105/59 L 107/54 L 110/91 H Pulse Oximetry 98 100 100 Oxygen Delivery 04/02/25 22:58 04/02/25 23:00 04/02/25 23:15 Temperature Pulse Rate 61 66 67 Respiratory Rate 17 13 17 Blood Pressure 105/59 L 94/75 L 98/45 L Pulse Oximetry 100 100 99 Oxygen Delivery 04/02/25 23:20 04/02/25 23:30 04/02/25 23:45 Temperature Pulse Rate 93 65 Respiratory Rate 23 H 21 H Blood Pressure 159/142 H 118/60 Pulse Oximetry 98 97 Oxygen Delivery Room Air 04/03/25 00:00 04/03/25 00:00 04/03/25 00:00 Temperature 36.4 C Pulse Rate 65 65 65 Respiratory Rate 17 17 Blood Pressure 115/71 Pulse Oximetry 99 99 Oxygen Delivery Room Air 04/03/25 01:00 04/03/25 02:00 04/03/25 02:00 Temperature Pulse Rate 67 63 63 Respiratory Rate 18 16 Blood Pressure 67/44 L 86/69 L Pulse Oximetry 97 96 Oxygen Delivery 04/03/25 03:00 04/03/25 04:00 04/03/25 04:00 Temperature 36.7 C Pulse Rate 64 62 62 Respiratory Rate 16 19 Blood Pressure 99/60 L 117/71 Pulse Oximetry 93 91 Oxygen Delivery 04/03/25 05:59 04/03/25 07:00 04/03/25 08:00 Temperature Pulse Rate 67 61 Respiratory Rate 18 18 Blood Pressure 113/59 L 109/56 L Pulse Oximetry 95 92 Oxygen Delivery CPAP 04/03/25 08:00 04/03/25 08:00 04/03/25 08:25 Temperature Pulse Rate 62 78 Respiratory Rate 20 Blood Pressure Pulse Oximetry 92 96 Oxygen Delivery Room Air Room Air 04/03/25 08:25 04/03/25 09:00 04/03/25 10:00 Temperature Pulse Rate 78 69 73 Respiratory Rate 20 16 22 H Blood Pressure 104/55 L 118/61 Pulse Oximetry 96 92 Oxygen Delivery 04/03/25 10:00 Temperature Pulse Rate 73 Respiratory Rate Blood Pressure Pulse Oximetry Oxygen Delivery Exam 2 Narrative: General: Pt is alert awake and in NAD Lungs/Chest: Trachea central Clear BS B/L, No crackles or wheezing. Cardiac: RRR. Normal S1 S2. No murmurs Circulation: Pedal pulses are intact and symmetrical. Abdomen: Normal bowel sounds.. Soft. NT. ND. Extremities: Patient has bilateral edema. Patient has bilateral chronic venous stasis. The skin in ankles is dark formed and hard : Murray in place Neurologic: Follows commands. Moves all 4 extremities PERRL AO x3 Skin: No Rash Results Labs 04/03/25 04:53 04/03/25 05:13 Labs: Impressions Renal Ultrasound 04/03/25 08:21 IMPRESSION: 1. Normal kidney sizes. No hydronephrosis. Short CBC 04/03/25 Range/Units 04:53 WBC 5.6 (4.5-10.0) K/mm3 Hgb 10.3 L (12.0-15.0) g/dL Hct 32.5 L (37.0-47.0) % Plt Count 105 L (150-375) k/mm3 BMP 04/02/25 04/03/25 04/03/25 22:45 04:53 05:13 Sodium 138 139 Potassium 3.3 L 3.1 L Chloride 98 99 Carbon Dioxide 31 H 31 H BUN 55 H 52 H Creatinine 3.34 H 3.01 H Glucose 87 86 Calcium 13.1 H* Cancelled 12.8 H* Cardiac Enzymes 04/02/25 04/03/25 Range/Units 22:45 05:13 Troponin I 0.046 H* 0.051 H* (0.000-0.034) ng/mL Liver Function 04/02/25 Range/Units 22:45 Total Bilirubin 0.5 (0.2-1.3) mg/dL AST 54 H (14-36) U/L ALT 31 (6-35) U/L Alkaline Phosphatase 67 (38-126) U/L Albumin 3.9 (3.5-5.1) g/dL ECG Interpretation: Sinus rhythm with PVCs right bundle-branch block No J waves QTC in normal range Quality VTE Prophylaxis VTE prophylaxis: pharmacologic ordered Hospitalist MIPS Advance Care Plan I have confirmed that the patient's Advanced Care Plan is present, code status is documented, or surrogate decision maker is listed in patient medical record.: Yes Medication Reconciliation I have utilized all available resources to obtain, update and review the patients current medications (includes all prescriptions, OTC, herbals, cannabis, and nutritional supplements).: Yes
[2025-04-03 12:44] LABS: Parathyroid Intact < 14.5 pg/mL (14.5-75.2)
[2025-04-03] MEDS: CALCITONIN SALMON INJ 400 UNITS/2 ML VIAL 360 UNITS SUB-Q ×2 (13:04→20:41)
[2025-04-03] MEDS: FUROSEMIDE INJ 100 MG/10 ML VIAL 80 MG IV PUSH ×2 (13:05→20:40)
[2025-04-03 14:21] LABS: Total Protein Urine Random 16 mg/dL; Ur Ttl Prot Creatinine Ratio 2.71 mg/mg (0-0.20)
[2025-04-03 14:32] LABS: Urine Eos QC 2nd Tech Confirmed
--- NOTE | 2025-04-03 15:05 | PC.NURSE ---
patient complaining of nausea and stated it feels like acid reflux; when RN asked if she takes anything at home to relieve symptoms; patient stated I've been taking tums like crazy because nothing else helps due to my cellcept; Dr. Elmore notified and received orders for zofran 4mg IVP q6h PRN
[2025-04-03] MEDS: PERFLUTREN LIPID MICROSPHERES 1.5 ML VIAL DILUTED TO 10 ML TOTAL VOLUME IV PUSH (15:17)
--- NOTE | 2025-04-03 15:17 | IVDEFINITY ---
Prior to administration of IV Definity the patient was educated on the risks and benefits of the imaging enhancing agent including potential adverse side effects. The patient verbalized understanding. Allergies were verified. No exclusion criteria were identified and at least one of the following inclusion criteria were met: 1) physician request, 2) patient technically difficult to image (per the [place] [employer] guidelines of two or more segments not discernable within the apical view), or 3) questionable left ventricular function. ?
[2025-04-03] MEDS: ONDANSETRON INJ 4 MG/2 ML VIAL IV PUSH ×2 (15:18→23:43)
[2025-04-03 15:48] LABS: Urea Random Urine 551 MG/DL
[2025-04-03 18:11] LABS: Anion Gap 11 mmol/L (4-12); Blood Urea Nitrogen 43 mg/dL (7-17); Calcium 12.4 mg/dL (8.4-10.2); Carbon Dioxide 28 mmol/L (22-30); Chloride 102 mmol/L (98-107); Creatine Kinase 269 U/L (30-135); Estimated CRCL calculation 24 ml/min; Estimated Glomerular Filt Rate 18; Glucose 121 mg/dL (65-110); Magnesium 2.5 mg/dL (1.6-2.3); Potassium 4.0 mmol/L (3.4-5.0); Sodium 141 mmol/L (137-145)
[2025-04-03 18:35] LABS: Thyroid Stimulating Hormone Reflex 0.549 uIU/mL (0.465-4.68)
[2025-04-03] MEDS: traMADol HCL (*CRX) 50 MG TABLET PO (20:37)
[2025-04-04] VITALS (26 sets, daily range): BP systolic 95–119; BP diastolic 47–83; PULSE 64–155; RESP 14–23; TEMP 36.3–37.3; O2SAT 91–100
[2025-04-04] MEDS: SODIUM CHLORIDE 0.9% IV 1,000 ML 150 ML IV CONT ×3 (02:15→15:18)
[2025-04-04 04:11] LABS: Hematocrit 31.5 % (37.0-47.0); Hemoglobin 9.9 g/dL (12.0-15.0); Immature Platelet Fraction Pct 13.4 % (0.9-11.2); Mean Corpuscular HGB Conc 31.4 g/dl (32-36); Mean Corpuscular Hemoglobin 28.7 pg (26-34); Mean Corpuscular Volume 91.3 fl (80-100); Platelet Count Result 108 k/mm3 (150-375); Red Blood Count 3.45 M/mm3 (4.2-5.4); White Blood Count 6.7 K/mm3 (4.5-10.0)
[2025-04-04 04:21] LABS: INR 4.2; Prothrombin Time 38.2 Seconds (11.1-14.7)
[2025-04-04 04:28] LABS: Alanine Aminotransferase 22 U/L (6-35); Albumin Level 3.5 g/dL (3.5-5.1); Alkaline Phosphatase 60 U/L (38-126); Anion Gap 7 mmol/L (4-12); Aspartate Amino Transferase 40 U/L (14-36); Bilirubin,Total 0.5 mg/dL (0.2-1.3); Blood Urea Nitrogen 40 mg/dL (7-17); Calcium 10.7 mg/dL (8.4-10.2); Carbon Dioxide 29 mmol/L (22-30); Chloride 103 mmol/L (98-107); Creatine Kinase 170 U/L (30-135); Estimated CRCL calculation 29 ml/min; Estimated Glomerular Filt Rate 22; Glucose 99 mg/dL (65-110); Magnesium 2.0 mg/dL (1.6-2.3); Potassium 3.7 mmol/L (3.4-5.0); Sodium 139 mmol/L (137-145); Total Protein 6.6 g/dL (6.3-8.2)
[2025-04-04] MEDS: cefTRIAXone 1 GM in SODIUM CHLORIDE 0.9% IV 50 ML 100 ML IVPB (04:32)
[2025-04-04] MEDS: ONDANSETRON INJ 4 MG/2 ML VIAL IV PUSH ×3 (05:38→17:31)
--- NOTE | 2025-04-04 08:03 | WPDINTPN ---
Progress Note: A&P Assessment and Plan (1) Hypercalcemia: Code(s): E83.52 - Hypercalcemia Status: Acute Assessment and Plan: Patient presented with hypercalcemia in setting of acute on chronic renal failure. Patient takes supplemental vitamin-D and calcium her vitamin-D level was very high patient also taking high dose of Aldactone by mistake. Hypercalcemia likely secondary to dehydration acute kidney injury and iatrogenic vitamin-D toxicity although other possibilities will be ruled out. She also admitted that she was taking significant amount of Tums for abdominal discomfort and heartburn. EKG on presentation was reviewed and shows no sign of hypercalcemia toxicity and also patient has a normal mental status and symptoms have improved. I have discussed case with Nephrology. Continue Stalevo calcitonin Calcium level is improved significantly and is now down to 10.7. I will continue with IV fluids but hold further Lasix. Continue to monitor calcium level Vitamin-D level > 126 and will be held Pending PTH level TSH is normal Ionized calcium is ordered but is a send out (2) Acute on chronic renal failure: Code(s): N17.9 - Acute kidney failure, unspecified; N18.9 - Chronic kidney disease, unspecified Status: Acute Assessment and Plan: Monitor urine output electrolytes and creatinine Accurate I&Os Replace low potassium and magnesium Renal ultrasound negative CK level is not significantly elevated. Creatinine is improving and is down to 2.33 (3) CHF (congestive heart failure): Code(s): I50.9 - Heart failure, unspecified Status: Acute Assessment and Plan: Patient has history of congestive heart failure. Hold Coreg, Aldactone, Entresto Patient receiving IV fluids will have to be cautious with amount Hold further Lasix Repeat echo ordered (4) Antiphospholipid syndrome: Code(s): D68.61 - Antiphospholipid syndrome Status: Acute Assessment and Plan: Patient on anticoagulation and has IVC filter. INR is supratherapeutic. Coumadin is on hold. Daily INR monitoring. (5) Morbid obesity: Code(s): E66.01 - Morbid (severe) obesity due to excess calories Status: Acute Assessment and Plan: Morbid obesity (6) Vitamin D deficiency, unspecified: Code(s): E55.9 - Vitamin D deficiency, unspecified Status: Acute Assessment and Plan: Patient has vitamin-D deficiency and is on calcium and vitamin-D supplementation -currently on hold-see above (7) Hypomagnesemia: Code(s): E83.42 - Hypomagnesemia Status: Acute Assessment and Plan: Level improved after replacement (8) Acute dehydration: Code(s): E86.0 - Dehydration Status: Acute Assessment and Plan: Continue IV fluids see above (9) UTI (urinary tract infection): Code(s): N39.0 - Urinary tract infection, site not specified Status: Acute Assessment and Plan: IV Rocephin Cultures ordered (10) Systemic Lupus Erythematosus: Onset Date: ~1987 Qualifiers: Systemic lupus erythematosus type: unspecified Systemic lupus erythematosus organ involvement: unspecified Qualified Code(s): M32.9 - Systemic lupus erythematosus, unspecified Code(s): M32.9 - Systemic lupus erythematosus, unspecified Status: Chronic Assessment and Plan: Continue mycophenolate mofetil and hydroxychloroquine (11) COPD (chronic obstructive pulmonary disease): Qualifiers: COPD type: unspecified COPD Qualified Code(s): J44.9 - Chronic obstructive pulmonary disease, unspecified Code(s): J44.9 - Chronic obstructive pulmonary disease, unspecified Status: Acute Assessment and Plan: Not in exacerbation (12) PAMELA (obstructive sleep apnea): Code(s): G47.33 - Obstructive sleep apnea (adult) (pediatric) Status: Chronic Assessment and Plan: CPAP ordered but patient did not use it last night (13) Hypokalemia: Code(s): E87.6 - Hypokalemia Status: Acute Assessment and Plan: Potassium replacement ordered Plan DVT prophylaxis -warfarin Nutrition -renal diet Incentive spirometry Up in chair Transfer out of ICU today Subjective Date/time seen: 04/04/25 Overnight events reviewed. Afebrile On room air On IV fluids. Good urine output in response to diuretics Feels better denies any new complaints. She admitted that she was taking significant amount of Tums in last few weeks. Other Vitals acceptable Review of Systems Review of Systems: All systems reviewed & are unremarkable except as noted in HPI and below (HPI) Exam Narrative: General: Pt is alert awake and in NAD Lungs/Chest: Trachea central Clear BS B/L, No crackles or wheezing. Cardiac: RRR. Normal S1 S2. No murmurs Circulation: Pedal pulses are intact and symmetrical. Abdomen: Normal bowel sounds.. Soft. NT. ND. Extremities: Patient has bilateral edema. Patient has bilateral chronic venous stasis. The skin in ankles is dark formed and hard : Murray in place Neurologic: Follows commands. Moves all 4 extremities PERRL AO x3 Skin: No Rash Objective Data Vital Signs Vital Signs: Vital Signs - 24 hr 04/03/25 08:25 04/03/25 08:25 04/03/25 09:00 Temperature Pulse Rate 78 78 69 Respiratory Rate 20 20 16 Blood Pressure 104/55 L Pulse Oximetry 96 96 Oxygen Delivery Room Air 04/03/25 10:00 04/03/25 10:00 04/03/25 11:00 Temperature Pulse Rate 73 73 58 L Respiratory Rate 22 H 18 Blood Pressure 118/61 112/66 Pulse Oximetry 92 99 Oxygen Delivery 04/03/25 12:00 04/03/25 12:00 04/03/25 12:00 Temperature 36.8 C Pulse Rate 70 75 Respiratory Rate 22 H Blood Pressure 105/67 Pulse Oximetry 99 99 Oxygen Delivery Room Air 04/03/25 13:00 04/03/25 14:00 04/03/25 14:00 Temperature 36.4 C Pulse Rate 60 71 71 Respiratory Rate 18 22 H Blood Pressure 127/91 H 121/83 Pulse Oximetry 99 96 Oxygen Delivery 04/03/25 15:00 04/03/25 16:00 04/03/25 16:00 Temperature Pulse Rate 73 72 Respiratory Rate 14 Blood Pressure 105/56 L Pulse Oximetry 100 99 Oxygen Delivery Room Air 04/03/25 16:00 04/03/25 17:00 04/03/25 18:00 Temperature 36.6 C Pulse Rate 78 84 78 Respiratory Rate 20 18 Blood Pressure 114/88 104/62 Pulse Oximetry 96 99 Oxygen Delivery 04/03/25 18:00 04/03/25 19:00 04/03/25 20:00 Temperature 36.6 C 36.9 C Pulse Rate 78 76 65 Respiratory Rate 20 20 18 Blood Pressure 102/80 118/65 110/62 Pulse Oximetry 93 97 95 Oxygen Delivery 04/03/25 20:00 04/03/25 20:00 04/03/25 20:01 Temperature 36.9 C Pulse Rate 71 66 Respiratory Rate 18 Blood Pressure Pulse Oximetry 95 95 Oxygen Delivery Room Air 04/03/25 20:15 04/03/25 20:21 04/03/25 20:55 Temperature 36.9 C Pulse Rate 61 75 Respiratory Rate 21 H Blood Pressure 110/62 Pulse Oximetry 95 98 Oxygen Delivery Room Air 04/03/25 21:00 04/03/25 22:00 04/03/25 22:00 Temperature 37.1 C 37.2 C Pulse Rate 72 79 79 Respiratory Rate 21 H 18 Blood Pressure 110/97 H 106/54 L Pulse Oximetry 97 95 Oxygen Delivery 04/03/25 23:00 04/04/25 00:00 04/04/25 00:00 Temperature 37.3 C 37.2 C Pulse Rate 70 80 78 Respiratory Rate 20 14 Blood Pressure 102/57 L 108/64 Pulse Oximetry 90 97 Oxygen Delivery 04/04/25 00:00 04/04/25 01:00 04/04/25 02:00 Temperature 37.1 C 37.2 C Pulse Rate 69 68 Respiratory Rate 17 20 Blood Pressure 119/64 97/47 L Pulse Oximetry 94 92 91 Oxygen Delivery Room Air 04/04/25 02:00 04/04/25 03:00 04/04/25 04:00 Temperature 37.3 C Pulse Rate 66 68 Respiratory Rate 19 Blood Pressure 95/50 L Pulse Oximetry 92 94 Oxygen Delivery Room Air 04/04/25 04:00 04/04/25 04:00 04/04/25 05:00 Temperature 37.1 C 37.2 C Pulse Rate 76 77 71 Respiratory Rate 18 14 Blood Pressure 111/62 116/65 Pulse Oximetry 97 96 Oxygen Delivery 04/04/25 06:00 04/04/25 06:00 Temperature 37.1 C Pulse Rate 66 64 Respiratory Rate 17 Blood Pressure 113/66 Pulse Oximetry 94 Oxygen Delivery Intake/Output Intake/Output: Intake & Output 04/01/25 04/02/25 04/03/25 04/04/25 23:59 23:59 23:59 23:59 Intake Total 2049 2980 1897.5 Output Total 3550 3550 Balance 2049 -602 -9232.5 Meds/Results Medications: Active Medications Generic Name Dose Route Start Last Admin Trade Name Freq PRN Reason Stop Dose Admin Albuterol 2 puff 04/03/25 04:28 Albuterol Sulfate (*Sp) Aerosol 1 Puff INHALATION Q4-6H PRN Shortness Of Breath Or Wheezing Azelastine HCl 1 spray 04/03/25 09:00 04/03/25 20:40 Azelastine Hcl Nasal 0.1% 137 Mcg/Spr 30 Ml Btl NASAL 1 spray Q12HR JAYDON Administration Calcitonin [place] 360 units 04/03/25 21:00 04/03/25 20:41 Calcitonin [place] Inj 400 Units/2 Ml Vial SUB-Q 04/05/25 21:01 360 units Q12H JAYDON Administration Carbidopa/Levodopa 1 tablet 04/03/25 04:30 04/03/25 20:37 Carbidopa/Levodopa 25/100 Mg Tablet BY MOUTH 1 tablet HS JAYDON Administration Hydroxychloroquine Sulfate 400 mg 04/03/25 08:00 04/03/25 10:47 Hydroxychloroquine Sulfate 200 Mg Tablet BY MOUTH 400 mg DAILY@0800 JAYDON Administration Ceftriaxone Sodium 1 gm/ 50 mls @ 100 mls/hr 04/03/25 05:00 04/04/25 05:11 Sodium Chloride IVPB Infused Q24H JAYDON Infusion Sodium Chloride 1,000 mls @ 150 mls/hr 04/03/25 04:30 04/04/25 02:15 Normal Saline Iv IV CONT 150 mls/hr .Q6H40M JAYDON Administration Miscellaneous Information 1 each 04/03/25 09:00 Pharmacist Communication Order XX 05/03/25 08:59 DAILY JAYDON Montelukast Sodium 10 mg 04/03/25 09:00 04/03/25 10:47 Montelukast Sodium 10 Mg Tablet BY MOUTH 10 mg DAILY JAYDON Administration Mycophenolate Mofetil 1,000 mg 04/03/25 09:00 04/03/25 20:37 Mycophenolate Mofetil 250 Mg Capsule PO 1,000 mg Q12HR JAYDON Administration Ondansetron HCl 4 mg 04/03/25 15:09 04/04/25 05:38 Ondansetron Inj 4 Mg/2 Ml Vial IV PUSH 4 mg Q6H PRN Administration Nausea And Vomiting Fluticasone/Salmeterol 2 puff 04/03/25 08:00 04/03/25 20:52 Fluticasone/Salmeterol 115-21 Mcg Inhaler 1 Puff INHALATION 2 puff Q12HRT JAYDON Administration Tramadol HCl 50 mg 04/03/25 08:42 04/03/25 20:37 Tramadol Hcl (*Crx) 50 Mg Tablet PO 50 mg QHS PRN Administration Pain or insomnia Radiology Results: ITS Impressions Renal Ultrasound 04/03/25 08:21 IMPRESSION: 1. Normal kidney sizes. No hydronephrosis. Chest X-Ray 04/03/25 13:05 IMPRESSION: 1. Mild hepatomegaly. No acute cardiopulmonary disease. Labs Labs: Laboratory Results - last 24 hr 04/03/25 04/03/25 04/03/25 05:13 09:38 13:58 WBC RBC Hgb Hct MCV MCH MCHC RDW Plt Count MPV % Immature Plt Fraction PT INR Sodium Potassium Chloride Carbon Dioxide Anion Gap BUN Creatinine Estim Creat Clear Calc Estimated GFR Glucose Calcium Phosphorus Magnesium 1.8 Total Bilirubin AST ALT Alkaline Phosphatase Total Creatine Kinase Total Protein Albumin TSH (Reflex) PTH Intact < 14.5 L Urine Eosinophils None seen Ur Random Creatinine Cancelled U Random Total Protein 16 Ur Random Sodium 126 Ur Random Urea 551 Ur Random Calcium Cancelled Urine Creatinine 5.9 Protein/Creat Ratio 2 2.71 H 04/03/25 04/04/25 17:38 03:41 WBC 6.7 RBC 3.45 L Hgb 9.9 L Hct 31.5 L MCV 91.3 MCH 28.7 MCHC 31.4 L RDW 13.0 Plt Count 108 L MPV 13.4 H % Immature Plt Fraction 13.4 H PT 38.2 H D INR 4.2 Sodium 141 139 Potassium 4.0 3.7 Chloride 102 103 Carbon Dioxide 28 29 Anion Gap 11 7 BUN 43 H 40 H Creatinine 2.82 H 2.33 H Estim Creat Clear Calc 24 29 Estimated GFR 18 L 22 L Glucose 121 H 99 Calcium 12.4 H* 10.7 H Phosphorus 2.7 3.1 Magnesium 2.5 H 2.0 Total Bilirubin 0.5 AST 40 H ALT 22 Alkaline Phosphatase 60 Total Creatine Kinase 269 H 170 H Total Protein 6.6 Albumin 3.5 TSH (Reflex) 0.549 PTH Intact Urine Eosinophils Ur Random Creatinine U Random Total Protein Ur Random Sodium Ur Random Urea Ur Random Calcium Urine Creatinine Protein/Creat Ratio 2 Quality VTE Prophylaxis VTE prophylaxis: pharmacologic ordered
[2025-04-04] MEDS: FLUTICASONE/SALMETEROL 115-21 MCG INHALER 1 PUFF 2 PUFF INHALATION ×2 (08:26→22:26)
[2025-04-04] MEDS: POTASSIUM CHLORIDE 20 MEQ ER TABLET 40 MEQ PO (08:35)
[2025-04-04] MEDS: MONTELUKAST SODIUM 10 MG TABLET BY MOUTH (08:36)
[2025-04-04] MEDS: HYDROXYCHLOROQUINE SULFATE 200 MG TABLET 400 MG BY MOUTH (08:36)
[2025-04-04] MEDS: CALCITONIN SALMON INJ 400 UNITS/2 ML VIAL 360 UNITS SUB-Q ×2 (08:37→21:45)
[2025-04-04] MEDS: AZELASTINE HCL NASAL 0.1% 137 MCG/SPR 30 ML BTL 1 SPRAY NASAL ×2 (08:39→22:22)
--- NOTE | 2025-04-04 11:00 | P.PNNP_ITS ---
Progress Note: A&P Assessment and Plan (1) Hypercalcemia: Code(s): E83.52 - Hypercalcemia Status: Acute Assessment and Plan: * significant improvement noted * as noted by outpatient and admission labs * clinically asymptomatic * suspect due to several issues: * prerenal factors * Vitamin D and calcium supplements (Vitamin D level extremely high) * excess spironolactone intake (by mistake) * other? * evaluation in progress: * follow-up PTHrp, RAFAEL level, SPEP/UPEP, serum/urine immunofixation * follow-up on iCa * PTH appropriately low * continue IVFs but wean off * intermittent diuresis PRN given history of CHF * follow CXR results * on SQ calcitonin x 4 doses (last dose this evening) * follow trend of repeat labs (2) Acute kidney injury: Code(s): N17.9 - Acute kidney failure, unspecified Status: Acute Assessment and Plan: * improving * as noted by outpatient and admission labs (3.73mg/dl and 3.34mg/dl, respectively) * slight improvement by AM labs (down to 3.0mg/dl on 04/03) * suspect multifactorial etiology: * prerenal factors * medications (Entresto, spironolactone, cellcept...etc) * hypercalcemia * infection (possible UTI) * other? * evaluation noted: * renal u/s without obstruction * urine electrolytes non-prerenal * urine eosinophils negative * CPK mildly elevated (but not enough to affect kidney function) * proteinuria noted * on IVF...wean off as tolerated * follow trend of repeat labs and UOP (3) Stage 3 chronic kidney disease: Code(s): N18.30 - Chronic kidney disease, stage 3 unspecified Status: Chronic Assessment and Plan: * baseline creatinine seems to run ~ 1.1 - 1.5mg/dl since 2022 * noted rise in creatinine to 1.72mg/dL in late December 2024 (which was also associated with mildly elevated calcium as well) * presumably due to CHF, PAMELA, and possibly lupus/lupus related medications(?) (4) CHF (congestive heart failure): Code(s): I50.9 - Heart failure, unspecified Status: Acute Assessment and Plan: * history of cardiomyopathy * follow respiratory/volume status with IVFs * appears compensated at this tme * repeat Echo ordered * carvedilol, spironolactone, and Entresto on hold due to #2 * wean off IVFs (5) UTI (urinary tract infection): Code(s): N39.0 - Urinary tract infection, site not specified Status: Acute Assessment and Plan: * admission UA suggestive * follow culture data * on antibiotics (6) Systemic Lupus Erythematosus: Onset Date: ~1987 Qualifiers: Systemic lupus erythematosus type: unspecified Systemic lupus mariah thematosus organ involvement: unspecified Qualified Code(s): M32.9 - Systemic lupus erythematosus, unspecified Code(s): M32.9 - Systemic lupus erythematosus, unspecified Status: Chronic Assessment and Plan: * known history * denies any history of lupus nephritis * recently established care with [facility] * on mycophenolate mofetil and hydroxychloroquine (7) Antiphospholipid syndrome: Code(s): D68.61 - Antiphospholipid syndrome Status: Acute Assessment and Plan: * known history * on anticoagulation and with IVC filter * follow INR (8) PAMELA (obstructive sleep apnea): Code(s): G47.33 - Obstructive sleep apnea (adult) (pediatric) Status: Chronic Assessment and Plan: * continue CPAP Will continue to follow. Subjective Date/time seen: 04/04/25 11:00 Interval history: Follow-up for acute kidney injury/acute renal failure on chronic kidney disease. Renal function/creatinine as well as calcium level have improved with current therapy/interventions; good urine output in response to IV diuretic therapy; no apparent distress voiced at the time of my visit; no other events overnight or earlier this morning. Exam Narrative: General: middle aged but WD/WN female in NAD Heart: normal S1 and S2; no rub Lungs: clear anteriorly Abdomen: soft, nontender, nondistended, positive bowel sounds Extremities: no cyanosis or clubbing; no edema Skin: warm and dry Objective Data Vital Signs Vital Signs: Vital Signs Temp Pulse Resp BP Pulse Ox O2 Del Method FiO2 04/04/25 10:00 98.6 F 76 20 110/83 96 04/04/25 09:00 98.4 F 71 17 97/60 L 98 04/04/25 08:26 98 Room Air 21 04/04/25 08:00 70 04/04/25 08:00 Room Air 04/04/25 08:00 98.7 F 75 18 105/61 96 04/04/25 07:00 99 F 69 19 114/61 95 04/04/25 06:00 64 04/04/25 06:00 98.8 F 66 17 113/66 94 04/04/25 05:00 98.9 F 71 14 116/65 96 04/04/25 04:00 77 04/04/25 04:00 98.8 F 76 18 111/62 97 04/04/25 04:00 94 Room Air 04/04/25 03:00 99.1 F 68 19 95/50 L 92 04/04/25 02:00 66 04/04/25 02:00 99.0 F 68 20 97/47 L 91 04/04/25 01:00 98.8 F 69 17 119/64 92 04/04/25 00:00 94 Room Air 04/04/25 00:00 78 04/04/25 00:00 99.0 F 80 14 108/64 97 04/03/25 23:00 99.1 F 70 20 102/57 L 90 04/03/25 22:00 79 04/03/25 22:00 98.9 F 79 18 106/54 L 95 04/03/25 21:00 98.7 F 72 21 H 110/97 H 97 04/03/25 20:55 75 98 Room Air 04/03/25 20:21 110/62 04/03/25 20:15 98.5 F 61 21 H 95 04/03/25 20:01 98.5 F 66 18 95 04/03/25 20:00 71 04/03/25 20:00 95 Room Air 04/03/25 20:00 98.4 F 65 18 110/62 95 04/03/25 19:00 76 20 118/65 97 Intake/Output Intake/Output: Intake & Output 04/01/25 04/02/25 04/03/25 04/04/25 23:59 23:59 23:59 23:59 Intake Total 2049 2980 4965.0 Output Total 2780 3952 Balance 0 - 470.0 Meds/Results Medications: Active Medications Generic Name Dose Route Start Last Admin Trade Name Freq PRN Reason Stop Dose Admin Albuterol 2 puff 04/03/25 04:28 Albuterol Sulfate (*Sp) Aerosol 1 Puff INHALATION Q4-6H PRN Shortness Of Breath Or Wheezing Azelastine HCl 1 spray 04/03/25 09:00 04/04/25 08:39 Azelastine Hcl Nasal 0.1% 137 Mcg/Spr 30 Ml Btl NASAL 1 spray Q12HR JAYDON Administration Calcitonin [place] 360 units 04/03/25 21:00 04/04/25 08:37 Calcitonin [place] Inj 400 Units/2 Ml Vial SUB-Q 04/05/25 21:01 360 units Q12H JAYDON Administration Carbidopa/Levodopa 1 tablet 04/03/25 04:30 04/03/25 20:37 Carbidopa/Levodopa 25/100 Mg Tablet BY MOUTH 1 tablet HS JAYDON Administration Hydroxychloroquine Sulfate 400 mg 04/03/25 08:00 04/04/25 08:36 Hydroxychloroquine Sulfate 200 Mg Tablet BY MOUTH 400 mg DAILY@0800 JAYDON Administration Ceftriaxone Sodium 1 gm/ 50 mls @ 100 mls/hr 04/03/25 05:00 04/04/25 05:11 Sodium Chloride IVPB Infused Q24H JAYDON Infusion Sodium Chloride 1,000 mls @ 150 mls/hr 04/03/25 04:30 04/04/25 15:18 Normal Saline Iv IV CONT 150 mls/hr .Q6H40M JAYDON Administration Amiodarone HCl/Dextrose 360 mg in 200 mls @ 33.333 mls/hr 04/04/25 18:10 Nexterone 360 Mg/D5w 200 Ml IV CONT 04/05/25 00:09 .Q6H ONE Protocol 1 MG/MIN Amiodarone HCl/Dextrose 360 mg in 200 mls @ 16.667 mls/hr 04/05/25 00:10 Nexterone 360 Mg/D5w 200 Ml IV CONT 04/05/25 00:11 .Q12H JAYDON Protocol 0.5 MG/MIN Amiodarone HCl/Dextrose 150 mg in 100 mls @ 600 mls/hr 04/04/25 18:01 Nexterone 150 Mg/D5w 100 Ml IV CONT 04/04/25 18:10 .Q10M ONE 15 MG/MIN Miscellaneous Information 1 each 04/03/25 09:00 Pharmacist Communication Order XX 05/03/25 08:59 DAILY JAYDON Montelukast Sodium 10 mg 04/03/25 09:00 04/04/25 08:36 Montelukast Sodium 10 Mg Tablet BY MOUTH 10 mg DAILY JAYDON Administration Mycophenolate Mofetil 1,000 mg 04/03/25 09:00 04/04/25 08:36 Mycophenolate Mofetil 250 Mg Capsule PO 1,000 mg Q12HR JAYDON Administration Ondansetron HCl 4 mg 04/03/25 15:09 04/04/25 17:31 Ondansetron Inj 4 Mg/2 Ml Vial IV PUSH 4 mg Q6H PRN Administration Nausea And Vomiting Fluticasone/Salmeterol 2 puff 04/03/25 08:00 04/04/25 08:26 Fluticasone/Salmeterol 115-21 Mcg Inhaler 1 Puff INHALATION 2 puff Q12HRT JAYDON Administration Tramadol HCl 50 mg 04/03/25 08:42 04/03/25 20:37 Tramadol Hcl (*Crx) 50 Mg Tablet PO 50 mg QHS PRN Administration Pain or insomnia Radiology Results: ITS Impressions Renal Ultrasound 04/03/25 08:21 IMPRESSION: 1. Normal kidney sizes. No hydronephrosis. Chest X-Ray 04/04/25 18:26 Impression: CHF Labs Labs: Laboratory Tests 04/04/25 03:41 WBC 6.7 Hgb 9.9 L Hct 31.5 L Plt Count 108 L PT 38.2 H INR 4.2 Sodium 139 Potassium 3.7 Chloride 103 Carbon Dioxide 29 Anion Gap 7 BUN 40 H Creatinine 2.33 H Estim Creat Clear Calc 29 Estimated GFR 22 L Glucose 99 Calcium 10.7 H Phosphorus 3.1 Magnesium 2.0 Total Bilirubin 0.5 AST 40 H ALT 22 Alkaline Phosphatase 60 Total Creatine Kinase 170 H Total Protein 6.6 Albumin 3.5
[2025-04-04 13:08] LABS: Calcium, Ionized 6.8 mg/dL (4.5-5.6)
--- NOTE | 2025-04-04 17:46 | ECG_ITS ---
Test Date: 2025-04-04 17:56:45 Measurements Intervals [place] Rate: 133 P: 0 MI: 0 QRS: 264 QRSD: 174 T: 35 QT: 361 QTc: 538 Interpretive Statements ATRIAL FLUTTER/TACHYCARDIA WITH RAPID VENTRICULAR RESPONSE WITH FREQUENT VENTRIUCLAR PREMATURE COMPLEXES RIGHT AXIS DEVIATION RIGHT BUNDLE BRANCH BLOCK ANTEROLATERAL INFARCT, AGE INDETERMINATE INFERIOR INFARCT, AGE INDETERMINATE ABNORMAL ECG Compared to ECG 04/02/2025 19:10:25 SINUS RHYTHM NO LONGER PRESENT Electronically Signed On 04-04-2025 18:29:25 CDT by Gerardo Gay D.O.
--- NOTE | 2025-04-04 17:52 | PM.CCN ---
Critical Care Event Note Summary Code activated: Yes Narrative: Called by nursing for patient heart rate being 160's EKG [place] Patient EKG shows atrial flutter rate of 133 She will be transferred to ICU as IMU overflow Amiodarone drip Chest x-ray shows pulmonary edema Critical Care Time Critical Care Time: Yes Total Critical Care Time: 39 minutes Due to a high probability of clinically significant, life threatening deterioration, the patient required my highest level of preparedness to intervene emergently and I personally spent this critical care time directly and personally managing the patient. This critical care time included obtaining a history; examining the patient; pulse oximetry; ordering and review of studies; arranging urgent treatment with development of a management plan; evaluation of patient's response to treatment; frequent reassessment; and discussions with other providers. It was exclusive of separately billable procedures and treating other patients and teaching time. Please see Assessment and Plan section and the rest of the note for further information on patient assessment and treatment. This case had a high probability of a clinically significant, sudden, or life threatening deterioration of this patient's condition which required my full and direct attention, intervention and personal management. Critical care time: 30 - 74 mins
[2025-04-04] MEDS: METOPROLOL TARTRATE INJ 5 MG/5 ML VIAL 2.5 MG IV PUSH (18:11)
[2025-04-04 18:19] LABS: Hematocrit 32.4 % (37.0-47.0); Hemoglobin 10.1 g/dL (12.0-15.0); Immature Granulocyte Percent A 0.3 % (0-0.5); Immature Platelet Fraction Pct 12.8 % (0.9-11.2); Lymphocytes Absolute Auto 0.82 K/mm3 (0.9-3.2); Mean Corpuscular HGB Conc 31.2 g/dl (32-36); Mean Corpuscular Hemoglobin 28.7 pg (26-34); Mean Corpuscular Volume 92.0 fl (80-100); Nucleated Red Blood Cells Absolute Auto 0.000 K/mm3 (0.0-0.012); Nucleated Red Blood Cells Perc 0.0 % (0.0-0.2); Platelet Count Result 112 k/mm3 (150-375); Red Blood Count 3.52 M/mm3 (4.2-5.4); White Blood Count 7.8 K/mm3 (4.5-10.0)
--- NOTE | 2025-04-04 18:27 | PC.NURSE ---
Patient transferred to ICU room 8 at 1827.
[2025-04-04 18:29] LABS: Partial Thromboplastin Time 32.0 Seconds (22.3-36.8)
[2025-04-04 18:30] LABS: Anion Gap 5 mmol/L (4-12); Blood Urea Nitrogen 29 mg/dL (7-17); Calcium 10.1 mg/dL (8.4-10.2); Carbon Dioxide 27 mmol/L (22-30); Chloride 105 mmol/L (98-107); Estimated CRCL calculation 34 ml/min; Estimated Glomerular Filt Rate 25; Glucose 101 mg/dL (65-110); Magnesium 1.6 mg/dL (1.6-2.3); Potassium 3.6 mmol/L (3.4-5.0); Sodium 137 mmol/L (137-145)
--- NOTE | 2025-04-04 20:22 | ECG_ITS ---
Test Date: 2025-04-04 20:26:23 Measurements Intervals [place] Rate: 126 P: 0 VA: 0 QRS: 74 QRSD: 42 T: 32 QT: 342 QTc: 496 Interpretive Statements ATRIAL FIBRILLATION WITH RAPID VENTRICULAR RESPONSE RIGHT AXIS DEVIATION RIGHT BUNDLE BRANCH BLOCK CONSIDER ANTERIOR INFARCT, AGE INDETERMINATE CONSIDER INFERIOR INFARCT, AGE INDETERMINATE BASELINE ARTIFACT- I, II, III, AVR, AVL, AVF, V4-V6 ABNORMAL ECG Compared to ECG 04/04/2025 17:56:45 ATRIAL FLUTTER NO LONGER PRESENT Electronically Signed On 04-05-2025 08:32:39 CDT by Gerardo Gay D.O.
[2025-04-04] MEDS: CARBIDOPA/LEVODOPA 25/100 MG TABLET 1 TABLET BY MOUTH (21:19)
[2025-04-04] MEDS: FUROSEMIDE INJ 40 MG/4 ML VIAL IV PUSH (21:19)
[2025-04-04] MEDS: traMADol HCL (*CRX) 50 MG TABLET PO (22:21)
[2025-04-04] MEDS: diazePAM (*CRX) 5 MG TABLET PO (22:22)
[2025-04-04 22:28] LABS: Troponin I 0.035 ng/mL (0.000-0.034)
[2025-04-05] VITALS (30 sets, daily range): BP systolic 89–122; BP diastolic 68–83; PULSE 95–140; RESP 16–24; TEMP 36.7–36.9; O2SAT 89–99
[2025-04-05 01:22] LABS: Troponin I 0.043 ng/mL (0.000-0.034)
[2025-04-05 03:32] LABS: INR 2.6; Prothrombin Time 27.0 Seconds (11.1-14.7)
[2025-04-05 04:08] LABS: Alanine Aminotransferase 10 U/L (6-35); Albumin Level 3.5 g/dL (3.5-5.1); Alkaline Phosphatase 55 U/L (38-126); Anion Gap 7 mmol/L (4-12); Aspartate Amino Transferase 31 U/L (14-36); Bilirubin,Total 0.2 mg/dL (0.2-1.3); Blood Urea Nitrogen 26 mg/dL (7-17); Calcium 9.6 mg/dL (8.4-10.2); Carbon Dioxide 28 mmol/L (22-30); Chloride 102 mmol/L (98-107); Estimated CRCL calculation 36 ml/min; Estimated Glomerular Filt Rate 27; Glucose 100 mg/dL (65-110); Magnesium 1.4 mg/dL (1.6-2.3); Potassium 3.3 mmol/L (3.4-5.0); Sodium 137 mmol/L (137-145); Total Protein 6.5 g/dL (6.3-8.2); Troponin I 0.047 ng/mL (0.000-0.034)
[2025-04-05] MEDS: cefTRIAXone 1 GM in SODIUM CHLORIDE 0.9% IV 50 ML 100 ML IVPB (05:44)
[2025-04-05] MEDS: FLUTICASONE/SALMETEROL 115-21 MCG INHALER 1 PUFF 2 PUFF INHALATION ×2 (08:35→21:03)
[2025-04-05] MEDS: POTASSIUM BICARBONATE 25 MEQ TABEF 50 MEQ PO (08:36)
[2025-04-05] MEDS: MONTELUKAST SODIUM 10 MG TABLET BY MOUTH (08:37)
[2025-04-05] MEDS: HYDROXYCHLOROQUINE SULFATE 200 MG TABLET 400 MG BY MOUTH (08:38)
[2025-04-05] MEDS: MAGNESIUM SULF 2 GM/WATER 50ML 2 GM/50 ML BAG IVPB (08:38)
[2025-04-05] MEDS: AZELASTINE HCL NASAL 0.1% 137 MCG/SPR 30 ML BTL 1 SPRAY NASAL (08:54)
--- NOTE | 2025-04-05 09:47 | P.PNIM_ITS ---
Progress Note: A&P Assessment and Plan (1) Hypercalcemia: Code(s): E83.52 - Hypercalcemia Status: Acute Assessment and Plan: Patient presented with hypercalcemia in setting of acute on chronic renal failure. Patient takes supplemental vitamin-D and calcium her vitamin-D level was very high patient also taking high dose of Aldactone by mistake. Hypercalcemia likely secondary to dehydration acute kidney injury and iatrogenic vitamin-D toxicity although other possibilities will be ruled out. She also admitted that she was taking significant amount of Tums for abdominal discomfort and heartburn. EKG on presentation was reviewed and shows no sign of hypercalcemia toxicity and also patient has a normal mental status and symptoms have improved. Case was discussed with nephrology patient was started on calcitonin Calcium level is improved significantly and is in normal range. Will hold further fluids and Lasix. Will also discontinue calcitonin considering patient is having significant nausea vomiting after the dosing. Vitamin-D level > 126 and will be held Low PTH level suggests against hyperparathyroidism. PTH related peptide is pending. TSH is normal Ionized calcium was ordered that time admission and is a send out test and took long time to come back but was elevated as expected Additional workup ordered by Nephrology and is pending (2) Acute on chronic renal failure: Code(s): N17.9 - Acute kidney failure, unspecified; N18.9 - Chronic kidney disease, unspecified Status: Acute Assessment and Plan: Monitor urine output electrolytes and creatinine Creatinine is improving and is down to 1.93 Accurate I&Os Replace low potassium phosphate and magnesium Renal ultrasound negative CK level was not significantly elevated. Creatinine is improving and is down to 2.33 (3) CHF (congestive heart failure): Code(s): I50.9 - Heart failure, unspecified Status: Acute Assessment and Plan: Patient has history of congestive heart failure. Hold Coreg, Aldactone, Entresto Patient receiving IV fluids will have to be cautious with amount Patient received Lasix last night will hold further dosing at this time. Patient is on room air. Repeat echo ordered (4) Antiphospholipid syndrome: Code(s): D68.61 - Antiphospholipid syndrome Status: Acute Assessment and Plan: Patient on anticoagulation and has IVC filter. INR was supratherapeutic and Coumadin was on hold. INR now down to controlled range. Will restart warfarin. Continue Daily INR monitoring. (5) Morbid obesity: Code(s): E66.01 - Morbid (severe) obesity due to excess calories Status: Acute Assessment and Plan: Morbid obesity (6) Vitamin D deficiency, unspecified: Code(s): E55.9 - Vitamin D deficiency, unspecified Status: Acute Assessment and Plan: Patient has vitamin-D deficiency and is on calcium and vitamin-D supplementation -currently on hold-see above (7) Hypomagnesemia: Code(s): E83.42 - Hypomagnesemia Status: Acute Assessment and Plan: Replacement or (8) Acute dehydration: Code(s): E86.0 - Dehydration Status: Acute Assessment and Plan: Hold further IV fluids (9) UTI (urinary tract infection): Code(s): N39.0 - Urinary tract infection, site not specified Status: Acute Assessment and Plan: IV Rocephin Cultures negative till now (10) Systemic Lupus Erythematosus: Onset Date: ~1987 Qualifiers: Systemic lupus erythematosus type: unspecified Systemic lupus erythematosus organ involvement: unspecified Qualified Code(s): M32.9 - Systemic lupus erythematosus, unspecified Code(s): M32.9 - Systemic lupus erythematosus, unspecified Status: Chronic Assessment and Plan: Continue mycophenolate mofetil and hydroxychloroquine (11) COPD (chronic obstructive pulmonary disease): Qualifiers: COPD type: unspecified COPD Qualified Code(s): J44.9 - Chronic obstructive pulmonary disease, unspecified Code(s): J44.9 - Chronic obstructive pulmonary disease, unspecified Status: Acute Assessment and Plan: Not in exacerbation (12) PAMELA (obstructive sleep apnea): Code(s): G47.33 - Obstructive sleep apnea (adult) (pediatric) Status: Chronic Assessment and Plan: CPAP ordered (13) Hypokalemia: Code(s): E87.6 - Hypokalemia Status: Acute Assessment and Plan: Potassium replacement ordered (14) Atrial fibrillation with RVR: Code(s): I48.91 - Unspecified atrial fibrillation Status: Acute Assessment and Plan: New onset AFib with RVR overnight. Patient is already anticoagulated. Likely secondary to electrolyte abnormalities Continue amiodarone infusion. Will give another 150 mg IV bolus Consult cardiology Echo ordered and pending Continue Coreg (15) Elevated troponin: Code(s): R79.89 - Other specified abnormal findings of blood chemistry Status: Acute Assessment and Plan: Patient had mildly elevated troponins since she came in this was in setting off several metabolic derangements and acute renal failure. EKG was reviewed. No ST elevation. Patient denied any chest pain. Echo is ordered Patient is already anticoagulated Cardiology consulted Add aspirin Plan DVT prophylaxis -warfarin Nutrition -renal diet Incentive spirometry Up in chair Subjective Date/time seen: 04/05/25 0 Patient was transferred out of intensive care unit yesterday to medical tele floor. Later in the evening patient developed AFib with RVR and was transferred to IMU for infusion. She also had some nausea vomiting. Nurse reports that every time she received calcitonin does short time low later she starts having nausea and vomiting. Patient states she had episode of shortness of breath and was given Lasix. This morning she states she feels markedly better but is worried about her heart rhythm. She denies any pain nausea vomiting at this time. She denies any shortness of breath. She denies any fever. All other systems were reviewed and were negative at this time. She is on amiodarone infusion and in AFib blood pressure is adequate. Afebrile. Review of Systems Review of Systems: All systems reviewed & are unremarkable except as noted in HPI and below (HPI) Exam Narrative: General: Pt is alert awake and in NAD Lungs/Chest: Trachea central Clear BS B/L, No crackles or wheezing. Cardiac: RRR. Normal S1 S2. No murmurs Circulation: Pedal pulses are intact and symmetrical. Abdomen: Normal bowel sounds.. Soft. NT. ND. Extremities: Patient has bilateral edema. Patient has bilateral chronic venous stasis. The skin in ankles is dark formed and hard : Murray in place Neurologic: Follows commands. Moves all 4 extremities PERRL AO x3 Skin: No Rash Objective Data Vital Signs Vital Signs: Vital Signs - 24 hr 04/04/25 10:00 04/04/25 10:00 04/04/25 12:00 Temperature 37.0 C Pulse Rate 77 76 65 Respiratory Rate 20 Blood Pressure 110/83 Pulse Oximetry 96 Oxygen Delivery 04/04/25 16:00 04/04/25 16:00 04/04/25 17:50 Temperature 36.3 C L 36.8 C Pulse Rate 66 88 142 H Respiratory Rate 18 Blood Pressure 105/60 105/70 Pulse Oximetry 99 95 Oxygen Delivery 04/04/25 18:00 04/04/25 18:10 04/04/25 18:11 Temperature 36.9 C Pulse Rate 112 H 150 H 155 H Respiratory Rate 23 H 14 Blood Pressure 107/73 105/70 Pulse Oximetry 96 95 Oxygen Delivery Room Air 04/04/25 18:30 04/04/25 18:49 04/04/25 20:00 Temperature 36.8 C Pulse Rate 133 H 133 H 70 Respiratory Rate 14 Blood Pressure 112/81 112/81 96/72 L Pulse Oximetry 100 Oxygen Delivery 04/04/25 20:00 04/04/25 20:00 04/04/25 20:00 Temperature Pulse Rate 126 H 127 H Respiratory Rate Blood Pressure 100/75 Pulse Oximetry Oxygen Delivery Room Air 04/04/25 21:19 04/04/25 22:00 04/04/25 22:00 Temperature Pulse Rate 127 H 128 H 128 H Respiratory Rate 20 Blood Pressure 113/75 113/75 Pulse Oximetry 96 Oxygen Delivery 04/04/25 22:00 04/04/25 22:28 04/04/25 22:32 Temperature Pulse Rate 128 H 135 H Respiratory Rate 20 Blood Pressure Pulse Oximetry 96 Oxygen Delivery Autopap 04/04/25 22:34 04/05/25 00:00 04/05/25 00:00 Temperature Pulse Rate 135 H 123 H Respiratory Rate 20 Blood Pressure 92/74 L Pulse Oximetry 96 96 Oxygen Delivery CPAP CPAP 04/05/25 00:00 04/05/25 00:00 04/05/25 00:09 Temperature 36.8 C Pulse Rate 112 H 116 H 104 H Respiratory Rate 18 Blood Pressure 92/74 L 92/74 L Pulse Oximetry 96 Oxygen Delivery 04/05/25 00:10 04/05/25 02:00 04/05/25 02:00 Temperature Pulse Rate 102 H 104 H 104 H Respiratory Rate 16 Blood Pressure 92/74 L 89/73 L Pulse Oximetry 97 Oxygen Delivery 04/05/25 02:00 04/05/25 02:13 04/05/25 02:14 Temperature Pulse Rate 104 H 95 95 Respiratory Rate 16 16 Blood Pressure 89/73 L Pulse Oximetry 97 Oxygen Delivery CPAP 04/05/25 02:20 04/05/25 04:00 04/05/25 04:00 Temperature Pulse Rate 101 H 102 H 110 H Respiratory Rate 16 Blood Pressure 106/75 Pulse Oximetry Oxygen Delivery 04/05/25 04:00 04/05/25 04:00 04/05/25 05:59 Temperature 36.9 C Pulse Rate 103 H 117 H Respiratory Rate 16 Blood Pressure 111/68 94/81 L Pulse Oximetry 96 96 Oxygen Delivery CPAP 04/05/25 06:00 04/05/25 06:00 04/05/25 06:02 Temperature Pulse Rate 117 H 117 H 134 H Respiratory Rate 24 H Blood Pressure 94/81 L 94/81 L Pulse Oximetry 97 Oxygen Delivery 04/05/25 06:02 04/05/25 08:00 04/05/25 08:00 Temperature 36.7 C 36.7 C Pulse Rate 134 H 132 H 132 H Respiratory Rate 22 H 22 H Blood Pressure 94/81 L 91/77 L 91/77 L Pulse Oximetry 95 95 Oxygen Delivery 04/05/25 08:35 04/05/25 08:37 04/05/25 08:37 Temperature Pulse Rate 128 H 124 H Respiratory Rate 24 H Blood Pressure Pulse Oximetry 95 Oxygen Delivery Room Air 04/05/25 08:39 04/05/25 08:44 Temperature Pulse Rate 140 H 130 H Respiratory Rate 21 H Blood Pressure 104/82 Pulse Oximetry Oxygen Delivery Intake/Output Intake/Output: Intake & Output 04/02/25 04/03/25 04/04/25 04/05/25 23:59 23:59 23:59 23:59 Intake Total 2050 2980 5746.8 758.5 Output Total 3550 5345 875 Balance 2050 -570 401.8 -116.5 Meds/Results Medications: Active Medications Generic Name Dose Route Start Last Admin Trade Name Laina PRN Reason Stop Dose Admin Azelastine HCl 1 spray 04/03/25 09:00 04/05/25 08:54 Azelastine Hcl Nasal 0.1% 137 Mcg/Spr 30 Ml Btl NASAL 1 spray Q12HR JAYDON Administration Calcitonin [place] 360 units 04/03/25 21:00 04/04/25 21:45 Calcitonin [place] Inj 400 Units/2 Ml Vial SUB-Q 360 units On Hold: 04/05/25 08:00 Q12H JAYDON Administration Carbidopa/Levodopa 1 tablet 04/03/25 04:30 04/04/25 21:19 Carbidopa/Levodopa 25/100 Mg Tablet BY MOUTH 1 tablet HS JAYDON Administration Carvedilol 3.125 mg 10/18/25 21:00 04/05/25 08:37 Carvedilol 3.125 Mg Tablet PO 3.125 mg Q12HR JAYDON Administration Hydroxychloroquine Sulfate 400 mg 04/03/25 08:00 04/05/25 08:38 Hydroxychloroquine Sulfate 200 Mg Tablet BY MOUTH 400 mg DAILY@0800 JAYDON Administration Ceftriaxone Sodium 1 gm/ 50 mls @ 100 mls/hr 04/03/25 05:00 04/05/25 06:15 Sodium Chloride IVPB Infused Q24H JAYDON Infusion Amiodarone HCl/Dextrose 360 mg in 200 mls @ 33.333 mls/hr 04/05/25 00:10 04/05/25 06:02 Nexterone 360 Mg/D5w 200 Ml IV CONT 04/05/25 18:09 1 mg/min .Q6H JAYDON 33.33 mls/hr Protocol Administration 1 MG/MIN Potassium Phosphate 20 mmol/ 256.6667 mls @ 64.167 mls/hr 04/05/25 09:00 Sodium Chloride IVPB 04/05/25 12:59 ONCE ONE Magnesium Sulfate 2 gm in 50 mls @ 25 mls/hr 04/05/25 08:00 04/05/25 08:38 Magnesium Sulf 2 Gm/Water 50ml IVPB 04/05/25 09:59 25 mls/hr ONCE ONE Administration Levalbuterol HCl 0.63 mg 04/05/25 08:12 04/05/25 08:34 Levalbuterol Neb 1.25 Mg/3 Ml INHALATION 0.63 mg Q6HRT PRN Administration Wheezing Montelukast Sodium 10 mg 04/03/25 09:00 04/05/25 08:37 Montelukast Sodium 10 Mg Tablet BY MOUTH 10 mg DAILY JAYDON Administration Mycophenolate Mofetil 1,000 mg 04/03/25 09:00 04/05/25 08:38 Mycophenolate Mofetil 250 Mg Capsule PO 1,000 mg Q12HR JAYDON Administration Ondansetron HCl 4 mg 04/03/25 15:09 04/04/25 17:31 Ondansetron Inj 4 Mg/2 Ml Vial IV PUSH 4 mg Q6H PRN Administration Nausea And Vomiting Fluticasone/Salmeterol 2 puff 04/03/25 08:00 04/05/25 08:35 Fluticasone/Salmeterol 115-21 Mcg Inhaler 1 Puff INHALATION 2 puff Q12HRT [facility] Administration Tramadol HCl 50 mg 04/03/25 08:42 04/04/25 22:21 Tramadol Hcl (*Crx) 50 Mg Tablet PO 50 mg QHS PRN Administration Pain or insomnia Warfarin Sodium 10 mg 04/05/25 17:00 Warfarin (*Pbkc) 10 Mg Tablet PO DAILY@1700 [facility] Radiology Results: ITS Impressions Renal Ultrasound 04/03/25 08:21 IMPRESSION: 1. Normal kidney sizes. No hydronephrosis. Chest X-Ray 04/04/25 18:26 Impression: CHF Labs Labs: Laboratory Results - last 24 hr 04/03/25 04/04/25 04/04/25 05:12 17:59 21:35 WBC 7.8 RBC 3.52 L Hgb 10.1 L Hct 32.4 L MCV 92.0 MCH 28.7 MCHC 31.2 L RDW 13.2 Plt Count 112 L MPV 13.2 H Immature Gran % (Auto) 0.3 Neut % (Auto) 77.2 H Lymph % (Auto) 10.6 L [place] % (Auto) 10.4 H Eos % (Auto) 1.0 Baso % (Auto) 0.5 Lymph # (Auto) 0.82 L [place] # (Auto) 0.8 H Eos # (Auto) 0.1 Baso # (Auto) 0.0 Abs Immat Gran (auto) 0.02 Absolute Neuts (auto) 6.0 Absolute Nucleated RBC 0.000 Nucleated RBC % 0.0 % Immature Plt Fraction 12.8 H PT INR APTT 32.0 Sodium 137 Potassium 3.6 Chloride 105 Carbon Dioxide 27 Anion Gap 5 BUN 29 H D Creatinine 2.06 H Estim Creat Clear Calc 34 Estimated GFR 25 L Glucose 101 Calcium 10.1 Ionized Calcium 6.8 H Phosphorus 2.2 L Magnesium 1.6 Total Bilirubin AST ALT Alkaline Phosphatase Troponin I 0.035 H* Total Protein Albumin 04/05/25 04/05/25 00:31 03:05 WBC RBC Hgb Hct MCV MCH MCHC RDW Plt Count MPV Immature Gran % (Auto) Neut % (Auto) Lymph % (Auto) [place] % (Auto) Eos % (Auto) Baso % (Auto) Lymph # (Auto) [place] # (Auto) Eos # (Auto) Baso # (Auto) Abs Immat Gran (auto) Absolute Neuts (auto) Absolute Nucleated RBC Nucleated RBC % % Immature Plt Fraction PT 27.0 H D INR 2.6 APTT Sodium 137 Potassium 3.3 L Chloride 102 Carbon Dioxide 28 Anion Gap 7 BUN 26 H Creatinine 1.93 H Estim Creat Clear Calc 36 Estimated GFR 27 L Glucose 100 Calcium 9.6 Ionized Calcium Phosphorus 2.3 L Magnesium 1.4 L Total Bilirubin 0.2 AST 31 ALT 10 Alkaline Phosphatase 55 Troponin I 0.043 H* D 0.047 H* Total Protein 6.5 Albumin 3.5 Quality VTE Prophylaxis VTE prophylaxis: pharmacologic ordered
--- NOTE | 2025-04-05 10:22 | P.PNNP_ITS ---
Progress Note: A&P Assessment and Plan (1) Hypercalcemia: Code(s): E83.52 - Hypercalcemia Status: Acute Assessment and Plan: * significant improvement if not resolved * as noted by outpatient and admission labs * clinically asymptomatic * suspect due to several issues: * prerenal factors * Vitamin D and calcium supplements (Vitamin D level extremely high) * excess spironolactone intake (by mistake) * other? * evaluation in progress: * follow-up PTHrp, RAFAEL level, SPEP/UPEP, serum/urine immunofixation * iCa elevated as expected * PTH appropriately low * off IVFs (see #5) * s/p SQ calcitonin x 4 doses * follow trend of repeat labs (2) Acute kidney injury: Code(s): N17.9 - Acute kidney failure, unspecified Status: Acute Assessment and Plan: * slowly improving * as noted by outpatient and admission labs (3.73mg/dl and 3.34mg/dl, respectively) * slight improvement by AM labs (down to 3.0mg/dl on 04/03) * suspect multifactorial etiology: * prerenal factors * medications (Entresto, spironolactone, cellcept...etc) * hypercalcemia * infection (possible UTI) * other? * evaluation noted: * renal u/s without obstruction * urine electrolytes non-prerenal * urine eosinophils negative * CPK mildly elevated (but not enough to affect kidney function) * proteinuria noted * off IVFs * follow trend of repeat labs and UOP (3) Stage 3 chronic kidney disease: Code(s): N18.30 - Chronic kidney disease, stage 3 unspecified Status: Chronic Assessment and Plan: * baseline creatinine seems to run ~ 1.1 - 1.5mg/dl since 2022 * noted rise in creatinine to 1.72mg/dL in late December 2024 (which was also associated with mildly elevated calcium as well) * this causes her to fluctuate between CKD stage 3A and stage 3B * presumably due to CHF, PAMELA, and possibly lupus/lupus related medications(?) (4) Atrial fibrillation with RVR: Code(s): I48.91 - Unspecified atrial fibrillation Status: Acute Assessment and Plan: * new onset by findings on 04/04 evening * due to hypokalemia(?) * on amiodarone gtt * already on anticoagulation * Echo already ordered * Cardiology consulted * resumed on carvedilol (5) CHF (congestive heart failure): Code(s): I50.9 - Heart failure, unspecified Status: Acute Assessment and Plan: * history of cardiomyopathy * was compensated on admission * however, CXR on evening on 04/04 with CHF * off IVFs now * s/p IV lasix * repeat Echo ordered * spironolactone and Entresto on hold due to #2 * follow volume/respiratory status (6) UTI (urinary tract infection): Code(s): N39.0 - Urinary tract infection, site not specified Status: Acute Assessment and Plan: * admission UA suggestive * follow culture data - negative to date * on antibiotics (7) Systemic Lupus Erythematosus: Onset Date: ~1987 Qualifiers: Systemic lupus erythematosus organ involvement: unspecified Systemic lupus erythematosus type: unspecified Qualified Code(s): M32.9 - Systemic lupus erythematosus, unspecified Code(s): M32.9 - Systemic lupus erythematosus, unspecified Status: Chronic Assessment and Plan: * known history * denies any history of lupus nephritis * recently established care with [facility] * on mycophenolate mofetil and hydroxychloroquine (8) Antiphospholipid syndrome: Code(s): D68.61 - Antiphospholipid syndrome Status: Acute Assessment and Plan: * known history * on anticoagulation and with IVC filter * follow INR (9) COPD (chronic obstructive pulmonary disease): Qualifiers: COPD type: unspecified COPD Qualified Code(s): J44.9 - Chronic obstructive pulmonary disease, unspecified Code(s): J44.9 - Chronic obstructive pulmonary disease, unspecified Status: Chronic Assessment and Plan: * no evidence of exacerbation * nebulizer treatments PRN * continue home inhalers (10) PAMELA (obstructive sleep apnea): Code(s): G47.33 - Obstructive sleep apnea (adult) (pediatric) Status: Chronic Assessment and Plan: * continue CPAP Will continue to follow. L Subjective Date/time seen: 04/05/25 10:22 Interval history: Follow-up for acute kidney injury/acute renal failure on chronic kidney disease. Events yesterday eventing noted -- transferred out of ICU but then developed Afib with RVR in association with nausea/vomiting as well as mild shortness of breath; transferred to IMU and was initiated on amiodarone infusion; CXR at that time showed CHF so given IV lasix and IVFs discontinued; calcitonin also dc'd due to concern it may have precipitated her nausea/vomiting (but had already received her 4 scheduled doses); feeling significantly better at this time -- renal function/creatinine continues to improve and calcium has normalized. Exam 2 Narrative: General: middle aged but WD/WN female in NAD Heart: tachycardic, IRRR, normal S1 and S2; no rub Lungs: clear anteriorly Abdomen: soft, nontender, nondistended, positive bowel sounds Extremities: no cyanosis or clubbing; trace - 1+ edema Skin: warm and intact; chronic venous stasis changes Objective Data Vital Signs Vital Signs: Vital Signs Temp Pulse Resp BP Pulse Ox O2 Del Method 04/05/25 10:00 98.5 F 105 H 17 100/76 95 04/05/25 08:44 130 H 21 H 04/05/25 08:39 140 H 104/82 04/05/25 08:37 124 H 04/05/25 08:37 95 Room Air 04/05/25 08:35 128 H 24 H 04/05/25 08:00 125 H 91/77 L 04/05/25 08:00 136 H 04/05/25 08:00 95 Room Air 04/05/25 08:00 98.1 F 132 H 22 H 91/77 L 95 04/05/25 08:00 98.1 F 132 H 22 H 91/77 L 95 04/05/25 06:02 134 H 94/81 L 04/05/25 06:02 134 H 94/81 L 04/05/25 06:00 117 H 24 H 94/81 L 97 04/05/25 06:00 117 H 04/05/25 05:59 117 H 94/81 L 04/05/25 04:00 98.4 F 103 H 16 111/68 96 04/05/25 04:00 96 CPAP 04/05/25 04:00 110 H 04/05/25 04:00 102 H 106/75 04/05/25 02:20 101 H 16 04/05/25 02:14 95 16 97 CPAP 04/05/25 02:13 95 16 04/05/25 02:00 104 H 89/73 L 04/05/25 02:00 104 H 16 89/73 L 97 04/05/25 02:00 104 H 04/05/25 00:10 102 H 92/74 L 04/05/25 00:09 104 H 92/74 L 04/05/25 00:00 98.2 F 116 H 18 92/74 L 96 04/05/25 00:00 112 H 04/05/25 00:00 96 CPAP 04/05/25 00:00 123 H 92/74 L 04/04/25 22:34 135 H 20 96 CPAP 04/04/25 22:32 96 Autopap 04/04/25 22:28 135 H 20 04/04/25 22:00 128 H 04/04/25 22:00 128 H 20 113/75 96 04/04/25 22:00 128 H 113/75 04/04/25 21:19 127 H 04/04/25 20:00 127 H 04/04/25 20:00 Room Air 04/04/25 20:00 126 H 100/75 04/04/25 20:00 98.3 F 70 14 96/72 L 100 04/04/25 18:49 133 H 112/81 04/04/25 18:30 133 H 112/81 04/04/25 18:11 155 H 04/04/25 18:10 150 H 14 105/70 95 Room Air 04/04/25 18:00 98.4 F 112 H 23 H 107/73 96 04/04/25 17:50 98.3 F 142 H 105/70 95 04/04/25 16:00 88 04/04/25 16:00 97.4 F L 66 18 105/60 99 Intake/Output Intake/Output: Intake & Output 04/02/25 04/03/25 04/04/25 04/05/25 23:59 23:59 23:59 23:59 Intake Total 2049 2980 5746.8 1158.5 Output Total 3550 5345 875 Balance 2049 - 401.8 283.5 Meds/Results Medications: Active Medications Generic Name Dose Route Start Last Admin Trade Name Freq PRN Reason Stop Dose Admin Aspirin 81 mg 04/06/25 09:00 Aspirin 81 Mg Enteric Tablet PO QAM [facility] Azelastine HCl 1 spray 04/03/25 09:00 04/05/25 08:54 Azelastine Hcl Nasal 0.1% 137 Mcg/Spr 30 Ml Btl NASAL 1 spray Q12HR JAYDON Administration Carbidopa/Levodopa 1 tablet 04/03/25 04:30 04/04/25 21:19 Carbidopa/Levodopa 25/100 Mg Tablet BY MOUTH 1 tablet HS JAYDON Administration Carvedilol 3.125 mg 04/04/25 21:00 04/05/25 08:37 Carvedilol 3.125 Mg Tablet PO 3.125 mg Q12HR JAYDON Administration Hydroxychloroquine Sulfate 400 mg 04/03/25 08:00 04/05/25 08:38 Hydroxychloroquine Sulfate 200 Mg Tablet BY MOUTH 400 mg DAILY@0800 JAYDON Administration Ceftriaxone Sodium 1 gm/ 50 mls @ 100 mls/hr 04/03/25 05:00 04/05/25 06:15 Sodium Chloride IVPB Infused Q24H JAYDON Infusion Amiodarone HCl/Dextrose 360 mg in 200 mls @ 33.333 mls/hr 04/05/25 00:10 04/05/25 12:20 Nexterone 360 Mg/D5w 200 Ml IV CONT 04/05/25 18:09 1 mg/min .Q6H JAYDON 33.33 mls/hr Protocol Administration 1 MG/MIN Levalbuterol HCl 0.63 mg 04/05/25 08:12 04/05/25 08:34 Levalbuterol Neb 1.25 Mg/3 Ml INHALATION 0.63 mg Q6HRT PRN Administration Wheezing Montelukast Sodium 10 mg 04/03/25 09:00 04/05/25 08:37 Montelukast Sodium 10 Mg Tablet BY MOUTH 10 mg DAILY JAYDON Administration Mycophenolate Mofetil 1,000 mg 04/03/25 09:00 04/05/25 08:38 Mycophenolate Mofetil 250 Mg Capsule PO 1,000 mg Q12HR JAYDON Administration Ondansetron HCl 4 mg 04/03/25 15:09 04/04/25 17:31 Ondansetron Inj 4 Mg/2 Ml Vial IV PUSH 4 mg Q6H PRN Administration Nausea And Vomiting Fluticasone/Salmeterol 2 puff 04/03/25 08:00 04/05/25 08:35 Fluticasone/Salmeterol 115-21 Mcg Inhaler 1 Puff INHALATION 2 puff Q12HRT JAYDON Administration Tramadol HCl 50 mg 04/03/25 08:42 04/04/25 22:21 Tramadol Hcl (*Crx) 50 Mg Tablet PO 50 mg QHS PRN Administration Pain or insomnia Warfarin Sodium 10 mg 04/05/25 17:00 Warfarin (*Pbkc) 10 Mg Tablet PO DAILY@1700 [facility] Radiology Results: ITS Impressions Renal Ultrasound 04/03/25 08:21 IMPRESSION: 1. Normal kidney sizes. No hydronephrosis. Chest X-Ray 04/04/25 18:26 Impression: CHF Labs Labs: Laboratory Tests 04/04/25 17:59 04/05/25 03:05 PT 27.0 H INR 2.6 Calcium 9.6 Phosphorus 2.3 L Magnesium 1.4 L Total Bilirubin 0.2 AST 31 ALT 10 Alkaline Phosphatase 55 Troponin I 0.047 H* Total Protein 6.5 Albumin 3.5 Microbiology 04/03/25 09:38 Urine Clean Catch Urine Culture - Final
[2025-04-05] MEDS: POTASSIUM PHOS,M-BASIC-D-BASIC 20 MMOL in SODIUM CHLORIDE 0.9% IV 250 ML 64.17 MMOL IVPB (10:41)
--- NOTE | 2025-04-05 15:15 | PC.NURSE ---
This patient, Trinity Spears, was transferred to [facility] on 04/05/25 at 1515. Personal belongings sent with patient. Report given to ANDRES Rushing. Appropriate documentation sent with patient. Patient voiced no complaints or concerns at time of transfer. Jason Yadav RN
[2025-04-05] MEDS: WARFARIN (*PBKC) 10 MG TABLET PO (16:43)
--- NOTE | 2025-04-05 17:56 | ECG_ITS ---
Test Date: 2025-04-05 18:01:42 Measurements Intervals [place] Rate: 107 P: 0 MA: 0 QRS: 261 QRSD: 157 T: 157 QT: 370 QTc: 495 Interpretive Statements ATRIAL FIBRILLATION WITH RAPID VENTRICULAR RESPONSE RIGHT AXIS DEVIATION RIGHT BUNDLE BRANCH BLOCK ANTERIOR INFARCT, AGE INDETERMINATE CONSIDER INFERIOR INFARCT, AGE INDETERMINATE CONSIDER HIGH LATERAL INFARCT, AGE INDETERMINATE BASELINE ARTIFACT- I, II, III, AVR, AVL, AVF, V1-V3 ABNORMAL ECG Compared to ECG 04/04/2025 20:26:23 HEART RATE HAS DECREASED Electronically Signed On 04-05-2025 20:46:44 CDT by Gerardo Gay D.O.
[2025-04-05] MEDS: MAGNESIUM SULF 1 GM/D5W 100 ML 1 GM/100 ML BAG IVPB (18:23)
[2025-04-05] MEDS: ACETAMINOPHEN 325 MG TABLET 650 MG PO (18:53)
[2025-04-05] MEDS: DOCUSATE SODIUM 100 MG CAPSULE PO (18:53)
--- NOTE | 2025-04-05 20:10 | PC.NURSE ---
Patient's heart rate maintaining 120's to 130's. Call placed to Dr. Mahmood to report this and patient's anxiety. Patient normally has anxiety but feels extremely anxious and upset d/t her condition and worrying about being able to take care of herself and her autistic son at home and what will happen to herself and him if she cannot take care of them. Timoteo stated he would give something for anxiety. This nurse discussed calming techniques with patient. Doctor stated 120's to 130's on the amiodarone gtt, we would just monitor but to call cardiology if they're needed. Patient denies CP.
[2025-04-05] MEDS: traMADol HCL (*CRX) 50 MG TABLET PO (20:36)
[2025-04-05] MEDS: CARBIDOPA/LEVODOPA 25/100 MG TABLET 1 TABLET BY MOUTH (20:36)
[2025-04-05] MEDS: diazePAM (*CRX) 2 MG TABLET PO (20:40)
[2025-04-05 21:12] LABS: Magnesium 2.0 mg/dL (1.6-2.3)
[2025-04-06] VITALS (29 sets, daily range): BP systolic 91–110; BP diastolic 56–79; PULSE 101–150; RESP 15–22; TEMP 36.5–37.1; O2SAT 95–100
[2025-04-06 04:51] LABS: Alanine Aminotransferase 10 U/L (6-35); Albumin Level 3.4 g/dL (3.5-5.1); Alkaline Phosphatase 61 U/L (38-126); Anion Gap 7 mmol/L (4-12); Aspartate Amino Transferase 27 U/L (14-36); Bilirubin,Total 0.2 mg/dL (0.2-1.3); Blood Urea Nitrogen 19 mg/dL (7-17); Calcium 8.8 mg/dL (8.4-10.2); Carbon Dioxide 27 mmol/L (22-30); Chloride 100 mmol/L (98-107); Estimated CRCL calculation 40 ml/min; Estimated Glomerular Filt Rate 30; Glucose 90 mg/dL (65-110); Magnesium 1.8 mg/dL (1.6-2.3); Potassium 3.3 mmol/L (3.4-5.0); Sodium 134 mmol/L (137-145); Total Protein 6.4 g/dL (6.3-8.2)
[2025-04-06 04:59] LABS: INR 2.0; Prothrombin Time 21.7 Seconds (11.1-14.7)
[2025-04-06] MEDS: cefTRIAXone 1 GM in SODIUM CHLORIDE 0.9% IV 50 ML 100 ML IVPB (05:16)
--- NOTE | 2025-04-06 08:26 | P.CONCA_ITS ---
Assessment and Plan Assessment and plan (1) Atrial fibrillation with RVR: Code(s): I48.91 - Unspecified atrial fibrillation Status: Acute Assessment and Plan: She has atrial fibrillation with rapid ventricular response. This is a new diagnosis. I discussed the diagnosis of atrial fibrillation including pathophysiology, management strategies, risks/complications. Will pursue a rhythm control strategy as this is her 1st known occurrence of atrial fibrillation. She is currently on amiodarone drip but remains in atrial fibrillation with rapid ventricular response. Will plan for electrical cardioversion tomorrow. * NPO after midnight for cardioversion in the morning * Does not require CHANTELL, she is chronically anticoagulated with warfarin. INR today 2.0. * Continue amiodarone drip at 0.5 mg/min * Will change carvedilol to metoprolol for better rate control * Potassium 3.3 this morning, give 40 mEq KCL p.o. now * Echo showed EF 50%, mild aortic stenosis. (2) Stage 3 chronic kidney disease: Code(s): N18.30 - Chronic kidney disease, stage 3 unspecified Status: Chronic Assessment and Plan: Kidney function improving. Nephrology is following (3) Hypokalemia: Code(s): E87.6 - Hypokalemia Status: Acute Assessment and Plan: Potassium 3.3 today. Give 40 mEq KCL p.o. x1 now. Check BMP in the morning (4) Morbid obesity: Code(s): E66.01 - Morbid (severe) obesity due to excess calories Status: Acute Assessment and Plan: She was taking is a bound but stopped because of poor appetite. Recommended education on GLP-1 medications History of Present Illness History of Present Illness Consult date/time: 04/06/25 08:26 Requesting physician: Nhi Perez APRN Consult reason: atrial fibrillation Reason For Visit: hypercalcemia Narrative: Trinity Lebron is a 55 year old female with mild LV dysfunction, SLE, antiphospholipid antibody on chronic anticoagulation with warfarin. This is a patient who is followed in our office by Dr. Alfred. She presents to the hospital from her primary care provider's office because of abnormal labs. Cardiology is consulted for atrial fibrillation with rapid ventricular response. Patient does not have any history of atrial fibrillation. Her EKG when she entered the hospital demonstrated sinus rhythm, but she went into atrial fibrillation with rapid ventricular response on 04/04/2025. She does not feel any palpitations, shortness of breath, or chest pain. She does have intermittent chest tightness that she relates to heartburn. She has been placed on an amiodarone drip but her heart rate remains elevated, generally in the 120s to 140s and even more elevated with activity. Review of Systems 2 Review of Systems: All systems reviewed & are unremarkable except as noted in HPI and below PMFSH Past Medical History Medical History Lupus ESR raised Screening for lipid disorders Gastroesophageal reflux disease Antiphospholipid syndrome Chronic pulmonary embolism Chronic combined systolic and diastolic CHF (congestive heart failure) Vitamin D deficiency, unspecified Allergies Arthritis Asthma History of blood clots CHF (congestive heart failure) COPD (chronic obstructive pulmonary disease) GERD (gastroesophageal reflux disease) Umbilical hernia Surgical History Surgical History S/P IVC filter H/O hernia repair Umbilical and left inguinal he hernia repair H/O section Hx of cholecystectomy H/O tubal ligation Family History Family History Father Cirrhosis Diabetes mellitus Mother Diabetes mellitus Grandparent Parkinson disease Sibling Family history of schizophrenia Patient's brother is in good health Father Family history of diabetes mellitus in first degree relative Diabetes mellitus Family history of liver disease, Onset Age: 65 Mother Family history of diabetes mellitus in first degree relative, Onset Age: 32 Patient's mother is Diabetes mellitus Grandparent Family history of Parkinson's disease Other Family history of attention deficit hyperactivity disorder (ADHD) Social History Social History Social History: She is disabled. In she has 1 son. She is . Code status: Full code Smoking packs per day: 1 Smoking cigarettes per day: 20.0 Years smoked: 8 Smoking pack-years: 8.00 Smoking status: Former smoker Tobacco type: cigarettes Second hand tobacco smoke exposure: Yes Smoking end date: 11/25/03 Alcohol intake: never Alcohol use details: rarely Substance use: current Substance use type: marijuana Lack of Transportation: No Lack of Food: Never True Current Housing: I Have Housing Concerned About Future Housing: No Difficulty Paying Gas/Electric Bills: No Difficulty Paying for Meds: No Currently Unemployed: No Education: Decline to Answer Difficulty w/ Childcare or Family Care: No Gender identity (if verbalized by the patient): Female Spiritual care concerns: No Meds Home Medications and Allergies Home Medications ?Medication ?Instructions ?Recorded ?Confirmed ?Type carvedilol 3.125 mg tablet 3.125 mg PO Q12H 05/26/19 1 History cetirizine 10 mg tablet 10 mg PO DAILY 05/26/1903/18 History sacubitril 49 mg-valsartan 51 mg 2 tablet PO BID 05/2604/02/25 History tablet (Entresto) warfarin 10 mg tablet 10 mg PO DAILY 05/26/1903/18 History Held on 04/02/25. Instructions: Patient Condition spironolactone 50 mg tablet 50 mg PO DAILY 01/30/20 History albuterol sulfate 90 mcg/actuation 2 puff inhalation Q 4-6H PRN 04/22/20 04/02/25 Rx aerosol inhaler shortness of breath or wheez ing #8.5 grams cholecalciferol (vitamin D3) 125 125 mcg PO DAILY #90 caps 10/17/21 04/02/25 Rx mcg (5,000 unit) capsule montelukast 10 mg tablet See Rx Instructions .Route 0 11/06/24 04/02/25 Rx .COMPLEX 90 days #90 tabs carbidopa 25 mg-levodopa 100 mg See Rx Instructions .R oute 11/24/24 04/02/25 Rx tablet .COMPLEX #90 tabs mycophenolate mofetil 500 mg tablet See Rx Instruction s .Route 12/02/24 04/02/25 Rx .COMPLEX #180 tabs hydroxychloroquine 200 mg tablet See Rx Instructions . Route 12/24/24 04/02/25 Rx .COMPLEX #180 tabs azelastine 137 mcg (0.1 %) nasal See Rx Instructions . Route 02/19/25 04/02/25 Rx spray .COMPLEX #90 mL tramadol 50 mg tablet 50 mg PO Q8H PRN pain #60 ta bs 03/17/25 04/02/25 Rx budesonide-formoterol HFA 160 2 puff inhalation Q12H # 10.2 grams 04/01/25 04/02/25 Rx mcg-4.5 mcg/actuation aerosol inhaler (Symbicort) carbamide peroxide 6.5 % ear drops 10 drp RIGHT EAR Q1 2H PRN wax 4 04/02/25 04/02/25 Rx (Debrox) days #15 mL Held on 04/02/25. Instructions: Order Change fluticasone propionate 50 2 spray intranasal DAILY #16 grams 04/02/25 04/02/25 Rx mcg/actuation nasal spray,suspension (Children's Flonase Allergy Relief) Held on 04/02/25. Instructions: Order Change meclizine 25 mg tablet 25 mg PO TID PRN dizziness # 30 tabs 04/02/25 04/02/25 Rx Allergies Allergy/AdvReac Type Severity Reaction Status Date / Time oxcarbazepine Allergy Mild Swelling Verified 04/02/25 23:37 sulfamethoxazole Allergy Mild hypersensit Verified 04/02/25 23:37 ivity trimethoprim Allergy Mild Swelling Verified 04/02/25 23:37 doxycycline Allergy Unknown hypersensit Verified 04/02/25 23:37 ivity Penicillins Allergy Unknown urticaria Verified 04/02/25 23:37 sulfamethizole Allergy Unknown Hypersensit Verified 04/02/25 23:37 ivity sulfanilamide Allergy Unknown rash Verified 04/02/25 23:37 tetracycline Allergy Unknown Tongue Verified 04/02/25 23:37 swelling Vital Signs Vital Signs - 24 hr 04/05/25 08:35 04/05/25 08:37 04/05/25 08:37 Temperature Pulse Rate 128 H 124 H Respiratory Rate 24 H Blood Pressure Pulse Oximetry 95 Oxygen Delivery Room Air 04/05/25 08:39 04/05/25 08:44 04/05/25 10:00 Temperature 36.9 C Pulse Rate 140 H 130 H 105 H Respiratory Rate 21 H 17 Blood Pressure 104/82 100/76 Pulse Oximetry 95 Oxygen Delivery 04/05/25 10:00 04/05/25 10:00 04/05/25 12:00 Temperature Pulse Rate 105 H 109 H 118 H Respiratory Rate Blood Pressure 100/76 122/79 Pulse Oximetry Oxygen Delivery 04/05/25 12:00 04/05/25 12:00 04/05/25 12:00 Temperature Pulse Rate 118 H 131 H Respiratory Rate 21 H Blood Pressure 122/79 Pulse Oximetry 89 L 89 L Oxygen Delivery Room Air 04/05/25 12:20 04/05/25 12:20 04/05/25 14:00 Temperature Pulse Rate 117 H 117 H 112 H Respiratory Rate Blood Pressure 95/78 L 95/78 L Pulse Oximetry Oxygen Delivery 04/05/25 14:00 04/05/25 14:00 04/05/25 16:00 Temperature 36.7 C Pulse Rate 112 H 112 H 96 Respiratory Rate 19 18 Blood Pressure 110/83 110/83 95/77 L Pulse Oximetry 98 99 Oxygen Delivery 04/05/25 16:00 04/05/25 16:00 04/05/25 18:00 Temperature Pulse Rate 99 106 H Respiratory Rate Blood Pressure Pulse Oximetry 99 Oxygen Delivery Room Air 04/05/25 18:00 04/05/25 18:00 04/05/25 18:22 Temperature Pulse Rate 106 H 107 H 116 H Respiratory Rate Blood Pressure 110/68 113/73 Pulse Oximetry 98 Oxygen Delivery 04/05/25 18:54 04/05/25 20:00 04/05/25 20:00 Temperature Pulse Rate 120 H 107 H Respiratory Rate Blood Pressure 113/73 Pulse Oximetry 99 Oxygen Delivery Room Air 04/05/25 20:05 04/05/25 20:05 04/05/25 22:00 Temperature 36.8 C Pulse Rate 110 H 110 H 131 H Respiratory Rate 16 Blood Pressure 108/72 108/72 91/69 L Pulse Oximetry 96 90 Oxygen Delivery 04/05/25 22:10 04/05/25 22:23 04/05/25 22:51 Temperature Pulse Rate 131 H 120 H 109 H Respiratory Rate 19 Blood Pressure 91/69 L Pulse Oximetry 97 Oxygen Delivery CPAP 04/06/25 00:00 04/06/25 00:00 04/06/25 00:10 Temperature Pulse Rate 123 H 111 H Respiratory Rate Blood Pressure Pulse Oximetry Oxygen Delivery Room Air 04/06/25 00:12 04/06/25 00:40 04/06/25 00:40 Temperature 36.8 C Pulse Rate 130 H 129 H 129 H Respiratory Rate 15 Blood Pressure 91/73 L 91/73 L Pulse Oximetry 96 Oxygen Delivery 04/06/25 02:00 04/06/25 02:13 04/06/25 02:43 Temperature Pulse Rate 136 H 131 H 122 H Respiratory Rate 17 Blood Pressure 100/74 Pulse Oximetry 96 Oxygen Delivery CPAP 04/06/25 04:00 04/06/25 04:00 04/06/25 05:07 Temperature 37.1 C Pulse Rate 117 H 144 H Respiratory Rate 20 Blood Pressure 94/56 L Pulse Oximetry 97 Oxygen Delivery Room Air 04/06/25 05:11 04/06/25 06:00 04/06/25 06:15 Temperature Pulse Rate 137 H 129 H 138 H Respiratory Rate Blood Pressure 94/56 L 104/67 Pulse Oximetry Oxygen Delivery 04/06/25 08:00 Temperature 36.7 C Pulse Rate 150 H Respiratory Rate 18 Blood Pressure 110/60 Pulse Oximetry 98 Oxygen Delivery Exam 2 Const: General: comfortable, no acute distress, alert and awake O rientation/consciousness: patient oriented x3 Other: Obese HENMT: Head: normal to inspection Eyes: General: appearance normal, both eyes and all related structures P upils: Equal, round and reactive pupils present Neck: Neck: normal visual inspection and supple Carotids: normal carotid upstroke Resp: Effort & Inspection: normal respiratory effort Auscultation: clear to auscultation bilaterally Cardio: Rate: tachycardic Rhythm: abnormal rhythm irregularly irregular Heart sounds: S1 normal heart sound present, S2 normal heart sound present and no murmurs GI: Auscultation: normal bowel sounds Skin: General skin exam: normal color Neuro: General: patient oriented x3 Cranial nerves: Yes Equal, round and reactive pupils present Extrem: General: edema and pedal edema Other: Chronic lymphedema. Psych: Appearance: grossly normal Mental Status: mental status grossly normal Results Labs and Meds 04/04/25 17:59 04/06/25 04:13 Lab results: Cardiac Enzymes 04/06/25 Range/Units 04:13 AST 27 (14-36) U/L Coagulation 04/06/25 Range/Units 04:13 PT 21.7 H (11.1-14.7) Seconds Comprehensive Metabolic Panel 04/06/25 Range/Units 04:13 Sodium 134 L (137-145) mmol/L Potassium 3.3 L (3.4-5.0) mmol/L Chloride 100 (98-107) mmol/L Carbon Dioxide 27 (22-30) mmol/L BUN 19 H (7-17) mg/dL Creatinine 1.78 H (0.7-1.0) mg/dL Glucose 90 (65-110) mg/dL Calcium 8.8 (8.4-10.2) mg/dL AST 27 (14-36) U/L ALT 10 (6-35) U/L Alkaline Phosphatase 61 (38-126) U/L Total Protein 6.4 (6.3-8.2) g/dL Albumin 3.4 L (3.5-5.1) g/dL Intake and Output 04/05/25 04/06/25 04/06/25 23:59 07:59 15:59 Intake Total 732.1 1167.6 Output Total 400 400 Balance 332.1 767.6 Intake: IV 242.1 167.6 Amiodarone 360 mg/D5w 200 ml 242.1 167.6 360 mg In 200 ml @ 0.5 MG/MIN 16.667 mls/hr IV CONT .Q12H [facility] Rx#:[id number] Oral 490 1000 Output: Urine 400 400 Patient Weight 04/06/25 23:59 Weight 105.9 kg
[2025-04-06] MEDS: POTASSIUM CHLORIDE 20 MEQ ER TABLET 40 MEQ PO (09:53)
[2025-04-06] MEDS: METOPROLOL TARTRATE 25 MG TABLET PO ×3 (09:55→21:06)
[2025-04-06] MEDS: MONTELUKAST SODIUM 10 MG TABLET BY MOUTH (09:55)
[2025-04-06] MEDS: HYDROXYCHLOROQUINE SULFATE 200 MG TABLET 400 MG BY MOUTH (09:55)
[2025-04-06] MEDS: MAGNESIUM SULF 1 GM/D5W 100 ML 1 GM/100 ML BAG IVPB (09:56)
[2025-04-06] MEDS: AZELASTINE HCL NASAL 0.1% 137 MCG/SPR 30 ML BTL 1 SPRAY NASAL ×3 (09:57→20:49)
--- NOTE | 2025-04-06 10:32 | P.PNNP_ITS ---
Progress Note: A&P Assessment and Plan (1) Hypercalcemia: Code(s): E83.52 - Hypercalcemia Status: Acute Assessment and Plan: * significant improvement if not resolved * as noted by outpatient and admission labs * clinically asymptomatic * suspect due to several issues: * prerenal factors * Vitamin D and calcium supplements (Vitamin D level extremely high) * excess spironolactone intake (by mistake) * other? * evaluation in progress: * follow-up PTHrp, RAFAEL level, SPEP/UPEP, serum/urine immunofixation * iCa elevated as expected * PTH appropriately low * off IVFs (see #5) * s/p SQ calcitonin x 4 doses * follow trend of repeat labs (2) Acute kidney injury: Code(s): N17.9 - Acute kidney failure, unspecified Status: Acute Assessment and Plan: * slowly improving * as noted by outpatient and admission labs (3.73mg/dl and 3.34mg/dl, respectively) * slight improvement by AM labs (down to 3.0mg/dl on 04/03) * suspect multifactorial etiology: * prerenal factors * medications (Entresto, spironolactone, cellcept...etc) * hypercalcemia * infection (possible UTI) * other? * evaluation noted: * renal u/s without obstruction * urine electrolytes non-prerenal * urine eosinophils negative * CPK mildly elevated (but not enough to affect kidney function) * proteinuria noted * off IVFs * follow trend of repeat labs and UOP (3) Stage 3 chronic kidney disease: Code(s): N18.30 - Chronic kidney disease, stage 3 unspecified Status: Chronic Assessment and Plan: * baseline creatinine seems to run ~ 1.1 - 1.5mg/dl since 2022 * noted rise in creatinine to 1.72mg/dL in late December 2024 (which was also associated with mildly elevated calcium as well) * this causes her to fluctuate between CKD stage 3A and stage 3B * presumably due to CHF, PAMELA, and possibly lupus/lupus related medications(?) (4) Atrial fibrillation with RVR: Code(s): I48.91 - Unspecified atrial fibrillation Status: Acute Assessment and Plan: * new onset by findings on 04/04 evening * due to hypokalemia(?) * on amiodarone gtt * already on anticoagulation * Echo results (04/03) noted: * LV systolic function is at lower limits of normal, LVEF calculated at 50% * no significant mitral regurgitation * mild aortic stenosis, valve area 1.7 cm2 by Doppler; maximum velocity 2.1 m/sec mean gradient 10 mmHg * trace TR * RVSP 35 mmHg * Cardiology following * switched to metoprolol * plan for cardioversion (5) CHF (congestive heart failure): Code(s): I50.9 - Heart failure, unspecified Status: Acute Assessment and Plan: * history of cardiomyopathy * was compensated on admission * however, CXR on evening on 04/04 with CHF * off IVFs now * s/p IV lasix * repeat Echo noted (see #4) * spironolactone and Entresto on hold due to #2 * follow volume/respiratory status (6) UTI (urinary tract infection): Code(s): N39.0 - Urinary tract infection, site not specified Status: Acute Assessment and Plan: * admission UA suggestive * follow culture data - negative to date * on antibiotics (7) Systemic Lupus Erythematosus: Onset Date: Qualifiers: Systemic lupus erythematosus organ involvement: unspecified Systemic lupus erythematosus type: unspecified Qualified Code(s): M32.9 - Systemic lupus erythematosus, unspecified Code(s): M32.9 - Systemic lupus erythematosus, unspecified Status: Chronic Assessment and Plan: * known history * denies any history of lupus nephritis * recently established care with [facility] * on mycophenolate mofetil and hydroxychloroquine (8) Antiphospholipid syndrome: Code(s): D68.61 - Antiphospholipid syndrome Status: Acute Assessment and Plan: * known history * on anticoagulation and with IVC filter * follow INR (9) COPD (chronic obstructive pulmonary disease): Qualifiers: COPD type: unspecified COPD Qualified Code(s): J44.9 - Chronic obstructive pulmonary disease, unspecified Code(s): J44.9 - Chronic obstructive pulmonary disease, unspecified Status: Chronic Assessment and Plan: * no evidence of exacerbation * nebulizer treatments PRN * continue home inhalers (10) PAMELA (obstructive sleep apnea): Code(s): G47.33 - Obstructive sleep apnea (adult) (pediatric) Status: Chronic Assessment and Plan: * continue CPAP Will continue to follow. Subjective Date/time seen: 04/06/25 10:32 Interval history: Follow-up for acute kidney injury/acute renal failure on chronic kidney disease. Calcium has normalized and remained stable for the last 1 - 2 days; renal function/creatinine has been slowly improving as well; despite amiodarone gtt, still remains in atrial fibrillation with RVR; seen by Cardiology earlier this morning with noted plans for possible cardioversion tomorrow. Exam Narrative: General: middle aged but WD/WN female in NAD Heart: tachycardic, IRRR, normal S1 and S2; no rub Lungs: clear anteriorly Abdomen: soft, nontender, nondistended, positive bowel sounds Extremities: no cyanosis or clubbing; trace - 1+ edema Skin: no rasht; chronic venous stasis changes Objective Data Vital Signs Vital Signs: Vital Signs Temp Pulse Resp BP Pulse Ox O2 Del Method 04/06/25 10:00 97.7 F 135 H 22 H 108/76 100 04/06/25 09:55 141 H 04/06/25 08:00 150 H 110/60 04/06/25 08:00 139 H 04/06/25 08:00 Room Air 04/06/25 08:00 98.1 F 150 H 18 110/60 98 04/06/25 06:15 138 H 104/67 04/06/25 06:00 129 H 04/06/25 05:11 137 H 94/56 L 04/06/25 05:07 98.7 F 144 H 20 94/56 L 97 04/06/25 04:00 117 H 04/06/25 04:00 Room Air 04/06/25 02:43 122 H 17 96 CPAP 04/06/25 02:13 131 H 100/74 04/06/25 02:00 136 H 04/06/25 00:40 129 H 91/73 L 04/06/25 00:40 98.2 F 129 H 15 91/73 L 96 04/06/25 00:12 130 H 04/06/25 00:10 111 H 04/06/25 00:00 123 H 04/06/25 00:00 Room Air 04/05/25 22:51 109 H 19 97 CPAP 04/05/25 22:23 120 H 04/05/25 22:10 131 H 91/69 L 04/05/25 22:00 131 H 91/69 L 90 04/05/25 20:05 110 H 108/72 04/05/25 20:05 98.3 F 110 H 16 108/72 96 04/05/25 20:00 107 H 04/05/25 20:00 99 Room Air 04/05/25 18:54 120 H 113/73 04/05/25 18:22 116 H 04/05/25 18:00 107 H 113/73 98 04/05/25 18:00 106 H 110/68 04/05/25 18:00 106 H Intake/Output Intake/Output: Intake & Output 04/03/25 04/04/25 04/05/25 04/06/25 23:59 23:59 23:59 23:59 Intake Total 2980 5746.8 1946.2 3306.8 Output Total 3550 5345 2275 1500 Balance -570 401.8 -328.8 1806.8 Meds/Results Medications: Active Medications Generic Name Dose Route Start Last Admin Trade Name Freq PRN Reason Stop Dose Admin Acetaminophen 650 mg 04/05/25 16:54 04/05/25 18:53 Acetaminophen 325 Mg Tablet PO 650 mg Q4H PRN Administration Headache Aspirin 81 mg 04/06/25 09:00 04/06/25 09:54 Aspirin 81 Mg Enteric Tablet PO Not Given QAM JAYDON Azelastine HCl 1 spray 04/03/25 09:00 04/06/25 09:57 Azelastine Hcl Nasal 0.1% 137 Mcg/Spr 30 Ml Btl NASAL 1 spray Q12HR JAYDON Administration Carbidopa/Levodopa 1 tablet 04/03/25 04:30 04/05/25 20:36 Carbidopa/Levodopa 25/100 Mg Tablet BY MOUTH 1 tablet HS JAYDON Administration Docusate Sodium 100 mg 04/05/25 16:54 04/05/25 18:53 Docusate Sodium 100 Mg Capsule PO 100 mg Q12H PRN Administration Constipation Hydroxychloroquine Sulfate 400 mg 04/03/25 08:00 04/06/25 09:55 Hydroxychloroquine Sulfate 200 Mg Tablet BY MOUTH 400 mg DAILY@0800 JAYDON Administration Amiodarone HCl/Dextrose 360 mg in 200 mls @ 16.667 mls/hr 04/06/25 01:00 04/06/25 14:00 Nexterone 360 Mg/D5w 200 Ml IV CONT 0.5 mg/min .Q12H JAYDON 16.67 mls/hr 0.5 MG/MIN Infusion Levalbuterol HCl 0.63 mg 04/05/25 08:12 04/05/25 08:34 Levalbuterol Neb 1.25 Mg/3 Ml INHALATION 0.63 mg Q6HRT PRN Administration Wheezing Metoprolol Tartrate 25 mg 04/06/25 09:25 04/06/25 13:53 Metoprolol Tartrate 25 Mg Tablet PO 25 mg Q8HR JAYDON Administration Montelukast Sodium 10 mg 04/03/25 09:00 04/06/25 09:55 Montelukast Sodium 10 Mg Tablet BY MOUTH 10 mg DAILY JAYDON Administration Mycophenolate Mofetil 1,000 mg 04/03/25 09:00 04/06/25 09:52 Mycophenolate Mofetil 250 Mg Capsule PO 1,000 mg Q12HR [facility] Administration Ondansetron HCl 4 mg 04/03/25 15:09 04/04/25 17:31 Ondansetron Inj 4 Mg/2 Ml Vial IV PUSH 4 mg Q6H PRN Administration Nausea And Vomiting Polyethylene Glycol 17 gm 04/05/25 16:54 Polyethylene Glycol 3350 17 Gm Powd.Pack PO QAM PRN Constipation Fluticasone/Salmeterol 2 puff 04/03/25 08:00 04/06/25 09:15 Fluticasone/Salmeterol 115-21 Mcg Inhaler 1 Puff INHALATION Not Given Q12HRT [facility] Tramadol HCl 50 mg 04/03/25 08:42 04/05/25 20:36 Tramadol Hcl (*Crx) 50 Mg Tablet PO 50 mg QHS PRN Administration Pain or insomnia Warfarin Sodium 10 mg 04/05/25 17:00 04/06/25 17:15 Warfarin (*Pbkc) 10 Mg Tablet PO 10 mg DAILY@1700 JAYDON Administration Radiology Results: ITS Impressions Renal Ultrasound 10/17/25 08:21 IMPRESSION: 1. Normal kidney sizes. No hydronephrosis. Chest X-Ray 04/04/25 18:26 Impression: CHF Labs Labs: Laboratory Results - last 24 hr 04/06/25 04:13 PT 21.7 H INR 2.0 Sodium 134 L Potassium 3.3 L Chloride 100 Carbon Dioxide 27 Anion Gap 7 BUN 19 H Creatinine 1.78 H Estim Creat Clear Calc 40 Estimated GFR 30 L Glucose 90 Calcium 8.8 Phosphorus 2.4 L Magnesium 1.8 Total Bilirubin 0.2 AST 27 ALT 10 Alkaline Phosphatase 61 Total Protein 6.4 Albumin 3.4 L
[2025-04-06 14:08] LABS: ACE 48 U/L (14-82); Albumin 3.7 g/dL (2.9-4.4); Alpha-1-Globulin 0.3 g/dL (0.0-0.4); Alpha-2-Globulin 1.0 g/dL (0.4-1.0); Gamma Globulin 1.5 g/dL (0.4-1.8)
[2025-04-06 15:19] LABS: Alanine Aminotransferase 24 U/L (6-35); Albumin Level 3.6 g/dL (3.5-5.1); Alkaline Phosphatase 59 U/L (38-126); Anion Gap 7 mmol/L (4-12); Aspartate Amino Transferase 25 U/L (14-36); Bilirubin,Total 0.3 mg/dL (0.2-1.3); Blood Urea Nitrogen 19 mg/dL (7-17); Calcium 8.9 mg/dL (8.4-10.2); Carbon Dioxide 29 mmol/L (22-30); Chloride 98 mmol/L (98-107); Estimated CRCL calculation 41 ml/min; Estimated Glomerular Filt Rate 31; Glucose 100 mg/dL (65-110); Magnesium 1.9 mg/dL (1.6-2.3); Potassium 4.0 mmol/L (3.4-5.0); Sodium 134 mmol/L (137-145); Total Protein 6.9 g/dL (6.3-8.2)
--- NOTE | 2025-04-06 16:47 | PM.IMPN ---
Progress Note: A&P Assessment and Plan (1) Hypercalcemia: Code(s): E83.52 - Hypercalcemia Status: Acute Assessment and Plan: Patient presented with hypercalcemia in setting of acute on chronic renal failure. Patient takes supplemental vitamin-D and calcium her vitamin-D level was very high patient also taking high dose of Aldactone by mistake. Hypercalcemia likely secondary to dehydration acute kidney injury and iatrogenic vitamin-D toxicity although other possibilities will be ruled out. She also admitted that she was taking significant amount of Tums for abdominal discomfort and heartburn. EKG on presentation was reviewed and shows no sign of hypercalcemia toxicity and also patient has a normal mental status and symptoms have improved. Case was discussed with nephrology patient was started on calcitonin Calcium level is improved significantly and is in normal range. Will hold further fluids and Lasix. Will also discontinue calcitonin considering patient is having significant nausea vomiting after the dosing. Vitamin-D level > 126 and will be held Low PTH level suggests against hyperparathyroidism. PTH related peptide is pending. TSH is normal resolved, Ca 8.9, Calcium and Vit D supplements on hold (2) Acute on chronic renal failure: Code(s): N17.9 - Acute kidney failure, unspecified; N18.9 - Chronic kidney disease, unspecified Status: Acute Assessment and Plan: Monitor urine output electrolytes and creatinine Creatinine is improving and is down to 1.74 from 3.74 Accurate I&Os Replace low potassium phosphate and magnesium Renal ultrasound negative CK level was not significantly elevated. (3) CHF (congestive heart failure): Code(s): I50.9 - Heart failure, unspecified Status: Acute Assessment and Plan: Patient has history of congestive heart failure. Hold Coreg, Aldactone, Entresto Patient receiving IV fluids will have to be cautious with amount Patient received Lasix last night will hold further dosing at this time. Patient is on room air. ECHO showed EF 50% (4) Antiphospholipid syndrome: Code(s): D68.61 - Antiphospholipid syndrome Status: Acute Assessment and Plan: Patient on anticoagulation and has IVC filter. INR was supratherapeutic and Coumadin was on hold. INR now down to controlled range. Will restart warfarin. Continue Daily INR monitoring. (5) Morbid obesity: Code(s): E66.01 - Morbid (severe) obesity due to excess calories Status: Acute Assessment and Plan: Morbid obesity (6) Vitamin D deficiency, unspecified: Code(s): E55.9 - Vitamin D deficiency, unspecified Status: Acute Assessment and Plan: Patient has vitamin-D deficiency and is on calcium and vitamin-D supplementation -currently on hold-see above (7) Hypomagnesemia: Code(s): E83.42 - Hypomagnesemia Status: Acute Assessment and Plan: Replacement or (8) Acute dehydration: Code(s): E86.0 - Dehydration Status: Acute Assessment and Plan: Hold further IV fluids (9) UTI (urinary tract infection): Code(s): N39.0 - Urinary tract infection, site not specified Status: Acute Assessment and Plan: IV Rocephin Cultures negative till now (10) Systemic Lupus Erythematosus: Onset Date: ~1987 Qualifiers: Systemic lupus erythematosus organ involvement: unspecified Systemic lupus erythematosus type: unspecified Qualified Code(s): M32.9 - Systemic lupus erythematosus, unspecified Code(s): M32.9 - Systemic lupus erythematosus, unspecified Status: Chronic Assessment and Plan: Continue mycophenolate mofetil and hydroxychloroquine (11) COPD (chronic obstructive pulmonary disease): Qualifiers: COPD type: unspecified COPD Qualified Code(s): J44.9 - Chronic obstructive pulmonary disease, unspecified Code(s): J44.9 - Chronic obstructive pulmonary disease, unspecified Status: Chronic Assessment and Plan: Not in exacerbation (12) PAMELA (obstructive sleep apnea): Code(s): G47.33 - Obstructive sleep apnea (adult) (pediatric) Status: Chronic Assessment and Plan: CPAP ordered (13) Hypokalemia: Code(s): E87.6 - Hypokalemia Status: Acute Assessment and Plan: Potassium replacement ordered (14) Atrial fibrillation with RVR: Code(s): I48.91 - Unspecified atrial fibrillation Status: Acute Assessment and Plan: New onset AFib with RVR overnight. Patient is already anticoagulated. Likely secondary to electrolyte abnormalities Continue amiodarone infusion. Will give another 150 mg IV bolus ECHo reviewed Continue Coreg For DCCV tomorrow cardiology following (15) Elevated troponin: Code(s): R79.89 - Other specified abnormal findings of blood chemistry Status: Acute Assessment and Plan: Patient had mildly elevated troponin since she came in this was in setting off several metabolic derangements and acute renal failure. EKG was reviewed. No ST elevation. Patient denied any chest pain. Echo no regional wall motion abnormalities with EF 50% Patient is already anticoagulated Cardiology consulted Add aspirin Plan DVT prophylaxis -warfarin Nutrition -renal diet Incentive spirometry Up in chair Subjective Date/time seen: 04/06/25 16:47 Interval history: Comfortable at bedside For DCCV tomorrow Review of Systems Review of Systems: All systems reviewed & are unremarkable except as noted in HPI and below (HPI) Constitutional: Constitutional: Reports as per HPI and Reports no additional constitutional complaints Eyes: Eyes: Reports as per HPI and Reports no additional eye complaints ENT: Reports system reviewed and no additional complaints, except as documented and Reports Normal hearing present Cardiovascular: Cardiovascular: Reports no additional cardiovascular complaints Respiratory: Respiratory: Reports as per HPI and Reports no additional respiratory complaints Gastrointestinal: Gastrointestinal: Reports as per HPI and Reports no additional gastrointestinal complaints Genitourinary: Genitourinary: Reports no additional female genitourinary complaints Musculoskeletal: Musculoskeletal: Reports no additional musculoskeletal complaints Integumentary/Breasts: Skin/Breast: Reports system reviewed and no additional complaints, except as docu Neurologic: Reports system reviewed and no additional complaints, except as documented and Reports Normal hearing present Psychiatric: Psychiatric: Reports no additional psychiatric complaints and Reports as per HPI Hematologic/Lymphatic: Hematologic/Lymphatic: Reports no additional hematologic/lymphatic complaints Allergic/Immunologic: Allergic/Immunologic: Reports no additional allergic/immunologic complaints Exam Narrative: General: Pt is alert awake and in NAD Lungs/Chest: Trachea central Clear BS B/L, No crackles or wheezing. Cardiac: RRR. Normal S1 S2. No murmurs Circulation: Pedal pulses are intact and symmetrical. Abdomen: Normal bowel sounds.. Soft. NT. ND. Extremities: Patient has bilateral edema. Patient has bilateral chronic venous stasis. The skin in ankles is dark formed and hard : Murray in place Neurologic: Follows commands. Moves all 4 extremities PERRL AO x3 Skin: No Rash Const: General: cooperative, healthy appearing, comfortable, no acute distress, well developed, awake, Physically active, average body habitus and well nourished Nutritional Appearance: average body habitus and well nourished Orientation/consciousness: oriented to person, oriented to place, oriented to time and patient oriented x3 Limitations: no limitations HENMT: Head: normal to inspection, No palpable skull fracture present and normocephalic Face/Nose/Sinus: Normal external nose present Eyes: General: appearance normal, both eyes and all related structures Alignment and Position: alignment normal Pupils: Equal, round and reactive pupils present Neck: Neck: normal visual inspection Chest: Chest palpation & inspection: normal inspection of the chest Resp: Effort & Inspection: normal respiratory effort Auscultation: clear to auscultation bilaterally Percussion: percussion normal Cardio: Palpation: normal PMI Rate: regular rate Rhythm: regular rhythm Heart sounds: S1 normal heart sound present and S2 normal heart sound present Peripheral pulses: Peripheral pulses 2+ throughout GI: Inspection: normal to inspection Auscultation: normal bowel sounds Other: Nontender with light and deep palpation Skin: General skin exam: normal color Lesions: no lesions Rashes: no rashes Trauma: no lacerations or abrasions Wounds: no wounds Hair: normal Nails: normal Neuro: General: oriented to person, oriented to place, oriented to time and patient oriented x3 Cranial nerves: Yes Equal, round and reactive pupils present and Yes Normal hearing present Cognition (Neuro): normal cognition Speech: normal speech Motor exam (neuro): 5/5 motor strength present throughout Sensory Exam: normal sensation Extrem: General: normal to inspection Right upper extremity: normal to inspection and shoulder/upper arm Left upper extremity: normal to inspection and shoulder/upper arm Right lower extremity: normal to inspection Left lower extremity: normal to inspection Psych: Appearance: grossly normal Mental Status: mental status grossly normal Speech and movement: Normal speech and movement present Affect: normal affect Attitude: cooperative Thought process: Normal thought process present Insight: Good insight present (Psych) Judgement: Good judgement present (Psych) Objective Data Vital Signs Vital Signs: Vital Signs - 24 hr 04/05/25 18:00 04/05/25 18:00 04/05/25 18:00 Temperature Pulse Rate 106 H 106 H 107 H Respiratory Rate Blood Pressure 110/68 113/73 Pulse Oximetry 98 Oxygen Delivery 04/05/25 18:22 04/05/25 18:54 04/05/25 20:00 Temperature Pulse Rate 116 H 120 H Respiratory Rate Blood Pressure 113/73 Pulse Oximetry 99 Oxygen Delivery Room Air 04/05/25 20:00 04/05/25 20:05 04/05/25 20:05 Temperature 98.3 F Pulse Rate 107 H 110 H 110 H Respiratory Rate 16 Blood Pressure 108/72 108/72 Pulse Oximetry 96 Oxygen Delivery 04/05/25 22:00 04/05/25 22:10 04/05/25 22:23 Temperature Pulse Rate 131 H 131 H 120 H Respiratory Rate Blood Pressure 91/69 L 91/69 L Pulse Oximetry 90 Oxygen Delivery 04/05/25 22:51 04/06/25 00:00 04/06/25 00:00 Temperature Pulse Rate 109 H 123 H Respiratory Rate 19 Blood Pressure Pulse Oximetry 97 Oxygen Delivery CPAP Room Air 04/06/25 00:10 04/06/25 00:12 04/06/25 00:40 Temperature 98.2 F Pulse Rate 111 H 130 H 129 H Respiratory Rate 15 Blood Pressure 91/73 L Pulse Oximetry 96 Oxygen Delivery 04/06/25 00:40 04/06/25 02:00 04/06/25 02:13 Temperature Pulse Rate 129 H 136 H 131 H Respiratory Rate Blood Pressure 91/73 L 100/74 Pulse Oximetry Oxygen Delivery 04/06/25 02:43 04/06/25 04:00 04/06/25 04:00 Temperature Pulse Rate 122 H 117 H Respiratory Rate 17 Blood Pressure Pulse Oximetry 96 Oxygen Delivery CPAP Room Air 04/06/25 05:07 04/06/25 05:11 04/06/25 06:00 Temperature 98.7 F Pulse Rate 144 H 137 H 129 H Respiratory Rate 20 Blood Pressure 94/56 L 94/56 L Pulse Oximetry 97 Oxygen Delivery 04/06/25 06:15 04/06/25 08:00 04/06/25 08:00 Temperature 98.1 F Pulse Rate 138 H 150 H Respiratory Rate 18 Blood Pressure 104/67 110/60 Pulse Oximetry 98 Oxygen Delivery Room Air 04/06/25 08:00 04/06/25 08:00 04/06/25 09:55 Temperature Pulse Rate 139 H 150 H 141 H Respiratory Rate Blood Pressure 110/60 Pulse Oximetry Oxygen Delivery 04/06/25 10:00 04/06/25 10:00 04/06/25 10:00 Temperature 97.7 F Pulse Rate 135 H 118 H 135 H Respiratory Rate 22 H Blood Pressure 108/76 108/76 Pulse Oximetry 100 Oxygen Delivery 04/06/25 11:45 04/06/25 11:45 04/06/25 11:50 Temperature 97.9 F Pulse Rate 145 H 145 H 136 H Respiratory Rate 18 Blood Pressure 97/71 L Pulse Oximetry 95 Oxygen Delivery 04/06/25 12:00 04/06/25 12:00 04/06/25 12:00 Temperature Pulse Rate 137 H 137 H Respiratory Rate Blood Pressure 97/71 L Pulse Oximetry Oxygen Delivery Room Air 04/06/25 13:53 04/06/25 14:00 04/06/25 14:00 Temperature Pulse Rate 118 H 115 H 117 H Respiratory Rate Blood Pressure 92/70 L Pulse Oximetry Oxygen Delivery 04/06/25 14:00 04/06/25 16:00 04/06/25 16:00 Temperature Pulse Rate 117 H 120 H Respiratory Rate Blood Pressure 92/70 L Pulse Oximetry 96 Oxygen Delivery Room Air 04/06/25 16:00 Temperature 98.5 F Pulse Rate 101 H Respiratory Rate 18 Blood Pressure 109/74 Pulse Oximetry 98 Oxygen Delivery Intake/Output Intake/Output: Intake & Output 04/03/25 04/04/25 04/05/25 04/06/25 23:59 23:59 23:59 23:59 Intake Total 2980 5746.8 1946.2 3306.8 Output Total 3550 5345 2275 1500 Balance -570 401.8 -328.8 1806.8 Meds/Results Medications: Active Medications Generic Name Dose Route Start Last Admin Trade Name Freq PRN Reason Stop Dose Admin Acetaminophen 650 mg 04/05/25 16:54 04/05/25 18:53 Acetaminophen 325 Mg Tablet PO 650 mg Q4H PRN Administration Headache Aspirin 81 mg 04/06/25 09:00 04/06/25 09:54 Aspirin 81 Mg Enteric Tablet PO Not Given QAM JAYDON Azelastine HCl 1 spray 04/03/25 09:00 04/06/25 09:57 Azelastine Hcl Nasal 0.1% 137 Mcg/Spr 30 Ml Btl NASAL 1 spray Q12HR JAYDON Administration Carbidopa/Levodopa 1 tablet 04/03/25 04:30 04/05/25 20:36 Carbidopa/Levodopa 25/100 Mg Tablet BY MOUTH 1 tablet HS JAYDON Administration Docusate Sodium 100 mg 04/05/25 16:54 04/05/25 18:53 Docusate Sodium 100 Mg Capsule PO 100 mg Q12H PRN Administration Constipation Hydroxychloroquine Sulfate 400 mg 04/03/25 08:00 04/06/25 09:55 Hydroxychloroquine Sulfate 200 Mg Tablet BY MOUTH 400 mg DAILY@0800 JAYDON Administration Amiodarone HCl/Dextrose 360 mg in 200 mls @ 16.667 mls/hr 04/06/25 01:00 04/06/25 14:00 Nexterone 360 Mg/D5w 200 Ml IV CONT 0.5 mg/min .Q12H JAYDON 16.67 mls/hr 0.5 MG/MIN Infusion Levalbuterol HCl 0.63 mg 04/05/25 08:12 04/05/25 08:34 Levalbuterol Neb 1.25 Mg/3 Ml INHALATION 0.63 mg Q6HRT PRN Administration Wheezing Metoprolol Tartrate 25 mg 04/06/25 09:25 04/06/25 13:53 Metoprolol Tartrate 25 Mg Tablet PO 25 mg Q8HR JAYDON Administration Montelukast Sodium 10 mg 04/03/25 09:00 04/06/25 09:55 Montelukast Sodium 10 Mg Tablet BY MOUTH 10 mg DAILY JAYDON Administration Mycophenolate Mofetil 1,000 mg 04/03/25 09:00 04/06/25 09:52 Mycophenolate Mofetil 250 Mg Capsule PO 1,000 mg Q12HR [facility] Administration Ondansetron HCl 4 mg 04/03/25 15:09 04/04/25 17:31 Ondansetron Inj 4 Mg/2 Ml Vial IV PUSH 4 mg Q6H PRN Administration Nausea And Vomiting Polyethylene Glycol 17 gm 04/05/25 16:54 Polyethylene Glycol 3350 17 Gm Powd.Pack PO QAM PRN Constipation Fluticasone/Salmeterol 2 puff 04/03/25 08:00 04/06/25 09:15 Fluticasone/Salmeterol 115-21 Mcg Inhaler 1 Puff INHALATION Not Given Q12HRT [facility] Tramadol HCl 50 mg 04/03/25 08:42 04/05/25 20:36 Tramadol Hcl (*Crx) 50 Mg Tablet PO 50 mg QHS PRN Administration Pain or insomnia Warfarin Sodium 10 mg 04/05/25 17:00 04/05/25 16:43 Warfarin (*Pbkc) 10 Mg Tablet PO 10 mg DAILY@1700 JAYDON Administration Radiology Results: ITS Impressions Renal Ultrasound 04/03/25 08:21 IMPRESSION: 1. Normal kidney sizes. No hydronephrosis. Chest X-Ray 04/04/25 18:26 Impression: CHF Labs Labs: Laboratory Results - last 24 hr 04/03/25 04/05/25 04/06/25 17:38 20:45 04:13 PT 21.7 H INR 2.0 Sodium 134 L Potassium 3.3 L Chloride 100 Carbon Dioxide 27 Anion Gap 7 BUN 19 H Creatinine 1.78 H Estim Creat Clear Calc 40 Estimated GFR 30 L Glucose 90 Calcium 8.8 Phosphorus 2.4 L Magnesium 2.0 1.8 Total Bilirubin 0.2 AST 27 ALT 10 Alkaline Phosphatase 61 Total Protein 6.4 Total Protein (PEP) 7.7 Albumin 3.4 L Albumin (PEP) 3.7 Globulin (PEP) 4.0 H Albumin/Globulin Ratio 0.9 Swmvr-0-Lpsgxkwcy 0.3 Hrxrz-5-Jzmscflmc 1.0 Beta Globulins 1.2 Gamma Globulins 1.5 PEP Comment Comment Angiotensin Convert Enz 48 PTH Related Peptide Cancelled Pr Electrophoresis MSpike 0.3 H 04/06/25 14:58 PT INR Sodium 134 L Potassium 4.0 Chloride 98 Carbon Dioxide 29 Anion Gap 7 BUN 19 H Creatinine 1.74 H Estim Creat Clear Calc 41 Estimated GFR 31 L Glucose 100 Calcium 8.9 Phosphorus Magnesium 1.9 Total Bilirubin 0.3 AST 25 ALT 24 Alkaline Phosphatase 59 Total Protein 6.9 Total Protein (PEP) Albumin 3.6 Albumin (PEP) Globulin (PEP) Albumin/Globulin Ratio Piwsx-9-Igmnpqdaj Yhyts-7-Upkagztqa Beta Globulins Gamma Globulins PEP Comment Angiotensin Convert Enz PTH Related Peptide Pr Electrophoresis MSpike Quality VTE Prophylaxis VTE prophylaxis: pharmacologic ordered
[2025-04-06] MEDS: WARFARIN (*PBKC) 10 MG TABLET PO (17:15)
[2025-04-06] MEDS: DOCUSATE SODIUM 100 MG CAPSULE PO (20:43)
[2025-04-06] MEDS: CARBIDOPA/LEVODOPA 25/100 MG TABLET 1 TABLET BY MOUTH (20:43)
[2025-04-06] MEDS: traMADol HCL (*CRX) 50 MG TABLET PO (20:47)
[2025-04-06] MEDS: FLUTICASONE/SALMETEROL 115-21 MCG INHALER 1 PUFF 2 PUFF INHALATION (21:03)
[2025-04-06] MEDS: WATER FOR IRRIGATION, STERILE 1,000 ML BOTTLE 1000 ML (22:35)
[2025-04-07] VITALS (36 sets, daily range): BP systolic 84–116; BP diastolic 53–93; PULSE 61–144; RESP 12–20; TEMP 36.6–37; O2SAT 94–100
[2025-04-07 04:39] LABS: Hematocrit 31.9 % (37.0-47.0); Hemoglobin 10.0 g/dL (12.0-15.0); Immature Granulocyte Percent A 0.4 % (0-0.5); Lymphocytes Absolute Auto 1.63 K/mm3 (0.9-3.2); Mean Corpuscular HGB Conc 31.3 g/dl (32-36); Mean Corpuscular Hemoglobin 28.7 pg (26-34); Mean Corpuscular Volume 91.4 fl (80-100); Nucleated Red Blood Cells Absolute Auto 0.000 K/mm3 (0.0-0.012); Nucleated Red Blood Cells Perc 0.0 % (0.0-0.2); Platelet Count Result 124 k/mm3 (150-375); Red Blood Count 3.49 M/mm3 (4.2-5.4); White Blood Count 7.5 K/mm3 (4.5-10.0)
[2025-04-07 04:51] LABS: INR 2.0; Prothrombin Time 22.3 Seconds (11.1-14.7)
[2025-04-07 05:07] LABS: Alanine Aminotransferase 10 U/L (6-35); Albumin Level 3.4 g/dL (3.5-5.1); Alkaline Phosphatase 57 U/L (38-126); Anion Gap 7 mmol/L (4-12); Aspartate Amino Transferase 25 U/L (14-36); Bilirubin,Total 0.2 mg/dL (0.2-1.3); Blood Urea Nitrogen 21 mg/dL (7-17); Calcium 8.8 mg/dL (8.4-10.2); Carbon Dioxide 26 mmol/L (22-30); Chloride 100 mmol/L (98-107); Estimated CRCL calculation 41 ml/min; Estimated Glomerular Filt Rate 31; Glucose 88 mg/dL (65-110); Magnesium 1.8 mg/dL (1.6-2.3); Potassium 3.4 mmol/L (3.4-5.0); Sodium 133 mmol/L (137-145); Total Protein 6.4 g/dL (6.3-8.2)
[2025-04-07] MEDS: METOPROLOL TARTRATE 25 MG TABLET PO (06:28)
--- NOTE | 2025-04-07 07:26 | P.PNIM_ITS ---
Progress Note: A&P Assessment and Plan (1) Hypercalcemia: Code(s): E83.52 - Hypercalcemia Status: Acute Assessment and Plan: Patient presented with hypercalcemia in setting of acute on chronic renal failure. Patient takes supplemental vitamin-D and calcium her vitamin-D level was very high patient also taking high dose of Aldactone by mistake. Hypercalcemia likely secondary to dehydration acute kidney injury and iatrogenic vitamin-D toxicity although other possibilities will be ruled out. She also admitted that she was taking significant amount of Tums for abdominal discomfort and heartburn. EKG on presentation was reviewed and shows no sign of hypercalcemia toxicity and also patient has a normal mental status and symptoms have improved. Case was discussed with nephrology patient was started on calcitonin Calcium level is improved significantly and is in normal range. Will hold further fluids and Lasix. Will also discontinue calcitonin considering patient is having significant nausea vomiting after the dosing. Vitamin-D level > 126 and will be held Low PTH level suggests against hyperparathyroidism. PTH related peptide is pending. TSH is normal resolved, Ca 8.9, Calcium and Vit D supplements on hold (2) Acute on chronic renal failure: Code(s): N17.9 - Acute kidney failure, unspecified; N18.9 - Chronic kidney disease, unspecified Status: Acute Assessment and Plan: Monitor urine output electrolytes and creatinine Creatinine is improving and is down to 1.74 from 3.74 Accurate I&Os Replace low potassium phosphate and magnesium Renal ultrasound negative CK level was not significantly elevated. (3) CHF (congestive heart failure): Code(s): I50.9 - Heart failure, unspecified Status: Acute Assessment and Plan: Patient has history of congestive heart failure. Hold Coreg, Aldactone, Entresto Patient receiving IV fluids will have to be cautious with amount Patient received Lasix last night will hold further dosing at this time. Patient is on room air. ECHO showed EF 50% (4) Antiphospholipid syndrome: Code(s): D68.61 - Antiphospholipid syndrome Status: Acute Assessment and Plan: Patient on anticoagulation and has IVC filter. INR was supratherapeutic and Coumadin was on hold. INR now down to controlled range. Will restart warfarin. Continue Daily INR monitoring. (5) Morbid obesity: Code(s): E66.01 - Morbid (severe) obesity due to excess calories Status: Acute Assessment and Plan: Morbid obesity (6) Vitamin D deficiency, unspecified: Code(s): E55.9 - Vitamin D deficiency, unspecified Status: Acute Assessment and Plan: Patient has vitamin-D deficiency and is on calcium and vitamin-D supplementation -currently on hold-see above (7) Hypomagnesemia: Code(s): E83.42 - Hypomagnesemia Status: Acute Assessment and Plan: Replacement or (8) Acute dehydration: Code(s): E86.0 - Dehydration Status: Acute Assessment and Plan: Hold further IV fluids (9) UTI (urinary tract infection): Code(s): N39.0 - Urinary tract infection, site not specified Status: Acute Assessment and Plan: IV Rocephin Cultures negative till now (10) Systemic Lupus Erythematosus: Onset Date: ~1987 Qualifiers: Systemic lupus erythematosus organ involvement: unspecified Systemic lupus erythematosus type: unspecified Qualified Code(s): M32.9 - Systemic lupus erythematosus, unspecified Code(s): M32.9 - Systemic lupus erythematosus, unspecified Status: Chronic Assessment and Plan: Continue mycophenolate mofetil and hydroxychloroquine (11) COPD (chronic obstructive pulmonary disease): Qualifiers: COPD type: unspecified COPD Qualified Code(s): J44.9 - Chronic obstructive pulmonary disease, unspecified Code(s): J44.9 - Chronic obstructive pulmonary disease, unspecified Status: Chronic Assessment and Plan: Not in exacerbation (12) PAMELA (obstructive sleep apnea): Code(s): G47.33 - Obstructive sleep apnea (adult) (pediatric) Status: Chronic Assessment and Plan: CPAP ordered (13) Hypokalemia: Code(s): E87.6 - Hypokalemia Status: Acute Assessment and Plan: Potassium replacement ordered (14) Atrial fibrillation with RVR: Code(s): I48.91 - Unspecified atrial fibrillation Status: Acute Assessment and Plan: New onset AFib with RVR overnight. Patient is already anticoagulated. Likely secondary to electrolyte abnormalities Continue amiodarone infusion. Will give another 150 mg IV bolus ECHo reviewed Continue Coreg Underwent cardioversion cardiology following (15) Elevated troponin: Code(s): R79.89 - Other specified abnormal findings of blood chemistry Status: Acute Assessment and Plan: Patient had mildly elevated troponin since she came in this was in setting off several metabolic derangements and acute renal failure. EKG was reviewed. No ST elevation. Patient denied any chest pain. Echo no regional wall motion abnormalities with EF 50% Patient is already anticoagulated Cardiology consulted Add aspirin Plan DVT prophylaxis -warfarin Nutrition -renal diet Incentive spirometry Up in chair Subjective Date/time seen: 04/07/25 07:26 Interval history: Patient underwent cardioversion. Currently on sinus rhythm. Review of Systems Review of Systems: All systems reviewed & are unremarkable except as noted in HPI and below (HPI) Constitutional: Constitutional: Reports as per HPI and Reports no additional constitutional complaints Eyes: Eyes: Reports as per HPI and Reports no additional eye complaints ENT: Reports system reviewed and no additional complaints, except as documented and Reports Normal hearing present Cardiovascular: Cardiovascular: Reports no additional cardiovascular complaints Respiratory: Respiratory: Reports as per HPI and Reports no additional respiratory complaints Gastrointestinal: Gastrointestinal: Reports as per HPI and Reports no additional gastrointestinal complaints Genitourinary: Genitourinary: Reports no additional female genitourinary complaints Musculoskeletal: Musculoskeletal: Reports no additional musculoskeletal complaints Integumentary/Breasts: Skin/Breast: Reports system reviewed and no additional complaints, except as docu Neurologic: Reports system reviewed and no additional complaints, except as documented and Reports Normal hearing present Psychiatric: Psychiatric: Reports no additional psychiatric complaints and Reports as per HPI Hematologic/Lymphatic: Hematologic/Lymphatic: Reports no additional hematologic/lymphatic complaints Allergic/Immunologic: Allergic/Immunologic: Reports no additional allergic/immunologic complaints Exam Narrative: General: Pt is alert awake and in NAD Lungs/Chest: Trachea central Clear BS B/L, No crackles or wheezing. Cardiac: RRR. Normal S1 S2. No murmurs Circulation: Pedal pulses are intact and symmetrical. Abdomen: Normal bowel sounds.. Soft. NT. ND. Extremities: Patient has bilateral edema. Patient has bilateral chronic venous stasis. The skin in ankles is dark formed and hard : Murray in place Neurologic: Follows commands. Moves all 4 extremities PERRL AO x3 Skin: No Rash Const: General: cooperative, healthy appearing, comfortable, no acute distress, well developed, awake, Physically active, average body habitus and well nourished Nutritional Appearance: average body habitus and well nourished Orientation/consciousness: oriented to person, oriented to place, oriented to time and patient oriented x3 Limitations: no limitations HENMT: Head: normal to inspection, No palpable skull fracture present and normocephalic Face/Nose/Sinus: Normal external nose present Eyes: General: appearance normal, both eyes and all related structures Alignment and Position: alignment normal Pupils: Equal, round and reactive pupils present Neck: Neck: normal visual inspection Chest: Chest palpation & inspection: normal inspection of the chest Resp: Effort & Inspection: normal respiratory effort Auscultation: clear to auscultation bilaterally Percussion: percussion normal Cardio: Palpation: normal PMI Rate: regular rate Rhythm: regular rhythm Heart sounds: S1 normal heart sound present and S2 normal heart sound present Peripheral pulses: Peripheral pulses 2+ throughout GI: Inspection: normal to inspection Auscultation: normal bowel sounds Other: Nontender with light and deep palpation Skin: General skin exam: normal color Lesions: no lesions Rashes: no rashes Trauma: no lacerations or abrasions Wounds: no wounds Hair: normal Nails: normal Neuro: General: oriented to person, oriented to place, oriented to time and patient oriented x3 Cranial nerves: Yes Equal, round and reactive pupils present and Yes Normal hearing present Cognition (Neuro): normal cognition Speech: normal speech Motor exam (neuro): 5/5 motor strength present throughout Sensory Exam: normal sensation Extrem: General: normal to inspection Right upper extremity: normal to inspection and shoulder/upper arm Left upper extremity: normal to inspection and shoulder/upper arm Right lower extremity: normal to inspection Left lower extremity: normal to inspection Psych: Appearance: grossly normal Mental Status: mental status grossly normal Speech and movement: Normal speech and movement present Affect: normal affect Attitude: cooperative Thought process: Normal thought process present Insight: Good insight present (Psych) Judgement: Good judgement present (Psych) Objective Data Vital Signs Vital Signs: Vital Signs - 24 hr 04/06/25 08:00 04/06/25 08:00 04/06/25 08:00 Temperature 98.1 F Pulse Rate 150 H 139 H Respiratory Rate 18 Blood Pressure 110/60 Pulse Oximetry 98 Oxygen Delivery Room Air 04/06/25 08:00 04/06/25 09:55 04/06/25 10:00 Temperature 97.7 F Pulse Rate 150 H 141 H 135 H Respiratory Rate 22 H Blood Pressure 110/60 108/76 Pulse Oximetry 100 Oxygen Delivery 04/06/25 10:00 04/06/25 10:00 04/06/25 11:45 Temperature Pulse Rate 118 H 135 H 145 H Respiratory Rate Blood Pressure 108/76 Pulse Oximetry Oxygen Delivery 04/06/25 11:45 04/06/25 11:50 04/06/25 12:00 Temperature 97.9 F Pulse Rate 145 H 136 H Respiratory Rate 18 Blood Pressure 97/71 L Pulse Oximetry 95 Oxygen Delivery Room Air 04/06/25 12:00 04/06/25 12:00 04/06/25 13:53 Temperature Pulse Rate 137 H 137 H 118 H Respiratory Rate Blood Pressure 97/71 L Pulse Oximetry Oxygen Delivery 04/06/25 14:00 04/06/25 14:00 04/06/25 14:00 Temperature Pulse Rate 115 H 117 H 117 H Respiratory Rate Blood Pressure 92/70 L 92/70 L Pulse Oximetry 96 Oxygen Delivery 04/06/25 16:00 04/06/25 16:00 04/06/25 16:00 Temperature 98.5 F Pulse Rate 120 H 101 H Respiratory Rate 18 Blood Pressure 109/74 Pulse Oximetry 98 Oxygen Delivery Room Air 04/06/25 16:00 04/06/25 18:00 04/06/25 18:00 Temperature 98.2 F Pulse Rate 101 H 127 H 130 H Respiratory Rate 20 Blood Pressure 109/74 98/58 L Pulse Oximetry 100 Oxygen Delivery 04/06/25 18:00 04/06/25 19:49 04/06/25 20:00 Temperature Pulse Rate 127 H 141 H Respiratory Rate Blood Pressure 98/58 L 94/64 L Pulse Oximetry Oxygen Delivery Room Air 04/06/25 20:00 04/06/25 20:12 04/06/25 21:04 Temperature 97.9 F Pulse Rate 102 H 119 H 115 H Respiratory Rate 20 20 Blood Pressure 94/64 L Pulse Oximetry 95 Oxygen Delivery 04/06/25 21:06 04/06/25 22:28 04/06/25 22:29 Temperature Pulse Rate 141 H 114 H 133 H Respiratory Rate Blood Pressure 103/79 Pulse Oximetry Oxygen Delivery 04/06/25 23:46 04/07/25 00:00 04/07/25 00:00 Temperature Pulse Rate 118 H 110 H Respiratory Rate Blood Pressure Pulse Oximetry Oxygen Delivery Room Air 04/07/25 00:11 04/07/25 00:21 04/07/25 00:30 Temperature Pulse Rate 111 H 118 H 115 H Respiratory Rate 18 Blood Pressure 98/62 L Pulse Oximetry 96 Oxygen Delivery CPAP 04/07/25 00:33 04/07/25 01:32 04/07/25 01:58 Temperature 97.8 F Pulse Rate 115 H 114 H 113 H Respiratory Rate 16 18 Blood Pressure 98/62 L Pulse Oximetry 94 96 Oxygen Delivery CPAP 04/07/25 02:50 04/07/25 04:00 04/07/25 04:00 Temperature Pulse Rate 106 H 101 H Respiratory Rate Blood Pressure 94/61 L Pulse Oximetry Oxygen Delivery Room Air 04/07/25 04:07 04/07/25 04:17 04/07/25 04:27 Temperature 97.8 F Pulse Rate 107 H 107 H 110 H Respiratory Rate 18 15 Blood Pressure 101/72 101/72 Pulse Oximetry 97 96 Oxygen Delivery CPAP 04/07/25 05:58 04/07/25 06:28 04/07/25 06:32 Temperature Pulse Rate 118 H 131 H 111 H Respiratory Rate Blood Pressure 89/59 L Pulse Oximetry Oxygen Delivery Intake/Output Intake/Output: Intake & Output 04/04/25 04/05/25 04/06/25 04/07/25 23:59 23:59 23:59 23:59 Intake Total 5746.8 1946.2 3709.3 653.1 Output Total 5345 2275 1500 1200 Balance 401.8 -328.8 2209.3 -546.9 Meds/Results Medications: Active Medications Generic Name Dose Route Start Last Admin Trade Name Freq PRN Reason Stop Dose Admin Acetaminophen 650 mg 04/05/25 16:54 04/05/25 18:53 Acetaminophen 325 Mg Tablet PO 650 mg Q4H PRN Administration Headache Aspirin 81 mg 04/06/25 09:00 04/06/25 09:54 Aspirin 81 Mg Enteric Tablet PO Not Given QAM JAYDON Azelastine HCl 1 spray 04/03/25 09:00 04/06/25 20:49 Azelastine Hcl Nasal 0.1% 137 Mcg/Spr 30 Ml Btl NASAL 1 spray Q12HR JAYDON Administration Carbidopa/Levodopa 1 tablet 04/03/25 04:30 04/06/25 20:43 Carbidopa/Levodopa 25/100 Mg Tablet BY MOUTH 1 tablet HS JAYDON Administration Docusate Sodium 100 mg 04/05/25 16:54 04/06/25 20:43 Docusate Sodium 100 Mg Capsule PO 100 mg Q12H PRN Administration Constipation Hydroxychloroquine Sulfate 400 mg 04/03/25 08:00 04/06/25 09:55 Hydroxychloroquine Sulfate 200 Mg Tablet BY MOUTH 400 mg DAILY@0800 JAYDON Administration Amiodarone HCl/Dextrose 360 mg in 200 mls @ 16.667 mls/hr 04/06/25 01:00 04/07/25 06:32 Nexterone 360 Mg/D5w 200 Ml IV CONT 0.5 mg/min .Q12H JAYDON 16.67 mls/hr 0.5 MG/MIN Infusion Levalbuterol HCl 0.63 mg 04/05/25 08:12 04/05/25 08:34 Levalbuterol Neb 1.25 Mg/3 Ml INHALATION 0.63 mg Q6HRT PRN Administration Wheezing Metoprolol Tartrate 25 mg 04/06/25 09:25 04/07/25 06:28 Metoprolol Tartrate 25 Mg Tablet PO 25 mg Q8HR JAYDON Administration Montelukast Sodium 10 mg 04/03/25 09:00 04/06/25 09:55 Montelukast Sodium 10 Mg Tablet BY MOUTH 10 mg DAILY JAYDON Administration Mycophenolate Mofetil 1,000 mg 04/03/25 09:00 04/06/25 20:41 Mycophenolate Mofetil 250 Mg Capsule PO 1,000 mg Q12HR JAYDON Administration Ondansetron HCl 4 mg 04/03/25 15:09 04/04/25 17:31 Ondansetron Inj 4 Mg/2 Ml Vial IV PUSH 4 mg Q6H PRN Administration Nausea And Vomiting Polyethylene Glycol 17 gm 04/05/25 16:54 Polyethylene Glycol 3350 17 Gm Powd.Pack PO QAM PRN Constipation Fluticasone/Salmeterol 2 puff 04/03/25 08:00 04/06/25 21:03 Fluticasone/Salmeterol 115-21 Mcg Inhaler 1 Puff INHALATION 2 puff Q12HRT JAYDON Administration Tramadol HCl 50 mg 04/03/25 08:42 04/06/25 20:47 Tramadol Hcl (*Crx) 50 Mg Tablet PO 50 mg QHS PRN Administration Pain or insomnia Warfarin Sodium 10 mg 04/05/25 17:00 04/06/25 17:15 Warfarin (*Pbkc) 10 Mg Tablet PO 10 mg DAILY@1700 JAYDON Administration Radiology Results: ITS Impressions Renal Ultrasound 04/03/25 08:21 IMPRESSION: 1. Normal kidney sizes. No hydronephrosis. Chest X-Ray 04/04/25 18:26 Impression: CHF Labs Labs: Laboratory Results - last 24 hr 04/03/25 04/06/25 04/07/25 17:38 14:58 04:15 WBC 7.5 RBC 3.49 L Hgb 10.0 L Hct 31.9 L MCV 91.4 MCH 28.7 MCHC 31.3 L RDW 13.1 Plt Count 124 L MPV 13.0 H Immature Gran % (Auto) 0.4 Neut % (Auto) 61.9 Lymph % (Auto) 21.7 [place] % (Auto) 12.6 H Eos % (Auto) 2.7 Baso % (Auto) 0.7 Lymph # (Auto) 1.63 [place] # (Auto) 1.0 H Eos # (Auto) 0.2 Baso # (Auto) 0.1 Abs Immat Gran (auto) 0.03 Absolute Neuts (auto) 4.7 Absolute Nucleated RBC 0.000 Nucleated RBC % 0.0 PT 22.3 H INR 2.0 Sodium 134 L 133 L Potassium 4.0 3.4 Chloride 98 100 Carbon Dioxide 29 26 Anion Gap 7 7 BUN 19 H 21 H Creatinine 1.74 H 1.73 H Estim Creat Clear Calc 41 41 Estimated GFR 31 L 31 L Glucose 100 88 Calcium 8.9 8.8 Phosphorus 2.5 Magnesium 1.9 1.8 Total Bilirubin 0.3 0.2 AST 25 25 ALT 24 10 Alkaline Phosphatase 59 57 Total Protein 6.9 6.4 Total Protein (PEP) 7.7 Albumin 3.6 3.4 L Albumin (PEP) 3.7 Globulin (PEP) 4.0 H Albumin/Globulin Ratio 0.9 [id number]-7-[id number] 0.3 Vnwzk-1-Iphxyeqie 1.0 Beta Globulins 1.2 Gamma Globulins 1.5 PEP Comment Comment Angiotensin Convert Enz 48 PTH Related Peptide Cancelled Pr Electrophoresis MSpike 0.3 H Quality VTE Prophylaxis VTE prophylaxis: pharmacologic ordered Hospitalist MIPS Advance Care Plan I have confirmed that the patient's Advanced Care Plan is present, code status is documented, or surrogate decision maker is listed in patient medical record.: Yes Medication Reconciliation I have utilized all available resources to obtain, update and review the patients current medications (includes all prescriptions, OTC, herbals, cannabis, and nutritional supplements).: Yes
[2025-04-07] MEDS: FLUTICASONE/SALMETEROL 115-21 MCG INHALER 1 PUFF 2 PUFF INHALATION ×2 (08:15→19:49)
[2025-04-07] MEDS: SODIUM CHLORIDE 0.9% IV 500 ML 100 ML (09:00)
--- NOTE | 2025-04-07 09:01 | P.PNNP_ITS ---
Progress Note: A&P Assessment and Plan (1) Hypercalcemia: Code(s): E83.52 - Hypercalcemia Status: Acute Assessment and Plan: * resolved * as noted by outpatient and admission labs * clinically asymptomatic * suspect due to several issues: * prerenal factors * Vitamin D and calcium supplements (Vitamin D level extremely high) * excess spironolactone intake (by mistake) * other? * evaluation to date noted: * RAFAEL level normal * TSH okay * M-spike on SPEP - immunofixation pending * UPEP/urine immunofixation pending * PTHrp pending * iCa elevated as expected * Vitamin D level > 126 * PTH appropriately low * off IVFs (see #5) * s/p SQ calcitonin x 4 doses * follow trend of repeat labs (2) Acute kidney injury: Code(s): N17.9 - Acute kidney failure, unspecified Status: Acute Assessment and Plan: * improving if not back to baseline * as noted by outpatient and admission labs (3.73mg/dl and 3.34mg/dl, respectively) * suspect multifactorial etiology: * prerenal factors * medications (Entresto, spironolactone, cellcept...etc) * hypercalcemia * infection (possible UTI) * other? * evaluation noted: * renal u/s without obstruction * urine electrolytes non-prerenal * urine eosinophils negative * CPK mildly elevated (but not enough to affect kidney function) * proteinuria noted * off IVFs * follow trend of repeat labs and UOP (3) Stage 3 chronic kidney disease: Code(s): N18.30 - Chronic kidney disease, stage 3 unspecified Status: Chronic Assessment and Plan: * baseline creatinine seems to run ~ 1.1 - 1.5mg/dl since 2022 * noted rise in creatinine to 1.72mg/dL in late December 2024 (which was also associated with mildly elevated calcium as well) * this causes her to fluctuate between CKD stage 3A and stage 3B * presumably due to CHF, PAMELA, and possibly lupus/lupus related medications(?) (4) Atrial fibrillation with RVR: Code(s): I48.91 - Unspecified atrial fibrillation Status: Acute Assessment and Plan: * new onset by findings on 04/04 evening * due to hypokalemia(?) * on amiodarone gtt * already on anticoagulation * Echo results (04/03) noted: * LV systolic function is at lower limits of normal, LVEF calculated at 50% * no significant mitral regurgitation * mild aortic stenosis, valve area 1.7 cm2 by Doppler; maximum velocity 2.1 m/sec mean gradient 10 mmHg * trace TR * RVSP 35 mmHg * Cardiology following * switched to metoprolol * planned cardioversion today (5) CHF (congestive heart failure): Code(s): I50.9 - Heart failure, unspecified Status: Acute Assessment and Plan: * history of cardiomyopathy * was compensated on admission * however, CXR on evening on 04/04 with CHF * off IVFs now * s/p IV lasix * repeat Echo noted (see #4) * spironolactone and Entresto on hold due to #2 * follow volume/respiratory status (6) UTI (urinary tract infection): Code(s): N39.0 - Urinary tract infection, site not specified Status: Acute Assessment and Plan: * admission UA suggestive * follow culture data - negative to date * on antibiotics (7) Systemic Lupus Erythematosus: Onset Date: ~1987 Qualifiers: Systemic lupus erythematosus type: unspecified Systemic lupus erythematosus organ involvement: unspecified Qualified Code(s): M32.9 - Systemic lupus erythematosus, unspecified Code(s): M32.9 - Systemic lupus erythematosus, unspecified Status: Chronic Assessment and Plan: * known history * denies any history of lupus nephritis * recently established care with [facility] * on mycophenolate mofetil and hydroxychloroquine (8) Antiphospholipid syndrome: Code(s): D68.61 - Antiphospholipid syndrome Status: Acute Assessment and Plan: * known history * on anticoagulation and with IVC filter * follow INR (9) COPD (chronic obstructive pulmonary disease): Qualifiers: COPD type: unspecified COPD Qualified Code(s): J44.9 - Chronic obstructive pulmonary disease, unspecified Code(s): J44.9 - Chronic obstructive pulmonary disease, unspecified Status: Chronic Assessment and Plan: * no evidence of exacerbation * nebulizer treatments PRN * continue home inhalers (10) PAMELA (obstructive sleep apnea): Code(s): G47.33 - Obstructive sleep apnea (adult) (pediatric) Status: Chronic Assessment and Plan: * continue CPAP Not much else to add -- will continue to follow from a distance. L Subjective Date/time seen: 04/07/25 09:01 Interval history: Follow-up for acute kidney injury/acute renal failure on chronic kidney disease and hypercalcemia. Renal function/creatinine appears to have stabilized if not back to baseline; calcium remains normal as well; noted plan for cardioversion later today; no apparent distress noted when seen; no issues overnight or earlier this morning. Exam 2 Narrative: General: middle aged but WD/WN female in NAD Heart: tachycardic, IRRR, normal S1 and S2; no rub Lungs: clear anteriorly Abdomen: soft, nontender, nondistended, positive bowel sounds Extremities: no cyanosis or clubbing; trace - 1+ edema Skin: no nodules; chronic venous stasis changes Objective Data Vital Signs Vital Signs: Vital Signs Temp Pulse Resp BP Pulse Ox O2 Del Method O2 Flow Rate 04/07/25 09:00 130 H 19 96/67 L 100 Nasal Cannula 2 04/07/25 08:00 129 H 04/07/25 08:00 129 H 96/81 L 04/07/25 08:00 129 H 96/81 L 04/07/25 07:56 98 F 110 H 15 96/81 L 99 04/07/25 06:32 111 H 89/59 L 04/07/25 06:28 131 H 04/07/25 05:58 118 H 04/07/25 04:27 110 H 15 96 CPAP 04/07/25 04:17 107 H 101/72 04/07/25 04:07 97.8 F 107 H 18 101/72 97 04/07/25 04:00 101 H 04/07/25 04:00 Room Air 04/07/25 02:50 106 H 94/61 L 04/07/25 01:58 113 H 04/07/25 01:32 114 H 18 96 CPAP 04/07/25 00:33 97.8 F 115 H 16 98/62 L 94 04/07/25 00:30 115 H 98/62 L 04/07/25 00:21 118 H 04/07/25 00:11 111 H 18 96 CPAP 04/07/25 00:00 110 H 04/07/25 00:00 Room Air 04/06/25 23:46 118 H 04/06/25 22:29 133 H 04/06/25 22:28 114 H 103/79 04/06/25 21:06 141 H 04/06/25 21:04 115 H 20 04/06/25 20:12 97.9 F 119 H 20 94/64 L 95 04/06/25 20:00 102 H 04/06/25 20:00 141 H 94/64 L 04/06/25 19:49 Room Air 04/06/25 18:00 127 H 98/58 L 04/06/25 18:00 130 H 04/06/25 18:00 98.2 F 127 H 20 98/58 L 100 04/06/25 16:00 101 H 109/74 04/06/25 16:00 98.5 F 101 H 18 109/74 98 04/06/25 16:00 Room Air 04/06/25 16:00 120 H 04/06/25 14:00 117 H 92/70 L 96 04/06/25 14:00 117 H 04/06/25 14:00 115 H 92/70 L 04/06/25 13:53 118 H Intake/Output Intake/Output: Intake & Output 04/04/25 04/05/25 04/06/25 04/07/25 23:59 23:59 23:59 23:59 Intake Total 5746.8 1946.2 3709.3 677.5 Output Total 5345 2275 1500 1700 Balance 401.8 -328.8 2209.3 -1022.5 Meds/Results Medications: Active Medications Generic Name Dose Route Start Last Admin Trade Name Freq PRN Reason Stop Dose Admin Acetaminophen 650 mg 04/05/25 16:54 04/05/25 18:53 Acetaminophen 325 Mg Tablet PO 650 mg Q4H PRN Administration Headache Amiodarone HCl 200 mg 04/07/25 10:45 04/07/25 12:04 Amiodarone Hcl 200 Mg Tablet PO 200 mg DAILY@0800 JAYDON Administration Aspirin 81 mg 04/06/25 09:00 04/07/25 12:04 Aspirin 81 Mg Enteric Tablet PO 81 mg QAM JAYDON Administration Azelastine HCl 1 spray 04/03/25 09:00 04/07/25 12:05 Azelastine Hcl Nasal 0.1% 137 Mcg/Spr 30 Ml Btl NASAL 1 spray Q12HR JAYDON Administration Carbidopa/Levodopa 1 tablet 04/03/25 04:30 04/06/25 20:43 Carbidopa/Levodopa 25/100 Mg Tablet BY MOUTH 1 tablet HS JAYDON Administration Carvedilol 3.125 mg 04/07/25 21:00 Carvedilol 3.125 Mg Tablet PO Q12HR JAYDON Docusate Sodium 100 mg 04/05/25 16:54 04/06/25 20:43 Docusate Sodium 100 Mg Capsule PO 100 mg Q12H PRN Administration Constipation Hydroxychloroquine Sulfate 400 mg 04/03/25 08:00 04/07/25 12:05 Hydroxychloroquine Sulfate 200 Mg Tablet BY MOUTH 400 mg DAILY@0800 [facility] Administration Levalbuterol HCl 0.63 mg 04/05/25 08:12 04/05/25 08:34 Levalbuterol Neb 1.25 Mg/3 Ml INHALATION 0.63 mg Q6HRT PRN Administration Wheezing Montelukast Sodium 10 mg 04/03/25 09:00 04/07/25 12:04 Montelukast Sodium 10 Mg Tablet BY MOUTH 10 mg DAILY JAYDON Administration Mycophenolate Mofetil 1,000 mg 04/03/25 09:00 04/07/25 12:04 Mycophenolate Mofetil 250 Mg Capsule PO 1,000 mg Q12HR JAYDON Administration Ondansetron HCl 4 mg 04/03/25 15:09 04/04/25 17:31 Ondansetron Inj 4 Mg/2 Ml Vial IV PUSH 4 mg Q6H PRN Administration Nausea And Vomiting Polyethylene Glycol 17 gm 04/05/25 16:54 Polyethylene Glycol 3350 17 Gm Powd.Pack PO QAM PRN Constipation Fluticasone/Salmeterol 2 puff 04/03/25 08:00 04/07/25 08:15 Fluticasone/Salmeterol 115-21 Mcg Inhaler 1 Puff INHALATION 2 puff Q12HRT [facility] Administration Tramadol HCl 50 mg 04/03/25 08:42 04/06/25 20:47 Tramadol Hcl (*Crx) 50 Mg Tablet PO 50 mg QHS PRN Administration Pain or insomnia Warfarin Sodium 10 mg 04/05/25 17:00 04/06/25 17:15 Warfarin (*Pbkc) 10 Mg Tablet PO 10 mg DAILY@1700 JAYDON Administration Radiology Results: ITS Impressions Renal Ultrasound 04/03/25 08:21 IMPRESSION: 1. Normal kidney sizes. No hydronephrosis. Chest X-Ray 04/04/25 18:26 Impression: CHF Labs Labs: Laboratory Tests 04/07/25 04:15 04/07/25 04:15 PT 22.3 H INR 2.0 Calcium 8.8 Phosphorus 2.5 Magnesium 1.8 Total Bilirubin 0.2 AST 25 ALT 10 Alkaline Phosphatase 57 Total Protein 6.4 Albumin 3.4 L Microbiology 04/03/25 05:12 Blood Blood Culture - Preliminary 04/03/25 04:53 Blood Blood Culture - Preliminary
[2025-04-07] MEDS: PROPOFOL IV EMULSION 200 MG/20 ML VIAL 50 MG IV PUSH (10:35)
--- NOTE | 2025-04-07 10:42 | ECG_ITS ---
Test Date: 2025-04-07 10:44:37 Measurements Intervals [place] Rate: 66 P: 255 TN: 91 QRS: -68 QRSD: 154 T: 35 QT: 439 QTc: 463 Interpretive Statements SINUS RHYTHM BORDERLINE AV CONDUCTION DELAY RIGHT BUNDLE BRANCH BLOCK LEFT ANTERIOR FASCICULAR BLOCK BASELINE ARTIFACT- V5 ABNORMAL ECG Compared to ECG 04/05/2025 18:01:42 ATRIAL FIBRILLATION NO LONGER PRESENT Electronically Signed On 04-07-2025 11:29:03 CDT by Gerardo Gay D.O.
--- NOTE | 2025-04-07 10:46 | P.PCNCVR_ITS ---
Cardioversion Cardioversion Date of procedure: 04/07/25 Indications: AFib with RVR Description of procedure: DATE OF PROCEDURE: 04/07/2025 INDICATION FOR PROCEDURE: Atrial fibrillation with RVR Patient has been on chronic anticoagulation with warfarin for antiphospholipid antibody syndrome. Therefore, hailee was not deemed necessary prior to DC cardioversion. PROCEDURES PERFORMED: 1. Successful synchronized DC cardioversion with zoroastrianism of sinus rhythm 2. Moderate sedation -CPT 45916 SEDATION: Propofol 50 mg IV in 2 divided doses; start time 1035 minutes, stop time 1040 minutes; total [id number] time 5 minutes for sedation, this time does not include preprocedure evaluation; , Mikaela Deleon RN was trained observer for the moderate sedation. PROCEDURE: Informed consent was taken prior to the procedure. Transcutaneous pads were placed in the right parasternal and left paravertebral positions. After adequate conscious sedation with IV propofol, synchronized DC cardioversi on was performed with 200 joules x with zoroastrianism of sinus rhythm. Postprocedure EKG showed sinus rhythm, RBBB. Patient tolerated procedure well without any immediate procedure related complications. CONCLUSION: Successful synchronized DC cardioversion with zoroastrianism of sinus rhythm. RECOMMENDATIONS: Patient is on chronic anticoagulation with warfarin for antiphospholipid antibody syndrome. Her INR has been ranging between 5.9 to 2.0 from 04/02/2025-04/07/2025. Patient will continue warfarin with close monitoring of INRs. Change IV amiodarone to p.o. amiodarone. Outpatient cardiology follow-up for further cardiovascular management. Will determine need for referral to electrophysiology as an outpatient.
[2025-04-07] MEDS: AMIODARONE HCL 200 MG TABLET PO (12:04)
[2025-04-07] MEDS: MONTELUKAST SODIUM 10 MG TABLET BY MOUTH (12:04)
[2025-04-07] MEDS: ASPIRIN 81 MG ENTERIC TABLET PO (12:04)
[2025-04-07] MEDS: HYDROXYCHLOROQUINE SULFATE 200 MG TABLET 400 MG BY MOUTH (12:05)
[2025-04-07] MEDS: AZELASTINE HCL NASAL 0.1% 137 MCG/SPR 30 ML BTL 1 SPRAY NASAL ×2 (12:05→21:35)
[2025-04-07 14:08] LABS: Immunoglobulin A, Qn 507 mg/dL (87-352); Immunoglobulin G, Qn 1312 mg/dL (586-1602); Immunoglobulin M, Qn 149 mg/dL (26-217)
[2025-04-07 14:08] LABS: Albumin, U 25.9 % (.); Alpha-1-Globulin, U 5.1 % (.); Alpha-2-Globulin, U 17.1 % (.); Beta Globulin, U 31.6 % (.); Gamma Globulin, U 20.3 % (.)
[2025-04-07] MEDS: WARFARIN (*PBKC) 10 MG TABLET PO (17:20)
[2025-04-07] MEDS: CARBIDOPA/LEVODOPA 25/100 MG TABLET 1 TABLET BY MOUTH (21:36)
[2025-04-07] MEDS: traMADol HCL (*CRX) 50 MG TABLET PO (21:36)
[2025-04-08] VITALS (13 sets, daily range): BP systolic 91–110; BP diastolic 51–69; PULSE 62–78; RESP 16–20; TEMP 36.7–36.8; O2SAT 96–100
[2025-04-08 02:07] LABS: Osmolality, Urine 352 mOsmol/kg (.)
[2025-04-08 04:18] LABS: Hematocrit 30.8 % (37.0-47.0); Hemoglobin 9.5 g/dL (12.0-15.0); Mean Corpuscular HGB Conc 30.8 g/dl (32-36); Mean Corpuscular Hemoglobin 28.3 pg (26-34); Mean Corpuscular Volume 91.7 fl (80-100); Platelet Count Result 108 k/mm3 (150-375); Red Blood Count 3.36 M/mm3 (4.2-5.4); White Blood Count 6.5 K/mm3 (4.5-10.0)
[2025-04-08 04:33] LABS: INR 2.3; Prothrombin Time 24.5 Seconds (11.1-14.7)
[2025-04-08 04:52] LABS: Alanine Aminotransferase 11 U/L (6-35); Albumin Level 3.3 g/dL (3.5-5.1); Alkaline Phosphatase 57 U/L (38-126); Anion Gap 6 mmol/L (4-12); Aspartate Amino Transferase 23 U/L (14-36); Bilirubin,Total 0.4 mg/dL (0.2-1.3); Blood Urea Nitrogen 26 mg/dL (7-17); Calcium 8.5 mg/dL (8.4-10.2); Carbon Dioxide 26 mmol/L (22-30); Chloride 100 mmol/L (98-107); Estimated CRCL calculation 39 ml/min; Estimated Glomerular Filt Rate 29; Glucose 69 mg/dL (65-110); Magnesium 1.6 mg/dL (1.6-2.3); Potassium 3.4 mmol/L (3.4-5.0); Sodium 132 mmol/L (137-145); Total Protein 6.3 g/dL (6.3-8.2)
--- NOTE | 2025-04-08 07:25 | P.DS_ITS ---
DS: Admitting Diagnosis Discharge Date 04/08/2025 Admitting Diagnosis Abnormal labs DS: Discharge Diagnosis Discharge Diagnosis (1) Hypercalcemia: Code(s): E83.52 - Hypercalcemia Status: Acute Assessment and Plan: Please refer to hospital course for brief summary Patient presented with hypercalcemia in setting of acute on chronic renal failure. Patient takes supplemental vitamin-D and calcium her vitamin-D level was very high patient also taking high dose of Aldactone by mistake. Hypercalcemia likely secondary to dehydration acute kidney injury and iatrogenic vitamin-D toxicity although other possibilities will be ruled out. She also admitted that she was taking significant amount of Tums for abdominal discomfort and heartburn. EKG on presentation was reviewed and shows no sign of hypercalcemia toxicity and also patient has a normal mental status and symptoms have improved. Case was discussed with nephrology patient was started on calcitonin Calcium level is improved significantly and is in normal range. Will hold further fluids and Lasix. Will also discontinue calcitonin considering patient is having significant nausea vomiting after the dosing. Vitamin-D level > 126 and will be held Low PTH level suggests against hyperparathyroidism. PTH related peptide is pending. TSH is normal resolved, Ca 8.9, Calcium and Vit D supplements on hold (2) Acute on chronic renal failure: Code(s): N17.9 - Acute kidney failure, unspecified; N18.9 - Chronic kidney disease, unspecified Status: Acute Assessment and Plan: Monitor urine output electrolytes and creatinine Creatinine is improving and is down to 1.74 from 3.74 Accurate I&Os Replace low potassium phosphate and magnesium Renal ultrasound negative CK level was not significantly elevated. (3) CHF (congestive heart failure): Code(s): I50.9 - Heart failure, unspecified Status: Acute Assessment and Plan: Patient has history of congestive heart failure. Hold Coreg, Aldactone, Entresto Patient receiving IV fluids will have to be cautious with amount Patient received Lasix last night will hold further dosing at this time. Patient is on room air. ECHO showed EF 50% (4) Antiphospholipid syndrome: Code(s): D68.61 - Antiphospholipid syndrome Status: Acute Assessment and Plan: Patient on anticoagulation and has IVC filter. INR was supratherapeutic and Coumadin was on hold. INR now down to controlled range. Will restart warfarin. Continue Daily INR monitoring. (5) Morbid obesity: Code(s): E66.01 - Morbid (severe) obesity due to excess calories Status: Acute Assessment and Plan: Morbid obesity (6) Vitamin D deficiency, unspecified: Code(s): E55.9 - Vitamin D deficiency, unspecified Status: Acute Assessment and Plan: Patient has vitamin-D deficiency and is on calcium and vitamin-D supplementation -currently on hold-see above (7) Hypomagnesemia: Code(s): E83.42 - Hypomagnesemia Status: Acute Assessment and Plan: Replacement or (8) Acute dehydration: Code(s): E86.0 - Dehydration Status: Acute Assessment and Plan: Hold further IV fluids (9) UTI (urinary tract infection): Code(s): N39.0 - Urinary tract infection, site not specified Status: Acute Assessment and Plan: IV Rocephin Cultures negative till now (10) Systemic Lupus Erythematosus: Onset Date: ~1987 Qualifiers: Systemic lupus erythematosus organ involvement: unspecified Systemic lupus erythematosus type: unspecified Qualified Code(s): M32.9 - Systemic lupus erythematosus, unspecified Code(s): M32.9 - Systemic lupus erythematosus, unspecified Status: Chronic Assessment and Plan: Continue mycophenolate mofetil and hydroxychloroquine (11) COPD (chronic obstructive pulmonary disease): Qualifiers: COPD type: unspecified COPD Qualified Code(s): J44.9 - Chronic obstructive pulmonary disease, unspecified Code(s): J44.9 - Chronic obstructive pulmonary disease, unspecified Status: Chronic Assessment and Plan: Not in exacerbation (12) PAMELA (obstructive sleep apnea): Code(s): G47.33 - Obstructive sleep apnea (adult) (pediatric) Status: Chronic Assessment and Plan: CPAP ordered (13) Hypokalemia: Code(s): E87.6 - Hypokalemia Status: Acute Assessment and Plan: Potassium replacement ordered (14) Atrial fibrillation with RVR: Code(s): I48.91 - Unspecified atrial fibrillation Status: Acute Assessment and Plan: New onset AFib with RVR overnight. Patient is already anticoagulated. Likely secondary to electrolyte abnormalities Continue amiodarone infusion. Will give another 150 mg IV bolus ECHo reviewed Continue Coreg Underwent cardioversion cardiology following (15) Elevated troponin: Code(s): R79.89 - Other specified abnormal findings of blood chemistry Status: Acute Assessment and Plan: Patient had mildly elevated troponin since she came in this was in setting off several metabolic derangements and acute renal failure. EKG was reviewed. No ST elevation. Patient denied any chest pain. Echo no regional wall motion abnormalities with EF 50% Patient is already anticoagulated Cardiology consulted Add aspirin DS: Summary Hospital Course Hospital Course: Trinity Spears is a 55 year with past medical history of congestive heart failure, morbid obesity, lupus, antiphospholipid syndrome on anticoagulation with warfarin, COPD, IVC filter presented to ER with chief complaint of abnormal labs yesterday.. Patient started taking Zepbound 5mg for last few months. She has noticed weight loss as expected. She also has had nausea vomiting and low appetite. She states her last few days she has been taking extra dose of spironolactone thinking it was tramadol for her pain she was called by her physician regarding abnormal labs hence she presented to the ER. She states for last few days she has been willing weak tired dizzy lightheaded needs. She had 1 episode where she passed out but denies any head trauma. In ER she was found to be having elevated creatinine of 3.74. Patient has chronic kidney disease but there was acute elevation. Patient also had hypercalcemia with calcium more than 14. I assumed care 04/07. Patient hypercalcemia has been corrected. Patient received calcitonin x4 during this hospitalization. Hypercalcemia possibly due to dehydration and zepbound which is started few months ago. Patient also treated for TAMIKO. Patient needs to follow-up a with Nephrology as an outpatient. Patient is on chronic anticoagulation with warfarin due to antiphospholipid syndrome. Patient underwent cardioversion for AFib on 04/07. Patient needs to follow-up with Dr. Alfred as outpatient. He will determine whether patient needs filler sifter machine referral. Patient will be discharged with Coumadin 10 mg p.o. q.d. and advised to follow-up with INR clinic for further recommendation On the day of discharge, the patient was seen and examined. Vital signs were stable. Physical exam were stable and labs were reviewed at length. Discharge instructions, medications, and follow-up appointments were discussed with the patient at length and all day questions were answered. ER warnings were given. Status at Discharge Cognitive/behavioral status at discharge: Stable Time Spent with Patient Time attestation: Total time spent providing and/or coordinating discharge services: 45 minute Exam Narrative: General: Pt is alert awake and in NAD Lungs/Chest: Trachea central Clear BS B/L, No crackles or wheezing. Cardiac: RRR. Normal S1 S2. No murmurs Circulation: Pedal pulses are intact and symmetrical. Abdomen: Normal bowel sounds.. Soft. NT. ND. Extremities: Patient has bilateral edema. Patient has bilateral chronic venous stasis. The skin in ankles is dark formed and hard : Murray in place Neurologic: Follows commands. Moves all 4 extremities PERRL AO x3 Skin: No Rash Const: General: cooperative, healthy appearing, comfortable, no acute distress, well developed, awake, Physically active, average body habitus and well nourished Nutritional Appearance: average body habitus and well nourished Orientation/consciousness: oriented to person, oriented to place, oriented to time and patient oriented x3 Limitations: no limitations HENMT: Head: normal to inspection, No palpable skull fracture present and normocephalic Face/Nose/Sinus: Normal external nose present Eyes: General: appearance normal, both eyes and all related structures Alignment and Position: alignment normal Pupils: Equal, round and reactive pupils present Neck: Neck: normal visual inspection Chest: Chest palpation & inspection: normal inspection of the chest Resp: Effort & Inspection: normal respiratory effort Auscultation: clear to auscultation bilaterally Percussion: percussion normal Cardio: Palpation: normal PMI Rate: regular rate Rhythm: regular rhythm Heart sounds: S1 normal heart sound present and S2 normal heart sound present Peripheral pulses: Peripheral pulses 2+ throughout GI: Inspection: normal to inspection Auscultation: normal bowel sounds Other: Nontender with light and deep palpation Skin: General skin exam: normal color Lesions: no lesions Rashes: no rashes Trauma: no lacerations or abrasions Wounds: no wounds Hair: normal Nails: normal Neuro: General: oriented to person, oriented to place, oriented to time and patient oriented x3 Cranial nerves: Yes Equal, round and reactive pupils present and Yes Normal hearing present Cognition (Neuro): normal cognition Speech: normal speech Motor exam (neuro): 5/5 motor strength present throughout Sensory Exam: normal sensation Extrem: General: normal to inspection Right upper extremity: normal to inspection and shoulder/upper arm Left upper extremity: normal to inspection and shoulder/upper arm Right lower extremity: normal to inspection Left lower extremity: normal to inspection Psych: Appearance: grossly normal Mental Status: mental status grossly normal Speech and movement: Normal speech and movement present Affect: normal affect Attitude: cooperative Thought process: Normal thought process present Insight: Good insight present (Psych) Judgement: Good judgement present (Psych) DS: Data Data Completed and Pending Labs on day of discharge: Labs from last 24 hours 04/08/25 04/08/25 04/03/25 06:01 04:02 17:38 WBC 6.5 RBC 3.36 L Hgb 9.5 L Hct 30.8 L MCV 91.7 MCH 28.3 MCHC 30.8 L RDW 13.2 Plt Count 108 L MPV 12.6 H PT 24.5 H INR 2.3 Sodium 132 L Potassium 3.4 Chloride 100 Carbon Dioxide 26 Anion Gap 6 BUN 26 H Creatinine 1.82 H Estim Creat Clear Calc 39 Estimated GFR 29 L Glucose 69 POC Capillary Glucose 76 Calcium 8.5 Phosphorus 2.4 L Magnesium 1.6 Total Bilirubin 0.4 AST 23 ALT 11 Alkaline Phosphatase 57 Total Protein 6.3 Albumin 3.3 L Urine Osmolality Urine Total Protein Urine Albumin (PEP) U Anaxj-2-Rmnsemkb U Jpjyv-5-Mffrhrlw U Beta Globulin U Gamma Globulin U Random M-Edson (%) Urine PEP Note IgG 1312 IgA 507 H IgM 149 KIRK Interpretation Comment A 04/03/25 04/03/25 13:58 09:38 WBC RBC Hgb Hct MCV MCH MCHC RDW Plt Count MPV PT INR Sodium Potassium Chloride Carbon Dioxide Anion Gap BUN Creatinine Estim Creat Clear Calc Estimated GFR Glucose POC Capillary Glucose Calcium Phosphorus Magnesium Total Bilirubin AST ALT Alkaline Phosphatase Total Protein Albumin Urine Osmolality 352 Urine Total Protein <4.0 Urine Albumin (PEP) 25.9 U Nkpyw-4-Ulpybofc 5.1 U Awymw-3-Xpropwcc 17.1 U Beta Globulin 31.6 U Gamma Globulin 20.3 U Random M-Edson (%) Comment: Urine PEP Note Comment IgG IgA IgM KIRK Interpretation Preliminary micro results at discharge 04/03/25 05:12 Blood Culture - Preliminary Blood 04/03/25 04:53 Blood Culture - Preliminary Blood Discharge Plan Discharge Attending physician on discharge: Jace Sifuentes Consulting providers: Carter Ross; Caro Maldonado; Ari Valdivia Willis Discharging Clinician: Jace Sifuentes Anticipated Discharge Date/Time: 04/08/25 07:37 Patient Disposition: Home Activity: as tolerated Diet: heart healthy Discharge Instructions: Holding Entresto and spironolactone. Please discuss with your Cardiology before restarting the medication. Patient needs to follow-up with Dr. Alfred as outpatient. He will determine whether patient needs filler sifter machine referral. Please follow-up with INR clinic for further recommendation Check blood pressure 1 to 2 times a day. Record and bring into your doctor for review. Call your doctor if your blood pressure is greater than 180/110 or less than 90/45. Walk with cane or other assist device. Take precautions to avoid falls. Rise slowly from a lying or sitting position. Pause before standing or walking. Contact your doctor or call 911 and come to the Emergency Room if you have any type of trauma, lightheadedness with standing or other worrisome symptoms. Avoid NSAIDs (ibuprofen, naproxen, Aleve). Tylenol is safe to take. Follow-up with your primary care provider in 1-2 weeks. Please call for appointment. Follow-up with Cardiology in 2-4 weeks. Please call for an appointment. Thank you for using [facility] for your health care needs. Patient Instructions: Antibiotic Form, Warfarin (By mouth), Heart Failure (GEN), Hypercoagulation (GEN), Low-Sodium Diet (GEN), Hypercalcemia (GEN), Safe Use of Anticoagulants (GEN), Blood Thinners (GEN) Patient Language: Danish Stand Alone Forms: General Discharge Information Follow-up/Referrals: Dayron Arevalo MD [Primary Care Provider, Family Practice] Lei Lemon MD [Physician, Interventional Cardiology] Discharge Medications: New amiodarone [Pacerone] 200 mg Tablet 200 mg PO DAILY@0800 Qty: 60 0RF docusate sodium 100 mg Capsule 100 mg PO Q12H PRN (Reason: Constipation) Qty: 10 0RF polyethylene glycol 3350 [Miralax] 17 gram Powder In Packet 17 g PO QAM PRN (Reason: Constipation) Qty: 14 0RF Continued carvedilol 3.125 mg tablet 3.125 mg PO Q12H warfarin 10 mg tablet 10 mg PO DAILY Patient Comments: 10mg every mon,wed,sunday/ 7.5 rest of week meclizine 25 mg tablet 25 mg PO TID PRN (Reason: dizziness) Qty: 30 0RF fluticasone propionate [Children's Flonase Allergy Rlf] 50 mcg/actuation spray,suspension 2 spray intranasal DAILY Qty: 16 2RF Rx Instructions: administer into each nostril Debrox 6.5 % drops 10 drp RIGHT EAR Q12H PRN (Reason: wax) 4 Days Qty: 15 0RF albuterol sulfate 90 mcg/actuation HFA aerosol inhaler 2 puff INHALATION Q4-6H PRN (Reason: shortness of breath or wheezing) Qty: 8.5 3RF montelukast 10 mg tablet See Rx Instructions .ROUTE .COMPLEX 90 Days Qty: 90 3RF Dose Instruction: TAKE 1 TABLET BY MOUTH EVERY DAY Rx Instructions: TAKE 1 TABLET BY MOUTH EVERY DAY carbidopa-levodopa 25-100 mg tablet See Rx Instructions .ROUTE .COMPLEX Qty: 90 1RF Dose Instruction: TAKE 1 TABLET BY MOUTH ONE DOSE Rx Instructions: TAKE 1 TABLET BY MOUTH ONE DOSE mycophenolate mofetil 500 mg tablet See Rx Instructions .ROUTE .COMPLEX Qty: 180 3RF Dose Instruction: TAKE 2 TABLETS BY MOUTH EVERY 12 HOURS Rx Instructions: TAKE 2 TABLETS BY MOUTH EVERY 12 HOURS hydroxychloroquine 200 mg tablet See Rx Instructions .ROUTE .COMPLEX Qty: 180 1RF Dose Instruction: TAKE 2 TABLETS BY MOUTH EVERY DAY Rx Instructions: TAKE 2 TABLETS BY MOUTH EVERY DAY azelastine 137 mcg (0.1 %) spray,non-aerosol See Rx Instructions .ROUTE .COMPLEX Qty: 90 3RF Dose Instruction: INSTILL 1 SPRAY EVERY 12 HOURS INTO EACH NOSTRIL Rx Instructions: INSTILL 1 SPRAY EVERY 12 HOURS INTO EACH NOSTRIL tramadol 50 mg tablet 50 mg PO Q8H PRN (Reason: pain) Qty: 60 1RF budesonide-formoterol [Symbicort] 160-4.5 mcg/actuation HFA aerosol inhaler 2 puff INHALATION Q12H Qty: 10.2 11RF Rx Instructions: rinse and spit Held cetirizine 10 mg tablet 10 mg PO DAILY Hold Instructions: Resume on 05/20/25. Please discuss with your PCP before re-starting the medication Entresto 49-51 mg tablet 2 tablet PO BID Hold Instructions: Resume on 04/22/25. Please discuss with your Cardiology before restarting the medication spironolactone 50 mg tablet 50 mg PO DAILY Hold Instructions: Resume on 04/22/25. Please discuss with your Cardiology before restarting the medication cholecalciferol (vitamin D3) 125 mcg (5,000 unit) capsule 125 mcg PO DAILY Qty: 90 1RF Hold Instructions: Resume on 05/20/25. Please discuss with her PCP before restarting the medication Date of admission: 04/03/25 12:02 Primary Care Provider: Dayron Arevalo Admitting Provider: Arminda Russo Attending physician on admission: Arminda Russo Condition: Stable
[2025-04-08] MEDS: FLUTICASONE/SALMETEROL 115-21 MCG INHALER 1 PUFF 2 PUFF INHALATION (07:46)
[2025-04-08] MEDS: HYDROXYCHLOROQUINE SULFATE 200 MG TABLET 400 MG BY MOUTH (08:31)
[2025-04-08] MEDS: MONTELUKAST SODIUM 10 MG TABLET BY MOUTH (08:33)
[2025-04-08] MEDS: AMIODARONE HCL 200 MG TABLET PO (08:34)
[2025-04-08] MEDS: ASPIRIN 81 MG ENTERIC TABLET PO (08:34)
[2025-04-08] MEDS: AZELASTINE HCL NASAL 0.1% 137 MCG/SPR 30 ML BTL 1 SPRAY NASAL (08:35)
[2025-04-08 12:08] LABS: Osmolality, Serum 298 mOsmol/kg (275-295)
--- NOTE | 2025-04-08 12:23 | PC.NURSE ---
1227 discharged home- instructions discussed with pt and pt verbalized understanding. pt will call to make follow-up PCP and Cardiology appointments- home via wheelchair accompanied pt CCT to private vehicle
[2025-04-11 19:08] LABS: 1,25-Dihydroxy, Vitamin D-2 <10 pg/mL (.); 1,25-Dihydroxy, Vitamin D-3 46 pg/mL (.); Total 1,25-Dihydroxy,Vitamin D 46 pg/mL (.)
== END 2025-04-08 12:25 | disposition home or self-care (01) | DRG 683 ==
LOC: ANHED 19:05 → ANHICU 20:02 → ANH2MED 04-04 16:13 → ANHICU 04-04 18:09 → ANHIMU 04-05 15:31
PROVIDERS: Internal Medicine; Internal Medicine Cardiovascular Disease; Internal Medicine Nephrology; Nurse Practitioner; Nurse Practitioner Gerontology; Admitting Provider Internal Medicine; Emergency Provider Emergency Medicine; PCP Family Medicine; Visit Provider General Practice
PROC: 5A2204Z Restoration of Cardiac Rhythm, Single (ICD-10-PCS; principal; 2025-04-07 09:00)
DX: N17.9 Acute kidney failure, unspecified (principal); D68.61 Antiphospholipid syndrome; I50.42 Chronic combined systolic (congestive) and diastolic (congestive) heart failure; Z68.42 Body mass index [BMI] 45.0-49.9, adult; N39.0 Urinary tract infection, site not specified; I42.9 Cardiomyopathy, unspecified; N18.9 Chronic kidney disease, unspecified; E83.52 Hypercalcemia; E86.0 Dehydration; T50.0X1A Poisoning by mineralocorticoids and their antagonists, accidental (unintentional), initial encounter; T38.3X5A Adverse effect of insulin and oral hypoglycemic [antidiabetic] drugs, initial encounter; I48.91 Unspecified atrial fibrillation; E67.3 Hypervitaminosis D; I45.10 Unspecified right bundle-branch block; E83.42 Hypomagnesemia; M32.9 Systemic lupus erythematosus, unspecified; N18.30 Chronic kidney disease, stage 3 unspecified; K21.9 Gastro-esophageal reflux disease without esophagitis; M19.90 Unspecified osteoarthritis, unspecified site; E66.01 Morbid (severe) obesity due to excess calories; G47.33 Obstructive sleep apnea (adult) (pediatric); I87.8 Other specified disorders of veins; R79.89 Other specified abnormal findings of blood chemistry; J44.9 Chronic obstructive pulmonary disease, unspecified; F10.90 Alcohol use, unspecified, uncomplicated; F12.90 Cannabis use, unspecified, uncomplicated; Z99.89 Dependence on other enabling machines and devices; Z90.49 Acquired absence of other specified parts of digestive tract; Z79.01 Long term (current) use of anticoagulants; Z79.51 Long term (current) use of inhaled steroids; Z87.891 Personal history of nicotine dependence; Z86.711 Personal history of pulmonary embolism; Z87.19 Personal history of other diseases of the digestive system; Z79.85 Long-term (current) use of injectable non-insulin antidiabetic drugs
CPT/HCPCS: 36415; 70450; 71045; 76770; 80048; 80053; 81001; 82164; 82306; 82310; 82330; 82397; 82550; 82570; 82652; 82784; 82948; 83735; 83930; 83935; 83970; 84100; 84155; 84156; 84165; 84166; 84300; 84443; 84484; 84540; 85025; 85027; 85055; 85610; 85730; 85999; 86334; 87040; 87086; 87641; 92960; 93005; 94640; 96365; 96375; 99285; A9270; C8929; G0378; J0283; J0616; J0630; J0696; J1160; J1938; J2405; J2704; J3010; J3475; J3480; J7030; J7040; J7050; J7120; J7517; Q9957

== ENCOUNTER 2025-04-23 14:28 | Outpatient (CLI) | payer MEDICARE, MEDICAID, SELFPAY ==
[2025-04-23 16:14] LABS: Alanine Aminotransferase 13 U/L (6-35); Albumin Level 4.0 g/dL (3.5-5.1); Alkaline Phosphatase 72 U/L (38-126); Anion Gap 8 mmol/L (4-12); Aspartate Amino Transferase 17 U/L (14-36); Bilirubin,Total 0.5 mg/dL (0.2-1.3); Blood Urea Nitrogen 15 mg/dL (7-17); Calcium 9.0 mg/dL (8.4-10.2); Carbon Dioxide 25 mmol/L (22-30); Chloride 107 mmol/L (98-107); Estimated Glomerular Filt Rate 39; Glucose 90 mg/dL (65-110); Potassium 4.0 mmol/L (3.4-5.0); Sodium 140 mmol/L (137-145); Total Protein 7.3 g/dL (6.3-8.2)
--- OUTSIDE RECORDS SUMMARY | 2025-04-23 20:33 | XMS_ITS | Encounter Summary ---
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
--- OUTSIDE RECORDS SUMMARY | 2025-04-23 20:33 | XMS_ITS | Encounter Summary ---
Author Organization [facility] Healthcare Address [address] [place] [address] Care Team Providers Care Collaborative Teacher Name Role Phone Dayron Arevalo MD Primary Care Provider [phone] Encounter Details Date Type Department Care Team (Late st Contact Info) Description 04/23/2025 Orders Only [facility] Medical Group Cardiology [address] [place] [address] Marli Cullen MA Chronic anticoagulation (Primary Dx) Social History Tobacco Use Types Packs/Day Years Used Date Smoking Tobacco: Former Cigarettes 0.5 4 0 01/28/2000 - 08/10/2003 Smokeless Tobacco: Never Alcohol Use Standard Drinks/Week Comments Not Currently 0 (1 standard drink = 0.6 oz pur e alcohol) Hunger Vital Sign Answer Date Recorded Within the past 12 months, y ou worried that your food would run out before you got the money to buy more. Never true 12/14/19 23 Within the past 12 months, t he food you bought just didn't last and you didn't have money to get more. Never true 12/13/2022 AUDIT-C Answer Date Recorded Q1: How often do you have a drink containing alcohol? Never 04/17/2025 Q2: How many drinks containi ng alcohol do you have on a typical day when you are drinking? Patient does not drink Q3: How often do you have si x or more drinks on one occasion? Never 04/17/2025 Personal Safety Answer Date Recorded Have you ever been in or are you currently in a harmful physical or emotional relationship or is someone making you feel afraid or unsafe? 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 Gender Identity Female 10/27/2020 9:28 AM CDT Sexual Orientation Straight 10/27/2020 9: 28 AM CDT documented as of this encounter Plan of Treatment Scheduled Orders Name Type Priority Associated Diagnoses Orde r Schedule Protime-INR Lab Routine Chronic anticoagulation 12 Occurrences starting 04/23/2025 until 04/23/2026 documented as of this encounter Visit Diagnoses Diagnosis Chronic anticoagulation- Primary Encounter for long-term (current) use of anticoagulants documented in this encounter Care Teams Collaborative Teacher Relationship Specialty Start Date End Date Dayron Arevalo MD PCP - General Family Practice 11/08/22 documented as of this encounter
--- OUTSIDE RECORDS SUMMARY | 2025-04-23 20:33 | XMS_ITS | Encounter Summary ---
Author Organization [facility] Address [address] [place] [address] Phone Care Team Providers Care Polymerization Oven Operator Name Role Phone Dayron Arevalo MD Primary Care Provider [phone] Encounter Details Date Type Department Care Team (Late st Contact Info) Description 04/17/2025 Results Follow-Up [facility] Medicine Rheumatology [address] 5[address] [place] [address] [place] [id number] Mark Engel MD [address] [facility] [address] [place] [address] Protein / creatinine ratio, urine, random, Urinalysis reflex to microscopic, Urinalysis, microscopic only Social History Tobacco Use Types Packs/Day Years [...] on file 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 Never 04/17/2025 11:13 AM Caitlyn Santacruz RMA Q2: How many drinks containing alcohol do you have on a typical day when you are drinking? Patient does not drink 04/17/2025 11:13 AM Caitlyn Santacruz RMA Q3: How often do you have six or more drinks on one occasion? Never 04/17/2025 11:13 AM Caitlyn Santacruz RMA documented as of this encounter Plan of Treatment Not on file documented as of this encounter Visit Diagnoses Not on filedocumented in this encounter Care Teams Polymerization Oven Operator Relationship Specialty Start Date End Date Dayron Arevalo MD PCP - General Family Practice 11/08/22 documented as of this encounter
--- OUTSIDE RECORDS SUMMARY | 2025-04-23 20:33 | XMS_ITS | Encounter Summary ---
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
--- OUTSIDE RECORDS SUMMARY | 2025-04-23 20:33 | XMS_ITS | Encounter Summary ---
Author Organization [facility] Address [address] [place] [address] Care Team Providers Care Patternmaker Name Role Phone Dayron Arevalo MD Primary Care Provider [phone] Encounter Details Date Type Department Care Team (Late st Contact Info) Description 10/27/2022 Therapy Plan [facility] [place], [place] [id number] Dayron Arevalo MD [address] [place] [address] Social History Tobacco Use Types [...] week 09/05/2022 How often do you attend [facility] sa[facility] or taoist services? Never 09/05/2022 Do you belong to any clubs o r organizations such as buddhism groups, unions, fraternal or athletic groups, or [...] Recorded Patient Health Questionnaire-2 Score 0 09/05/2022 [facility] of Occupat ional Health - Occupational Stress [...] place to sleep or slept in a mcc (including now)? 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
--- OUTSIDE RECORDS SUMMARY | 2025-04-23 20:33 | XMS_ITS | Encounter Summary ---
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
--- OUTSIDE RECORDS SUMMARY | 2025-04-23 20:33 | XMS_ITS | Encounter Summary ---
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
--- OUTSIDE RECORDS SUMMARY | 2025-04-23 20:33 | XMS_ITS | Clinical Summary ---
Author Organization [facility] Address [address] [place] [address] Care Team Providers Care Cement Fittings Maker Name Role Phone Dayron Arevalo MD Primary Care Provider [phone] Allergies Active Allergy Reactions Criticality Noted Date [...] often do you attend chur ch or adventism services? Never 09/05/2022 Do you belong to any clubs o r organizations such as cheondoism groups, unions, fraternal or athletic groups, or [...] Recorded Patient Health Questionnaire-2 Score 0 09/05/2022 [facility] - Occupational Stress Questionnaire Answer [...] place to sleep or slept in a chcf (including now)? 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 Gender Identity Not on file Sexual Orientation [...] Vaccine: 50+ Years (3 of 3 - PCV20 or PCV21) 04/09/2025 04/09/2020, 03/16/2017 DTaP, Tdap and Td Vaccines (2 - Td or Tdap) 03/16/2027 03/16/2017, 09/10/2008 Hepatitis A Vaccines Aged Out No long er eligible based on patient's age to complete this topic Meningococcal B Vaccine Aged Out No l [...] from hospital Lifestyle No Niharika Davis, RN Insurance [facility] [address] MEDICARE Advance Directives * Full Code (Latest Code Status on File) Date Activated Date Inactivated Comments 09/12/2022 4:10 PM 01/09/2023 10:18 AM * Full Code Date Activated Date Inactivated Comments 09/05/2022 4:28 PM 09/08/2022 11:09 PM Care Teams Cement Fittings Maker Relationship Specialty Start Date End Date Dayron Arevalo MD [address] [place] [address] PCP - General FAMILY PRACTICE 10/27/22
--- OUTSIDE RECORDS SUMMARY | 2025-04-23 20:33 | XMS_ITS | Clinical Summary ---
Author Organization [facility] [address] Address [address] [place] [address] Care Team Providers Care Section Maintainer Name Role Phone Dayron Arevalo MD Primary Care Provider [phone] Allergies Active Allergy Reactions Criticality Noted Date [...] TOLD BY 150 tablet 3 4 Active sacubitriL-vals daniel (Entresto) 49-51 mg tablet [...] 5 mg/0.5 mL pen injector 5 Active spironolactone (ALDACTONE) 25 mg tablet TAKE 1 TABLET (25 MG TOTAL) BY MOUTH DAILY. 90 tablet 1 5 Active amiodarone (PACERONE) 200 mg tablet Take 1 tablet (200 mg total) by mouth 5 Active Active Problems Problem Noted Date [...] Encounters Date Type Department Care Team Description 04/23/2025 Orders Only [facility] Cardiology [address] [place] [address] Marli Cullen MA Chronic anticoagulation (Primary Dx) 04/17/2025 1:20 PM CDT Lab [facility] [address] [place] [address] Systemic lupus erythematosus, unspecified SLE type, unspecified organ involvement status (HCC) 04/17/2025 11:30 AM CDT Office Visit [facility] Medicine Rheumatology [address] [facility] Advanced Medicine 5th [place] [address] [place] [address] Mark Engel MD Systemic lupus erythematosus, unspecified SLE type, unspecified organ involvement status (HCC) (Primary Dx) 04/17/2025 Results Follow-Up [facility] Medicine Rheumatology [address] [facility] Advanced Medicine 5th [place] [address] [place] [address] Mark Engel MD Protein / creatinine ratio, urine, random, Urinalysis reflex to microscopic, Urinalysis, microscopic only 04/08/2025 Orders Only [facility] Medical [facility] Cardiology [address] [place] [address] Pearl Lal NP 04/08/2025 Telephone [facility] Cardiology [address] [place] [address] Janneth Goyal NP 04/03/2025 Anticoagulation Visit [facility] Cardiology [address] [place] [address] Marli Keene RN Antiphospholipid antibody syndrome (Primary [...] Fawad Delgadillovielka Coronary artery disease Father Fawad Delgadillojose i Coronary artery disease; Diabetes Father Fawad Delgadillovielka Diabetes type II Father Fawad Brookepennie Diabe best -Type II; Heart failure Father's [...] 1 Kavya Schizophrenia; Diabetes Sister 2 [place]av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[place] Gender Identity Female 10/27/2020 9:28 AM CDT Sexual Orientation Straight 10/27/2020 9: 28 AM CDT Last Filed Vital Signs Vital Sign Reading Time Taken Comments Blood Pressure 105/70 04/17/2025 11:12 AM CDT Pulse 73 04/17/2025 11:12 AM CDT Temperature 36.7 C (98.1 F) 04/17/2025 11:12 AM CDT Respiratory Rate 22 04/17/2025 11:12 AM CDT Oxygen Saturation 94% 10/03/2024 11:30 AM CDT Inhaled Oxygen Concentration - - Weight 132.5 kg (292 lb) 04/17/2025 11:12 AM CDT Height 163.8 cm (5' 4.5) 01/09/2025 10:33 AM CD T Body Mass Index 49.35 01/09/2025 10:33 AM CDT Plan of Treatment Health Maintenance Due Date Last Done Comments Breast Cancer Screening-Mammogram 1972 Cervical Cancer Screening 1972 Colon Cancer Screening-Colonoscopy 1972 Depression Screening 1972 Hepatitis C Screening 1972 Hepatitis B Screening 1990 Regular Well Visit/Exam 18-64 1990 Influenza Vaccine (#1) 2025 , 03/16/2017, 02/18/2017, Additional history exists Pneumococcal vaccine <65 (3 of 3 - PCV20 or PCV21) 04/09/2025 04/09/2020, 03/16/2017 DTaP/Tdap/Td Vaccine (2 - Td or Tdap) 03/16/2027 03/16/2017, 09/10/2008 Zoster Vaccine Completed 11/18/2024, 05/07/2024 Medical Devices Implanted Type Area Environmental Manager Device Identifier Shelf Expiration Date Model / Serial / Lot Ivc Filter Vena Cava Procedures Procedure Name Priority Date/Time Associated Diagnosis Comments URINALYSIS, MICROSCOPIC ONLY Routine 04/17/2025 12:59 PM CDT Systemic lupus erythematosus, unspecified SLE type, unspecified organ involvement status (HCC) URINALYSIS AND REFLEX TO MICROSCOPIC Routine 04/17/2025 12:59 PM CDT Systemic lupus erythematosus, unspecified SLE type, unspecified organ involvement status (HCC) PROTEIN / CREATININE RATIO, URINE, RANDOM Routine 04/17/2025 12:59 PM CDT Systemic lupus erythematosus, unspecified SLE type, unspecified organ involvement status (HCC) CARDIOLOGY DOCUMENT SCAN Routine 04/07/2025 2:53 PM CDT CARDIOLOGY DOCUMENT SCAN Routine 04/06/2025 2:44 PM CDT PROTIME-INR Routine 04/02/2025 from Last 3 Months Results * (ABNORMAL) Urinalysis reflex to microscopic (04/17/2025 12:59 PM CDT) Color, ur Yellow Yellow Clarity, ur Clear Clear [facility] Specific gravity, ur 1.021 1.003 - 1.030 [facility] pH, urine 6.0 [facility] Comment: Interpretive Data U rine pH is affected by diet, medications, systemic acid-base disturbances, and renal tubular function. pH may affect urinary stone formation. For example, urine pH below 6.0 may help reduce the tendency for calcium phosphate stones and pH greater than 6.0 may reduce the tendency for uric acid stone formation. Source: [facility] [employer] Current Interpretive Data was last revised on 2017 Protein, ur ql 1+(A) Negative [facility] Glucose, ur ql Negative Negative [facility] Ketones, ur Negative Negative [facility] Bilirubin, ur Negative Negative [facility] Blood, ur Negative Negative [facility] Urobilinogen, ur <2.0 <2.0 mg/dL [facility] Nitrite, ur Negative Negative [facility] Leukocyte esterase, ur 3+(A) Negative [facility] UA reflex comment Reflex to microscopic UA will be performed. [facility] Urine 04/17/2025 12:5 9 PM CDT 04/17/2025 1:26 PM CDT us Mark Engel MD LAB URINE ORDERABLES Fin al Result [facility] Department [place] [address] * Protein / creatinine ratio, urine, random (04/17/2025 12:59 PM CDT) Protein, ur, quant 14.6 mg/dL Comment: Interpretive Data No reference range established. Current interpretive data was last revised 2018. Creatinine Ur 129.2 mg/dL [facility] Comment: Interpretive Data No reference range established. Current interpretive data was last revised 2018. Protein/creatinin e ratio 113.0 0.0 - 180.0 mg/g CR [facility] Urine 04/17/2025 12:5 9 PM CDT 04/17/2025 1:35 PM CDT us Mark Engel MD LAB URINE ORDERABLES Fin al Result Performing Organization Address [facility] Co de Phone Number [facility] Department [place] [address] * (ABNORMAL) Urinalysis, microscopic only (04/17/2025 12:59 PM CDT) WBC, ur >50(A) 0 - 5 /HPF RBC, ur 3-5(A) 0 - 2 /HPF [facility] Epithelial cells, squamous, ur 6-10(A) 0 - 5 /HPF [facility] Comment:Suggestive of contam ination. Consider recollection by clean catch. Bacteria, ur Trace(A) [facility] Mucous, ur Present(A ) [facility] Hyaline casts, ur 6-10 0 - 10 /LPF [facility] Urine 04/17/2025 12:5 9 PM CDT 04/17/2025 1:26 PM CDT us Mark Engel MD LAB URINE ORDERABLES Fin al Result Performing Organization Address [facility]/ZIP Co de Phone Number [facility] Department [place] [address] * Cardiology Document Scan (04/07/2025 2:53 PM CDT) Anatomical Region Laterality Modality Other Nazario Alfred MD CV CARDIAC SERVICES PROCEDURES F inal Result * Cardiology Document Scan (04/06/2025 2:44 PM CDT) Anatomical Region Laterality Modality Other Pearl Lal NP CV CARDIAC SERVICES PROCEDUR ES Final Result * (ABNORMAL) Protime-INR (04/02/2025) INR 5.90(A) 0.90 - 1.10 EXTERNAL LAB Blood Historical Provider LAB BLOOD ORDERABLES Ansley l Result EXTERNAL LAB from Last 3 Months Insurance [employer] [facility] MED[facility] AD[facility]ANTAGE [facility] Address: [address] [address] [place] [address] [employer] [facility] MEDICARE ADVANTAGE [facility] MED[facility] ADVANTAGE [employer] Care Teams Section Maintainer Relationship Specialty Start Date End Date Dayron Arevalo MD PCP - General Family Practice 11/08/22
--- OUTSIDE RECORDS SUMMARY | 2025-04-23 20:33 | XMS_ITS | Encounter Summary ---
Author Organization 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 Gender Identity Female 10/27/2020 9:28 AM CDT Sexual Orientation Straight 10/27/2020 9: 28 AM CDT documented as of this encounter Functional Status * BP Location Answer Date of Assessment Author Left arm 04/30/2024 9:33 AM PRACTICE CONSULTANT Lefty Watson MA * BP Location Answer Date of Assessment Author Left arm 04/30/2024 9:33 AM PRACTICE CONSULTANT Jairo Watson MA documented as of this encounter Plan of Treatment Not on file documented as of this encounter Procedures Procedure Name Priority Date/Time Associated Diagnosis Comments SCAN - LABS 04/30/2024 documented in this encounter Results * SCAN - LABS (04/30/2024) us Provider Scanning Final Result documented in this encounter Visit Diagnoses Not on filedocumented in this encounter Care Teams Asphalt Spreader Operator Relationship Specialty Start Date End Date Dayron Arevalo MD PCP - General Family Practice 11/08/22 documented as of this encounter
== END 2025-04-23 14:29 | disposition home or self-care (01) ==
PROVIDERS: PCP Family Medicine; Visit Provider Nurse Practitioner Family
DX: E55.9 Vitamin D deficiency, unspecified (principal); N17.9 Acute kidney failure, unspecified; N18.9 Chronic kidney disease, unspecified
CPT/HCPCS: 36415; 80053; 82306

== ENCOUNTER 2025-05-25 14:31 | Outpatient (CLI) | payer MEDICARE, MEDICAID, SELFPAY ==
[2025-05-25 14:55] LABS: Hematocrit 33.7 % (37.0-47.0); Hemoglobin 10.2 g/dL (12.0-15.0); Immature Granulocyte Percent A 0.4 % (0-0.5); Lymphocytes Absolute Auto 0.86 K/mm3 (0.9-3.2); Mean Corpuscular HGB Conc 30.3 g/dl (32-36); Mean Corpuscular Hemoglobin 28.5 pg (26-34); Mean Corpuscular Volume 94.1 fl (80-100); Nucleated Red Blood Cells Absolute Auto 0.000 K/mm3 (0.0-0.012); Nucleated Red Blood Cells Perc 0.0 % (0.0-0.2); Platelet Count Result 107 k/mm3 (150-375); Red Blood Count 3.58 M/mm3 (4.2-5.4); White Blood Count 4.8 K/mm3 (4.5-10.0)
[2025-05-25 15:26] LABS: Iron 69 ug/dL (37-170)
[2025-05-25 15:29] LABS: Alanine Aminotransferase 12 U/L (6-35); Albumin Level 4.2 g/dL (3.5-5.1); Alkaline Phosphatase 89 U/L (38-126); Anion Gap 6 mmol/L (4-12); Aspartate Amino Transferase 21 U/L (14-36); Bilirubin,Total 0.6 mg/dL (0.2-1.3); Blood Urea Nitrogen 28 mg/dL (7-17); Calcium 9.3 mg/dL (8.4-10.2); Carbon Dioxide 23 mmol/L (22-30); Chloride 108 mmol/L (98-107); Estimated Glomerular Filt Rate 33; Glucose 84 mg/dL (65-110); Potassium 4.6 mmol/L (3.4-5.0); Sodium 137 mmol/L (137-145); Total Protein 7.8 g/dL (6.3-8.2)
[2025-05-25 15:36] LABS: Percent Iron Saturation 20 % (20-50)
== END 2025-05-25 14:32 | disposition home or self-care (01) ==
PROVIDERS: PCP Family Medicine; Visit Provider Family Medicine
DX: E55.9 Vitamin D deficiency, unspecified (principal); I50.9 Heart failure, unspecified; D68.61 Antiphospholipid syndrome; G47.33 Obstructive sleep apnea (adult) (pediatric); M32.9 Systemic lupus erythematosus, unspecified; E66.01 Morbid (severe) obesity due to excess calories; Z68.43 Body mass index [BMI] 50.0-59.9, adult
CPT/HCPCS: 36415; 80053; 83540; 83550; 85025

== ENCOUNTER 2025-06-03 12:11 | Outpatient (CLI) | payer MEDICARE, MEDICAID, SELFPAY ==
[2025-06-03 12:58] LABS: Hematocrit 34.0 % (37.0-47.0); Hemoglobin 10.2 g/dL (12.0-15.0); Immature Granulocyte Percent A 0.5 % (0-0.5); Lymphocytes Absolute Auto 0.64 K/mm3 (0.9-3.2); Mean Corpuscular HGB Conc 30.0 g/dl (32-36); Mean Corpuscular Hemoglobin 28.4 pg (26-34); Mean Corpuscular Volume 94.7 fl (80-100); Nucleated Red Blood Cells Absolute Auto 0.000 K/mm3 (0.0-0.012); Nucleated Red Blood Cells Perc 0.0 % (0.0-0.2); Platelet Count Result 124 k/mm3 (150-375); Red Blood Count 3.59 M/mm3 (4.2-5.4); White Blood Count 4.3 K/mm3 (4.5-10.0)
[2025-06-03 13:01] LABS: Add Urine Microscopic? YES; Appearance Urine Clear (Clear); Glucose Urine UA Negative (Negative); Leukocyte Esterase Ur 2+ LEU/UL (Negative); Nitrate Urine Negative (Negative); Non Pathogenic Casts 0-2; Specific Grav Ur 1.013 (1.001-1.035)
[2025-06-03 13:14] LABS: Total Protein Urine Random 11 mg/dL; Ur Ttl Prot Creatinine Ratio 0.20 mg/mg (0-0.20)
[2025-06-03 13:19] LABS: Alanine Aminotransferase 9 U/L (6-35); Albumin Level 4.3 g/dL (3.5-5.1); Alkaline Phosphatase 83 U/L (38-126); Anion Gap 10 mmol/L (4-12); Aspartate Amino Transferase 19 U/L (14-36); Bilirubin,Total 0.5 mg/dL (0.2-1.3); Blood Urea Nitrogen 33 mg/dL (7-17); CRP < 0.5 mg/dL (<1.0); Calcium 9.3 mg/dL (8.4-10.2); Carbon Dioxide 23 mmol/L (22-30); Chloride 106 mmol/L (98-107); Estimated Glomerular Filt Rate 27; Glucose 87 mg/dL (65-110); Potassium 5.4 mmol/L (3.4-5.0); Sodium 139 mmol/L (137-145); Total Protein 8.0 g/dL (6.3-8.2)
--- OUTSIDE RECORDS SUMMARY | 2025-06-03 14:10 | XMS_ITS | Encounter Summary ---
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
--- OUTSIDE RECORDS SUMMARY | 2025-06-03 14:10 | XMS_ITS | Encounter Summary ---
Author Organization [facility] Address [address] [place] [address] Care Team Providers Care Battery Tester Name Role Phone Dayron Arevalo MD Primary Care Provider [phone] Encounter Details Date Type Department Care Team (Late st Contact Info) Description 10/27/2022 Therapy Plan [facility] [address] [place], [place] [id number] Dayron Arevalo MD [address] [place] [address] Social History Tobacco Use Types [...] week 09/05/2022 How often do you attend [facility] or advent services? Never 09/05/2022 Do you belong to any clubs o r organizations such as religious groups, unions, fraternal or athletic groups, or [...] Recorded Patient Health Questionnaire-2 Score 0 09/05/2022 [facility]at ional [facility] - Occupational Stress [...] place to sleep or slept in a nursing home (including now)? 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
--- OUTSIDE RECORDS SUMMARY | 2025-06-03 14:10 | XMS_ITS | Encounter Summary ---
Author Organization [facility] Address [address] [place] [address] Phone Care Team Providers Care Television Installer Name Role Phone Dayron Arevalo MD Primary Care Provider [phone] Encounter Details Date Type Department Care Team (Late st Contact Info) Description 04/17/2025 Results Follow-Up [facility] Medicine Rheumatology [address] [facility] Advanced Medicine 5th [place] [address] [place] [address] Mark Engel MD [address] [facility] [address] [place] [address] Protein / creatinine ratio, urine, [...] on file 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 Gender Identity Female 10/27/2020 9:28 AM CDT [...] Type Priority Associated Diagnoses Orde r Schedule CBC with auto differential Lab Routine Systemic lupus erythematosus, unspecified SLE type, unspecified organ involvement status (HCC) Expected: 05/27/2025, Expires: 04/29/2026 Comprehensive metabolic panel Lab Routine Systemic lupus erythematosus, unspecified SLE type, unspecified organ involvement status (HCC) Expected: 05/27/2025, Expires: 04/29/2026 CRP (acute phase) Lab Routine Systemic lupus erythematosus, unspecified SLE type, unspecified organ involvement status (HCC) Expected: 05/27/2025, Expires: 04/29/2026 Erythrocyte sedimentation rate Lab Routine Systemic lupus erythematosus, unspecified SLE type, unspecified organ involvement status (HCC) Expected: 05/27/2025, Expires: 04/29/2026 C4 complement Lab Routine Systemic lupus erythematosus, unspecified SLE type, unspecified organ involvement status (HCC) Expected: 05/27/2025, Expires: 04/29/2026 C3 complement Lab Routine Systemic lupus erythematosus, unspecified SLE type, unspecified organ involvement status (HCC) Expected: 05/27/2025, Expires: 04/29/2026 Anti-double stranded DNA abs Lab Routine Systemic lupus erythematosus, unspecified SLE type, unspecified organ involvement status (HCC) Expected: 05/27/2025, Expires: 04/29/2026 Urinalysis reflex to microscopic Lab Routine Systemic lupus erythematosus, unspecified SLE type, unspecified organ involvement status (HCC) Expected: 05/27/2025, Expires: 04/29/2026 Protein / creatinine ratio, urine, random Lab Routine Systemic lupus erythematosus, unspecified SLE type, unspecified organ involvement status (HCC) Expected: 05/27/2025, Expires: 04/29/2026 documented as of this encounter Visit Diagnoses Diagnosis Systemic lupus erythematosus, unspecified SLE type, unspecified organ involvement status (HCC)- Primary documented in this encounter Care Teams Television Installer Relationship Specialty Start Date End Date Dayron Arevalo MD PCP - General Family Practice 11/08/22 documented as of this encounter
--- OUTSIDE RECORDS SUMMARY | 2025-06-03 14:10 | XMS_ITS | Encounter Summary ---
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
--- OUTSIDE RECORDS SUMMARY | 2025-06-03 14:10 | XMS_ITS | Clinical Summary ---
Author Organization [facility] [address] Address [address] [place] [address] Care Team Providers Care Doctor Of Audiology Name Role Phone Dayron Arevalo MD Primary Care Provider [phone] Allergies Active Allergy Reactions Criticality Noted Date Comments Doxycycline Hives Medium Oxcarbazepine Swelling Medium 10/23/2018 Penicillins Hives Medium Sulfa (Sulfonamide Antibiotics) Hives Medium Sulfamethoxazole Sulfamethoxazole-Trimethoprim Hives Medium 2017 Trimethoprim Medications hydroxychloro quine (PLAQUENIL) 200 mg tablet Take by mouth [...] mg total) by mouth as needed Active budesonide-fo rmoteroL (SYMBICORT) 160-4.5 mcg/actuation inhaler Inhale 2 puffs 2 (two) times a day 01/03/20 19 Active warfarin (COUMADIN) 1 mg tablet TAKE 1 TABLET BY MOUTH EVERY DAY DIRECTED WITH 3MG TABLETS 7 tablet 09/29/19 20 Active cholecalcifer ol (VITAMIN D-3) 2000 unit capsule Take 1 [...] tablet TAKE 1&1/2 TABLETS BY MOUTH ON SUN, & SUN AND 2 TABS ALL OTHER DAYS UNLESS OTHERWISE TOLD BY 150 tablet 3 04/25/20 24 Active carbidopa-lev odopa (SINEMET) 25-100 mg per tablet TAKE 1 TABLET BY MOUTH ONE DOSE 08/22/[address] (PROTONIX) 40 mg EC tablet Take 1 tablet (40 mg total) by mouth daily Active Zepbound 5 mg/0.5 mL pen injector 12/27/19 25 Active carvediloL (COREG) 6.25 mg tablet TAKE 1 TABLET BY MOUTH TWICE A DAY WITH FOOD 180 tablet 2 05/04/20 25 Active sacubitriL-va lsartan (Entresto) 49-51 mg tablet Take 1 tablet by mouth 2 (two) times a day 180 tablet 6 05/06/20 25 Active spironolacton e (ALDACTONE) 25 mg tablet Take 1 tablet (25 mg total) by mouth daily 90 tablet 6 05/06/20 25 Active amiodarone (PACERONE) 200 mg tablet Take 1 tablet (200 mg total) by mouth daily 90 tablet 3 05/06/20 25 026 Active sacubitriL-va lsartan (Entresto) 49-51 mg tablet TAKE 1 TABLET BY MOUTH TWICE A DAY 180 tablet 2 02/24 025 Discontinued spironolacton e (ALDACTONE) 25 mg tablet TAKE 1 TABLET (25 MG TOTAL) BY MOUTH DAILY. 90 tablet 1 03/16/20 025 Discontinued amiodarone (PACERONE) 200 mg tablet Take 1 tablet (200 mg total) by mouth 04/07/20 025 Discontinued(P atient Reported) Active Problems Problem Noted [...] Encounters Date Type Department Care Team Description 05/26/2025 Orders Only [facility] Medical [facility] Cardiology [address] [place] [phone] Cuate Carpio MD 05/26/2025 Anticoagulation Visit [facility] [address] [place] [address] Pratibha Mascorro RN Antiphospholipid antibody syndrome (Primary Dx); History of DVT (deep vein thrombosis) 05/06/2025 10:15 AM MEDICINAL PLANT PICKER Office Visit [facility] Card[facility] [address] [place] [address] Nazario Alfred MD Heart failure with mildly reduced ejection fraction (Primary Dx); Nonischemic cardiomyopathy (HCC); Atrial fibrillation status post cardioversion (HCC); History of DVT (deep vein thrombosis); Chronic anticoagulation; PAMELA on CPAP; Need for lipid screening 05/01/2025 Anticoagulation Visit [facility] Cardiology [address] [place] [address] [place] [phone] Pratibha Mascorro RN Antiphospholipid antibody syndrome (Primary Dx); History of DVT (deep vein thrombosis) 04/24/2025 Anticoagulation Visit [facility] [address] [place] [address] [place] [phone] Kim Rodriguez RN Antiphospholipid antibody syndrome (Primary Dx); History of DVT (deep vein thrombosis) 04/23/2025 Orders Only [facility] [address] [place] [address] [place] [phone] Marli Cullen MA Chronic anticoagulation (Primary Dx) 04/17/2025 1:20 PM CDT Lab [facility] [address] [place] [address] Systemic lupus erythematosus, unspecified SLE type, unspecified organ involvement status (HCC) 04/17/2025 11:30 AM CDT Office Visit [facility] Rheumatology [address] [facility] [address] 5th [address] [phone] Mark Engel MD Systemic lupus erythematosus, unspecified SLE type, unspecified organ involvement status (HCC) (Primary Dx) 04/17/2025 Results Follow-Up [facility] Rheumatology [address] [facility] 5th [address] [address] Mark Engel MD Protein / creatinine ratio, urine, random, Urinalysis reflex to microscopic, Urinalysis, microscopic only 04/08/2025 Orders Only [facility] [address] [place] [address] [place] [phone] Pearl Lal NP 04/08/2025 Telephone [facility] [address] [place] [phone] Janneth Goyal NP 04/03/2025 Anticoagulation Visit [facility] Medical Group Cardiology [address] [place] [address] Marli Keene RN Antiphospholipid antibody [...] Brother 3 Hadley Lizamaphilippepennie Cancer Father Fawad Lizamabrenda Coronary artery disease Father Fawad Delgadillojose i Coronary artery disease; Diabetes Father Fawad Delgadillomarcelinopennie Diabetes type II Father Fawad Delgadillomarcelinopennie Diabe best -Type II; Heart failure Father's Brother 1 Congesti ve heart failure; Heart failure Father's Brother 2 Davion Devine Cancer Father's Sister Naldo Lung cancer Father's Sister Naldo Cancer -lung ; Diabetes type II Maternal Grandfather Adry betes -Type II; Mental illness Maternal Grandmother Nhi Parkinsonism Maternal Grandmother Nhi Eulogio on's disease; Diabetes Mother Deanne Diabetes type II Mother Deanne Diabetes -T ype II; Cause of : Diabetes -Type II Mental illness Mother Deanne Diabetes Sister 1 Kavya Mental illness Sister 1 Kavya Schizophrenia Sister 1 Kavya Schizophrenia; Diabetes Sister 2 Kavya Katherine Mental illness Sister 2 Kavya Kimball Asthma Son 1 Liu Learning disabilities Son [...] on file Legal Sex Female 11:03 PM MEDICINAL PLANT PICKER Gender Identity Female 10/27/2020 9:28 AM CDT Sexual Orientation Straight 10/27/2020 9: 28 AM CDT Last Filed Vital Signs Vital Sign Reading Time Taken Comments Blood Pressure 120/70 05/06/2025 10:13 AM MEDICINAL PLANT PICKER Pulse 55 05/06/2025 10:13 AM MEDICINAL PLANT PICKER Temperature 36.7 C (98.1 F) 04/17/2025 11:12 AM CDT Respiratory Rate 22 04/17/2025 11:1 2 AM CDT Oxygen Saturation 97% 05/06/2025 10: 13 AM MEDICINAL PLANT PICKER Inhaled Oxygen Concentration - - Weight 134.8 kg (297 lb 1.6 oz) 025 10:13 AM MEDICINAL PLANT PICKER Height 162.6 cm (5' 4) 05/06/2025 10:1 3 AM MEDICINAL PLANT PICKER Body Mass Index 51 05/06/2025 10:13 AM MEDICINAL PLANT PICKER Plan of Treatment Health Maintenance Due Date [...] 11/18/2024, 05/07/2024 Medical Devices Implanted Type Area Senior Trainer Device Identifier Shelf Expiration Date Model / Serial / Lot Ivc Filter Vena Cava Procedures Procedure Name Priority Date/Time Associated Diagnosis Comments PROTIME-INR Routine 05/26/2025 8:21 AM [employer]AL PLANT P[employer]ER PROTIME-INR Routine 05/25/2025 ELECTROCARDIOGRAM REPORT Routine 025 11:41 AM [employer]AL PLANT P[employer]ER Atrial fibrillation status post cardioversion (HCC) POCT LIPID PANEL Routine 05/06/2025 11:4 0 AM [employer]AL PLANT P[employer]ER Need for lipid screening PROTIME-INR Routine 04/30/2025 PROTIME-INR Routine 04/23/2025 URINALYSIS, MICROSCOPIC ONLY Routine 04/17/2025 12:59 PM [...] involvement status (HCC) CARDIOLOGY DOCUMENT SCAN Routine 025 2:53 PM CDT CARDIOLOGY DOCUMENT SCAN Routine 025 2:44 PM CDT PROTIME-INR Routine 04/02/2025 from Last 3 Months Results * Protime-INR (05/26/2025 8:21 AM MEDICINAL PLANT PICKER) Blood Result [facility] Historical Provider LAB BLOOD ORDERABLES Ansley l Result * (ABNORMAL) Protime-INR (05/25/2025) Pathologist [facility] INR 3.70(A) 0.90 - 1.10 EXTERNAL LAB Blood Result [facility] Historical Provider LAB BLOOD ORDERABLES Ansley l Result EXTERNAL LAB * Electrocardiogram Report (05/06/2025 11:41 AM MEDICINAL PLANT PICKER) Nazario Alfred MD ECG ORDERABLES Edited Result - Final * POCT lipid panel (05/06/2025 11:40 AM MEDICINAL PLANT PICKER) Cholesterol, POC 122 <200 MG/DL Comment:GLU = 99 HDL, POC 54 >=40 mg/dL Triglycerides, POC 122 <=149 mg/dL LDL Cholesterol POC 44 <=129 mg/dL Chol/HDL Ratio, POC 0.8 NONE Non-HDL Cholesterol, POC 68 NONE mg/dL Cholesterol Total, POC 122 30 - 199 mg/dL Capillary blood 05/06/2025 1 1:40 AM MED[employer]INAL PLANT P[employer]ER Nazario Alfred MD POINT OF CARE TEST ORDERABLES Fi nal Result * (ABNORMAL) Protime-INR (04/30/2025) INR 3.00(A) 0.90 - 1.10 EXTERNAL LAB Blood Historical Provider LAB BLOOD ORDERABLES Ansley l Result EXTERNAL LAB * (ABNORMAL) Protime-INR (04/23/2025) INR 4.60(A) 0.90 - 1.10 EXTERNAL LAB Blood 04/23/2025 Historical Provider LAB BLOOD ORDERABLES Ansley l Result EXTERNAL LAB * (ABNORMAL) Urinalysis reflex to microscopic (04/17/2025 12:59 PM CDT) Color, ur Yellow Yellow Clarity, ur Clear Clear [facility] Specific gravity, ur 1.021 1.003 - 1.030 [facility] pH, urine 6.0 [facility] Comment: Interpretive Data U rine pH is affected by diet, medications, systemic acid-base disturbances, and renal tubular function. pH may affect urinary stone formation. For example, urine pH below 6.0 may help reduce the tendency for calcium phosphate stones and pH greater than 6.0 may reduce the tendency for uric acid stone formation. Source: [employer] Current Interpretive Data was last revised on 2017 Protein, ur ql 1+(A) Negative [facility] Glucose, ur ql Negative Negative [facility] Ketones, ur Negative Negative [facility] Bilirubin, ur Negative Negative [facility] Blood, ur Negative Negative [facility] Urobilinogen, ur <2.0 <2.0 mg/dL [facility] Nitrite, ur Negative Negative [facility] Leukocyte esterase, ur 3+(A) Negative [facility] UA reflex comment Reflex to microscopic UA will be performed. [facility] Urine 04/17/2025 12:5 9 PM CDT 04/17/2025 1:26 PM CDT Mark Engel MD LAB URINE ORDERABLES Fin al Result Performing Organization Address [facility] de Phone Number [facility] [place] [address] * Protein / creatinine ratio, urine, random (04/17/2025 12:59 PM CDT) Protein, ur, quant 14.6 mg/dL Comment: Interpretive Data No reference range established. Current interpretive data was last revised 2018. Creatinine Ur 129.2 mg/dL [facility] Comment: Interpretive Data No reference range established. Current interpretive data was last revised 2018. Protein/creatinin e ratio 113.0 0.0 - 180.0 mg/g CR [facility] Urine 04/17/2025 12:5 9 PM CDT 04/17/2025 1:35 PM CDT Mark Engel MD LAB URINE ORDERABLES Fin al Result Performing Organization Address [facility] de Phone Number [facility] Department [place] [address] * (ABNORMAL) Urinalysis, microscopic only (04/17/2025 12:59 PM CDT) WBC, ur >50(A) 0 - 5 /HPF RBC, ur 3-5(A) 0 - 2 /HPF [facility] Epithelial cells, squamous, ur 6-10(A) 0 - 5 /HPF [facility] Comment:Suggestive of contam ination. Consider recollection by clean catch. Bacteria, ur Trace(A) [facility] Mucous, ur Present(A ) [facility] Hyaline casts, ur 6-10 0 - 10 /LPF [facility] Urine 04/17/2025 12:5 9 PM CDT 04/17/2025 1:26 PM CDT us Mark Engel MD LAB URINE ORDERABLES Fin al Result Performing Organization Address City/[facility]/ZIP Co de Phone Number [facility] [place] [address] * Cardiology Document Scan (04/07/2025 2:53 PM CDT) Anatomical Region Laterality Modality Other us Nazario Alfred MD CV CARDIAC SERVICES PROCEDURES F inal Result * Cardiology Document Scan (04/06/2025 2:44 PM CDT) Anatomical Region Laterality Modality Other us Pearl Lal NP CV CARDIAC SERVICES PROCEDUR ES Final Result * (ABNORMAL) Protime-INR (04/02/2025) INR 5.90(A) 0.90 - 1.10 EXTERNAL LAB Blood us Historical Provider LAB BLOOD ORDERABLES Ansley l Result Performing Organization Address City/[facility]/ZIP Co de Phone Number EXTERNAL LAB from Last 3 Months Insurance IDPA [facility] MEDICARE ADVANTAGE [employer] [facility] MEDICARE ADVANTAGE [facility] MEDICARE ADVANTAGE [employer]PA Care Teams Doctor Of Audiology Relationship Specialty Start Date End Date Dayron Arevalo MD PCP - General Family Practice 11/08/22
--- OUTSIDE RECORDS SUMMARY | 2025-06-03 14:10 | XMS_ITS | Encounter Summary ---
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
--- OUTSIDE RECORDS SUMMARY | 2025-06-03 14:10 | XMS_ITS | Clinical Summary ---
Author Organization [facility] Address [address] [place] [address] Care Team Providers Care Assistant Professor Of Biology Name Role Phone Dayron Arevalo MD Primary Care Provider [phone] Allergies Active Allergy Reactions Criticality Noted Date [...] often do you attend chur ch or jain services? Never 09/05/2022 Do you belong to any clubs o r organizations such as voodoo groups, unions, fraternal or athletic groups, or [...] Recorded Patient Health Questionnaire-2 Score 0 09/05/2022 [facility] - Occupational Stress Questionnaire Answer Date [...] place to sleep or slept in a correction (including now)? 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
--- OUTSIDE RECORDS SUMMARY | 2025-06-03 14:10 | XMS_ITS | Clinical Summary ---
Author Organization [facility] Address [facility] [place] [address] Care Team Providers Care Seed Technician Name Role Phone Vinnie Love MD Primary Care Provider [phone] Source Comments [facility],non-owned Affiliates and Associated Physician Practices is amultiple site organization consisting of ambulatory clinics and hospital sitesin [place], [place], [place] and [place]. This disclosure is being madepursuant to the Care Everywhere program and may not contain all information available regarding this patient. 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
--- OUTSIDE RECORDS SUMMARY | 2025-06-03 14:11 | XMS_ITS | Encounter Summary ---
Author Organization [facility] Address [address] [place] [address] Phone Care Team Providers Care Replanting Machine Crew Name Role Phone Dayron Arevalo MD Primary Care Provider [phone] Encounter Details Date Type Department Care Team [...] on file Legal Sex Female 11:03 PM FLOOR WAXER Gender Identity Female 10/27/2020 9:28 AM CDT [...] on filedocumented in this encounter Care Teams Replanting Machine Crew Relationship Specialty Start Date End Date Dayron Arevalo MD PCP - General Family Practice 11/08/22 documented as of this encounter
== END 2025-06-03 12:12 | disposition home or self-care (01) ==
PROVIDERS: PCP Family Medicine
DX: M32.9 Systemic lupus erythematosus, unspecified (principal)
CPT/HCPCS: 36415; 80053; 81001; 82570; 84156; 85025; 85652; 86140; 86160; 86225